=== PATIENT | female | born 1975 | race Caucasian/White ===

== ENCOUNTER → 2016-04-10 | Outpatient (REF) | payer OTHER ==
[~2016-04-10] MED LIST: /BACIOPOI; /TIOT18INH; ACET50TA PO; ACYC800T PO; BIOTPOW20 PO; IRON CR PO; LIPI10TA; METH-29; NEUR300C PO; OMEP40CA2 PO; PRED20TA; PROV90AE; VICO5TAB16 PO; VICODINES TAB; VITA100072 PO; WOMETAB4 PO
== END ==
LOC: M LAB REF 18:54
PROVIDERS: ATTEND Physician Assistant
DX: J02.9 Acute pharyngitis, unspecified (principal)

== ENCOUNTER 2016-07-22 19:33 | Inpatient (IN) | payer OTHER ==
[~2016-07-22] VITALS: Ht 165.1 cm; Wt 80.0 kg
[2016-07-22] MEDS ORDERED: RANI15TA PO (19:45)
[2016-07-22] MEDS ORDERED: FERR325T3 PO (19:45)
[2016-07-22] MEDS ORDERED: PANT40TA2 PO (19:45)
[2016-07-22] MEDS ORDERED: ONDANSETRON 4MG/2ML VIAL (J2405) IV ONE (20:30)
[2016-07-22] MEDS ORDERED: NS 1,000 ML IV ONE ×2 (20:30→22:30)
[2016-07-22] MEDS: MORPHINE 4 MG/ML 1ML SYRINGE IV PRN ×2 (20:35→22:28)
[2016-07-22 20:40] LABS: BASO % 0.5 % (0.0-1.0); EOS # 0.1 K/mm3 (0.0-0.50); EOS % 1.9 % (0.0-3.0); LARGE UNSTAINED CELL # 0.1 K/mm3 (0.0-0.4); LARGE UNSTAINED CELL % 2.9 % (0.0-4.0); LYMPH # 1.7 K/mm3 (1.5-4.5); LYMPH % 33.4 % (24.0-44.0); MEAN CORPUSCULAR HEMOGLOBIN 23.9 pg (27.0-33.0); MEAN CORPUSCULAR HGB CONC 31.9 g/dl (32.0-36.5); MONO # 0.4 K/mm3 (0.0-0.8); MONO % 7.8 % (0.0-5.0); NEUTROPHILS # 2.5 K/mm3 (1.8-7.7); NEUTROPHILS % 53.5 % (36.0-66.0); PLATELET COUNT, AUTOMATED 295 k/mm3 (150-450); RED CELL DISTRIBUTION WIDTH 14.5 % (11.5-14.5); WHITE BLOOD COUNT 4.7 K/mm3 (4.0-10.0)
[2016-07-22 21:00] LABS: CONTROL LINE HCG INT CTR LINE PRESENT
[2016-07-22 21:07] LABS: ALBUMIN 3.8 GM/DL (3.2-5.2); ALBUMIN/GLOBULIN RATIO 1.19 (1.00-1.93); ALKALINE PHOSPHATASE 104 U/L (45-117); ALT/SGPT 26 U/L (12-78); AMYLASE 73 U/L (25-115); ANION GAP 5 MEQ/L (8-16); AST/SGOT 18 U/L (15-37); BILIRUBIN,DIRECT 0.2 MG/DL (0.0-0.2); BILIRUBIN,TOTAL 0.9 MG/DL (0.2-1.0); BLOOD UREA NITROGEN 9 MG/DL (7-18); CALCIUM LEVEL 8.3 MG/DL (8.5-10.1); CARBON DIOXIDE LEVEL 27 MEQ/L (21-32); CHLORIDE LEVEL 107 MEQ/L (98-107); CREATININE FOR GFR 0.71 MG/DL (0.55-1.02); GLOMERULAR FILTRATION RATE > 60.0 (>58); GLUCOSE, FASTING 91 MG/DL (70-105); POTASSIUM SERUM 3.6 MEQ/L (3.5-5.1); SODIUM LEVEL 139 MEQ/L (136-145)
[2016-07-22] MEDS ORDERED: ISOVUE-370 76% 100ML VIAL (Q9967) As Ordered ONE (21:22)
--- NOTE | 2016-07-22 21:50 | REPUSA ---
CT of the abdomen and pelvis with contrast Clinical statement: Pain. Technique: Multiple axial CT images were obtained from the base of the lungs through the floor of the pelvis utilizing 5 mm axial slices after administration of nonionic intravenous contrast. Coronal an d sagittal reconstructions were also obtained. Comparison: 02/12/2015. Findings: Chest: The visualized lung bases are clear. Abdomen: The spleen, pancreas, kidneys, gallbladder, and adrenal glands are unremarkable. Surgical ch anges from gastric bypass are noted. There is too small ill-defined low attenuation lesions within th e right lobe of the liver, too small to characterize. The aorta is within normal limits. There is no evidence of abdominal lymphadenopathy or ascites. Pelvis: The bowel is unremarkable, with no obstructive or inflammatory changes. The appendix is cecil l. The urinary bladder is within normal limits. The other pelvic structures appear grossly intact. Th ere is no evidence of pelvic lymphadenopathy. There is a small on of free fluid in the cul-de-sac. Bones: There are no suspicious osseous abnormalities seen. Impression: 1. Postsurgical changes from gastric bypass appear grossly stable. 2. No obstructive or inflammatory bowel changes.
--- NOTE | 2016-07-22 21:52 | REP ---
Clinical: Epigastric pain . Comparison: 10/24/2013 . Technique: PA and lateral. Findings: The mediastinum and cardiac silhouette are normal. The lung nur are clear and without acute consolidation, effusion, or pneumothorax. The skeletal structures are intact and normal. No free air below the diaphragm. Impression: 1. No acute cardiopulmonary process. Signed by Christopher Naraynaan MD 07/22/2016 09:44 P
[2016-07-22] MEDS ORDERED: B121000T PO (22:42)
[2016-07-22] MEDS ORDERED: VITMTA PO (22:42)
[2016-07-23] MEDS ORDERED: NS 1,000 ML IV SCH (00:38)
[2016-07-23] MEDS ORDERED: PERCOCET 5MG/325MG TAB PO PRN ×2 (00:45)
[2016-07-23] MEDS ORDERED: ONDANSETRON 4MG/2ML VIAL (J2405) IV PRN (00:45)
--- NOTE | 2016-07-23 01:26 | HPE ---
DATE OF ADMISSION: 07/23/2016 PRIMARY CARE PHYSICIAN: Luci Kimble SURGEON: Dr. Velázquez CHIEF COMPLAINT: Abdominal pain. HISTORY OF PRESENT ILLNESS: The patient is a 41-year-old female with a long history of episodes of acute on chronic abdominal pain. She did have a gastric bypass in 2010, and following the procedure she had a perforated viscus. She also is known to have had an upper gastrointestinal (GI) bleeding 2013 with an ulcer at the gastrojejunal anastomosis site. The patient refused to see her gastric bypass surgeon, and is currently a patient of Dr. Velázquez, who has been following her for her abdominal issues. The patient states for the last four days she has had mid epigastric burning sensation with intermittent episodes of diarrhea. No emesis. She tells me that her diarrhea has been pure black water. She has not had any in 24 hours, and she has had decreased by mouth intake secondary to the significant abdominal pain, which is worsened by eating, but her pain is fairly constant and persistent without alleviating or colicky nature. She denies fevers, chills, recent travel, change in diet or medications. PAST MEDICAL HISTORY: 1. Iron deficiency anemia. 2. Asthma. 3. Obstructive sleep apnea, cured by gastric bypass. 4. Dyslipidemia. 5. Peptic ulcer. 6. Perforated viscus. ALLERGIES: No known drug allergies. SURGICAL HISTORY: 1. Gastric bypass in 2010. 2. Dilatation and curettage times two in 1996. 3. Tubal ligation. 4. Right knee arthroscopy. 5. Tonsillectomy and adenoidectomy. 6. Colonoscopy in 2013. 7. Left knee surgery in 2014. SOCIAL HISTORY: The patient denies alcohol, tobacco, or illicit drug use. 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 She is accompanied in the emergency room by her mother. HOME MEDICATIONS: - Protonix 40 mg daily - B12 at 1000 mcg daily - ferrous sulfate 325 mg daily - multivitamin one tablet daily - ranitidine 150 mg by mouth twice a day REVIEW OF SYSTEMS: Negative other than in history of present illness (HPI). FAMILY HISTORY: Noncontributory. OBJECTIVE: VITAL SIGNS: Temperature 98.2, pulse 77, respiratory rate 18, blood pressure (BP) 118/67, oxygen saturation 99% on room air. GENERAL: She is a middle-aged female, sitting up in bed holding her epigastric region. She appears to be mildly uncomfortable. HEENT: Cranial nerves II-XII are grossly intact. She has some mildly dry mucous membranes. No elevation in central venous pressure (CVP). CARDIOVASCULAR: S1, S2, regular. RESPIRATORY: Clear. ABDOMEN: Bowel sounds are present but diminished. There is tenderness in the epigastric region but otherwise is fairly nontender. EXTREMITIES: No clubbing, cyanosis, or edema. LABORATORY STUDIES: WBC 4.7, hemoglobin 10.1, hematocrit 31.5, platelet count 295. Chemistry panel: Sodium 139, potassium 3.6, chloride 107, bicarbonate 27, BUN 9, creatinine 0.7, lactic acid 0.6. test is negative. Lipase within normal limits. Urinalysis essentially unremarkable. Blood cultures and urine cultures are pending. IMAGING: The patient did have a CT scan of the abdomen and pelvis, which revealed post surgical changes from gastric bypass. Grossly stable. No obstructive or inflammatory changes. She also did have a chest x-ray, which revealed no acute cardiopulmonary process. ASSESSMENT AND PLAN: This is a 41-year-old female with acute on chronic abdominal pain. 1. Acute on chronic abdominal pain in the epigastric region. I did have the chance to discuss the case with Dr. Srinivasan of general surgery, who will see the patient in consultation. There was concern that it may be related to gastroenteritis; however, I feel this may be less likely, given the persistence of symptoms and no other sick contacts and nature of her symptoms. She tells me she felt similarly with her previous episodes of gastrointestinal (GI) bleeding with gastroesophageal (GE) ulcer. I suspect this may be in the early phase, as Dr. Srinivasan does. The patient will be admitted to the medical/surgical floor. We will keep her nothing by mouth, place her on intravenous (IV) proton pump inhibitor (PPI) twice a day. Continue her Xanax. Also start her on Carafate every 6 hours. We will keep her nothing by mouth. Check an occult stool for blood. If her symptoms begin to priya, would consider discontinuing IV pain medications and advancing her to a clear liquid diet; however, should they not resolve, should consider endoscopy. Will check a GI polymerase chain reaction (PCR) panel to rule out any infectious etiology and provider her with IV fluids. 2. Status post gastric bypass. Continue with B12, multivitamin, vitamin D. 3. Iron deficiency anemia. Continue with ferrous sulfate. Will check occult stool for blood to rule out any acute bleeding. 4. Deep vein thrombosis (DVT) prophylaxis. Sequentials and thromboembolic deterrents (TEDs). Will hold off pharmacological agents for the time being. DISPOSITION: The patient is admitted to the medical/surgical floor to Dr. Solis's service, who will continue following the patient at 7 a.m. with general surgery consultation from Dr. Srinivasan.
[2016-07-23 01:40] LABS: ERYTHROCYTE SEDIMENTATION RATE 25 mm/hr (0-20)
[2016-07-23] MEDS: MORPHINE 2 MG/ML 1ML SYRINGE IV PRN ×4 (02:14→10:45)
[2016-07-23 02:30] VITALS: BP 112/64
[2016-07-23] MEDS: SUCRALFATE 1 GM TAB PO SCH ×4 (03:14→17:28)
[2016-07-23 04:00] VITALS: BP 100/58
--- NOTE | 2016-07-23 07:00 | CR ---
DATE OF CONSULTATION: 07/22/2016 REASON FOR CONSULTATION: Abdominal pain. HISTORY OF PRESENT ILLNESS The patient is a 41-year-old woman who presented to the emergency department at 1933 on 07/22 complaining of abdominal pain. She reported that she had developed this pain on Thursday, 07/20, epigastric pain that she describes now is being constant. She reports that it is more uncomfortable when she is sitting up or standing. She has had some belching. She had one episode where she brought up some saliva on Friday 07/21. She did report some diarrhea on 07/21 as well. She reports that she has been chewing on ice a lot recently. The pain became severe in her epigastrium and she presented for evaluation. She has a history of a prior perforation of her gastrojejunal anastomosis approximately three years ago that required exploratory laparotomy and repair. She is still on some Protonix daily as well as some ranitidine daily. She had laboratory studies and a CT scan of the abdomen and pelvis obtained in the emergency department. I am now asked to evaluate the patient regarding her epigastric discomfort. ALLERGIES: The patient reports no known drug allergies. CURRENT MEDICATIONS: - ranitidine 150 mg by mouth twice daily - Protonix 40 mg by mouth daily - ferrous sulfate 325 mg by mouth daily - vitamin B12 1000 mcg by mouth daily - multivitamin daily PAST SURGICAL HISTORY: Her surgical history is significant for a Victoriano-en-Y gastric bypass back in about 2010. This was done by a Dr. Cunningham and Dottie Fofana. She has had an exploratory lap for perforated viscus, which turned out to be her perforated gastrojejunal ulcer back in 2013. She had several upper endoscopies done and has had a knee scope in the past. MEDICAL HISTORY: Patient has had surgery for obesity. Her medical history is otherwise significant for asthma. She apparently had sleep apnea that was improved after her gastric bypass. She has had dyslipidemia. FAMILY HISTORY: Is significant for diabetes and hypertension in her father, and her mother apparently had a brain aneurysm. SOCIAL HISTORY She is a former smoker. She is currently not employed according to the most recent records available. REVIEW OF SYSTEMS: Reveals no history of cardiac disease. She has no history of cough or wheezing or sputum production currently. She has had no dysuria or hematuria. She does report that her stool with her diarrhea yesterday was dark in color. She has not had any red rectal bleeding. She is not having any bone or joint issues. She denies any history of deep venous thrombosis (DVT) or pulmonary embolus. PHYSICAL EXAMINATION: Reveals a pleasant woman lying quietly on the hospital stretcher. She is alert, oriented and cooperative. Sclerae are anicteric. Her skin is warm and dry. Most recent vital signs showed temperature of 98.2 degrees with a pulse of 77, respirations of 18 and blood pressure of 106/64 with a pulse oximetry of 99% on room air. The patient's oral mucosa is moist. The sclerae are anicteric. Neck is supple without mass or bruit. Heart exam shows a regular rate and rhythm. The lungs were clear to auscultation bilaterally. The abdomen shows a generally flat abdomen. She has an old midline upper abdominal scar, as well as a couple of smaller trocar site type scars. Auscultation revealed active bowel sounds in all four quadrants, particularly in the upper quadrants. There is perhaps some minimal tympany to percussion in the left upper quadrant. The abdomen is soft throughout and without particular point tenderness. No masses appreciated. She does have little mild tenderness to palpation initially in the upper quadrants, but with continued palpation this seems to diminish. Lower extremities are without edema. She has palpable radial and pedal pulses. LABORATORY DATA: Laboratory studies include a CBC which shows a white count of 4.7 with a differential showing 53% neutrophils and 33% lymphocytes. Hemoglobin is 10 with a hematocrit of 31.5, and her platelet count is 295,000. I note in her records that going back even several years she has been mildly anemic with a low MCV. Her chemistry profile shows a sodium of 139, potassium 3.6, chloride 107, CO2 of 27, BUN of nine, creatinine 0.7 and a glucose of 91. Lactic acid of 0.6. Liver function tests are normal. Amylase and lipase were normal. HCG is negative. IMAGING STUDIES: The patient had a chest x-ray that was interpreted as showing no acute cardiopulmonary process. She had a CT scan of the abdomen and pelvis. This showed no free air or free fluid. There were postsurgical changes consistent with a previous gastric bypass. There is no evidence of his bowel obstruction. The efferent limb of her gastrojejunal anastomosis is somewhat dilated as is the usual appearance post surgery. IMPRESSION: Epigastric pain of unclear etiology. RECOMMENDATIONS: At this point, there is no evidence for an intestinal perforation or obstruction. There is no sign of acute intra-abdominal inflammatory change. Her white blood cell count is normal with a normal differential. She is mildly anemic with a low MCV suggesting iron deficiency. Certainly there are many potential causes for her epigastric discomfort. She certainly could have an episode of infectious gastroenteritis just like anyone who has not had a gastric bypass. There is no sign of definite intestinal obstruction. She certainly could have some gastritis or developing ulcer of her gastric pouch although she is on two antacid medications and this would hopefully make this less likely. She certainly does not have any indication for surgical intervention or surgical admission at this time. If the patient has such severe discomfort that admission is felt to be necessary, then admission by the hospitalist would certainly be a reasonable thought.
[2016-07-23 08:00] VITALS: BP 106/55
--- NOTE | 2016-07-23 08:20 | IPNPDOC ---
Subjective Date Seen The patient was seen on 07/23/16. Subjective Chief Complaint/HPI The patient is a 41-year-old female admitted with a reason for visit of Abdominal Pain. Events since last encounter Prior hx of PUD. states symptoms unimproved. No desire to eat ro drink, + nausea without vomiting. Constitutional: Denies: Chills, Fever, Night Sweats Pulmonary: Denies: Dyspnea, Cough Cardiovascular: Denies: Chest Pain, Palpitations, Orthopnea, Paroxysmal Noc. Dyspnea, Lt Headedness Gastrointestinal: Reports: Nausea, Abdominal Pain, Denies: Vomiting, Diarrhea, Constipation Objective Physical Examination General Exam: Positive: Alert, No Acute Distress ENT Exam: Positive: Atraumatic, Mucous membr. moist/pink, Pharynx Normal Neck Exam: Positive: Supple, Negative: JVD, thyromegaly Chest Exam: Positive: Clear to auscultation, Normal air movement Heart Exam: Positive: Rate Normal, Regular Rhythm, Normal S1, Normal S2, Negative: Murmurs, Rubs Abdomen Exam: Positive: Normal bowel sounds, Soft, Tenderness (epigastric region), Negative: Hepatospenomegaly Extremity Exam: Positive: Normal pulses, Negative: Clubbing, Cyanosis, Edema Skin Exam: Positive: Nl turgor and temperature, Negative: Rash, Breakdown Psych Exam: Positive: Mental status NL, Mood NL, Oriented x 3 Assessment /Plan Problems (1) Abdominal pain Status: Acute Problem Specific Plan: Monitor Clinically Problem Text: IVF for hydration. (2) PUD (peptic ulcer disease) Problem Text: IV Protoniix, Carafate qid. UGI ordered for today. (3) Anemia Status: Chronic Problem Specific Plan: Monitor Clinically Problem Text: hgb appears at baseline. Probable iron deficiency (4) Hx of gastric bypass Status: Chronic Response to Treatment: Stable Problem Specific Plan: Monitor Clinically Plan/VTE VTE Prophylaxis Ordered?: Yes (Lovenox) Plan Family Medicine Attending Note: I saw Ms. Mauricio early this morning; I d/w Leanna Jara NP and I agree with her note above. Patient had fairly mild tenderness in her epigastrium upon exam this morning; she is also c/o ongoing nausea. She told me that she was seen by Dr. Srinivasan yesterday and that he told her that Dr. Velázquez would see her today - we will await his recommendations. UGI performed today and results are pending. Continue NPO with IVF hydration as she may need to have an EGD if pain does not resolve. (KES ) VS, I&O, 24H, Fishbone Vital Signs/I&O Vital Signs Date Time Temp Pulse Resp B/P (MAP) Pulse Ox O2 Delivery O2 Flow Rate FiO2 07/23/16 07:48 18 07/23/16 04:00 98.9 79 100/58 (72) 98 Room Air I&O- Last 24 Hours up to 6 AM 07/23/16 06:00 Intake Total 1000 ml Output Total 0 ml Balance 1000 ml Laboratory Data 24H LABS Laboratory Tests 2 07/22/16 20:29: White Blood Count 4.7, Red Blood Count 4.20, Hemoglobin 10.1L, Hematocrit 31.5L , Mean Corpuscular Volume 75.0L, Mean Corpuscular Hemoglobin 23.9L, Mean Corpuscular Hemoglobin Concent 31.9L, Red Cell Distribution Width 14.5, Platelet Count 295, Neutrophils (%) (Auto) 53.5, Lymphocytes (%) (Auto) 33.4, Monocytes (%) (Auto) 7.8H, Eosinophils (%) (Auto) 1.9, Basophils (%) (Auto) 0.5 , Neutrophils # (Auto) 2.5, Lymphocytes # (Auto) 1.7, Monocytes # (Auto) 0.4, Eosinophils # (Auto) 0.1, Basophils # (Auto) 0.0, Large Unclassified Cells % 2.9 , Large Unclassified Cells # 0.1, Erythrocyte Sedimentation Rate 25H, Anion Gap 5L, Glomerular Filtration Rate > 60.0, Lactic Acid Level 0.6, Calcium Level 8.3L , Aspartate Amino Transf (AST/SGOT) 18, Alanine Aminotransferase (ALT/SGPT) 26, Alkaline Phosphatase 104, Total Bilirubin 0.9, Direct Bilirubin 0.2, C-Reactive Protein, Quantitative < 0.30, Total Protein 7.0, Albumin 3.8, Albumin/Globulin Ratio 1.19, Amylase Level 73, Lipase 233, Human Chorionic Gonadotropin, Qual NEGATIVE 07/22/16 20:31: Urine Appearance CLEAR, Urine Color COLORLESS, Urine pH 6.0, Urine Specific [place] 1.001L, Urine Protein NEGATIVE, Urine Glucose (UA) NEGATIVE, Urine Ketones NEGATIVE, Urine Urobilinogen 0.2, Urine Bilirubin NEGATIVE, Urine Leukocyte Esterase NEGATIVE, Urine Blood NEGATIVE, Urine Nitrite NEGATIVE, Urine WBC (Auto) 0, Urine RBC (Auto) 0, Urine Hyaline Casts (Auto) 0, Urine Bacteria (Auto) NEGATIVE, Urine Squamous Epithelial Cells 0, Urine Sperm (Auto) CBC/BMP Laboratory Tests 07/22/16 20:29 Red Blood Count 4.20, Mean Corpuscular Volume 75.0 L, Mean Corpuscular Hemoglobin 23.9 L, Mean Corpuscular Hemoglobin Concent 31.9 L, Red Cell Distribution Width 14.5, Neutrophils (%) (Auto) 53.5, Lymphocytes (%) (Auto) 33.4, Monocytes (%) (Auto) 7.8 H, Eosinophils (%) (Auto) 1.9, Basophils (%) ( Auto) 0.5, Neutrophils # (Auto) 2.5, Lymphocytes # (Auto) 1.7, Monocytes # (Auto ) 0.4, Eosinophils # (Auto) 0.1, Basophils # (Auto) 0.0 Microbiology Microbiology 07/22/16 Blood Culture, Received Pending 07/22/16 Blood Culture, Received Pending 07/22/16 Urine Culture, Received Pending Leanna Jara July 23, 2016 08:20 YESY VALENTINO MD July 23, 2016 17:25
[2016-07-23] MEDS: CYANOCOBALAMIN 500 MCG TAB PO SCH (09:00)
[2016-07-23] MEDS: MULTIVITAMINS/MINERALS THERAP 1 TAB PO SCH (09:00)
[2016-07-23] MEDS ORDERED: ENOXAPARIN 40 MG/0.4 ML SYRINGE (J1650) SC SCH (09:00)
[2016-07-23] MEDS: PANTOPRAZOLE 40MG INJ (PROTONIX) (C9113) IV SCH ×2 (09:31→22:00)
[2016-07-23] MEDS ORDERED: ONDANSETRON 4MG/2ML VIAL (J2405) IV ONE (11:00)
[2016-07-23 12:00] VITALS: BP 107/59
[2016-07-23] MEDS ORDERED: E-Z-HD 98% w/w 340GM SUSP BTL As Ordered ONE (12:23)
[2016-07-23] MEDS ORDERED: E-Z-GAS II EFFERVESCENT PACKET (SODIUM BICARB./CITRIC ACID/SIMETHICONE) As Ordered ONE (12:23)
[2016-07-23] MEDS ORDERED: E-Z-PAQUE 96% w/w SUSP 176GM BTL As Ordered ONE (12:23)
[2016-07-23] MEDS ORDERED: NS 500 ML IV ONE (13:00)
[2016-07-23] MEDS: FAMOTIDINE 20 MG TAB PO SCH ×2 (14:49→22:00)
[2016-07-23] MEDS: FERROUS SULFATE 325MG TAB PO SCH (14:49)
[2016-07-23] MEDS: ACETAMINOPHEN TAB 650MG DOSE (2X325MG) PO PRN ×2 (15:06→22:00)
[2016-07-23 16:00] VITALS: BP 102/65
[2016-07-23] MEDS: KCL 20MEQ IN 0.45NS 1000ML 1,000 ML IV SCH (17:22)
--- NOTE | 2016-07-23 17:42 | REP ---
UPPER GI, SINGLE CONTRAST: The procedure was performed under the direct supervision of Dr. Hwang. The images were reviewed with Dr. Hwang. The assistant golf professional film shows no organomegaly or pathological masses. The intestinal gas pattern is nonspecific. There are surgical clips and bowel sutures noted in the epigastric region and left abdomen consistent with the patient's history of gastric bypass. Liquid barium was given in the erect and prone oblique positions. The oral and pharyngeal stages of deglutition are unremarkable. Esophageal transport is prompt and efficient and there is no esophagitis, stricture, or mucosal ring. There is a sliding type hiatal hernia present. Gastroesophageal reflux not demonstrated on this examination. Contrast passes through the stomach remnant and anastomosis without delay. There is no evidence of gastritis, neoplasm or ulcer disease. There is no evidence of stricture or obstruction. The visualized portion of the proximal small bowel appears normal in course and caliber. IMPRESSION: Postsurgical changes consistent with the patient's history of gastric bypass. There is a sliding type hiatal hernia present. Otherwise, unremarkable single contrast upper GI examination. 2 minutes and 32 seconds of fluoroscopy time was utilized for this procedure. Reviewed by KENN Mina 07/24/2016 08:26 AEdited and Signed by Titus Hwang MD 07/24/2016 07:21 P
[2016-07-24] VITALS: BP 105/68
[2016-07-24] MEDS: KCL 20MEQ IN 0.45NS 1000ML 1,000 ML IV SCH ×3 (00:22→21:44)
[2016-07-24] MEDS: SUCRALFATE 1 GM TAB PO SCH ×5 (00:22→23:18)
[2016-07-24] MEDS: MORPHINE 2 MG/ML 1ML SYRINGE IV PRN (05:47)
[2016-07-24 06:50] LABS: MEAN CORPUSCULAR HEMOGLOBIN 24.3 pg (27.0-33.0); MEAN CORPUSCULAR HGB CONC 31.9 g/dl (32.0-36.5); RED CELL DISTRIBUTION WIDTH 14.7 % (11.5-14.5); WHITE BLOOD COUNT 3.1 K/mm3 (4.0-10.0)
[2016-07-24 07:05] LABS: ANION GAP 9 MEQ/L (8-16); BLOOD UREA NITROGEN 6 MG/DL (7-18); CALCIUM LEVEL 7.9 MG/DL (8.5-10.1); CARBON DIOXIDE LEVEL 23 MEQ/L (21-32); CHLORIDE LEVEL 109 MEQ/L (98-107); CREATININE FOR GFR 0.47 MG/DL (0.55-1.02); GLOMERULAR FILTRATION RATE > 60.0 (>58); GLUCOSE, FASTING 71 MG/DL (70-105); POTASSIUM SERUM 3.7 MEQ/L (3.5-5.1); SODIUM LEVEL 141 MEQ/L (136-145)
[2016-07-24 08:00] VITALS: BP 117/66
--- NOTE | 2016-07-24 08:26 | IPNPDOC ---
Subjective Date Seen The patient was seen on 07/24/16. Subjective Chief Complaint/HPI The patient is a 41-year-old female admitted with a reason for visit of Abdominal Pain. Events since last encounter Pt cont to c/o epigastric pain which is constant, denies N/V. She also this morning is c/o RUQ pain which has just started, dull ache, burning sensation. Denies fevers or chills. General: Denies: Fatigue Constitutional: Denies: Chills, Fever ENT: Denies: Head Aches Pulmonary: Denies: Dyspnea, Cough Cardiovascular: Denies: Chest Pain, Palpitations Gastrointestinal: Denies: Nausea, Vomiting, Diarrhea Neurological: Denies: Weakness Psych: Reports: Mood Normal Objective Physical Examination General Exam: Positive: Alert, No Acute Distress ENT Exam: Positive: Atraumatic, Mucous membr. moist/pink, Pharynx Normal Neck Exam: Positive: Supple, Negative: JVD, thyromegaly Chest Exam: Positive: Clear to auscultation, Normal air movement Heart Exam: Positive: Rate Normal, Regular Rhythm, Normal S1, Normal S2, Negative: Murmurs, Rubs Abdomen Exam: Positive: Normal bowel sounds, Soft, Tenderness (minimal epigastric tenderness, mild RLQ, LLQ tenderness), Negative: Hepatospenomegaly Extremity Exam: Positive: Normal pulses, Negative: Clubbing, Cyanosis, Edema Skin Exam: Positive: Nl turgor and temperature, Negative: Rash, Breakdown Psych Exam: Positive: Mental status NL, Mood NL, Oriented x 3 Assessment /Plan Problems (1) Abdominal pain Status: Acute Problem Specific Plan: Monitor Clinically Problem Text: Pain persists. She is on IVF for hydration, maintenance. She has been kept NPO since admission. Given her c/o new onset RUQ pain will obtain US of the RUQ, once this is complete, will start with clears, and can advance as tolerated. Dr Srinivasan saw the pt on admission and felt she was non surgical and therefore surgery is not following the pt. She has had CT A & P, and UGI without any acute findings. May need to consider EGD however this can be done as an outpt. She is also on Protonix IV BID and Carafate. (2) PUD (peptic ulcer disease) Problem Text: Cont with Protonix IV BID, Carafate, UGI 07/23 benign. (3) Anemia Status: Chronic Problem Specific Plan: Monitor Clinically Problem Text: hgb appears at baseline. Probable iron deficiency (4) Hx of gastric bypass Status: Chronic Response to Treatment: Stable Problem Specific Plan: Monitor Clinically Plan/VTE VTE Prophylaxis Ordered?: Yes (Lovenox) Plan Family Medicine Attending Note: Patient seen and examined; I d/w Cosme Sinai, and I agree with her note as above. RUQ ultrasound shows mild CBD dilatation of uncertain etiology. Patient denies any epigastric or RUQ pain at rest; she states that she has "stretching sensation" in RUQ only when she stands up. She is hungry and she has a headache that she thinks is related to not eating. I d/ w patient results of ultrasound. Abdomen is nontender. I will start her on clear liquid diet and ADAT; if no pain with eating, we can discharge tomorrow. If pain recurs, we will make her NPO again and consult gastroenterology (KES) VS, I&O, 24H, Fishbone Vital Signs/I&O Vital Signs Date Time Temp Pulse Resp B/P (MAP) Pulse Ox O2 Delivery O2 Flow Rate FiO2 07/24/16 05:57 18 07/24/16 00:00 99.4 63 105/68 (80) 97 Room Air I&O- Last 24 Hours up to 6 AM 07/24/16 06:00 Intake Total 2275 ml Output Total 2600 ml Balance -325 ml Laboratory Data 24H LABS Laboratory Tests 2 07/24/16 06:25: Anion Gap 9, Glomerular Filtration Rate > 60.0, Blood Urea Nitrogen 6L, Creatinine 0.47L, Sodium Level 141, Potassium Level 3.7, Chloride Level 109H, Carbon Dioxide Level 23, Calcium Level 7.9L CBC/BMP Laboratory Tests 07/24/16 06:25 Red Blood Count 3.66 L, Mean Corpuscular Volume 76.0 L, Mean Corpuscular Hemoglobin 24.3 L, Mean Corpuscular Hemoglobin Concent 31.9 L, Red Cell Distribution Width 14.7 H, Calcium Level 7.9 L Microbiology Microbiology 07/22/16 Blood Culture - Preliminary, Resulted No growth after 24 hours . All specim... 07/22/16 Blood Culture - Preliminary, Resulted No growth after 24 hours . All specim... 07/22/16 Urine Culture, Received Pending COSME MEADE PA-C Jul 24, 2016 08:26 YESY VALENTINO MD Jul 24, 2016 13:42
[2016-07-24] MEDS: PANTOPRAZOLE 40MG INJ (PROTONIX) (C9113) IV SCH ×2 (08:38→20:04)
[2016-07-24] MEDS: ACETAMINOPHEN TAB 650MG DOSE (2X325MG) PO PRN ×2 (11:13→17:27)
[2016-07-24] MEDS: MULTIVITAMINS/MINERALS THERAP 1 TAB PO SCH (11:14)
[2016-07-24] MEDS: FAMOTIDINE 20 MG TAB PO SCH ×2 (11:14→20:04)
[2016-07-24] MEDS: FERROUS SULFATE 325MG TAB PO SCH (11:14)
[2016-07-24] MEDS: CYANOCOBALAMIN 500 MCG TAB PO SCH (11:15)
--- NOTE | 2016-07-24 11:39 | REP ---
REASON: Right upper quadrant pain. COMPARISON EXAMINATION: None. Multiple sonographic images of the liver show no evidence of intrahepatic ductal dilatation. The common bile duct is mildly dilated measuring 6 mm. Seen in the hepatic parenchyma in the right lobe of the liver there is a 1.4 cm sized echogenic focus which exhibits increased through transmission consistent with a hemangioma. There is a larger echogenic focus also seen in the right lobe of the liver measuring 1.8 cm having similar imaging characteristics and also consistent with a hemangioma. Multiple ultrasonographic images of the gallbladder show no abnormalities. The imaged portion of the pancreas and right kidney are unremarkable. IMPRESSION: There is mild common bile duct diltation of uncertain etiology. This should be correlated clinically with appropriate followup. Hepatic hemangiomas suspected as described above. This could be confirmed with pre and postcontrast enhanced hepatic CT with dynamic and delayed imaging. Signed by Thanh Garcia DO 07/24/2016 12:24 P
[2016-07-24 12:00] VITALS: BP 116/67
[2016-07-24 16:00] VITALS: BP 116/61
[2016-07-24 20:00] VITALS: BP 110/57
[2016-07-25] VITALS: BP 112/63
[2016-07-25] MEDS: SUCRALFATE 1 GM TAB PO SCH (06:33)
[2016-07-25 06:44] LABS: MEAN CORPUSCULAR HEMOGLOBIN 24.7 pg (27.0-33.0); MEAN CORPUSCULAR VOLUME 74.8 fl (80.0-96.0); RED CELL DISTRIBUTION WIDTH 14.7 % (11.5-14.5); WHITE BLOOD COUNT 3.5 K/mm3 (4.0-10.0)
[2016-07-25 06:55] LABS: ANION GAP 7 MEQ/L (8-16); BLOOD UREA NITROGEN 7 MG/DL (7-18); CALCIUM LEVEL 7.6 MG/DL (8.5-10.1); CARBON DIOXIDE LEVEL 24 MEQ/L (21-32); CHLORIDE LEVEL 111 MEQ/L (98-107); CREATININE FOR GFR 0.58 MG/DL (0.55-1.02); GLOMERULAR FILTRATION RATE > 60.0 (>58); GLUCOSE, FASTING 77 MG/DL (70-105); SODIUM LEVEL 142 MEQ/L (136-145)
[2016-07-25 08:00] VITALS: BP 124/68
[2016-07-25] MEDS: FAMOTIDINE 20 MG TAB PO SCH (08:31)
[2016-07-25] MEDS: FERROUS SULFATE 325MG TAB PO SCH (08:31)
[2016-07-25] MEDS: PANTOPRAZOLE 40MG INJ (PROTONIX) (C9113) IV SCH (08:32)
[2016-07-25] MEDS: CYANOCOBALAMIN 500 MCG TAB PO SCH (08:32)
[2016-07-25] MEDS: MULTIVITAMINS/MINERALS THERAP 1 TAB PO SCH (08:32)
[2016-07-25] MEDS: KCL 20MEQ IN 0.45NS 1000ML 1,000 ML IV SCH (09:00)
--- NOTE | 2016-07-25 20:15 | DSES ---
DATE OF ADMISSION: 07/23/2016 DATE OF DISCHARGE: 07/25/2016 Primary care provider (PCP) is Luci Kimble. Attending today is Dr. Minnie Solis. Consultants include: Dr. Herb Srinivasan HISTORY: This is a 41-year-old female patient who presented to [facility] emergency room with 4 days of mid epigastric burning sensation with intermittent episodes of diarrhea. No emesis. Denied any further in the last 24 hours, although her oral intake had been significantly decreased secondary to the abdominal pain, which was worsened by eating, and therefore, she decided to present to the emergency room. On evaluation in the emergency room, Dr. Srinivasan was consulted from general surgery, who felt as though this was likely secondary to a gastroenteritis and not surgically related. She was admitted to the medical-surgical floor by the hospitalist, kept nothing by mouth on intravenous (IV) fluids with IV proton pump inhibitor (PPI) as she does have a history of gastrointestinal (GI) bleeding and gastroesophageal ulcer. She is also status post gastric bypass in 2010. During her hospitalization, she did remain medically stable. She had a CT of the abdomen and pelvis in the emergency room, which was benign. Upper GI series was also ordered, which was consistent with post-surgical changes associated with gastric bypass. She also complained of some right upper quadrant pain resulting in an ultrasound being ordered, which showed some mild common bile duct dilatation of uncertain etiology, as well as hepatic hemangiomas. Her amylase and lipase were normal. Her labs all remained normal except for anemia, which is related to some iron deficiency associated with her history of gastric bypass. Her anemia worsened, likely secondary to hydration. She has been started on a clear liquid diet and advanced to a full regular diet, which she is tolerating well. She is eager to return home. She has no additional concerns at this time. DIAGNOSES: Include: Abdominal pain, likely secondary to gastroenteritis. Peptic ulcer disease. Anemia of chronic disease with iron deficiency, B12 deficiency. History of gastric bypass. DISCHARGE MEDICATIONS: Include: - vitamin B12 1000 mcg daily - ferrous sulfate 325 mg daily - multivitamin one tablet daily - Protonix 40 mg daily - ranitidine 150 mg twice daily DISCHARGE PLAN: Will be to followup with Luci Kimble, her primary care provider, in 1 week. Activity should be as tolerated. Diet should be regular.
== END 2016-07-25 10:55 | disposition home or self-care (01) | DRG 251 ==
LOC: M ED 20:37 → M ED INP 07-23 00:38 → M PED 07-23 02:29
PROVIDERS: ADMIT Internal Medicine; ATTEND Family Medicine
DX: R10.13 Epigastric pain (principal); E53.8 Deficiency of other specified B group vitamins; K28.9 Gastrojejunal ulcer, unspecified as acute or chronic, without hemorrhage or perforation; D50.9 Iron deficiency anemia, unspecified; Z98.84 Bariatric surgery status; Z79.899 Other long term (current) drug therapy; Z98.51 Tubal ligation status; Z82.49 Family history of ischemic heart disease and other diseases of the circulatory system; Z83.3 Family history of diabetes mellitus; Z87.891 Personal history of nicotine dependence

== ENCOUNTER → 2016-08-06 | Outpatient (REF) | payer OTHER ==
[~2016-08-06] MED LIST changes: +B121000T PO; +FERR325T3 PO; +PANT40TA2 PO; +RANI15TA PO; +VITMTA PO
[2016-08-06 17:02] LABS: BASO % 0.3 % (0.0-1.0); EOS # 0.1 K/mm3 (0.0-0.50); EOS % 2.4 % (0.0-3.0); LARGE UNSTAINED CELL # 0.1 K/mm3 (0.0-0.4); LARGE UNSTAINED CELL % 2.2 % (0.0-4.0); LYMPH # 1.2 K/mm3 (1.5-4.5); LYMPH % 25.7 % (24.0-44.0); MEAN CORPUSCULAR HEMOGLOBIN 24.1 pg (27.0-33.0); MEAN CORPUSCULAR HGB CONC 31.2 g/dl (32.0-36.5); MEAN CORPUSCULAR VOLUME 77.1 fl (80.0-96.0); MONO # 0.3 K/mm3 (0.0-0.8); NEUTROPHILS # 2.7 K/mm3 (1.8-7.7); NEUTROPHILS % 62.5 % (36.0-66.0); PLATELET COUNT, AUTOMATED 253 k/mm3 (150-450); RED CELL DISTRIBUTION WIDTH 15.3 % (11.5-14.5); WHITE BLOOD COUNT 4.3 K/mm3 (4.0-10.0)
[2016-08-06 18:34] LABS: ERYTHROCYTE SEDIMENTATION RATE 12 mm/hr (0-20)
[2016-08-09 00:06] LABS: Lyme Disease IgG/IgM Antibodie <0.91 ISR (0.00-0.90); Lyme Disease IgM Ab Quantitati <0.80 index (0.00-0.79)
== END ==
LOC: M LABDRAW1 15:51
PROVIDERS: ATTEND Orthopaedic Surgery
DX: M17.12 Unilateral primary osteoarthritis, left knee (principal)

== ENCOUNTER → 2016-08-21 | Outpatient (CLI) | payer OTHER ==
[~2016-08-21] VITALS: Ht 165.1 cm; Wt 73.5 kg
[~2016-08-21] MED LIST changes: +LIDOCAINE 2% INJ 100 MG/5 ML SDV (FOR ANES.) As Ordered ONE; +NS 1,000 ML IV ONE; +OXYC1TAB23 PO; +PROPOFOL 200 MG/20 ML VIAL As Ordered ONE
--- NOTE | 2016-08-21 08:07 | ROOR ---
Patient Name: Selma Mauricio Procedure Date: 08/21/2016 7:54 AM Date of : 1975 Age: 41 Room: [facility] Gender: Female Note Status: Finalized Procedure: Upper GI endoscopy Indications: Epigastric abdominal pain Providers: Roddy Velázquez Jr, MD Referring MD: DENNIS PHILLIPS MD Requesting Provider: Medicines: Propofol per Anesthesia Complications: No immediate complications. Procedure: Pre-Anesthesia Assessment: - Prior to the procedure, a History and Physical was performed, and patient medications and allergies were reviewed. The patient is competent. The risks and benefits of the procedure and the sedation options and risks were discussed with the patient. All questions were answered and informed consent was obtained. Patient identification and proposed procedure were verified by the physician and the nurse in the pre-procedure area and in the procedure room. Mental Status Examination: alert and oriented. Airway Examination: normal oropharyngeal airway and neck mobility. Respiratory Examination: clear to auscultation. CV Examination: normal. ASA Grade Assessment: II - A patient with mild systemic disease. After reviewing the risks and benefits, the patient was deemed in satisfactory condition to undergo the procedure. The anesthesia plan was to use moderate sedation / analgesia (conscious sedation). Immediately prior to administration of medications, the patient was re-assessed for adequacy to receive sedatives. The heart rate, respiratory rate, oxygen saturations, blood pressure, adequacy of pulmonary ventilation, and response to care were monitored throughout the procedure. The physical status of the patient was re-assessed after the procedure. The Endoscope was introduced through the mouth, and advanced to the jejunum. The upper GI endoscopy was accomplished without difficulty. The patient tolerated the procedure well. Findings: The upper third of the esophagus, middle third of the esophagus and lower third of the esophagus were normal. Evidence of a gastric bypass was found. A gastric pouch with a normal size was found containing elliott. The staple line appeared intact. The gastrojejunal anastomosis was characterized by ulceration. This was traversed. The examined jejunum was normal. Estimated blood loss: none. Impression: - Normal upper third of esophagus, middle third of esophagus and lower third of esophagus. - Gastric bypass with a normal-sized pouch and intact staple line. Gastrojejunal anastomosis characterized by ulceration. - Normal examined jejunum. - No specimens collected. Recommendation: - Discharge patient to home (ambulatory). - Return to my office in 2 weeks. Roddy Velázquez MD Roddy Velázquez Jr, MD 08/21/2016 8:07:01 AM This report has been signed electronically. Number of Addenda: 0 Note Initiated On: 08/21/2016 7:54 AM Estimated Blood Loss: Estimated blood loss: none.
[2016-08-21 08:30] VITALS: BP 96/55
== END | disposition home or self-care (01) ==
LOC: M OPP 06:59
PROVIDERS: ATTEND Surgery
DX: R10.13 Epigastric pain (principal); R11.0 Nausea; D64.9 Anemia, unspecified; Z98.84 Bariatric surgery status; Z98.0 Intestinal bypass and anastomosis status; K28.9 Gastrojejunal ulcer, unspecified as acute or chronic, without hemorrhage or perforation; K92.1 Melena; K58.9 Irritable bowel syndrome, unspecified; K21.9 Gastro-esophageal reflux disease without esophagitis; M19.90 Unspecified osteoarthritis, unspecified site; M25.60 Stiffness of unspecified joint, not elsewhere classified; R06.83 Snoring; G47.30 Sleep apnea, unspecified; Z79.899 Other long term (current) drug therapy; Z87.891 Personal history of nicotine dependence

== ENCOUNTER → 2016-09-09 | Outpatient (REF) | payer OTHER ==
[~2016-09-09] MED LIST changes: -LIDOCAINE 2% INJ 100 MG/5 ML SDV (FOR ANES.) As Ordered ONE; -NS 1,000 ML IV ONE; -PROPOFOL 200 MG/20 ML VIAL As Ordered ONE
[2016-09-09 20:05] LABS: BASO % 0.5 % (0.0-1.0); EOS # 0.2 K/mm3 (0.0-0.50); EOS % 3.5 % (0.0-3.0); LARGE UNSTAINED CELL # 0.2 K/mm3 (0.0-0.4); LARGE UNSTAINED CELL % 2.9 % (0.0-4.0); MEAN CORPUSCULAR HEMOGLOBIN 23.9 pg (27.0-33.0); MEAN CORPUSCULAR VOLUME 74.8 fl (80.0-96.0); MONO # 0.5 K/mm3 (0.0-0.8); MONO % 9.4 % (0.0-5.0); NEUTROPHILS # 2.5 K/mm3 (1.8-7.7); NEUTROPHILS % 47.7 % (36.0-66.0); PLATELET COUNT, AUTOMATED 267 k/mm3 (150-450); RED CELL DISTRIBUTION WIDTH 14.6 % (11.5-14.5); WHITE BLOOD COUNT 5.2 K/mm3 (4.0-10.0)
[2016-09-09 20:15] LABS: ALBUMIN 3.9 GM/DL (3.2-5.2); ALBUMIN/GLOBULIN RATIO 1.18 (1.00-1.93); ALKALINE PHOSPHATASE 96 U/L (45-117); ALT/SGPT 25 U/L (12-78); ANION GAP 5 MEQ/L (8-16); AST/SGOT 16 U/L (15-37); BLOOD UREA NITROGEN 9 MG/DL (7-18); CALCIUM LEVEL 8.6 MG/DL (8.5-10.1); CARBON DIOXIDE LEVEL 27 MEQ/L (21-32); CHLORIDE LEVEL 108 MEQ/L (98-107); CREATININE FOR GFR 0.73 MG/DL (0.55-1.02); FERRITIN 6 NG/ML (8-252); GLOMERULAR FILTRATION RATE > 60.0 (>58); GLUCOSE, FASTING 74 MG/DL (70-105); PERCENT SATURATION 7.5 % (13.2-37.4); POTASSIUM SERUM 4.7 MEQ/L (3.5-5.1); SODIUM LEVEL 140 MEQ/L (136-145); TOTAL IRON BINDING CAPACITY 544 UG/DL (250-450); TOTAL PROTEIN 7.2 GM/DL (6.4-8.2)
[2016-09-09 20:40] LABS: ERYTHROCYTE SEDIMENTATION RATE 15 mm/hr (0-20)
== END ==
LOC: M SFHCADAM 16:55
PROVIDERS: ATTEND Physician Assistant
DX: D69.0 Allergic purpura (principal); K92.1 Melena; K25.4 Chronic or unspecified gastric ulcer with hemorrhage

== ENCOUNTER 2016-09-24 08:39 | Day surgery (SDC) | payer OTHER ==
[2016-09-24] VITALS (8 sets, daily range): BP systolic 100–120; BP diastolic 54–73
[~2016-09-24] VITALS: Ht 165.1 cm; Wt 74.8 kg
[~2016-09-24 08:39] MED LIST changes: +BUPIVACAINE HCL 0.25% 30 ML VIAL As Ordered ONE; +GLYCOPYRROLATE INJ 0.2 MG/ML 2 ML VIAL As Ordered ONE; +LIDOCAINE 2% INJ 100 MG/5 ML SDV (FOR ANES.) As Ordered ONE; +METHYLENE BLUE 0.5% (5MG/ML) 10 ML AMP (PROVAYBLUE)(Q9968 PER 1MG) As Ordered ONE; +MIDAZOLAM INJ 2 MG/2 ML VIAL (J2250) As Ordered ONE; -OXYC1TAB23 PO; +PROPOFOL 200 MG/20 ML VIAL As Ordered ONE; +ROCURONIUM BROMIDE 50 MG/5 ML VIAL/SYRINGE As Ordered ONE; +fentaNYL 250 MCG/5 ML INJECTION (J3010) As Ordered ONE
[2016-09-24] MEDS ORDERED: LR 1,000 ML IV ONE (09:00)
[2016-09-24] MEDS ORDERED: ceFAZolin SOD 1 GM in D5W MINI-BAG PLUS 50 ML IV ONE (09:00)
[2016-09-24 09:29] LABS: CONTROL LINE UCG INT CTR LINE PRESENT
[2016-09-24 09:41] LABS: MEAN CORPUSCULAR HEMOGLOBIN 24.4 pg (27.0-33.0); MEAN CORPUSCULAR HGB CONC 32.7 g/dl (32.0-36.5); MEAN CORPUSCULAR VOLUME 74.5 fl (80.0-96.0); RED CELL DISTRIBUTION WIDTH 14.4 % (11.5-14.5); WHITE BLOOD COUNT 4.4 K/mm3 (4.0-10.0)
[2016-09-24] MEDS ORDERED: dexameTHASONE 4 MG/ML 1ML VIAL (J1100) As Ordered ONE (10:42)
[2016-09-24] MEDS ORDERED: ROCURONIUM BROMIDE 50 MG/5 ML VIAL/SYRINGE As Ordered ONE (10:48)
[2016-09-24] MEDS ORDERED: HYDROmorphone HCL 2 MG/ML 1ML VIAL (J1170) As Ordered ONE (10:54)
[2016-09-24] MEDS ORDERED: ONDANSETRON 4MG/2ML VIAL (J2405) As Ordered ONE (10:54)
[2016-09-24] MEDS ORDERED: NEOSTIGMINE 1MG/ML 5 ML SYRINGE (J2710) As Ordered ONE (10:54)
[2016-09-24] MEDS ORDERED: ePHEDrine SULFATE 25 MG/5 ML(5MG/ML) SYRINGE As Ordered ONE (11:01)
[2016-09-24] MEDS ORDERED: METHYLENE BLUE 0.5% (5MG/ML) 10 ML AMP (PROVAYBLUE)(Q9968 PER 1MG) As Ordered ONE (12:30)
[2016-09-24] MEDS ORDERED: OXYC1TAB23 PO (12:31)
[2016-09-24] MEDS: fentaNYL 100 MCG/2 ML INJECTION (J3010) IV PRN ×4 (12:41→13:04)
[2016-09-24] MEDS ORDERED: ONDANSETRON 4MG/2ML VIAL (J2405) IV PRN ×2 (12:45)
[2016-09-24] MEDS ORDERED: MORPHINE 4 MG/ML 1ML SYRINGE IV PRN (12:45)
[2016-09-24] MEDS ORDERED: LR 1,000 ML IV SCH ×2 (12:45)
[2016-09-24] MEDS ORDERED: PERCOCET 5MG/325MG TAB PO PRN ×3 (12:45)
[2016-09-24] MEDS ORDERED: HYDROmorphone HCL 1 MG/ML SYRINGE (J1170) IV PRN (12:45)
[2016-09-24] MEDS: DOCUSATE SODIUM 100 MG CAP PO SCH ×2 (14:08→20:13)
[2016-09-24] MEDS: KETOROLAC 30 MG/ML VIAL (J1885) IV PRN (16:02)
[2016-09-25] VITALS: BP 94/52
[2016-09-25] MEDS: KETOROLAC 30 MG/ML VIAL (J1885) IV PRN (01:43)
[2016-09-25 04:00] VITALS: BP 90/56
[2016-09-25 06:45] LABS: MEAN CORPUSCULAR HEMOGLOBIN 23.8 pg (27.0-33.0); MEAN CORPUSCULAR HGB CONC 31.7 g/dl (32.0-36.5); MEAN CORPUSCULAR VOLUME 75.2 fl (80.0-96.0); RED CELL DISTRIBUTION WIDTH 14.3 % (11.5-14.5); WHITE BLOOD COUNT 5.2 K/mm3 (4.0-10.0)
[2016-09-25 08:00] VITALS: BP 107/66
[2016-09-25] MEDS ORDERED: FAMOTIDINE 20 MG TAB PO SCH (09:00)
[2016-09-25] MEDS: DOCUSATE SODIUM 100 MG CAP PO SCH (09:53)
--- NOTE | 2016-09-25 12:49 | RO ---
DATE OF PROCEDURE: 09/24/2016 PREPROCEDURE DIAGNOSIS: Menorrhagia and pelvic pain. POSTPROCEDURE DIAGNOSIS: Menorrhagia and pelvic pain. PROCEDURE: Robotic assisted laparoscopic hysterectomy, bilateral salpingo-oophorectomy, cystoscopy. SURGEON: Arnulfo Mejias MD EMERGENCY DEPARTMENT MANAGER: WEN C[place]ton ANESTHESIA: General endotracheal. ESTIMATED BLOOD LOSS: 100 mL. URINE OUTPUT: 150 mL. FINDINGS: Normal sized uterus, normal ovaries and fallopian tubes. Adhesions to the upper abdomen around the stomach from prior surgery. Normal liver and appendix. DESCRIPTION OF PROCEDURE/OPERATIVE SUMMARY: Patient was taken to the operating room where general endotracheal anesthesia was induced. She was prepped and draped in a sterile fashion in dorsal lithotomy position. A Nunez catheter was placed. The [employer] uterine manipulator was placed. A periumbilical incision was made with a scalpel. A Veress needle was placed through this incision while tenting up the skin of the abdomen. Intra-abdominal location of the Veress needle was assessed with the use of a saline filled syringe. A pneumoperitoneum was created. The Veress needle was removed. An 11 mm trocar was placed through this incision using LEPOWort. Three 8 mm suprapubic ports were placed under direct visualization without difficulty. The patient was placed in a Trendelenburg position and the da Luis surgical robot was docked to the ports. Using bipolar PK dissector and monopolar Endo Jasmeet, the IP ligaments, broad ligament attachments, and round ligaments were coagulated and incised. The anterior-posterior leaves of the broad ligament were . Bladder flap was created. The uterine vessels were coagulated and incised. Colpotomy was created circumferentially 360 degrees around the upper vagina at the level of the VCare cuff. Specimen containing the uterus, cervix, fallopian tubes and both ovaries were removed through the vagina. The vaginal cuff was closed with #1 V-Loc suture in a running fashion. The pelvis was irrigated. All instruments were removed. The patient received methylene blue dye intravenously. A 70 degree cystoscope was used to visualize the bladder. Bilateral ureteral jets were identified. There was no evidence of injury to the bladder. Nunez catheter was replaced. Amada Beckford NP assisted with all aspects of the procedure from beginning to end. She positioned the patient, assisted with placing the ports, she manipulated the uterus throughout the procedure and removed the uterus at the end of the procedure. She assisted with closing the ports and helping transport the patient out of the room. The fascia at the umbilical port was closed with a single, interrupted stitch of #0 Vicryl. Skin was closed with #4-0 Monocryl subcuticular sutures. Sponge, instrument and needle counts were correct.
== END 2016-09-25 10:50 | disposition home or self-care (01) ==
LOC: M SDC 08:39 → M PED 13:54 → M SDC 09-25 10:50
PROVIDERS: ATTEND Specialist
DX: N92.0 Excessive and frequent menstruation with regular cycle (principal); R10.2 Pelvic and perineal pain; N83.291 Other ovarian cyst, right side; N83.292 Other ovarian cyst, left side; N70.11 Chronic salpingitis; K21.9 Gastro-esophageal reflux disease without esophagitis; K58.8 Other irritable bowel syndrome; D64.9 Anemia, unspecified; Z98.84 Bariatric surgery status; Z79.899 Other long term (current) drug therapy

== ENCOUNTER → 2017-02-03 | Outpatient (REF) | payer OTHER ==
[~2017-02-03] MED LIST changes: -BUPIVACAINE HCL 0.25% 30 ML VIAL As Ordered ONE; -GLYCOPYRROLATE INJ 0.2 MG/ML 2 ML VIAL As Ordered ONE; -LIDOCAINE 2% INJ 100 MG/5 ML SDV (FOR ANES.) As Ordered ONE; -METHYLENE BLUE 0.5% (5MG/ML) 10 ML AMP (PROVAYBLUE)(Q9968 PER 1MG) As Ordered ONE; -MIDAZOLAM INJ 2 MG/2 ML VIAL (J2250) As Ordered ONE; +OXYC1TAB23 PO; -PROPOFOL 200 MG/20 ML VIAL As Ordered ONE; -ROCURONIUM BROMIDE 50 MG/5 ML VIAL/SYRINGE As Ordered ONE; -fentaNYL 250 MCG/5 ML INJECTION (J3010) As Ordered ONE
[2017-02-03 12:39] LABS: MEAN CORPUSCULAR HEMOGLOBIN 22.7 pg (27.0-33.0); MEAN CORPUSCULAR HGB CONC 30.9 g/dl (32.0-36.5); MEAN CORPUSCULAR VOLUME 73.6 fl (80.0-96.0); PLATELET COUNT, AUTOMATED 307 10^3/uL (150-450); RED CELL DISTRIBUTION WIDTH 14.6 % (11.5-14.5); WHITE BLOOD COUNT 4.3 10^3/uL (4.0-10.0)
[2017-02-03 13:01] LABS: ALBUMIN 3.8 GM/DL (3.2-5.2); ALBUMIN/GLOBULIN RATIO 1.12 (1.00-1.93); ALKALINE PHOSPHATASE 108 U/L (45-117); ALT/SGPT 29 U/L (12-78); AMYLASE 73 U/L (25-115); ANION GAP 8 MEQ/L (8-16); AST/SGOT 29 U/L (7-37); BILIRUBIN,TOTAL 1.1 MG/DL (0.2-1.0); BLOOD UREA NITROGEN 9 MG/DL (7-18); CALCIUM LEVEL 8.9 MG/DL (8.5-10.1); CARBON DIOXIDE LEVEL 29 MEQ/L (21-32); CHLORIDE LEVEL 105 MEQ/L (98-107); CREATININE FOR GFR 0.72 MG/DL (0.55-1.02); FERRITIN 4 NG/ML (8-252); GLOMERULAR FILTRATION RATE > 60.0 (>58); GLUCOSE, FASTING 72 MG/DL (70-105); PERCENT SATURATION 7.3 % (13.2-45.0); POTASSIUM SERUM 4.5 MEQ/L (3.5-5.1); SODIUM LEVEL 142 MEQ/L (136-145); TOTAL IRON BINDING CAPACITY 562 UG/DL (250-450); TOTAL PROTEIN 7.2 GM/DL (6.4-8.2)
[2017-02-03 13:08] LABS: VITAMIN B12 LEVEL 374 PG/ML
[2017-02-03 13:09] LABS: FOLATE 9.1 NG/ML
== END ==
LOC: M SFHCADAM 09:56
PROVIDERS: ATTEND Physician Assistant
DX: D50.0 Iron deficiency anemia secondary to blood loss (chronic) (principal); Z98.890 Other specified postprocedural states; M54.41 Lumbago with sciatica, right side; Z87.19 Personal history of other diseases of the digestive system; R10.13 Epigastric pain

== ENCOUNTER 2017-02-08 13:42 | Emergency (ER) | payer OTHER ==
[~2017-02-08] VITALS: Ht 165.1 cm; Wt 70.5 kg
[2017-02-08] MEDS ORDERED: GABA-282 PO (13:54)
[2017-02-08] MEDS ORDERED: NS 1,000 ML IV ONE (15:00)
[2017-02-08] MEDS ORDERED: ONDANSETRON 4MG/2ML VIAL (J2405) IV ONE (15:00)
[2017-02-08 15:37] LABS: BASO % 0.7 % (0.0-1.0); EOS # 0.1 10^3/uL (0.0-0.50); IMMATURE GRANULOCYTE % 0.2 % (0-0); LYMPH # 1.6 10^3/uL (1.5-4.5); LYMPH % 35.2 % (24.0-44.0); MEAN CORPUSCULAR HGB CONC 31.4 g/dl (32.0-36.5); MEAN CORPUSCULAR VOLUME 73.1 fl (80.0-96.0); MONO # 0.3 10^3/uL (0.0-0.8); MONO % 7.5 % (0.0-5.0); NEUTROPHILS # 2.4 10^3/uL (1.8-7.7); NEUTROPHILS % 54.4 % (36.0-66.0); PLATELET COUNT, AUTOMATED 269 10^3/uL (150-450); RED CELL DISTRIBUTION WIDTH 14.4 % (11.5-14.5); WHITE BLOOD COUNT 4.4 10^3/uL (4.0-10.0)
[2017-02-08] MEDS: MORPHINE 4 MG/ML 1ML SYRINGE IV PRN ×2 (15:39→18:25)
[2017-02-08 16:02] LABS: ALBUMIN 3.8 GM/DL (3.2-5.2); ALBUMIN/GLOBULIN RATIO 1.15 (1.00-1.93); ALKALINE PHOSPHATASE 110 U/L (45-117); ALT/SGPT 32 U/L (12-78); ANION GAP 8 MEQ/L (8-16); AST/SGOT 27 U/L (7-37); BILIRUBIN,DIRECT 0.2 MG/DL (0.0-0.2); BILIRUBIN,TOTAL 0.8 MG/DL (0.2-1.0); BLOOD UREA NITROGEN 8 MG/DL (7-18); CALCIUM LEVEL 8.3 MG/DL (8.5-10.1); CARBON DIOXIDE LEVEL 25 MEQ/L (21-32); CHLORIDE LEVEL 110 MEQ/L (98-107); CREATININE FOR GFR 0.74 MG/DL (0.55-1.02); GLOMERULAR FILTRATION RATE > 60.0 (>58); GLUCOSE, FASTING 83 MG/DL (70-105); POTASSIUM SERUM 3.9 MEQ/L (3.5-5.1); SODIUM LEVEL 143 MEQ/L (136-145); TOTAL PROTEIN 7.1 GM/DL (6.4-8.2)
[2017-02-08] MEDS ORDERED: ISOVUE-370 76% 100ML VIAL (Q9967) As Ordered ONE (16:28)
[2017-02-08] MEDS ORDERED: GASTROGRAFIN SOLUTION 30ML (Q9963) PO ONE (16:30)
--- NOTE | 2017-02-08 17:40 | REPUSA ---
CLINICAL HISTORY: Epigastric pain, rule out gastric ulcer. COMPARISON: Correlation is made with prior study dated 07/22/2016. TECHNIQUE: Multiple axial, coronal, sagittal CT images were obtained through the abdomen after admini stration of oral and intravenous contrast material. COMMENTS: There is a14 mm hypodense lesion noted in the right hepatic lobe which is stable compared to the prev ious study that is most compatible with hemangioma. There is no intra or extrahepatic biliary ductal dilatation. The spleen is unremarkable. The gallbladder is within normal limits. The pancreas is of normal contour and attenuation characteristics. There is no evidence of adrenal mass. Both kidneys demonstrate prompt and equal nephrograms. The ki dneys are normal in size, shape and configuration. 6 mm cortical cyst is present at the lower pole o f the left kidney. There is no evidence of renal mass. There is no hydroureter or hydronephrosis. There is no evidence of abdominal ascites or lymphadenopathy. The patient is status post gastric bypass. The stomach demonstrates severe wall thickening compatibl e with gastritis. There is also evidence of duodenal wall thickening compatible with duodenitis. The small and large bowels are unremarkable with no evidence for bowel obstruction. Images of the lung bases show no evidence of pleural or parenchymal mass. There are no pleural effus ions. IMPRESSION: 1. Evidence of gastroenteritis. Status post gastric bypass. Consider follow-up with upper endoscop y. 2. Probable hemangioma in the right hepatic lobe, stable.. 3. The patient is status post gastric bypass. 4. Left renal cyst.
[2017-02-08 18:46] VITALS: BP 104/66
== END 2017-02-08 18:49 | disposition home or self-care (01) ==
LOC: M ED 13:42
DX: K52.9 Noninfective gastroenteritis and colitis, unspecified (principal); R10.13 Epigastric pain; M54.5 Low back pain; Z98.84 Bariatric surgery status; N28.1 Cyst of kidney, acquired; Z79.899 Other long term (current) drug therapy
CPT/HCPCS: 74160; 80048; 80076; 83690; 85025; 96374; 96375; 99284; J2405; Q9963; Q9967

== ENCOUNTER → 2017-03-31 | Outpatient (CLI) | payer OTHER ==
[2017-03-31 11:14] LABS: BASO % 0.7 % (0.0-1.0); EOS # 0.1 10^3/uL (0.0-0.50); EOS % 1.9 % (0.0-3.0); HEMATOCRIT 32.3 % (36.0-47.0); HEMOGLOBIN 10.2 g/dl (12.0-16.0); LYMPH # 1.5 10^3/uL (1.5-4.5); LYMPH % 34.7 % (24.0-44.0); MEAN CORPUSCULAR HEMOGLOBIN 22.8 pg (27.0-33.0); MEAN CORPUSCULAR HGB CONC 31.6 g/dl (32.0-36.5); MEAN CORPUSCULAR VOLUME 72.1 fl (80.0-96.0); MONO # 0.4 10^3/uL (0.0-0.8); MONO % 10.2 % (0.0-5.0); NEUTROPHILS # 2.3 10^3/uL (1.8-7.7); NEUTROPHILS % 52.5 % (36.0-66.0); PLATELET COUNT, AUTOMATED 256 10^3/uL (150-450); RED BLOOD COUNT 4.48 10^6/uL (4.00-5.40); RED CELL DISTRIBUTION WIDTH 14.5 % (11.5-14.5); WHITE BLOOD COUNT 4.3 10^3/uL (4.0-10.0)
[2017-03-31 11:22] LABS: INR 1.05; PROTHROMBIN TIME 13.8 SECONDS (12.4-14.5)
[2017-03-31 11:44] LABS: ERYTHROCYTE SEDIMENTATION RATE 17 mm/hr (0-20)
[2017-03-31 11:55] LABS: ALBUMIN 4.1 GM/DL (3.2-5.2); ALBUMIN/GLOBULIN RATIO 1.21 (1.00-1.93); ALKALINE PHOSPHATASE 113 U/L (45-117); ALT/SGPT 29 U/L (12-78); ANION GAP 8 MEQ/L (8-16); AST/SGOT 27 U/L (7-37); BILIRUBIN,TOTAL 1.1 MG/DL (0.2-1.0); BLOOD UREA NITROGEN 12 MG/DL (7-18); C REACTIVE PROTEIN QUANTITATIV < 0.30 MG/DL (0.00-0.30); CALCIUM LEVEL 9.3 MG/DL (8.5-10.1); CARBON DIOXIDE LEVEL 28 MEQ/L (21-32); CHLORIDE LEVEL 104 MEQ/L (98-107); CREATININE FOR GFR 0.64 MG/DL (0.55-1.30); GLOMERULAR FILTRATION RATE > 60.0 (>58); GLUCOSE, FASTING 76 MG/DL (70-100); IRON (FE) 37 UG/DL (50-170); PERCENT SATURATION 6.4 % (13.2-45.0); RHEUMATOID FACTOR QUANT < 10.0 IU/ML (0-15.0); SODIUM LEVEL 140 MEQ/L (136-145); TOTAL IRON BINDING CAPACITY 580 UG/DL (250-450); TOTAL PROTEIN 7.5 GM/DL (6.4-8.2)
[2017-04-02 00:07] LABS: Lyme Disease IgG/IgM Antibodie <0.91 ISR (0.00-0.90); Lyme Disease IgM Ab Quantitati <0.80 index (0.00-0.79)
[2017-04-03 00:06] LABS: ANA (HEP2) Negative (.); SSA SJOGRENS A <0.2 AI (0.0-0.9); SSB SJOGRENS B <0.2 AI (0.0-0.9)
[2017-04-03 00:06] LABS: CYCLIC CITRULLINATED PEPTIDE 28 units (0-19)
== END ==
LOC: M LAB 10:21
DX: D50.0 Iron deficiency anemia secondary to blood loss (chronic) (principal); M35.9 Systemic involvement of connective tissue, unspecified; R58 Hemorrhage, not elsewhere classified; Z79.899 Other long term (current) drug therapy
CPT/HCPCS: 83550

== ENCOUNTER → 2017-11-10 | Outpatient (REF) | payer OTHER ==
[2017-11-10 18:51] LABS: HEMATOCRIT 30.2 % (36.0-47.0); HEMOGLOBIN 9.1 g/dl (12.0-15.5); MEAN CORPUSCULAR HEMOGLOBIN 21.9 pg (27.0-33.0); MEAN CORPUSCULAR HGB CONC 30.1 g/dl (32.0-36.5); MEAN CORPUSCULAR VOLUME 72.8 fl (80.0-96.0); PLATELET COUNT, AUTOMATED 256 10^3/uL (150-450); RED BLOOD COUNT 4.15 10^6/uL (4.00-5.40); RED CELL DISTRIBUTION WIDTH 15.9 % (11.5-14.5)
[2017-11-10 19:20] LABS: ALBUMIN 3.8 GM/DL (3.2-5.2); ALBUMIN/GLOBULIN RATIO 1.09 (1.00-1.93); ALKALINE PHOSPHATASE 127 U/L (45-117); ALT/SGPT 29 U/L (12-78); ANION GAP 8 MEQ/L (8-16); AST/SGOT 29 U/L (7-37); BILIRUBIN,TOTAL 0.6 MG/DL (0.2-1.0); BLOOD UREA NITROGEN 15 MG/DL (7-18); CALCIUM LEVEL 8.6 MG/DL (8.5-10.1); CARBON DIOXIDE LEVEL 25 MEQ/L (21-32); CHLORIDE LEVEL 108 MEQ/L (98-107); CHOLESTEROL LEVEL 149 MG/DL (<200); CHOLESTEROL RISK RATIO 2.709 (<5); CREATININE FOR GFR 0.67 MG/DL (0.55-1.30); FERRITIN 5 NG/ML (8-252); FREE T4 0.92 NG/DL (0.76-1.46); GLOMERULAR FILTRATION RATE > 60.0 (>58); GLUCOSE, FASTING 81 MG/DL (70-100); HDL CHOLESTEROL 55 MG/DL (>40); IRON (FE) 21 UG/DL (50-170); LDL CHOLESTEROL 80 MG/DL (<100); NON-HDL-C 94 MG/DL; POTASSIUM SERUM 4.2 MEQ/L (3.5-5.1); SODIUM LEVEL 141 MEQ/L (136-145); TOTAL PROTEIN 7.3 GM/DL (6.4-8.2); TRIGLYCERIDES LEVEL 69 MG/DL (<150)
[2017-11-10 19:21] LABS: FOLATE 12.5 NG/ML; TOTAL 25(OH) VITAMIN D 35.7 NG/ML (30.0-100.0)
== END ==
LOC: M SFHCADAM 16:41
DX: M13.0 Polyarthritis, unspecified (principal); D50.0 Iron deficiency anemia secondary to blood loss (chronic); R07.89 Other chest pain; N95.1 Menopausal and female climacteric states; Z87.19 Personal history of other diseases of the digestive system; E55.9 Vitamin D deficiency, unspecified
CPT/HCPCS: 82746

== ENCOUNTER → 2017-11-26 | Outpatient (CLI) | payer OTHER | LOC: M ADAMS 16:15 | DX: M25.531 Pain in right wrist (principal) | CPT/HCPCS: 73110 ==

== ENCOUNTER 2018-03-08 11:40 | Emergency (ER) | payer OTHER ==
[~2018-03-08] VITALS: Ht 165.1 cm; Wt 74.1 kg
[~2018-03-08 11:40] MED LIST changes: +GABA-843 PO; -PANT40TA2 PO; +PANT40TA3 PO
[2018-03-08] MEDS ORDERED: VENL75CA47 PO (11:50)
[2018-03-08] MEDS ORDERED: diphenhydrAMINE INJ 50MG/ML VIAL (J1200) IV STA (12:16)
[2018-03-08] MEDS ORDERED: METOCLOPRAMIDE INJ 10MG/2ML VIAL (J2765) IV ONE (12:30)
[2018-03-08 12:56] LABS: BASO % 0.7 % (0.0-1.0); EOS # 0.1 10^3/uL (0.0-0.50); EOS % 1.7 % (0.0-3.0); HEMOGLOBIN 9.4 g/dl (12.0-15.5); LYMPH # 1.3 10^3/uL (1.5-4.5); MEAN CORPUSCULAR HEMOGLOBIN 21.2 pg (27.0-33.0); MEAN CORPUSCULAR HGB CONC 30.3 g/dl (32.0-36.5); MEAN CORPUSCULAR VOLUME 69.8 fl (80.0-96.0); MONO # 0.4 10^3/uL (0.0-0.8); MONO % 9.3 % (0.0-5.0); NEUTROPHILS # 2.3 10^3/uL (1.8-7.7); NEUTROPHILS % 57.1 % (36.0-66.0); PLATELET COUNT, AUTOMATED 311 10^3/uL (150-450); RED BLOOD COUNT 4.44 10^6/uL (4.00-5.40); WHITE BLOOD COUNT 4.1 10^3/uL (4.0-10.0)
[2018-03-08 13:22] LABS: BLOOD UREA NITROGEN 11 MG/DL (7-18); CALCIUM LEVEL 8.8 MG/DL (8.5-10.1); CARBON DIOXIDE LEVEL 25 MEQ/L (21-32); CHLORIDE LEVEL 105 MEQ/L (98-107); CREATININE FOR GFR 0.74 MG/DL (0.55-1.30); GLOMERULAR FILTRATION RATE > 60.0 (>58); GLUCOSE, FASTING 80 MG/DL (70-100); POTASSIUM SERUM 4.2 MEQ/L (3.5-5.1); SODIUM LEVEL 140 MEQ/L (136-145)
[2018-03-08] MEDS ORDERED: ISOVUE-370 76% 100ML VIAL (Q9967) As Ordered ONE (13:24)
--- NOTE | 2018-03-08 14:07 | REP ---
CT Head without contrast HISTORY: Headache COMPARISON: None There is no intraparenchymal hemorrhage, acute infarct, mass or midline shift. The ventricular system is normal in appearance. There is no extra cerebral collection. There is no fracture. The visualized sinuses are clear. IMPRESSION: There is no intracranial lesion. Electronically Signed by Arnulfo Ortiz MD 03/08/2018 01:58 P
--- NOTE | 2018-03-08 14:11 | REP ---
CT cervical spine without contrast HISTORY: Neck pain COMPARISON: None There is no acute fracture or subluxation. Disc bulges are present at the C3-4 C5-6 and C6-7 levels. A disc bulge with associated osteophyte formation is present at the C4-5 level. There is minimal narrowing of the spinal canal. The neural foramina are patent. The intervertebral discs are normal in height. IMPRESSION: 1. There is no acute fracture or subluxation. 2. There is cervical spondylosis at the C3-4 through C6-7 levels. Electronically Signed by Arnulfo Ortiz MD 03/08/2018 02:02 P
--- NOTE | 2018-03-08 14:25 | REP ---
CT ANGIO HEAD: HISTORY: Headache. CONTRAST: Isovue 370, 100 mL. There is no aneurysm, arteriovenous malformation or atherosclerotic lesion. The major intracranial vessels are patent. The vertebral arteries are equal in size. IMPRESSION: Normal CT ANGIO head. Electronically Signed by Arnulfo Ortiz MD 03/08/2018 02:26 P
--- NOTE | 2018-03-08 14:48 | REP ---
CT ANGIO NECK: HISTORY: Headache. CONTRAST: Isovue 370, 100 mL. The examination is limited secondary to a reconstruction artifact. The distal common carotid arteries and origins of the external and internal carotid arteries are normal. The vertebral arteries are equal in size and patent. The origins of the great vessels are normal. There are no atherosclerotic lesions. There is no definite dissection. IMPRESSION: Limited examination demonstrating no definite abnormality. A subtle dissection cannot be excluded. Electronically Signed by Arnulfo Ortiz MD 03/08/2018 03:08 P
[2018-03-08] MEDS ORDERED: METO10TA2 PO (15:07)
[2018-03-08] MEDS ORDERED: REGL5TAB2 PO (15:07)
[2018-03-08] MEDS ORDERED: ACETAMINOPHEN 325 MG TAB PO ONE (15:15)
[2018-03-08 15:29] VITALS: BP 109/66
--- NOTE | 2018-03-09 06:50 | ED PDOC ---
Post-Departure Follow-Up antonio black faxed formal report of cta neck for fu Deanna Zapata MD Mar 09, 2018 06:50
== END 2018-03-08 15:30 | disposition home or self-care (01) ==
LOC: M ED 11:40
DX: R51 Headache (principal); K21.9 Gastro-esophageal reflux disease without esophagitis; J45.909 Unspecified asthma, uncomplicated; M47.892 Other spondylosis, cervical region
CPT/HCPCS: 36415; 70450; 70496; 70498; 72125; 80048; 85025; 96374; 96375; 99284; J1200; J2765; Q9967

== ENCOUNTER 2018-04-30 04:12 | Inpatient (IN) | payer OTHER ==
[~2018-04-30] VITALS: Ht 165.1 cm; Wt 78.4 kg
[~2018-04-30 04:12] MED LIST changes: +METO10TA2 PO; +REGL5TAB2 PO; +VENL75CA47 PO
[2018-04-30] MEDS ORDERED: SUCRALFATE SUSP 1GM/10ML UD PO ONE (05:15)
[2018-04-30] MEDS ORDERED: PANTOPRAZOLE 40MG INJ (PROTONIX) (C9113) IV ONE (05:15)
[2018-04-30 05:16] LABS: APPEARANCE, URINE CLEAR (CLEAR); BACTERIA, URINE AUTO NEGATIVE (NEGATIVE); BILIRUBIN, URINE AUTO NEGATIVE (NEGATIVE); BLOOD, URINE BLOOD NEGATIVE (NEGATIVE); COLOR, URINE STRAW (YELLOW); GLUCOSE, URINE (UA) AUTO NEGATIVE (NEGATIVE); KETONE, URINE AUTO NEGATIVE (NEGATIVE); LEUKOCYTE ESTERASE, URINE AUTO NEGATIVE (NEGATIVE); MUCUS, URINE SMALL (NEGATIVE); NITRITE, URINE AUTO NEGATIVE (NEGATIVE); PROTEIN, URINE AUTO NEGATIVE (NEGATIVE); RBC, URINE AUTO 1 /HPF (0-3); SPECIFIC GRAVITY URINE AUTO 1.004 (1.002-1.035); SQUAMOUS EPITHELIAL CELL UR AU 3 /HPF (0-6); UROBILINOGEN, URINE AUTO 0.2 mg/dL (0.0-2.0); WBC, URINE AUTO 1 /HPF (0-3)
[2018-04-30 05:17] LABS: BASO % 0.8 % (0.0-1.0); EOS # 0.1 10^3/uL (0.0-0.50); HEMATOCRIT 27.4 % (36.0-47.0); HEMOGLOBIN 8.1 g/dl (12.0-15.5); LYMPH # 1.2 10^3/uL (1.5-4.5); LYMPH % 29.9 % (24.0-44.0); MEAN CORPUSCULAR HEMOGLOBIN 19.8 pg (27.0-33.0); MEAN CORPUSCULAR HGB CONC 29.6 g/dl (32.0-36.5); MONO # 0.5 10^3/uL (0.0-0.8); MONO % 12.6 % (0.0-5.0); NEUTROPHILS # 2.2 10^3/uL (1.8-7.7); NEUTROPHILS % 54.4 % (36.0-66.0); PLATELET COUNT, AUTOMATED 261 10^3/uL (150-450); RED BLOOD COUNT 4.09 10^6/uL (4.00-5.40)
[2018-04-30 05:39] LABS: ALBUMIN 3.7 GM/DL (3.2-5.2); ALT/SGPT 46 U/L (12-78); BILIRUBIN,DIRECT 0.2 MG/DL (0.0-0.2); BILIRUBIN,TOTAL 0.7 MG/DL (0.2-1.0); BLOOD UREA NITROGEN 13 MG/DL (7-18); CALCIUM LEVEL 8.2 MG/DL (8.5-10.1); CARBON DIOXIDE LEVEL 27 MEQ/L (21-32); CHLORIDE LEVEL 110 MEQ/L (98-107); CREATININE FOR GFR 0.59 MG/DL (0.55-1.30); GLOMERULAR FILTRATION RATE > 60.0 (>58); GLUCOSE, FASTING 85 MG/DL (70-100); LIPASE 1856 U/L (73-393); POTASSIUM SERUM 4.1 MEQ/L (3.5-5.1); SODIUM LEVEL 143 MEQ/L (136-145); TOTAL PROTEIN 6.9 GM/DL (6.4-8.2)
[2018-04-30 05:47] LABS: HCG, SERUM QUALITATIVE NEGATIVE (NEGATIVE)
[2018-04-30] MEDS ORDERED: NS 1,000 ML IV ONE (06:00)
[2018-04-30] MEDS ORDERED: MORPHINE 4 MG/ML 1ML VIAL/SYRINGE (J2270) IV ONE ×2 (06:15→10:15)
[2018-04-30] MEDS ORDERED: TIZA2TA PO (07:20)
[2018-04-30] MEDS ORDERED: GABA-1171 PO ×2 (07:20)
[2018-04-30] MEDS: GASTROGRAFIN SOLUTION 30ML PO SCH ×2 (08:28→09:00)
[2018-04-30] MEDS ORDERED: ISOVUE-370 76% 100ML VIAL (Q9967) As Ordered ONE (09:45)
--- NOTE | 2018-04-30 10:25 | REP ---
CT ABDOMEN AND PELVIS WITH ORAL AND IV CONTRAST: TECHNIQUE: Axial contrast enhanced images from the lung bases to the pubic symphysis using 100 mL Isovue 370 intravenous contrast material with multiplanar reformations. COMPARISON: 02/08/2017 Visualized lung bases demonstrate no infiltrate. Two hypodense nodules in the liver are unchanged. The larger of the two is in the right lobe laterally measuring 1.6 cm in diameter. These may represent hemangiomas. The spleen, adrenals, pancreas and kidneys are unremarkable and unchanged in appearance. There is no hydronephrosis. There is no abdominal aortic aneurysm. There is no adenopathy. There is no free air or free fluid. The patient has had prior gastric bypass surgery. There is no acute finding in the upper abdomen in this region. No bowel wall thickening is seen. There is no evidence of appendicitis. No pelvic mass is seen. Patient appears to have had a hysterectomy. Urinary bladder is distended and appears unremarkable. IMPRESSION: No acute findings. No free air or free fluid. No bowel wall inflammation Two stable nodules in the liver may represent hemangiomas. No evidence of appendicitis. Electronically Signed by Titus Hwang MD 05/03/2018 10:58 A
[2018-04-30] MEDS ORDERED: NS 1,000 ML IV SCH (10:49)
[2018-04-30] MEDS: NS 1,000 ML IV SCH ×3 (11:32→19:40)
[2018-04-30] MEDS ORDERED: ONDANSETRON 4MG/2ML VIAL (J2405) IV PRN (11:45)
--- NOTE | 2018-04-30 12:38 | REP ---
However quadrant sonography: History: Pancreatitis. Evaluate gallbladder and biliary tree. Comparison is made with today's CT study. Sonographic findings: Scanning through the right upper quadrant of the abdomen demonstrates a mildly dilated, thin-walled gallbladder without evidence of stone or polyp. Gallbladder measures up to 9.0 cm in greatest length. Common bile duct is normal measuring 0.7 cm in greatest diameter. This is the upper range of normal. There is evidence of mild fatty infiltration of the liver. There is a 1.7 cm hyperechoic lesion in the right lobe visible sonographically consistent with hemangioma. No other focal liver lesion is seen by sonography. Limited views of the pancreas show no abnormality. There is no evidence of ascites or right renal abnormality. The right kidney measures 12.4 x 6.3 x 5.2 cm. Impression: Mildly dilated gallbladder without evidence of stone or polyp. Common bile duct at the upper range of normal in size, 0.7 cm. 1.7 cm hyperechoic lesion in the right lobe of the liver consistent with hemangioma . Electronically Signed by Mark Goodman MD 04/30/2018 12:30 P
[2018-04-30 13:55] LABS: TROPONIN I < 0.02 NG/ML (< 0.10)
[2018-04-30 14:00] VITALS: BP 111/70
[2018-04-30] MEDS ORDERED: HEPARIN SOD (PORCINE) 5000 UNITS/ML VIAL SC SCH (14:00)
--- NOTE | 2018-04-30 14:13 | HPE ---
DATE OF ADMISSION: 04/30/2018 PCP: Luci NIELSEN CC: Abdominal pain HISTORY OF PRESENT ILLNESS: The patient is a 43-year-old female presenting with a 2-day history of constant, worsening mid gastric abdominal pain with radiation to her right shoulder. It is not relieved by anything including position change or bowel movements. She states that she had 7 episodes of non-bloody, non- bilious emesis yesterday with ongoing nausea. Her worsening abdominal pain prompted her to come to the ED early this morning. She has a history of abdominal pain which she claims has been ongoing since she had to have a perforated viscus repaired by Dr. Velázquez. She also states that last week she had black, tarry stool and intermittently has had blood in her stool . She tells me that she has intermittent diarrhea and constipation. She admits to chest pressure with radiation to her neck. She denies any fevers, chills, dyspnea, cough, wheezing, extremity pain or swelling. She notes that she also gets dizzy when she is up and moving around and when she suddenly turns her head. PAST MEDICAL HISTORY: 1. Iron deficiency anemia. 2. Asthma not on medications 3. History of obstructive sleep apnea, cured by gastric bypass. 4. History of dyslipidemia. 5. Peptic ulcer disease. 6. History of perforated viscus. ALLERGIES: No known drug allergies. SURGICAL HISTORY: 1. Gastric bypass by Dr. Cunningham in 2010. 2. Tonsillectomy and adenoidectomy. 3. Hysterectomy and oophorectomy in September 2016. 4. Hernia repair in April 2017. 5. Esophagogastroduodenoscopy (EGD) with gastric ulcer, anastomosis in July 2016. 6. Colonoscopy, normal. 7. EGD with negative biopsy in December 2013. 8. Right knee arthroscopy. 9. Tubal ligation. 10. Dilation and curettage times two in 1996. FAMILY HISTORY: Father at age 59 with a history of hypertension, diabetes, and myocardial infarction. Mother at 43 years old from brain aneurysm. SOCIAL HISTORY: The patient denies any alcohol, tobacco, illicit drug use, including marijuana, heroin, cocaine, and PCP. She lives at home with her . No history of recent travel. Lives at home with dog and two cats. HOME MEDICATIONS: - gabapentin - tizanidine - venlafaxine OBJECTIVE: VITAL SIGNS: Temperature 98.1 degrees Fahrenheit, pulse 64, respiratory rate 16, blood pressure 104/59, pulse oximetry 99% on room air. GENERAL: The patient is resting in bed, appears very fatigued, somewhat pale, in no acute distress. HEENT: Head is normocephalic, atraumatic. Extraocular muscles intact. Sclerae nonicteric. Mucous membranes are moist and pink. No pharyngeal erythema or exudate. NECK: Soft, supple, nontender. No lymphadenopathy or thyromegaly. CARDIOVASCULAR: Heart has regular rate and rhythm. Normal S1, S2. No murmurs, gallops or rubs. RESPIRATORY: Clear to auscultation with full breath sounds bilaterally. No wheezing, crackles, rhonchi. ABDOMEN: Soft, minimally tender to palpation in the epigastric region only. Nondistended. No hepatosplenomegaly on palpation. No rebound, tenderness, or rigidity. Mild costovertebral angle tenderness present on the left. EXTREMITIES: No cyanosis, clubbing or edema. NEUROLOGIC: Alert and oriented. Strength was 5/5 in bilateral upper and lower extremities. Cranial nerves III through XII intact. PSYCHIATRIC: Flat affect. LABORATORY WORK: White blood cell count of 4, hemoglobin 8.1, hematocrit 27.4, platelet count 261. Chemistry: Sodium 143, potassium 4.1, chloride 110, CO2 of 27, BUN 13, creatinine 0.59, glucose of 85, AST 39, ALT 46, alkaline phosphatase 121, albumin 3.7, lipase 1856. HCG qualitative negative. LDH 154 UA is negative with urine culture pending. IMAGING: CT of the abdomen and pelvis with oral and IV contrast shows no acute findings. No free air or free fluid. No bowel wall inflammation. Two stable nodules in the liver, may represent hemangiomas. No evidence of appendicitis. Gallbladder ultrasound shows mildly dilated gallbladder without evidence of stone or polyp. Common bile duct at the upper range of normal in size, 0.7 cm. 1.7 cm hyperechoic lesion in the right lobe of the liver consistent with hemangioma. ASSESSMENT/PLAN 1. Acute pancreatitis. Planning to obtain a right upper quadrant ultrasound, provide IV fluid hydration with pain and nausea control. Currently trying to look for causes of her acute pancreatitis, but it does not appear that she drinks, no signs of trauma, she is not a steroid user, does not have the mumps, has a remote history of autoimmune disease in the past with Henoch-Schonlein purpura in 2008, but is currently not exhibiting signs/symptoms consistent with autoimmune illness, is not hypercalcemic, last lipid profile done did not exhibit signs of hypertriglyceridemia or hyperlipidemia, and she does not do any illicit drugs. 2. Chest pressure. The patient is complaining of chest pressure with radiation to the left side of the neck. Her vitals are stable. I do not feel that this is ischemic but we will check just to be safe and we will obtain EKG and troponin level. 3. Hematochezia/melena. We will obtain fecal hemoccult to assess if this is true and we will possibly consult GI or surgery for an assessment. I feel that this is unlikely as she does not have an acute abdomen and her abdominal CT did not show any signs of free air or perforation. 4. Deep vein thrombosis (DVT) prophylaxis with on hold pending results of fecal Hemoccult. 5. GI prophylaxis with IV protonix as patient has history of UGIB and perforated viscus My faculty preceptor for this patient encounter was physically present during the encounter and was fully available. All aspects of the patient interview, examination, medical decision making process, and medical care plan development were reviewed and approved by the faculty preceptor. The faculty preceptor is aware and concurs with the plan as stated in the body of this note and will attest to such by his/her co-signature. KARLA
[2018-04-30] MEDS: VENLAFAXINE **XR** 75MG CAPSULE PO SCH (15:11)
[2018-04-30] MEDS: MORPHINE 4 MG/ML 1ML VIAL/SYRINGE (J2270) IV PRN (15:11)
[2018-04-30 15:25] LABS: CHOLESTEROL LEVEL 134 MG/DL (<200); CHOLESTEROL RISK RATIO 2.528 (<5); HDL CHOLESTEROL 53 MG/DL (>40); LDL CHOLESTEROL 72 MG/DL (<100); NON-HDL-C 81 MG/DL; TRIGLYCERIDES LEVEL 45 MG/DL (<150)
[2018-04-30] MEDS: ACETAMINOPHEN TAB 650MG DOSE (2X325MG) PO PRN (16:18)
[2018-04-30 22:00] VITALS: BP 110/58
[2018-05-01] MEDS: NS 1,000 ML IV SCH ×3 (02:00→17:02)
[2018-05-01 06:00] VITALS: BP 119/76
[2018-05-01 06:35] LABS: HEMATOCRIT 27.2 % (36.0-47.0); HEMOGLOBIN 7.9 g/dl (12.0-15.5); MEAN CORPUSCULAR HEMOGLOBIN 20.1 pg (27.0-33.0); PLATELET COUNT, AUTOMATED 225 10^3/uL (150-450); RED BLOOD COUNT 3.94 10^6/uL (4.00-5.40); WHITE BLOOD COUNT 3.7 10^3/uL (4.0-10.0)
[2018-05-01] MEDS: ACETAMINOPHEN TAB 650MG DOSE (2X325MG) PO PRN (06:48)
[2018-05-01 07:10] LABS: ALBUMIN 3.2 GM/DL (3.2-5.2); ALT/SGPT 34 U/L (12-78); BLOOD UREA NITROGEN 6 MG/DL (7-18); CALCIUM LEVEL 8.1 MG/DL (8.5-10.1); CARBON DIOXIDE LEVEL 24 MEQ/L (21-32); CHLORIDE LEVEL 110 MEQ/L (98-107); CREATININE FOR GFR 0.46 MG/DL (0.55-1.30); GLOMERULAR FILTRATION RATE > 60.0 (>58); GLUCOSE, FASTING 71 MG/DL (70-100); LIPASE 151 U/L (73-393); POTASSIUM SERUM 3.7 MEQ/L (3.5-5.1); SODIUM LEVEL 143 MEQ/L (136-145); TOTAL PROTEIN 6.2 GM/DL (6.4-8.2)
--- NOTE | 2018-05-01 08:03 | IPNPDOC ---
Subjective Date Seen The patient was seen on 05/01/18. Subjective Chief Complaint/HPI Patient seen and examined at bedside this AM. She states she is feeling much better. Her abdominal pain is much improved and her nausea stopped some time last night. She states her BM yesterday did not contain black tarry stool or blood in stool. She denies any current chest pressure, dyspnea, lower extremity edema. Objective Physical Examination General Exam: Positive: Alert, Cooperative, No Acute Distress Eye Exam: Positive: Conjunctiva & lids normal, EOMI; Negative: Sclera icteric ENT Exam: Positive: Atraumatic, Mucous membr. moist/pink Chest Exam: Positive: Clear to auscultation, Normal air movement; Negative: Rales, Rhonchi, Wheezing Heart Exam: Positive: Rate Normal, Normal S1, Normal S2; Negative: Gallops, Murmurs, Rubs Abdomen Exam: Positive: Normal bowel sounds, Soft; Negative: Tenderness, Hepatospenomegaly Extremity Exam: Negative: Edema Skin Exam: Positive: Nl turgor and temperature; Negative: Rash Neuro Exam: Positive: Normal Speech Psych Exam: Positive: Mental status NL, Mood NL Assessment /Plan Problems (1) Acute pancreatitis Status: Acute Problem Text: 05/01- Patient is doing much better today. Her vital signs have been stable and her initial Brianna's criteria values have all been below concerning levels. Her lipase is also down this AM. Gallbladder U/S showing mild dilation of gallbladder but no definitive obstructing stones. Pancreatitis is of unclear etiology right now. Will have her on clear liquid diet, if she tolerates this she can advance as tolerated. Will continue her IVF for now, patient has no hx of volume overload and is having good urine output. 04/30 Gallbladder US: Mildly dilated gallbladder without evidence of stone or polyp. Common bile duct at the upper range of normal in size, 0.7 cm. 1.7 cm hyperechoic lesion in the right lobe of the liver consistent with hemangioma . (2) Anemia Status: Chronic Problem Text: 05/01- Chronically anemic, Hgb is stable today. If it continues to trend down may consider transfusion. Hemoccult negative. (3) Chest pressure Status: Resolved Problem Text: 04/30-Troponin negative, EKG ordered, not done. Will do today. I do not think she has any signs or symptoms of myocardial ischemia. (4) Melena Status: Resolved Problem Text: 05/01- Hemoccult negative. 04/30-Collecting stool hemoccult pending (5) Hx of gastric bypass Status: Chronic Response to Treatment: Stable Plan/VTE VTE Prophylaxis Ordered?: Yes VS, I&O, 24H, Fishbone Vital Signs/I&O Vital Signs Date Time Temp Pulse Resp B/P (MAP) Pulse Ox O2 Delivery O2 Flow Rate FiO2 05/01/18 06:00 98.3 60 18 119/76 (90) 95 04/30/18 14:25 Room Air I&O- Last 24 Hours up to 6 AM 05/01/18 06:00 Intake Total 150 ml Output Total 600 ml Balance -450 ml Laboratory Data 24H LABS Laboratory Tests 2 04/30/18 13:08: Lactate Dehydrogenase 154, Troponin I < 0.02, Triglycerides Level 45, LDL Cholesterol 72, Total Cholesterol 134, Non-HDL Cholesterol (LDL + VLDL) 81, Total HDL Cholesterol 53, Cholesterol/HDL Ratio 2.528 05/01/18 06:02: Nucleated Red Blood Cells % (auto) 0.0, Anion Gap 9, Glomerular Filtration Rate > 60.0, Blood Urea Nitrogen 6#L, Creatinine 0.46L, Sodium Level 143, Potassium Level 3.7, Chloride Level 110H, Carbon Dioxide Level 24, Calcium Level 8.1L, Aspartate Amino Transf (AST/SGOT) 31, Alanine Aminotransferase (ALT/SGPT) 34, Alkaline Phosphatase 102, Total Bilirubin 1.0, Total Protein 6.2L, Albumin 3.2, Albumin/Globulin Ratio 1.07, Lipase 151 CBC/BMP Laboratory Tests 05/01/18 06:02 Red Blood Count 3.94 L, Mean Corpuscular Volume 69.0 L, Mean Corpuscular Hemoglobin 20.1 L, Mean Corpuscular Hemoglobin Concent 29.0 L, Red Cell Distribution Width 15.9 H, Calcium Level 8.1 L, Aspartate Amino Transf (AST/SGOT) 31, Alanine Aminotransferase (ALT/SGPT) 34, Alkaline Phosphatase 102, Total Bilirubin 1.0, Total Protein 6.2 L, Albumin 3.2 Microbiology Microbiology 04/30/18 Urine Culture, Received Pending GME ATTESTATION GME ATTESTATION My faculty preceptor for this patient encounter was physically present during the encounter and was fully available. All aspects of the patient interview, examination, medical decision making process, and medical care plan development were reviewed and approved by the faculty preceptor. The faculty preceptor is aware and concurs with the plan as stated in the body of this note and will attest to such by his/her cosignature. CRISTI ALAS DO May 01, 2018 08:03
[2018-05-01] MEDS: VENLAFAXINE **XR** 75MG CAPSULE PO SCH (09:17)
[2018-05-01] MEDS: PANTOPRAZOLE 40MG TAB (PROTONIX) PO SCH (09:17)
[2018-05-01] MEDS: FERROUS SULFATE 325MG TAB PO SCH (13:23)
[2018-05-01 13:46] LABS: PERCENT SATURATION 4.4 % (13.2-45.0)
[2018-05-01 14:00] VITALS: BP 113/62
[2018-05-01 18:55] VITALS: BP 124/75
[2018-05-01] MEDS: MORPHINE 4 MG/ML 1ML VIAL/SYRINGE (J2270) IV PRN (21:53)
[2018-05-01 22:00] VITALS: BP 113/66
[2018-05-02] MEDS: NS 1,000 ML IV SCH ×3 (01:23→16:01)
[2018-05-02 05:27] LABS: HEMATOCRIT 25.6 % (36.0-47.0); HEMOGLOBIN 7.5 g/dl (12.0-15.5); MEAN CORPUSCULAR HEMOGLOBIN 19.9 pg (27.0-33.0); MEAN CORPUSCULAR HGB CONC 29.3 g/dl (32.0-36.5); MEAN CORPUSCULAR VOLUME 67.9 fl (80.0-96.0); PLATELET COUNT, AUTOMATED 212 10^3/uL (150-450); RED BLOOD COUNT 3.77 10^6/uL (4.00-5.40)
[2018-05-02 05:56] LABS: ALBUMIN 2.9 GM/DL (3.2-5.2); ALT/SGPT 33 U/L (12-78); BLOOD UREA NITROGEN 5 MG/DL (7-18); CALCIUM LEVEL 7.7 MG/DL (8.5-10.1); CARBON DIOXIDE LEVEL 27 MEQ/L (21-32); CHLORIDE LEVEL 113 MEQ/L (98-107); CREATININE FOR GFR 0.57 MG/DL (0.55-1.30); GLOMERULAR FILTRATION RATE > 60.0 (>58); GLUCOSE, FASTING 79 MG/DL (70-100); POTASSIUM SERUM 3.7 MEQ/L (3.5-5.1); SODIUM LEVEL 144 MEQ/L (136-145)
[2018-05-02 06:00] VITALS: BP 108/67
[2018-05-02] MEDS: PANTOPRAZOLE 40MG TAB (PROTONIX) PO SCH (09:49)
[2018-05-02] MEDS: VENLAFAXINE **XR** 75MG CAPSULE PO SCH (09:49)
[2018-05-02] MEDS: FERROUS SULFATE 325MG TAB PO SCH (09:49)
[2018-05-02 14:00] VITALS: BP 121/69
[2018-05-02 22:00] VITALS: BP 115/64
[2018-05-03 06:00] VITALS: BP 111/67
[2018-05-03 06:19] LABS: HEMATOCRIT 31.7 % (36.0-47.0); MEAN CORPUSCULAR HEMOGLOBIN 21.9 pg (27.0-33.0); MEAN CORPUSCULAR HGB CONC 31.2 g/dl (32.0-36.5); MEAN CORPUSCULAR VOLUME 70.1 fl (80.0-96.0); PLATELET COUNT, AUTOMATED 232 10^3/uL (150-450); RED BLOOD COUNT 4.52 10^6/uL (4.00-5.40)
[2018-05-03 06:26] LABS: HEMOGLOBIN 9.9 g/dl (12.0-15.5)
[2018-05-03 06:36] LABS: ALBUMIN 3.2 GM/DL (3.2-5.2); ALT/SGPT 35 U/L (12-78); BILIRUBIN,TOTAL 1.8 MG/DL (0.2-1.0); BLOOD UREA NITROGEN 9 MG/DL (7-18); CALCIUM LEVEL 7.9 MG/DL (8.5-10.1); CARBON DIOXIDE LEVEL 26 MEQ/L (21-32); CHLORIDE LEVEL 110 MEQ/L (98-107); CREATININE FOR GFR 0.58 MG/DL (0.55-1.30); GLOMERULAR FILTRATION RATE > 60.0 (>58); GLUCOSE, FASTING 84 MG/DL (70-100); POTASSIUM SERUM 3.7 MEQ/L (3.5-5.1); SODIUM LEVEL 143 MEQ/L (136-145); TOTAL PROTEIN 6.5 GM/DL (6.4-8.2)
[2018-05-03] MEDS: FERROUS SULFATE 325MG TAB PO SCH (08:43)
[2018-05-03] MEDS: PANTOPRAZOLE 40MG TAB (PROTONIX) PO SCH (08:44)
[2018-05-03] MEDS: VENLAFAXINE **XR** 75MG CAPSULE PO SCH (08:44)
[2018-05-03] MEDS ORDERED: PANT40TA3 PO (09:57)
[2018-05-03] MEDS ORDERED: FERR1TAB8 PO (10:04)
--- NOTE | 2018-05-03 11:41 | IPN ---
DATE: 05/02/2018 Patient is seen today on [facility]. She is having minimal if any pain today. She started to eat without any problems. Not feeling dizzy or lightheaded. No nausea or vomiting or diarrhea. She had a normal bowel movement this morning. Her current medication regimen she is getting Protonix, she is getting iron. She has as needed morphine, which she has not used, as needed Zofran which she has not used, as needed Tylenol which she got a dose of yesterday morning and she is on the scheduled venlafaxine. On examination her temperature is 98.1, blood pressure 108/67, pulse 68, respirations 18. She is alert, pleasant, and cooperative, not at all in any distress. Her eyes are clear. She has no neck masses, tenderness or adenopathy. Lungs are clear. Heart has a regular rhythm without any murmur, click or gallop. Abdomen is soft, nontender without any masses or organomegaly. Bowel sounds are active. There is no edema. Labs today show that her white count is 3000, her hemoglobin is 7.5, MCV 63.9. Her BUN is 5, creatinine 0.57, sodium 144, potassium 3.9, albumin is 2.5. Serum iron is low at 21, iron binding is 481 consistent with iron deficiency anemia. ASSESSMENT: 1. Acute pancreatitis, resolving. 2. Iron deficiency anemia, chronic. 3. History of gastric bypass 7-8 years ago. PLAN: At this point, since her hemoglobin is now below 8, I think we should transfuse her. She has had transfusions in the past and has consented to transfusions today. Assuming she feels well tomorrow, I think she could be discharged with planned office follow-up. She will need to remain on a proton pump inhibitor and an iron supplement. KARLA
--- NOTE | 2018-05-03 18:11 | DS.PDOC ---
Discharge Summary General Date of Admission Apr 30, 2018 at 12:48 Date of Discharge 05/03/18 Primary Care Physician: JIM KIMBLE PA-C Attending Physician: KHLOE FERNANDO DO Discharge Summary PROCEDURES PERFORMED DURING STAY: [None]. ADMITTING/DISCHARGE DIAGNOSES: #. Acute Pancreatitis #. Iron deficiency anemia. #. Asthma not on medications #. History of obstructive sleep apnea, cured by gastric bypass. #. History of dyslipidemia. #. Peptic ulcer disease. #. History of perforated viscus. COMPLICATIONS/CHIEF COMPLAINT: Acute Pancreatitis. HISTORY OF PRESENT ILLNESS: The patient is a 43-year-old female presenting with a 2-day history of constant, worsening mid gastric abdominal pain with radiationto her right shoulder. It is not relieved by anything including position change or bowel movements. She states that she had 7 episodes of non- bloody, non-bilious emesis yesterday with ongoing nausea. Her worsening abdominal pain prompted her to come to the ED early this morning. She has a history of abdominal pain which she claims has been ongoing since she had to have a perforated viscus repaired by Dr. Velázquez. She also states that last week she had black, tarry stool and intermittently has had blood in her stool . She tells me that she has intermittent diarrhea and constipation. She admits to chest pressure with radiation to her neck. She denies any fevers, chills, dyspnea, cough, wheezing, extremity pain or swelling. She notes that she also gets dizzy when she is up and moving around and when she suddenly turns her he ad. HOSPITAL COURSE: Patient was started on IV fluids and given antibiotics and pain medication. Her workup for stool Hemoccult was negative her troponins were negative with an unremarkable EKG. On hospital stay day 1 she had already progressed very well and was feeling much better than the day prior. Her lipase had come down and she was ready interested in advancing her diet. Hospital stay day 2 her hemoglobin dipped to 7.5 so she was transfused 2 units of blood. On hospital stay day 3 she was feeling well with no abdominal pain, nausea, emesis, and eating a regular diet, so the decision was made to discharge her. Ultimately, we were unable to find a reason for her acute pancreatitis DISCHARGE MEDICATIONS: Please see below. ALLERGIES: Please see below. PHYSICAL EXAMINATION ON DISCHARGE: VITAL SIGNS: Please see below. GENERAL: Alert, oriented, no acute distress resting comfortably in bed. HEENT: Normocephalic, atraumatic. EOMI. No pharyngeal exudate or erythema. Mucous membranes moist and pink. CARDIOVASCULAR EXAMINATION: Regular rate and rhythm. Normal S1-S2. No murmurs, gallops, rubs. RESPIRATORY EXAMINATION: CTAB with full breath sounds bilaterally. No wheezes, crackles, rhonchi. ABDOMINAL EXAMINATION: Soft, nontender, nondistended. Bowel sounds present. No hepatosplenomegaly. EXTREMITIES: No cyanosis, clubbing, edema. SKIN: No skin rashes or lesions. Normal skin turgor and temperature. NEUROLOGICAL EXAMINATION: No focal deficits. Clear speech. PSYCHIATRIC EXAMINATION: Normal mood. Normal mentation. LABORATORY DATA: Please see below. IMAGIN04/30/18 CT abdomen/pelvis with oral/IV contrast: Negative for acute findings. No free air or free fluid. No bowel wall inflammation. Two stable nodules in the liver, may represent hemangiomas. No evidence of appendicitis. 04/30/18 Gallbladder ultrasound: Mildly dilated gallbladder without evidence of stone or polyp. Common bile duct at the upper range of normal in size, 0.7 cm. 1.7 cm hyperechoic lesion in the right lobe of the liver consistent with hemangioma. PROGNOSIS: Good ACTIVITY: [As tolerated]. DIET: Regular diet. DISCHARGE PLAN: Discharge home DISPOSITION: Home, Self-Care. DISCHARGE INSTRUCTIONS: 1. Please follow-up with Jim Kimble in the next 1-2 weeks. 2. Please start taking pantoprazole by mouth once daily and ferrous sulfate by mouth once daily for iron deficiency anemia. 3. Please return to the emergency department if you have worsening abdominal pain are unable to tolerate oral intake, or are noticing bright red blood per rectum. DISCHARGE CONDITION: [Stable]. TIME SPENT ON DISCHARGE: Greater than 30 minutes. Vital Signs/I&Os Vital Signs Date Time Temp Pulse Resp B/P (MAP) Pulse Ox O2 Delivery O2 Flow Rate FiO2 05/03/18 06:00 98.9 61 18 111/67 (82) 98 04/30/18 14:25 Room Air I&O- Last 24 Hours up to 6 AM 05/03/18 06:00 Intake Total 3090 ml Output Total 3190 ml Balance -100 ml Laboratory Data Labs 24H Laboratory Tests 2 05/03/18 05:24: Nucleated Red Blood Cells % (auto) 0.0, Anion Gap 7L, Glomerular Filtration Rate > 60.0, Blood Urea Nitrogen 9#, Creatinine 0.58, Sodium Level 143, Potassium Level 3.7, Chloride Level 110H, Carbon Dioxide Level 26, Calcium Level 7.9L, Aspartate Amino Transf (AST/SGOT) 29, Alanine Aminotransferase (ALT/SGPT) 35, Alkaline Phosphatase 104, Total Bilirubin 1.8#H, Total Protein 6.5, Albumin 3.2, Albumin/Globulin Ratio 0.97L CBC/BMP Laboratory Tests 05/03/18 05:24 Red Blood Count 4.52, Mean Corpuscular Volume 70.1 L, Mean Corpuscular Hemoglobin 21.9 L, Mean Corpuscular Hemoglobin Concent 31.2 L, Red Cell Distribution Width 17.5 H, Calcium Level 7.9 L, Aspartate Amino Transf (AST/SGOT) 29, Alanine Aminotransferase (ALT/SGPT) 35, Alkaline Phosphatase 104, Total Bilirubin 1.8 #H, Total Protein 6.5, Albumin 3.2 Microbiology Microbiology 05/01/18 Stool Occult Blood (MELODY) - Final, Complete 04/30/18 Urine Culture - Final, Complete Discharge Medications Scheduled Ferrous Sulfate (Ferrous Sulfate) 325 Mg Tab, 325 MG PO DAILY Please take 1 tablet once a day. Gabapentin (Gabapentin) 100 Mg Cap, 100 MG PO BID, (Reported) TAKES TWO DOSES DURING THE DAY Gabapentin (Gabapentin) 100 Mg Cap, 300 MG PO QHS, (Reported) Pantoprazole Sodium (Pantoprazole Sodium) 40 Mg Tab, 40 MG PO DAILY Please take 1 tablet daily Tizanidine HCl (Tizanidine HCl) 2 Mg Tab, 2 MG PO QHS, (Reported) Venlafaxine HCl (Venlafaxine HCl ER) 75 Mg Capcr, 75 MG PO DAILY, (Reported) Allergies Coded Allergies: No Known Allergies (Verified , 07/22/16) GME ATTESTATION GME ATTESTATION My faculty preceptor for this patient encounter was physically present during the encounter and was fully available. All aspects of the patient interview, examination, medical decision making process, and medical care plan development were reviewed and approved by the faculty preceptor. The faculty preceptor is aware and concurs with the plan as stated in the body of this note and will attest to such by his/her cosignature. CRISTI ALAS DO May 03, 2018 18:11
== END 2018-05-03 11:24 | disposition home or self-care (01) | DRG 282 ==
LOC: M ED 04:12 → M ED INP 12:48 → M MS5PR 14:20 → M MSPAV 05-01 18:47
PROVIDERS: ADMIT Family Medicine; ATTEND Family Medicine
DX: K85.90 Acute pancreatitis without necrosis or infection, unspecified (principal); K27.9 Peptic ulcer, site unspecified, unspecified as acute or chronic, without hemorrhage or perforation; D50.9 Iron deficiency anemia, unspecified; J45.909 Unspecified asthma, uncomplicated; E78.5 Hyperlipidemia, unspecified; G47.33 Obstructive sleep apnea (adult) (pediatric); Z79.899 Other long term (current) drug therapy

== ENCOUNTER → 2018-07-07 | Outpatient (CLI) | payer OTHER ==
[~2018-07-07] MED LIST changes: -/TIOT18INH; -ACET50TA PO; +FERR1TAB8 PO; +GABA-1171 PO; +MAPA500T17 PO; +SPIR1CAP; +TIZA2TA PO
--- NOTE | 2018-07-08 03:36 | REP ---
Clinical: Jaw pain. Technique: AP, bilateral oblique, and Oscar's views of the mandible. Findings: No acute fracture dislocation. Mandible appears intact without obvious abnormality. The bilateral temporomandibular joints appear normal. Impression: Normal appearing mandible and temporomandibular joints. Electronically Signed by Christopher Narayanan MD 07/08/2018 03:28 A
== END ==
LOC: M ADAMS 09:49
PROVIDERS: ATTEND Physician Assistant
DX: R68.84 Jaw pain (principal)

== ENCOUNTER → 2018-07-15 | Outpatient (REF) | payer OTHER ==
[2018-07-15 12:28] LABS: HEMATOCRIT 35.8 % (36.0-47.0); HEMOGLOBIN 11.3 g/dl (12.0-15.5); MEAN CORPUSCULAR HEMOGLOBIN 24.2 pg (27.0-33.0); MEAN CORPUSCULAR HGB CONC 31.6 g/dl (32.0-36.5); MEAN CORPUSCULAR VOLUME 76.7 fl (80.0-96.0); PLATELET COUNT, AUTOMATED 304 10^3/uL (150-450); RED BLOOD COUNT 4.67 10^6/uL (4.00-5.40); WHITE BLOOD COUNT 4.6 10^3/uL (4.0-10.0)
[2018-07-15 12:42] LABS: ALBUMIN 3.9 GM/DL (3.2-5.2); ALT/SGPT 47 U/L (12-78); BILIRUBIN,TOTAL 0.8 MG/DL (0.2-1.0); BLOOD UREA NITROGEN 12 MG/DL (7-18); CALCIUM LEVEL 8.5 MG/DL (8.5-10.1); CARBON DIOXIDE LEVEL 28 MEQ/L (21-32); CHLORIDE LEVEL 108 MEQ/L (98-107); CREATININE FOR GFR 0.65 MG/DL (0.55-1.30); FERRITIN 8 NG/ML (8-252); GLOMERULAR FILTRATION RATE > 60.0 (>58); GLUCOSE, FASTING 77 MG/DL (70-100); IRON (FE) 54 UG/DL (50-170); PERCENT SATURATION 9.3 % (13.2-45.0); POTASSIUM SERUM 4.3 MEQ/L (3.5-5.1); SODIUM LEVEL 141 MEQ/L (136-145); TOTAL IRON BINDING CAPACITY 579 UG/DL (250-450); TOTAL PROTEIN 7.6 GM/DL (6.4-8.2)
== END ==
LOC: M SFHCADAM 09:19
PROVIDERS: ATTEND Physician Assistant
DX: D50.0 Iron deficiency anemia secondary to blood loss (chronic) (principal); R11.0 Nausea; Z98.890 Other specified postprocedural states

== ENCOUNTER 2018-11-02 18:42 | Emergency (ER) | payer OTHER ==
[~2018-11-02] VITALS: Ht 165.1 cm; Wt 79.3 kg
[2018-11-02] MEDS ORDERED: GABA-843 (18:50)
[2018-11-02 19:19] LABS: BASO % 0.4 % (0.0-1.0); EOS # 0.1 10^3/uL (0.0-0.5); EOS % 2.1 % (0.0-3.0); HEMATOCRIT 33.2 % (36.0-47.0); HEMOGLOBIN 10.9 g/dl (12.0-15.5); LYMPH # 2.1 10^3/uL (1.5-5.0); LYMPH % 36.3 % (24.0-44.0); MEAN CORPUSCULAR HEMOGLOBIN 24.8 pg (27.0-33.0); MEAN CORPUSCULAR HGB CONC 32.8 g/dl (32.0-36.5); MEAN CORPUSCULAR VOLUME 75.5 fl (80.0-96.0); MONO # 0.6 10^3/uL (0.0-0.8); MONO % 10.3 % (0.0-5.0); NEUTROPHILS # 2.9 10^3/uL (1.5-8.5); NEUTROPHILS % 50.7 % (36.0-66.0); PLATELET COUNT, AUTOMATED 260 10^3/uL (150-450); WHITE BLOOD COUNT 5.7 10^3/uL (4.0-10.0)
[2018-11-02 19:40] LABS: ALBUMIN 4.1 GM/DL (3.2-5.2); ALT/SGPT 31 U/L (12-78); BILIRUBIN,DIRECT 0.2 MG/DL (0.0-0.2); BILIRUBIN,TOTAL 0.9 MG/DL (0.2-1.0); BLOOD UREA NITROGEN 14 MG/DL (7-18); CALCIUM LEVEL 9.1 MG/DL (8.5-10.1); CARBON DIOXIDE LEVEL 28 MEQ/L (21-32); CHLORIDE LEVEL 107 MEQ/L (98-107); CREATININE FOR GFR 0.71 MG/DL (0.55-1.30); GLOMERULAR FILTRATION RATE > 60.0 (>58); GLUCOSE, FASTING 86 MG/DL (70-100); LIPASE 196 U/L (73-393); POTASSIUM SERUM 4.5 MEQ/L (3.5-5.1); SODIUM LEVEL 141 MEQ/L (136-145)
[2018-11-02] MEDS ORDERED: GI COCKTAIL 50ML BTL(HYOSCYAMINE/MAALOX/LIDOCAINE VISCOUS)(1:3:1) PO ONE (19:45)
[2018-11-02] MEDS ORDERED: PANTOPRAZOLE 40MG INJ (PROTONIX) (C9113) IV ONE (19:45)
[2018-11-02 19:54] LABS: CK-MB VALUE MASS 1.1 NG/ML (<3.6); CPK CREATINE PHOSPHOKINASE 107 U/L (26-192); MB/CK RELATIVE INDEX 1.03 (< OR =4); TROPONIN I < 0.02 NG/ML (< 0.10)
[2018-11-02] MEDS ORDERED: GASTROGRAFIN SOLUTION 30ML (Q9963) As Ordered ONE (19:58)
[2018-11-02] MEDS: GASTROGRAFIN SOLUTION 30ML PO SCH ×2 (20:13→20:38)
[2018-11-02] MEDS ORDERED: MORPHINE 4 MG/ML 1ML VIAL/SYRINGE (J2270) IV ONE ×2 (21:30→23:15)
[2018-11-02] MEDS ORDERED: ISOVUE-370 76% 100ML VIAL (Q9967) As Ordered ONE (21:34)
--- NOTE | 2018-11-02 23:28 | REPVR ---
EXAM: CT Abdomen and Pelvis With Contrast EXAM DATE/TIME: 11/02/2018 10:01 PM CLINICAL HISTORY: 43 years old, female; Abdominal pain; Localized; Left; Additional info: L sided, epigastric pain TECHNIQUE: Imaging protocol: Computed tomography of the abdomen and pelvis with intravenous contrast. Radiation optimization: All CT scans at this facility use at least one of these dose optimization techniques: automated exposure control; mA and/or kV adjustment per patient size (includes targeted exams where dose is matched to clinical indication); or iterative reconstruction. Contrast material: ISOVUE 370; Contrast volume: 100 ml; Contrast route: IV; COMPARISON: CT ABD/PEL W/IV ORAL CONTRAS 04/30/2018 9:42 AM FINDINGS: Lungs: Clear appearing lung bases. Heart: The heart is normal in size and there is no pericardial effusion. Liver: There is a 1.7 CM low density lesion in the right lobe of the liver unchanged since April and most consistent with a hemangioma. The spleen is normal in size. Gallbladder and bile ducts: Normal appearing gallbladder. Normal common bile duct. Pancreas: Normal pancreas. Adrenals: Normal adrenal glands. Kidneys and ureters: There is no evidence of obstruction of the right or left ureter and no evidence of hydronephrosis. Stomach and bowel: The patient is status post gastric bypass procedure with surgical clips at the left upper quadrant. Postoperative changes are noted in the mid abdomen involving loops of small bowel. At this location there is what appears to be a very prominent intussusception. There is an opacified loop of jejunum with a nonopacified loop or loops telescoping within measuring 12 CM in length. There is also demonstrated mesenteric fat extending into the bowel all consistent with a very large intussusception. Appendix: Normal appearing appendix in the right pelvis. Intraperitoneal space: There is no evidence of pneumoperitoneum. Vasculature: There is opacification of the aorta which is normal in size and appearing intact. There is opacification of the kidneys. Lymph nodes: Unremarkable. No enlarged lymph nodes. Bladder: Normal appearing urinary bladder. Reproductive: The patient is status post hysterectomy. Bones/joints: Unremarkable. No acute fracture. Soft tissues: Unremarkable. IMPRESSION: 1. The patient has had a gastric bypass and also has surgical clips involving small bowel mid abdomen. There is a very large intussusception at this location. A long portion of opacified jejunum is distended and has 2 nonopacified loops of bowel telescoped within measuring 12 CM in length. 2.This very large intussusception includes mesenteric fat centrally. This is thought to represent 2 loops of unopacified small bowel extending into this significantly dilated loop of jejunum. Electronically signed by: Roe bAdalla On 11/02/2018 23:28:30 PM
[2018-11-02] MEDS ORDERED: NS 1,000 ML IV SCH (23:55)
[2018-11-03 01:28] VITALS: BP 120/69
[2018-11-03] MEDS ORDERED: MORPHINE 4 MG/ML 1ML VIAL/SYRINGE (J2270) IV ONE (01:45)
--- NOTE | 2018-11-03 05:41 | ECGEPIP ---
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
== END 2018-11-03 01:36 | disposition short-term general hospital (02) ==
LOC: M ED 18:42
DX: K56.1 Intussusception (principal); M54.9 Dorsalgia, unspecified; K21.9 Gastro-esophageal reflux disease without esophagitis; E78.5 Hyperlipidemia, unspecified; I10 Essential (primary) hypertension; K29.70 Gastritis, unspecified, without bleeding; J45.909 Unspecified asthma, uncomplicated; G47.30 Sleep apnea, unspecified; Z98.84 Bariatric surgery status; Z87.19 Personal history of other diseases of the digestive system; Z79.899 Other long term (current) drug therapy
CPT/HCPCS: 74177; 80048; 80076; 82550; 82553; 83690; 85025; 93005; 93041; 94760; 96374; 96375; 96376; 99285; C9113; J2270; Q9967

== ENCOUNTER → 2018-11-16 | Outpatient (REF) ==
[~2018-11-16] MED LIST changes: +GABA-843
--- NOTE | 2018-11-16 15:13 | REP ---
Lumbar spine three views: There are no comparisons. Vertebral body heights and alignment are normal. There are small anterior osteophytes at L1-2, 02/03, 04/26 and 05/28, compatible with mild multilevel degenerative disc disease. There is no spondylolysis or spondylolisthesis. The pedicles and facets are unremarkable. The sacroiliac articulations are unremarkable. Impression: Mild multilevel degenerative disc disease, otherwise negative lumbar spine. Electronically Signed by Titus Wilson MD 11/16/2018 03:04 P
--- NOTE | 2018-11-17 05:29 | REP ---
Clinical: Pain and disability. Technique: AP, lateral, bilateral oblique and sunrise views of the left knee. Findings: Early advanced tricompartmental osteoarthritic degenerative changes are appreciated. Findings include osteophytosis, subchondral sclerosis, and joint space narrowing. Mild anterior swelling. No obvious acute fracture or effusion. Impression: Early advanced tricompartmental osteoarthritic degenerative changes. Electronically Signed by Christopher Narayanan MD 11/17/2018 05:20 A
== END ==
LOC: M SMT 10:39
PROVIDERS: ATTEND Internal Medicine
DX: Z02.71 Encounter for disability determination (principal)

== ENCOUNTER → 2019-01-18 | Outpatient (REF) | payer OTHER ==
[2019-01-18 19:42] LABS: HEMATOCRIT 35.5 % (36.0-47.0); HEMOGLOBIN 10.7 g/dl (12.0-15.5); MEAN CORPUSCULAR HEMOGLOBIN 23.9 pg (27.0-33.0); MEAN CORPUSCULAR HGB CONC 30.1 g/dl (32.0-36.5); MEAN CORPUSCULAR VOLUME 79.2 fl (80.0-96.0); PLATELET COUNT, AUTOMATED 320 10^3/uL (150-450); RED BLOOD COUNT 4.48 10^6/uL (4.00-5.40); WHITE BLOOD COUNT 5.3 10^3/uL (4.0-10.0)
== END ==
LOC: M SFHCADAM 15:24
PROVIDERS: ATTEND Physician Assistant
DX: D50.0 Iron deficiency anemia secondary to blood loss (chronic) (principal); E55.9 Vitamin D deficiency, unspecified

== ENCOUNTER → 2019-01-18 | Outpatient (REF) | payer OTHER ==
[2019-01-18 19:41] LABS: HEMOGLOBIN 10.7 g/dl (12.0-15.5)
== END ==
LOC: M LABDRWAD 19:18
PROVIDERS: ATTEND Physician Assistant
DX: D64.9 Anemia, unspecified (principal)

== ENCOUNTER 2019-02-16 03:20 | Inpatient (IN) | payer OTHER ==
[~2019-02-16] VITALS: Ht 165.1 cm; Wt 79.4 kg
[2019-02-16] VITALS (12 sets, daily range): BP systolic 105–126; BP diastolic 61–87
[2019-02-16] MEDS ORDERED: ACET1TAB16 PO (03:43)
[2019-02-16] MEDS ORDERED: NS 500 ML IV ONE (04:00)
[2019-02-16] MEDS ORDERED: PANTOPRAZOLE 40MG INJ (PROTONIX) (C9113) IV ONE (04:00)
[2019-02-16 04:18] LABS: BASO % 0.2 % (0.0-1.0); EOS # 0.1 10^3/uL (0.0-0.5); HEMATOCRIT 21.4 % (36.0-47.0); LYMPH # 0.9 10^3/uL (1.5-5.0); LYMPH % 21.2 % (24.0-44.0); MEAN CORPUSCULAR HEMOGLOBIN 23.7 pg (27.0-33.0); MEAN CORPUSCULAR HGB CONC 30.4 g/dl (32.0-36.5); MEAN CORPUSCULAR VOLUME 78.1 fl (80.0-96.0); MONO # 0.3 10^3/uL (0.0-0.8); MONO % 6.8 % (0.0-5.0); NEUTROPHILS # 3.1 10^3/uL (1.5-8.5); NEUTROPHILS % 69.6 % (36.0-66.0); PLATELET COUNT, AUTOMATED 201 10^3/uL (150-450); RED BLOOD COUNT 2.74 10^6/uL (4.00-5.40); WHITE BLOOD COUNT 4.4 10^3/uL (4.0-10.0)
[2019-02-16 04:25] LABS: HEMOGLOBIN 6.5 g/dl (12.0-15.5)
[2019-02-16 04:29] LABS: INR 1.08; PROTHROMBIN TIME 13.8 SECONDS (11.8-14.0)
[2019-02-16 04:30] LABS: PARTIAL THROMBOPLASTIN TIME 26.9 SECONDS (25.0-38.4)
[2019-02-16 04:42] LABS: ALBUMIN 3.1 GM/DL (3.2-5.2); ALT/SGPT 22 U/L (12-78); BILIRUBIN,DIRECT 0.2 MG/DL (0.0-0.2); BILIRUBIN,TOTAL 0.5 MG/DL (0.2-1.0); BLOOD UREA NITROGEN 28 MG/DL (7-18); CALCIUM LEVEL 7.9 MG/DL (8.5-10.1); CARBON DIOXIDE LEVEL 23 MEQ/L (21-32); CHLORIDE LEVEL 113 MEQ/L (98-107); CREATININE FOR GFR 0.74 MG/DL (0.55-1.30); GLOMERULAR FILTRATION RATE > 60.0 (>58); GLUCOSE, FASTING 115 MG/DL (70-100); LIPASE 123 U/L (73-393); POTASSIUM SERUM 4.3 MEQ/L (3.5-5.1); SODIUM LEVEL 144 MEQ/L (136-145); TOTAL PROTEIN 5.8 GM/DL (6.4-8.2)
[2019-02-16] MEDS ORDERED: GABA-843 PO (04:56)
[2019-02-16] MEDS ORDERED: GABA-1171 PO (04:56)
[2019-02-16] MEDS ORDERED: FERR1TAB8 PO (04:56)
[2019-02-16] MEDS ORDERED: TIZA4TAB4 PO (04:58)
[2019-02-16] MEDS ORDERED: PANT-23 PO (04:58)
[2019-02-16] MEDS ORDERED: SUCRALFATE SUSP 1GM/10ML UD PO SCH (06:00)
--- NOTE | 2019-02-16 06:14 | HPEPDOC ---
[facility] Medical History & Physical Date of Admission Feb 16, 2019 Date of Service: Feb 16, 2019 Attending Physician: STEPHANIE JONES MD History and Physical CHIEF COMPLAINT: Hematochezia HISTORY OF PRESENT ILLNESS: 43-year-old female with past medical history of gastric bypass, post anastomotic ulceration causing bowel rupture, chronic anemia and GI bleed, presents from home with hematochezia. Patient reports increased epigastric pain recently despite taking Protonix, she noticed dark stool yesterday morning and woke up at 3 AM today with bright red blood per rectum. She had 2 large volume bloody bowel movements. She denies any hematemesis, although she has been having nausea and dry heaving. In the ED, she is found to have hemoglobin of 6.5, was 10.7 one month ago. She is oriented to, received 3 units of packed red blood cells, Dr. Mcghee was consulted for possible endoscopy. Patient denies any chest pain, headache, shortness of breath, cough or urinary complaints. Of note, patient is on venlafaxine, which has been associated with increased risk of GI bleed. 10 point review of system is negative except for above PAST MEDICAL HISTORY: 1. Anemia. 2. Depression. 3. GI bleed. PAST SURGICAL HISTORY: 1. Gastric bypass. 2. Post anastomotic leak repair. 3. The arthroscopy. SOCIAL HISTORY: Previous smoker, smoked for a few years in her 20s. Denies alcohol use. Denies drug use FAMILY HISTORY: Strong family history of heart disease ALLERGIES: Please see below. HOME MEDICATIONS: Please see below. PHYSICAL EXAMINATION: VITAL SIGNS: Please see below. GENERAL: No distress HEENT: Normocephalic, atraumatic, moist mucous membranes NECK: Supple CARDIOVASCULAR EXAMINATION: S1, S2, no murmurs RESPIRATORY EXAMINATION: Clear to auscultation, no wheezing ABDOMINAL EXAMINATION: Soft, nontender, nondistended, positive bowel sounds EXTREMITIES: Range of motion intact SKIN: No rash NEUROLOGICAL EXAMINATION: Alert and oriented 3, no focal deficits PSYCHIATRIC EXAMINATION: Calm and cooperative LABORATORY DATA: See below. MICROBIOLOGY: Please see below. ASSESSMENT: 43-year-old female with past medical history of gastric bypass with post anastomotic leak, GI bleed, anemia is admitted for acute GI bleed. PLAN: 1. Acute GI bleed. Likely upper GI bleed given patient's history and presentation, Protonix 40 mg twice a day, Carafate 1 g every 6 hours, Dr. Holm consulted by emergency department. Scheduled to receive 3 units of packed red blood cells, trend H&H. 2. Anxiety/depression. Hold venlafaxine for now DVT prophylaxis: TEDs. GI prophylaxis: Protonix and Carafate Vital Signs Vital Signs Date Time Temp Pulse Resp B/P (MAP) Pulse Ox O2 Delivery O2 Flow Rate FiO2 02/16/19 05:45 97.7 02/16/19 05:30 88 18 118/69 100 Room Air Laboratory Data Labs 24H Laboratory Tests 2 02/16/19 03:54: Immature Granulocyte % (Auto) 0.2, Neutrophils (%) (Auto) 69.6H, Lymphocytes (%) (Auto) 21.2L, Monocytes (%) (Auto) 6.8H, Eosinophils (%) (Auto) 2.0, Basophils (%) (Auto) 0.2, Neutrophils # (Auto) 3.1, Lymphocytes # (Auto) 0.9L, Monocytes # (Auto) 0.3, Eosinophils # (Auto) 0.1, Basophils # (Auto) 0.0, Nucleated Red Blood Cells % (auto) 0.0, Prothrombin Time 13.8, Prothromb Time International Ratio 1.08, Activated Partial Thromboplast Time 26.9, Anion Gap 8, Glomerular Filtration Rate > 60.0, Calcium Level 7.9L, Total Bilirubin 0.5, Direct Bilirubin 0.2, Aspartate Amino Transf (AST/SGOT) 19, Alanine Aminotransferase (ALT/SGPT) 22, Alkaline Phosphatase 97, Total Protein 5.8L, Albumin 3.1L, Albumin/Globulin Ratio 1.15, Lipase 123 CBC/BMP Laboratory Tests 02/16/19 03:54 Home Medications Scheduled Ferrous Sulfate (Ferrous Sulfate) 325 Mg Tablet, 325 MG PO DAILY Gabapentin (Gabapentin) 100 Mg Cap, 100 MG PO BID TAKES WITH 300MG FOR 400MG PER DOSE IN THE MORNING AND EARLY AFTERNOON Gabapentin (Gabapentin) 300 Mg Capsule, 300 MG PO TID Gabapentin (Gabapentin) 100 Mg Capsule, 300 MG PO QHS TAKES WITH 300MG FOR 600MG TOTAL AT NIGHT Pantoprazole Sodium (Pantoprazole Sodium) 40 Mg Tablet.dr 40 MG PO DAILY Tizanidine HCl (Tizanidine HCl) 4 Mg Tablet, 4 MG PO QHS Venlafaxine HCl (Venlafaxine HCl ER) 75 Mg Capcr, 75 MG PO DAILY Allergies Coded Allergies: No Known Allergies (Verified , 07/22/16) A-FIB/CHADSVASC A-FIB History Current/History of A-Fib/PAF?: No STEPHANIE JONES MD Feb 16, 2019 06:14
[2019-02-16] MEDS ORDERED: PANTOPRAZOLE 40MG INJ (PROTONIX) (C9113) IV SCH (07:00)
--- NOTE | 2019-02-16 10:35 | CR ---
DATE OF CONSULTATION: 02/16/2019 REASON FOR CONSULTATION: Gastrointestinal (GI) bleed. HISTORY OF PRESENT ILLNESS: The patient is a 43-year-old female that I have seen over the last few years. The last time I saw her was 2 years ago when she had an ulcer at her gastrojejunostomy. She has been on Carafate and Protonix since that time, but developed acute bright red blood per rectum last night and came in for some hypotension and bright red blood per rectum. Fortunately, she has not had any further bright red blood per rectum since 3 o'clock this morning. She has had no nausea or vomiting. Unfortunately, she has had some persistence of abdominal pain every time she eats and it sounds as though she has a symptomatic ulcer that has been present for quite awhile now and she states that at least her pain has been present for the last several years. She has not really gained a lot of weight back after her gastric bypass and is doing well from that standpoint. She had one episode of questionable intussusception that resolved on its own. She does not typically have a significant anemia. She is now being admitted for additional recommendations. PAST MEDICAL HISTORY: Significant for history of gastric bypass, history of anastomotic leak repair, history of anemia, history of depression, history of GI bleed, history of arthroscopy. MEDICATIONS: Include iron, gabapentin and pantoprazole. She says she is on Carafate, but I do not see it listed on her home meds. Also, tizanidine and venlafaxine. PHYSICAL EXAMINATION: Reveals a pale, 43-year-old who looks stated age. HEENT is unremarkable. Neck: Supple without adenopathy. Lungs: Clear to auscultation without crackles, wheezes or rhonchi. Heart is regular without murmur. Abdomen is soft, nondistended, nontender. No guarding. No rebound. No peritoneal signs are appreciated. IMPRESSION AND PLAN: The patient has a GI bleed. Given her history of gastric ulcers and her gastric bypass, I would anticipate this is probably an upper GI bleed instead of truly a colonic/lower GI bleed despite the bright red blood per rectum. Although that is a possibility, it is less likely at this time, i.e., such as diverticular bleed. From the standpoint of appropriate treatment, it is being given at this time with proton pump inhibitors and Carafate. Will add some octreotide as well for the 24 hours. If she is doing well and she has a stable hematocrit overnight and she is not having any significant GI bleed, then I would recommend starting a clear liquid diet and will stop her octreotide. If she does well with that for 24 hours, then starting her on a regular diet and discharging her home after 24 hours after that would be reasonable. I do feel that given her gastric bypass issues, she may need end up needing a revision of her gastric bypass in the future and I have asked her to pursue an upper endoscopy with her GI surgeon in [place] after discharge. Otherwise, I would be glad to proceed with an upper endoscopy, but at this point having a repeated procedure as an outpatient seems redundant. Thus, at this point given her stability, I feel that we can continue with current treatment for right now and will see how she does.
[2019-02-16] MEDS ORDERED: PANT40TA3 PO (12:15)
[2019-02-16] MEDS ORDERED: OCTREOTIDE ACETATE 100 MCG/ML VIAL (J2354) IV SCH (14:00)
--- NOTE | 2019-02-16 14:28 | DS.PDOC ---
Discharge Summary General Date of Admission Feb 16, 2019 at 05:52 Date of Discharge 02/16/19 Primary Care Physician: JIM KIMBLE PA-C Attending Physician: King Kimble MD Specialist/Consultants Involve: Roddy Velázquez Jr Discharge Summary PROCEDURES PERFORMED DURING STAY: None ADMITTING DIAGNOSES: 1. G.I Bleed DISCHARGE DIAGNOSES: 1. Upper G.I Bleed COMPLICATIONS/CHIEF COMPLAINT: Anemia/Gi Hemorrhage/Hx Of Gastric Bypass. HISTORY OF PRESENT ILLNESS/HOSPITAL COURSE: Patient is a 43-year-old female with past medical history of gastric bypass, post anastomotic ulceration causing bowel rupture, chronic anemia and GI bleed, who presented with hematochezia. On admission her hemoglobin and hematocrit was 6.5 and 21.4 respectively. She is also complained of abdominal pain, despite taking Protonix, she noticed dark stool prior to bright red blood per rectum. She denies any hematemesis, despite having nausea and dry heaving. She was admitted, and started blood transfusion with surgical consultation. On morning of discharge by AMA patient was evaluated by surgeon, who agreed with the Carafate and Protonix, in addition surgeon also added octreotide, and advised that patient once stable and is able tolerate by mouth foods should have a follow-up EGD by patient's gastric bypass surgeon. Since it is very likely the patient required revision of original surgery. Patient initially appeared to agree with the plan. However, she changed her mind, and insisted on leaving AGAINST MEDICAL ADVICE following her blood palomino sfusion. She received 3 units of blood transfusion. Patient refused further lab monitoring, she left AGAINST MEDICAL ADVICE despite warning of sudden , disability, stroke, decreased quality of life, and significant hemorrhage. Patient stated that she would go home and then proceed to go to [facility]. Attempts were made to dissuade patient, however patient was adamant about leaving AGAINST MEDICAL ADVICE. DISCHARGE MEDICATIONS: Please see below. ALLERGIES: Please see below. PHYSICAL EXAMINATION ON DISCHARGE: VITAL SIGNS: Please see below VITALS: See Below GENERAL APPEARANCE: Alert no acute distress SKIN: Warm LUNGS: Clear to auscultation bilaterally. HEART: Normal S1, S2. No murmurs, no rubs, no gallops ABDOMEN: Soft. No masses. Bowel sounds are present. Minimal tenderness EXTREMITIES: Moves all extremities equally. No gross deformities. PULSES: 2+ upper and lower extremity . LABORATORY DATA: Please see below. IMAGING: None PROGNOSIS: Guarded, patient risks , disability, and decreased quality of life, sudden hemorrhage by leaving AGAINST MEDICAL ADVICE ACTIVITY: As tolerated DIET: Nothing by mouth DISCHARGE PLAN: Patient left AGAINST MEDICAL ADVICE DISPOSITION: Against Medical Advice. DISCHARGE INSTRUCTIONS: 1. Patient was strongly encouraged to follow-up at [facility] for upper GI bleed ITEMS TO FOLLOWUP ON ON OUTPATIENT: 1. Upper GI bleed DISCHARGE CONDITION: Unstable, status post 3 units of blood transfusion, no laboratory follow-up TIME SPENT ON DISCHARGE: Greater than 25 minutes. Vital Signs/I&Os Vital Signs Date Time Temp Pulse Resp B/P (MAP) Pulse Ox O2 Delivery O2 Flow Rate FiO2 02/16/19 12:13 97.9 84 18 111/63 97 Room Air Laboratory Data Labs 24H Laboratory Tests 2 02/16/19 03:54: Immature Granulocyte % (Auto) 0.2, Neutrophils (%) (Auto) 69.6H, Lymphocytes (%) (Auto) 21.2L, Monocytes (%) (Auto) 6.8H, Eosinophils (%) (Auto) 2.0, Basophils (%) (Auto) 0.2, Neutrophils # (Auto) 3.1, Lymphocytes # (Auto) 0.9L, Monocytes # (Auto) 0.3, Eosinophils # (Auto) 0.1, Basophils # (Auto) 0.0, Nucleated Red Blood Cells % (auto) 0.0, Prothrombin Time 13.8, Prothromb Time International Ratio 1.08, Activated Partial Thromboplast Time 26.9, Anion Gap 8, Glomerular Filtration Rate > 60.0, Calcium Level 7.9L, Total Bilirubin 0.5, Direct Bilirubin 0.2, Aspartate Amino Transf (AST/SGOT) 19, Alanine Aminotransferase (ALT/SGPT) 22, Alkaline Phosphatase 97, Total Protein 5.8L, Albumin 3.1L, Albumin/Globulin Ratio 1.15, Lipase 123 CBC/BMP Laboratory Tests 02/16/19 03:54 Discharge Medications Scheduled Ferrous Sulfate (Ferrous Sulfate) 325 Mg Tablet, 325 MG PO DAILY, (Reported) Gabapentin (Gabapentin) 100 Mg Cap, 100 MG PO BID, (Reported) TAKES WITH 300MG FOR 400MG PER DOSE IN THE MORNING AND EARLY AFTERNOON Gabapentin (Gabapentin) 300 Mg Capsule, 300 MG PO TID, (Reported) Gabapentin (Gabapentin) 100 Mg Capsule, 300 MG PO QHS, (Reported) TAKES WITH 300MG FOR 600MG TOTAL AT NIGHT Pantoprazole Sodium (Pantoprazole Sodium) 40 Mg Tablet.dr, 40 MG PO BID Tizanidine HCl (Tizanidine HCl) 4 Mg Tablet, 4 MG PO QHS, (Reported) Venlafaxine HCl (Venlafaxine HCl ER) 75 Mg Capcr, 75 MG PO DAILY, (Reported) Allergies Coded Allergies: No Known Allergies (Verified , 07/22/16) GME ATTESTATION GME ATTESTATION My faculty preceptor for this patient encounter was physically present during the encounter and was fully available. All aspects of the patient interview, examination, medical decision making process, and medical care plan development were reviewed and approved by the faculty preceptor. The faculty preceptor is aware and concurs with the plan as stated in the body of this note and will attest to such by his/her cosignature. URSZULA BERRIOS DO Feb 16, 2019 14:04
== END 2019-02-16 12:40 | disposition left against medical advice (07) | DRG 253 ==
LOC: M ED 03:20 → M ED INP 05:52 → M PCU 07:31
PROVIDERS: ADMIT Internal Medicine; ATTEND Family Medicine
PROC: 30233N1 Transfusion of Nonautologous Red Blood Cells into Peripheral Vein, Percutaneous Approach (ICD-10-PCS; principal; 2019-02-16)
DX: K92.2 Gastrointestinal hemorrhage, unspecified (principal); F32.9 Major depressive disorder, single episode, unspecified; F41.9 Anxiety disorder, unspecified; Z98.84 Bariatric surgery status; Z87.19 Personal history of other diseases of the digestive system; D50.0 Iron deficiency anemia secondary to blood loss (chronic); Z79.899 Other long term (current) drug therapy

== ENCOUNTER → 2019-03-16 | Outpatient (REF) | payer OTHER ==
[~2019-03-16] MED LIST changes: +ACET1TAB16 PO; +PANT-23 PO; +TIZA4TAB4 PO
[2019-03-16 13:35] LABS: HEMATOCRIT 30.5 % (36.0-47.0); HEMOGLOBIN 9.1 g/dl (12.0-15.5); MEAN CORPUSCULAR HEMOGLOBIN 23.6 pg (27.0-33.0); MEAN CORPUSCULAR HGB CONC 29.8 g/dl (32.0-36.5); MEAN CORPUSCULAR VOLUME 79.2 fl (80.0-96.0); PLATELET COUNT, AUTOMATED 324 10^3/uL (150-450); RED BLOOD COUNT 3.85 10^6/uL (4.00-5.40); WHITE BLOOD COUNT 4.5 10^3/uL (4.0-10.0)
[2019-03-16 14:30] LABS: ALT/SGPT 28 U/L (12-78); BILIRUBIN,TOTAL 0.9 MG/DL (0.2-1.0); BLOOD UREA NITROGEN 12 MG/DL (7-18); CALCIUM LEVEL 8.8 MG/DL (8.5-10.1); CARBON DIOXIDE LEVEL 24 MEQ/L (21-32); CHLORIDE LEVEL 108 MEQ/L (98-107); CREATININE FOR GFR 0.69 MG/DL (0.55-1.30); FERRITIN 6 NG/ML (8-252); FREE T4 1.13 NG/DL (0.76-1.46); GLOMERULAR FILTRATION RATE > 60.0 (>58); GLUCOSE, FASTING 74 MG/DL (70-100); IRON (FE) 63 UG/DL (50-170); PERCENT SATURATION 10.4 % (13.2-45.0); SODIUM LEVEL 140 MEQ/L (136-145); THYROID STIMULATING HORMONE 0.733 uIU/ML (0.358-3.740); TOTAL 25(OH) VITAMIN D 19.9 NG/ML (30.0-100.0); TOTAL IRON BINDING CAPACITY 604 UG/DL (250-450); TOTAL PROTEIN 7.2 GM/DL (6.4-8.2); VITAMIN B12 LEVEL 441 PG/ML (247-911)
== END ==
LOC: M SFHCADAM 08:38
PROVIDERS: ATTEND Family Medicine
DX: D50.0 Iron deficiency anemia secondary to blood loss (chronic) (principal); M79.7 Fibromyalgia; Z98.890 Other specified postprocedural states; F41.9 Anxiety disorder, unspecified

== ENCOUNTER → 2019-03-28 | Outpatient (CLI) | payer OTHER ==
--- NOTE | 2019-03-28 16:48 | REP ---
Right shoulder four views : There is no fracture or dislocation. Mineralization and joint spaces are normal. There are no calcifications or foreign bodies. Impression: Negative right shoulder . Electronically Signed by Titus Wilson MD 03/28/2019 04:39 P
== END ==
LOC: M ADAMS 12:57
PROVIDERS: ATTEND Physician Assistant
DX: S46.011A Strain of muscle(s) and tendon(s) of the rotator cuff of right shoulder, initial encounter (principal); X58.XXXA Exposure to other specified factors, initial encounter; Y92.9 Unspecified place or not applicable

== ENCOUNTER 2019-07-24 14:41 | Inpatient (IN) | payer OTHER ==
[2019-07-24] VITALS (11 sets, daily range): BP systolic 107–149; BP diastolic 34–81
[~2019-07-24] VITALS: Ht 165.1 cm; Wt 86.2 kg
[2019-07-24 15:12] LABS: BASO % 0.6 % (0.0-1.0); EOS # 0.1 10^3/uL (0.0-0.5); EOS % 1.8 % (0.0-3.0); HEMATOCRIT 27.6 % (36.0-47.0); LYMPH # 1.8 10^3/uL (1.5-5.0); LYMPH % 33.8 % (24.0-44.0); MEAN CORPUSCULAR HEMOGLOBIN 19.5 pg (27.0-33.0); MEAN CORPUSCULAR VOLUME 67.2 fl (80.0-96.0); MONO # 0.4 10^3/uL (0.0-0.8); MONO % 7.5 % (0.0-5.0); NEUTROPHILS # 3.1 10^3/uL (1.5-8.5); NEUTROPHILS % 56.1 % (36.0-66.0); PLATELET COUNT, AUTOMATED 372 10^3/uL (150-450); RED BLOOD COUNT 4.11 10^6/uL (4.00-5.40); WHITE BLOOD COUNT 5.4 10^3/uL (4.0-10.0)
[2019-07-24] MEDS ORDERED: NS 1,000 ML IV ONE (15:15)
[2019-07-24] MEDS ORDERED: SUCRALFATE 1 GM TAB PO ONE (15:15)
[2019-07-24] MEDS ORDERED: PANTOPRAZOLE 40MG VIAL (C9113 PER 1) IV ONE (15:15)
[2019-07-24 15:23] LABS: INR 0.97; PROTHROMBIN TIME 12.6 SECONDS (11.8-14.0)
[2019-07-24 15:49] LABS: ALBUMIN 4.1 GM/DL (3.2-5.2); ALT/SGPT 26 U/L (12-78); BILIRUBIN,DIRECT 0.2 MG/DL (0.0-0.2); BILIRUBIN,TOTAL 0.9 MG/DL (0.2-1.0); BLOOD UREA NITROGEN 7 MG/DL (7-18); CALCIUM LEVEL 8.7 MG/DL (8.5-10.1); CARBON DIOXIDE LEVEL 26 MEQ/L (21-32); CHLORIDE LEVEL 107 MEQ/L (98-107); CK-MB VALUE MASS 1.9 NG/ML (<3.6); CPK CREATINE PHOSPHOKINASE 175 U/L (26-192); CREATININE FOR GFR 0.66 MG/DL (0.55-1.30); GLOMERULAR FILTRATION RATE > 60.0 (>58); GLUCOSE, FASTING 80 MG/DL (70-100); LIPASE 100 U/L (73-393); MB/CK RELATIVE INDEX 1.09 (< OR =4); POTASSIUM SERUM 3.9 MEQ/L (3.5-5.1); SODIUM LEVEL 138 MEQ/L (136-145); TOTAL PROTEIN 7.5 GM/DL (6.4-8.2); TROPONIN I < 0.02 NG/ML (< 0.10)
[2019-07-24] MEDS ORDERED: PANT40TA3 PO (16:42)
[2019-07-24] MEDS ORDERED: TIZA4TAB4 PO (16:47)
--- NOTE | 2019-07-24 16:55 | HPEPDOC ---
[facility] Medical History & Physical Date of Admission July 24, 2019 Date of Service: July 24, 2019 History and Physical CHIEF COMPLAINT: abdominal pain HISTORY OF PRESENT ILLNESS: 44 yo female for 2-3 weeks history of worsening abdominal pain, worsens immediately post-prandial, then resolved. Also notes nausea and shortness of breath, also started with her abdominal pain. Also notes black tarry stools which started with her abominal pain. Denies chest pain, diarrhea, headaches. PAST MEDICAL HISTORY: #ASTHMA - resolved #AL - resolved after weight loss #DLP - resolved after weight loss #PUD - recurrent GI bleeding - most recent EGD 08/21/16 - Dr. Velázquez #gastric bypass - 2010 - [place] #ulcer at anastamosis - repaired by Dr Velázquez #chronic anemia/chronic GI blood loss/iron deficiency #polyart. arthritis #anxiety/depression #fibromyalgia #GI bleed 02/10 - left AMA before workup complete SURGICAL HISTORY D AND CS 2 X 1996 TUBAL LIGATION RT KNEE ARTHOSCOPY SURGERY LT LITTLE FINGER SURGERY TONSILLECTOMY AND ADENOIDECTOMY GASTRIC BYPASS 01/07/2011 COLONOSCOPY (NL), EGD (NEG BX) 12/2013 KNEE SURGERY-LEFT 05/03/2014,02/14/2015,01/2016 EGD - GASTRIC ULCER AT ANASTAMOSIS 08/21/16 HYSTERECTOMY & OOPHORECTOMY 09/2016 HERNIA REPAIR 04/2017 BOWEL SURGERY 10/2018 ALLERGIES: Please see below. REVIEW OF SYSTEMS: Negative except as per HPI HOME MEDICATIONS: Please see below. PHYSICAL EXAMINATION: VITAL SIGNS: See below General:NAD, lying comfortably in bed HEENT: NC/AT, EOMI, PERRL Lungs: CTA B/L HearT: +S1S2, RRR Abd: soft, mild tenderness, +BS Ext: no edema LABORATORY DATA: See below. MICROBIOLOGY: Please see below. ASSESSMENT: 44 yo female for abdominal pain, nausea, ASHER for symptomatic anemia, likely acute blood loss, with PMHx of gastric bypass 2010 complicated with ulcer at anastamosis s/p surgical repair, recurrent upper GI bleed from peptic ulcer disease. #GI bleed - symptomatic anemia secondary to acute blood anemia - transfuse 2PRBC - clear liquid diet - GI c/s possible scope inpatient vs outpatient - protonix 40 IV BID - CT A/P pending - most recent EGD 08/21/16 - Dr. Velázquez - HX PUD - recurrent GI bleeding #gastric bypass - 2010 - [place] - ulcer at anastamosis - repaired by Dr Velázquez #Hx ASTHMA - resolved #Hx AL - resolved after weight loss #Hx DLP - resolved after weight loss #polyart. arthritis #anxiety/depression #fibromyalgia #DVT prophylaxis - mechanical Vital Signs Vital Signs Date Time Temp Pulse Resp B/P (MAP) Pulse Ox O2 Delivery O2 Flow Rate FiO2 07/24/19 15:25 07/24/19 14:41 98.2 73 20 98 Room Air Laboratory Data Labs 24H Laboratory Tests 2 07/24/19 15:04: Immature Granulocyte % (Auto) 0.2, Neutrophils (%) (Auto) 56.1, Lymphocytes (%) (Auto) 33.8, Monocytes (%) (Auto) 7.5H, Eosinophils (%) (Auto) 1.8, Basophils (%) (Auto) 0.6, Neutrophils # (Auto) 3.1, Lymphocytes # (Auto) 1.8, Monocytes # (Auto) 0.4, Eosinophils # (Auto) 0.1, Basophils # (Auto) 0.0, Nucleated Red Blood Cells % (auto) 0.0, Prothrombin Time 12.6, Prothromb Time International Ratio 0.97, Anion Gap 5L, Glomerular Filtration Rate > 60.0, Calcium Level 8.7, Total Bilirubin 0.9, Direct Bilirubin 0.2, Aspartate Amino Transf (AST/SGOT) 32, Alanine Aminotransferase (ALT/SGPT) 26, Alkaline Phosphatase 133H, Total Cre atine Kinase 175, Creatine Kinase MB 1.9, Creatine Kinase MB Relative Index 1.09, Troponin I < 0.02, Total Protein 7.5, Albumin 4.1, Albumin/Globulin Ratio 1.2, Lipase 100 CBC/BMP Laboratory Tests 07/24/19 15:04 Home Medications Scheduled Gabapentin (Gabapentin) 100 Mg Cap, 100 MG PO BID TAKES WITH 300MG FOR 400MG PER DOSE IN THE MORNING AND EARLY AFTERNOON Gabapentin (Gabapentin) 300 Mg Capsule, 300 MG PO TID Pantoprazole Sodium (Pantoprazole Sodium) 40 Mg Tablet.dr, 40 MG PO BID Venlafaxine HCl (Venlafaxine HCl ER) 75 Mg Capcr, 75 MG PO DAILY Allergies Coded Allergies: No Known Allergies (Verified , 07/22/16) A-FIB/CHADSVASC A-FIB History Current/History of A-Fib/PAF?: No DWAYNE MEJÍA MD July 24, 2019 16:55
[2019-07-24] MEDS ORDERED: ISOVUE-370 76% 100ML VIAL As Ordered ONE (17:05)
--- NOTE | 2019-07-24 18:17 | REPVR ---
PROCEDURE INFORMATION: Exam: CT Abdomen And Pelvis With Contrast Exam date and time: 07/24/2019 5:00 PM Age: 44 years old Clinical indication: Other: Gi bleed; Abdominal pain; Additional info: Abd pain, gi bleed TECHNIQUE: Imaging protocol: Computed tomography of the abdomen and pelvis with intravenous contrast. Axial, coronal and sagittal reformatted images were created and reviewed. Radiation optimization: All CT scans at this facility use at least one of these dose optimization techniques: automated exposure control; mA and/or kV adjustment per patient size (includes targeted exams where dose is matched to clinical indication); or iterative reconstruction. Contrast material: ISOVUE 370; Contrast volume: 100 ml; Contrast route: IV; COMPARISON: CT ABD/PEL W/IV ORAL CONTRAS 11/02/2018 9:50 PM FINDINGS: Liver: 1.3 cm cyst in the right hepatic lobe, similar to prior. Indeterminate 9 mm lesion in the hepatic dome, similar to prior. Gallbladder and bile ducts: No radiodense gallstones. No biliary ductal dilatation. Pancreas: Unremarkable. Spleen: Unremarkable. Adrenals: Unremarkable. Kidneys and ureters: No mass. No radiodense calculi. No hydronephrosis. Stomach and bowel: Status post gastric bypass surgery. Mild wall thickening of the excluded portion of the stomach with associated mural edema. Moderate amount of retained stool in the colon. No obstruction. No pneumatosis. Appendix: Normal. Intraperitoneal space: Trace nonspecific free pelvic fluid, likely physiologic. No organized fluid collection. No free air. Vasculature: Unremarkable. No aneurysm. Lymph nodes: Small mesenteric lymph nodes, nonspecific in appearance. No pathologically enlarged lymph nodes. Bladder: Unremarkable. Reproductive: Status post hysterectomy. Bones/joints: No acute osseous abnormality. Osteopenia. Mild degenerative changes. Soft tissues: Tiny, fat containing umbilical hernia. IMPRESSION: 1. Status post gastric bypass surgery. Mild wall thickening of the excluded portion of the stomach with associated mural edema. Query gastritis. 2. Additional findings, as above. Electronically signed by: Humphrey Vickers On 07/24/2019 18:17:08 PM
--- NOTE | 2019-07-24 19:54 | ECGEPIP ---
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
[2019-07-24] MEDS ORDERED: GABAPENTIN 100 MG CAP PO SCH (21:00)
[2019-07-24] MEDS: tiZANidine 4 MG TAB PO SCH (21:10)
[2019-07-24] MEDS: GABAPENTIN 400 MG CAP PO SCH (21:10)
[2019-07-24] MEDS: PANTOPRAZOLE 40MG VIAL (C9113 PER 1) IV SCH (21:10)
--- NOTE | 2019-07-24 22:49 | REP ---
ABDOMINAL SERIES: Supine and erect views of the abdomen demonstrate no free air. There are a couple of mildly dilated small bowel loops in the upper abdomen, which are nonspecific. This could represent a mild ileus. Partial small bowel obstruction cannot totally be excluded. There is air and fecal material seen throughout the colon. Multiple phleboliths are seen in the pelvis. An accompanying view of the chest demonstrates no acute infiltrate. Heart is normal in size. IMPRESSION: There are a couple of mildly dilated small bowel loops in the upper abdomen. This could represent a mild ileus. I cannot exclude a partial small bowel obstruction. No free air. No infiltrate in the chest. Electronically Signed by Titus Hwang MD 07/25/2019 01:12 P
[2019-07-25 06:00] VITALS: BP 117/72
[2019-07-25 06:34] LABS: HEMOGLOBIN 8.8 g/dl (12.0-15.5); MEAN CORPUSCULAR HEMOGLOBIN 21.2 pg (27.0-33.0); MEAN CORPUSCULAR HGB CONC 30.3 g/dl (32.0-36.5); MEAN CORPUSCULAR VOLUME 69.9 fl (80.0-96.0); PLATELET COUNT, AUTOMATED 278 10^3/uL (150-450); RED BLOOD COUNT 4.15 10^6/uL (4.00-5.40); WHITE BLOOD COUNT 3.8 10^3/uL (4.0-10.0)
[2019-07-25 06:57] LABS: BLOOD UREA NITROGEN 6 MG/DL (7-18); CALCIUM LEVEL 8.1 MG/DL (8.5-10.1); CARBON DIOXIDE LEVEL 25 MEQ/L (21-32); CHLORIDE LEVEL 113 MEQ/L (98-107); CREATININE FOR GFR 0.58 MG/DL (0.55-1.30); GLOMERULAR FILTRATION RATE > 60.0 (>58); GLUCOSE, FASTING 74 MG/DL (70-100); POTASSIUM SERUM 4.3 MEQ/L (3.5-5.1); SODIUM LEVEL 145 MEQ/L (136-145)
[2019-07-25] MEDS ORDERED: ACETAMINOPHEN TAB 650MG DOSE (2X325MG) As Ordered ONE (08:59)
[2019-07-25] MEDS: GABAPENTIN 400 MG CAP PO SCH ×3 (09:00→20:38)
[2019-07-25] MEDS: VENLAFAXINE **XR** 75MG CAPSULE PO SCH (09:00)
[2019-07-25] MEDS: PANTOPRAZOLE 40MG VIAL (C9113 PER 1) IV SCH ×2 (09:00→20:38)
[2019-07-25] MEDS: ACETAMINOPHEN TAB 650MG DOSE (2X325MG) PO PRN ×2 (09:00→16:32)
--- NOTE | 2019-07-25 11:42 | IPNPDOC ---
Text Note Date of Service The patient was seen on 07/25/19. NOTE Subjective: Patient seen and examined at bedside. No acute overnight events. Still complains of some nausea, minimal abdominal pain and a headache this morning. No new medical complaints. Objective: PHYSICAL EXAMINATION: VITAL SIGNS: See below General:NAD, lying comfortably in bed HEENT: NC/AT, EOMI, PERRL Lungs: CTA B/L HearT: +S1S2, RRR Abd: soft, mild tenderness, +BS Ext: no edema LABORATORY DATA: See below. MICROBIOLOGY: Please see below. ASSESSMENT: 44 yo female for abdominal pain, nausea, ASHER for symptomatic anemia, likely acute blood loss, with PMHx of gastric bypass 2010 complicated with ulcer at anastamosis s/p surgical repair, recurrent upper GI bleed from peptic ulcer disease. #GI bleed - symptomatic anemia secondary to acute blood anemia - transfused 2PRBC - NPO - GI c/s pending for scoping today - protonix 40 IV BID - CT A/P completed - most recent EGD 08/21/16 - Dr. Velázquez - HX PUD - recurrent GI bleeding #gastric bypass - 2010 - [place] - ulcer at anastamosis - repaired by Dr Velázquez #Hx ASTHMA - resolved #Hx AL - resolved after weight loss #Hx DLP - resolved after weight loss #polyart. arthritis #anxiety/depression #fibromyalgia #DVT prophylaxis - mechanical VS,Fishbone, I+O VS, Fishbone, I+O Laboratory Tests 07/24/19 15:04 07/25/19 05:52 Vital Signs Date Time Temp Pulse Resp B/P (MAP) Pulse Ox O2 Delivery O2 Flow Rate FiO2 07/25/19 06:00 98.2 86 19 117/72 (87) 97 Room Air I&O- Last 24 Hours up to 6 AM 07/25/19 06:00 Intake Total 3163 ml Output Total 400 ml Balance 2763 ml DWAYNE MEJÍA MD Jul 25, 2019 11:42
[2019-07-25 14:00] VITALS: BP 117/71
[2019-07-25] MEDS ORDERED: propofoL 200 MG/20 ML VIAL As Ordered ONE (15:18)
[2019-07-25] MEDS ORDERED: LIDOCAINE 2% 100MG/5ML SDV (FOR ANES.) As Ordered ONE (15:18)
[2019-07-25] MEDS ORDERED: fentaNYL 100 MCG/2 ML INJECTION (J3010) As Ordered ONE (15:18)
--- NOTE | 2019-07-25 15:37 | ROOR ---
Patient Name: Selma Mauricio Procedure Date: 07/25/2019 3:16 PM Date of : 1975 Age: 44 Room: [facility] Gender: Female Note Status: Finalized Procedure: Upper GI endoscopy Indications: Epigastric abdominal pain, Iron deficiency anemia Providers: Guilherme MANSFIELD MD Referring MD: ZACHARY Kohler Requesting Provider: Medicines: Monitored Anesthesia Care Complications: No immediate complications. Procedure: Pre-Anesthesia Assessment: - The heart rate, respiratory rate, oxygen saturations, blood pressure, adequacy of pulmonary ventilation, and response to care were monitored throughout the procedure. The Endoscope was introduced through the mouth, and advanced to the jejunum. The upper GI endoscopy was accomplished without difficulty. The patient tolerated the procedure well. Findings: The examined esophagus was normal. Evidence of a Victoriano-en-Y gastrojejunostomy was found. The gastrojejunal anastomosis was characterized by healthy appearing mucosa. The examined jejunum was normal. This was biopsied with a cold forceps for evaluation of celiac sprue. Impression: - Normal esophagus. - Victoriano-en-Y gastrojejunostomy with gastrojejunal anastomosis characterized by healthy appearing mucosa. - Stomach is otherwise normal. - Normal examined jejunum. Biopsied. Recommendation: - Perform a colonoscopy tomorrow. Guilherme Mansfield MD Guilherme MANSFIELD MD 07/25/2019 3:36:59 PM Electronically signed by Guilherme MANSFIELD MD Number of Addenda: 0 Note Initiated On: 07/25/2019 3:16 PM Estimated Blood Loss: Estimated blood loss: none.
[2019-07-25] MEDS ORDERED: MOM 30ML SUSPENSION UDC PO ONE (16:00)
[2019-07-25] MEDS ORDERED: POLYETHYLENE GLYCOL (MIRALAX) 238GM BOTTLE PO ONE (17:00)
[2019-07-25] MEDS: tiZANidine 4 MG TAB PO SCH (20:38)
[2019-07-25 22:00] VITALS: BP 123/74
[2019-07-26] MEDS ORDERED: POLYETHYLENE GLYCOL (MIRALAX) 238GM BOTTLE PO ONE (05:00)
[2019-07-26 06:00] VITALS: BP 116/71
[2019-07-26] MEDS: GABAPENTIN 400 MG CAP PO SCH ×3 (08:21→20:55)
[2019-07-26] MEDS: VENLAFAXINE **XR** 75MG CAPSULE PO SCH (08:21)
[2019-07-26] MEDS: PANTOPRAZOLE 40MG VIAL (C9113 PER 1) IV SCH ×2 (08:21→20:55)
[2019-07-26 08:26] LABS: HEMATOCRIT 32.6 % (36.0-47.0); HEMOGLOBIN 9.8 g/dl (12.0-15.5); MEAN CORPUSCULAR HEMOGLOBIN 21.3 pg (27.0-33.0); MEAN CORPUSCULAR HGB CONC 30.1 g/dl (32.0-36.5); MEAN CORPUSCULAR VOLUME 70.7 fl (80.0-96.0); PLATELET COUNT, AUTOMATED 304 10^3/uL (150-450); RED BLOOD COUNT 4.61 10^6/uL (4.00-5.40); WHITE BLOOD COUNT 3.6 10^3/uL (4.0-10.0)
[2019-07-26] MEDS: ACETAMINOPHEN TAB 650MG DOSE (2X325MG) PO PRN (08:28)
[2019-07-26 08:48] LABS: BLOOD UREA NITROGEN 5 MG/DL (7-18); CALCIUM LEVEL 8.7 MG/DL (8.5-10.1); CARBON DIOXIDE LEVEL 25 MEQ/L (21-32); CHLORIDE LEVEL 112 MEQ/L (98-107); CREATININE FOR GFR 0.66 MG/DL (0.55-1.30); GLOMERULAR FILTRATION RATE > 60.0 (>58); GLUCOSE, FASTING 52 MG/DL (70-100); POTASSIUM SERUM 4.4 MEQ/L (3.5-5.1); SODIUM LEVEL 142 MEQ/L (136-145)
--- NOTE | 2019-07-26 12:44 | IPNPDOC ---
Text Note Date of Service The patient was seen on 07/26/19. NOTE Subjective: Patient seen and examined at bedside. No acute overnight events. Underwent EGD yesterday. Feeling better today. Objective: PHYSICAL EXAMINATION: VITAL SIGNS: See below General:NAD, lying comfortably in bed HEENT: NC/AT, EOMI, PERRL Lungs: CTA B/L HearT: +S1S2, RRR Abd: soft, mild tenderness, +BS Ext: no edema LABORATORY DATA: See below. MICROBIOLOGY: Please see below. ASSESSMENT: 44 yo female for abdominal pain, nausea, ASHER for symptomatic anemia, likely acute blood loss, with PMHx of gastric bypass 2010 complicated with ulcer at anastamosis s/p surgical repair, recurrent upper GI bleed from peptic ulcer disease. #GI bleed - symptomatic anemia secondary to acute blood anemia - transfused 2PRBC - NPO - GI c/s pending for colonoscopy today; EGD yesterday with no acute findings - protonix 40 IV BID - CT A/P completed - most recent EGD 08/21/16 - Dr. Velázquez - HX PUD - recurrent GI bleeding #gastric bypass - 2010 - [place] - ulcer at anastamosis - repaired by Dr Velázquez #Hx ASTHMA - resolved #Hx AL - resolved after weight loss #Hx DLP - resolved after weight loss #polyart. arthritis #anxiety/depression #fibromyalgia #DVT prophylaxis - mechanical Dispo: colonoscopy today VS,Fishbone, I+O VS, Fishbone, I+O Laboratory Tests 07/26/19 08:10 Vital Signs Date Time Temp Pulse Resp B/P (MAP) Pulse Ox O2 Delivery O2 Flow Rate FiO2 07/26/19 06:00 96.9 71 16 116/71 (86) 100 Room Air I&O- Last 24 Hours up to 6 AM 07/26/19 06:00 Intake Total 600 ml Output Total 700 ml Balance -100 ml DWAYNE MEJÍA MD Jul 26, 2019 12:44
[2019-07-26 13:30] VITALS: BP 113/70
[2019-07-26] MEDS ORDERED: propofoL 200 MG/20 ML VIAL As Ordered ONE (14:47)
--- NOTE | 2019-07-26 15:18 | ROOR ---
Patient Name: Selma Mauricio Procedure Date: 07/26/2019 2:45 PM Date of : 1975 Age: 44 Room: [facility] Gender: Female Note Status: Finalized Procedure: Colonoscopy Indications: Generalized abdominal pain, Iron deficiency anemia Providers: Guilherme JENKINS MD Referring MD: 2. Inpatient 2. Inpatient Requesting Provider: Medicines: Monitored Anesthesia Care Complications: No immediate complications. Procedure: Pre-Anesthesia Assessment: - The heart rate, respiratory rate, oxygen saturations, blood pressure, adequacy of pulmonary ventilation, and response to care were monitored throughout the procedure. The Colonoscope was introduced through the anus and advanced to 15 cm into the ileum. The colonoscopy was performed without difficulty. The patient tolerated the procedure well. The quality of the bowel preparation was good. Findings: The perianal and digital rectal examinations were normal. Small Internal Hemorrhoids. Retroflexion in the right colon was performed. The entire examined colon appeared normal. The terminal ileum appeared normal. Impression: - Small Internal Hemorrhoids. - The entire examined colon is normal. - The examined portion of the ileum was normal. - No specimens collected. Recommendation: - Negative EGD/Colonoscopy. Iron deficit anemia related to iron malabsorption (Hx RNY gastric bypass).--Recommend aggressive oral iron supplement. If unable to acheive improvement in anemia, then will need IV iron. - Follow up with PCP as OP. - Does not need routine follow up with me. Guilherme Jenkins MD Guilherme JENKINS MD 07/26/2019 3:18:36 PM Electronically signed by Guilherme JENKINS MD Number of Addenda: 0 Note Initiated On: 07/26/2019 2:45 PM Estimated Blood Loss: Estimated blood loss: none.
[2019-07-26 15:35] VITALS: BP 125/81
[2019-07-26 16:05] VITALS: BP 122/78
[2019-07-26 17:17] LABS: FERRITIN 25 NG/ML (8-252); IRON (FE) 41 UG/DL (50-170); PERCENT SATURATION 8.1 % (13.2-45.0); TOTAL IRON BINDING CAPACITY 508 UG/DL (250-450)
[2019-07-26] MEDS: tiZANidine 4 MG TAB PO SCH (20:55)
[2019-07-26 22:00] VITALS: BP 121/78
[2019-07-27 06:00] VITALS: BP 118/78
[2019-07-27 08:21] LABS: HEMATOCRIT 32.4 % (36.0-47.0); HEMOGLOBIN 9.6 g/dl (12.0-15.5); MEAN CORPUSCULAR HEMOGLOBIN 20.9 pg (27.0-33.0); MEAN CORPUSCULAR HGB CONC 29.6 g/dl (32.0-36.5); MEAN CORPUSCULAR VOLUME 70.6 fl (80.0-96.0); PLATELET COUNT, AUTOMATED 310 10^3/uL (150-450); RED BLOOD COUNT 4.59 10^6/uL (4.00-5.40); WHITE BLOOD COUNT 4.2 10^3/uL (4.0-10.0)
[2019-07-27] MEDS: GABAPENTIN 400 MG CAP PO SCH (10:03)
[2019-07-27] MEDS: VENLAFAXINE **XR** 75MG CAPSULE PO SCH (10:03)
[2019-07-27] MEDS: PANTOPRAZOLE 40MG VIAL (C9113 PER 1) IV SCH (10:03)
[2019-07-27] MEDS ORDERED: FERR325T3 PO (10:33)
--- NOTE | 2019-07-27 11:11 | DS.PDOC ---
Discharge Summary General Date of Admission July 24, 2019 at 16:55 Date of Discharge 07/27/19 Specialist/Consultants Involve GI Dr Jenkins Discharge Summary PROCEDURES PERFORMED DURING STAY: EGD/Colonoscopy ADMITTING DIAGNOSES: 1. GI Bleed Secondary DIAGNOSES: #ASTHMA - resolved #AL - resolved after weight loss #DLP - resolved after weight loss #PUD - recurrent GI bleeding - most recent EGD 08/21/16 - Dr. Velázquez #gastric bypass - 2010 - [place] #ulcer at anastamosis - repaired by Dr Velázquez #chronic anemia/chronic GI blood loss/iron deficiency #polyart. arthritis #anxiety/depression #fibromyalgia #GI bleed 02/10 - left AMA before workup complete COMPLICATIONS/CHIEF COMPLAINT: Gi Bleeding. HOSPITAL COURSE: 44 yo female for 2-3 weeks history of worsening abdominal pain, worsens immediately post-prandial, then resolved. Also noted nausea and shortness of breath, also started with her abdominal pain. Also noted black tarry stools which started with her abominal pain. Denied chest pain, diarrhea, headaches. Seen in consultation by GI, and underwent EGD and colonoscopy with no significant findings. She received 2PRBC, with much improvement of her symptoms. Her anemia was deemed secondary to malabsorption/iron deficiency. Discharged home with outpatient follow up with GI and PCP. DISCHARGE MEDICATIONS: Please see below. ALLERGIES: Please see below. PHYSICAL EXAMINATION ON DISCHARGE: VITAL SIGNS: See below General:NAD, lying comfortably in bed HEENT: NC/AT, EOMI, PERRL Lungs: CTA B/L HearT: +S1S2, RRR Abd: soft, NT, +BS Ext: no edema LABORATORY DATA: Please see below. ACTIVITY: [As tolerated]. DIET: Resume previous diet DISPOSITION: Discharge home DISCHARGE INSTRUCTIONS: 1. Follow up PCP in 3-5 days 2. Follow up GI Dr Valente in 3-5 days DISCHARGE CONDITION: [Stable]. TIME SPENT ON DISCHARGE: 35 minutes. Vital Signs/I&Os Vital Signs Date Time Temp Pulse Resp B/P (MAP) Pulse Ox O2 Delivery O2 Flow Rate FiO2 07/27/19 06:00 99.2 71 16 118/78 (91) 99 Room Air I&O- Last 24 Hours up to 6 AM 07/27/19 06:00 Intake Total 880 ml Output Total 1000 ml Balance -120 ml Laboratory Data Labs 24H Laboratory Tests 2 07/27/19 07:37: Nucleated Red Blood Cells % (auto) 0.0 CBC/BMP Laboratory Tests 07/27/19 07:37 Discharge Medications Scheduled Ferrous Sulfate (Ferrous Sulfate) 325 Mg Tablet.dr, 1 TAB PO BID Gabapentin (Gabapentin) 100 Mg Cap, 100 MG PO TID, (Reported) TAKES WITH 300MG TO EQUAL 400MG Gabapentin (Gabapentin) 300 Mg Capsule, 300 MG PO TID, (Reported) WIH 100MG CAPSULE TO EQUAL 400MGS Pantoprazole Sodium (Pantoprazole Sodium) 40 Mg Tablet.dr, 40 MG PO BID, (Reported) Tizanidine HCl (Tizanidine HCl) 4 Mg Tablet, 4 MG PO QHS, (Reported) Venlafaxine HCl (Venlafaxine HCl ER) 75 Mg Capcr, 75 MG PO DAILY, (Reported) Allergies Coded Allergies: No Known Allergies (Verified , 07/22/16) DWAYNE MEJÍA MD Jul 27, 2019 11:11
== END 2019-07-27 12:30 | disposition home or self-care (01) | DRG 253 ==
LOC: M ED 14:41 → M ED INP 16:55 → ENRESERV 18:13 → M MSPAV 18:39
PROVIDERS: ADMIT Internal Medicine; ATTEND Internal Medicine
PROC: 30233N1 Transfusion of Nonautologous Red Blood Cells into Peripheral Vein, Percutaneous Approach (ICD-10-PCS; principal; 2019-07-24)
PROC: 0D998ZX Drainage of Duodenum, Via Natural or Artificial Opening Endoscopic, Diagnostic (ICD-10-PCS; 2019-07-25)
PROC: 0DJD8ZZ Inspection of Lower Intestinal Tract, Via Natural or Artificial Opening Endoscopic (ICD-10-PCS; 2019-07-26)
DX: K92.2 Gastrointestinal hemorrhage, unspecified (principal); F32.9 Major depressive disorder, single episode, unspecified; J45.909 Unspecified asthma, uncomplicated; G47.33 Obstructive sleep apnea (adult) (pediatric); F41.9 Anxiety disorder, unspecified; M19.90 Unspecified osteoarthritis, unspecified site; M79.7 Fibromyalgia; Z79.899 Other long term (current) drug therapy; Z98.84 Bariatric surgery status; D62 Acute posthemorrhagic anemia

== ENCOUNTER 2019-10-24 22:14 | Emergency (ER) | payer OTHER ==
[~2019-10-24] VITALS: Ht 165.1 cm; Wt 79.5 kg
[~2019-10-24 22:14] MED LIST changes: +PANT40TA29 PO; -PANT40TA3 PO
[2019-10-24] MEDS ORDERED: PREG50CA PO (22:28)
[2019-10-24] MEDS ORDERED: NS 1,000 ML IV ONE (23:30)
[2019-10-25] MEDS: MORPHINE 4 MG/ML 1ML VIAL/SYRINGE (J2270) IV PRN ×4 (00:24→03:42)
[2019-10-25] MEDS ORDERED: ONDANSETRON 4MG/2ML VIAL IV ONE (00:30)
[2019-10-25 00:32] LABS: BASO % 0.5 % (0.0-1.0); EOS # 0.1 10^3/uL (0.0-0.5); EOS % 2.2 % (0.0-3.0); HEMATOCRIT 30.9 % (36.0-47.0); HEMOGLOBIN 9.6 g/dl (12.0-15.5); LYMPH # 1.2 10^3/uL (1.5-5.0); LYMPH % 28.5 % (24.0-44.0); MEAN CORPUSCULAR HEMOGLOBIN 22.6 pg (27.0-33.0); MEAN CORPUSCULAR HGB CONC 31.1 g/dl (32.0-36.5); MEAN CORPUSCULAR VOLUME 72.7 fl (80.0-96.0); MONO # 0.4 10^3/uL (0.0-0.8); MONO % 9.7 % (0.0-5.0); NEUTROPHILS # 2.4 10^3/uL (1.5-8.5); NEUTROPHILS % 58.9 % (36.0-66.0); PLATELET COUNT, AUTOMATED 244 10^3/uL (150-450); RED BLOOD COUNT 4.25 10^6/uL (4.00-5.40)
[2019-10-25] MEDS: GASTROGRAFIN SOLUTION 30ML PO SCH ×2 (00:42→01:20)
[2019-10-25 00:51] LABS: ALBUMIN 3.6 GM/DL (3.2-5.2); ALT/SGPT 27 U/L (12-78); BILIRUBIN,DIRECT 0.1 MG/DL (0.0-0.2); BILIRUBIN,TOTAL 0.6 MG/DL (0.2-1.0); BLOOD UREA NITROGEN 10 MG/DL (7-18); CALCIUM LEVEL 8.6 MG/DL (8.5-10.1); CARBON DIOXIDE LEVEL 26 MEQ/L (21-32); CHLORIDE LEVEL 110 MEQ/L (98-107); CK-MB VALUE MASS < 1.0 NG/ML (<3.6); CPK CREATINE PHOSPHOKINASE 78 U/L (26-192); CREATININE FOR GFR 0.72 MG/DL (0.55-1.30); GLOMERULAR FILTRATION RATE > 60.0 (>58); GLUCOSE, FASTING 96 MG/DL (70-100); LIPASE 320 U/L (73-393); MB/CK RELATIVE INDEX 1.28 (< OR =4); POTASSIUM SERUM 3.8 MEQ/L (3.5-5.1); SODIUM LEVEL 141 MEQ/L (136-145); TOTAL PROTEIN 6.8 GM/DL (6.4-8.2); TROPONIN I < 0.02 NG/ML (< 0.10)
[2019-10-25] MEDS ORDERED: ISOVUE-370 76% 100ML VIAL As Ordered ONE (02:19)
--- NOTE | 2019-10-25 02:51 | REPVR ---
PROCEDURE INFORMATION: Exam: CT Abdomen And Pelvis With Contrast Exam date and time: 10/25/2019 12:19 AM Age: 44 years old Clinical indication: Abdominal pain; Epigastric; Additional info: Epigastric pain, HX of gastric bypass and ruptured ulcer TECHNIQUE: Imaging protocol: Computed tomography of the abdomen and pelvis with intravenous contrast. Radiation optimization: All CT scans at this facility use at least one of these dose optimization techniques: automated exposure control; mA and/or kV adjustment per patient size (includes targeted exams where dose is matched to clinical indication); or iterative reconstruction. Contrast material: ISO; Contrast volume: 100 ml; Contrast route: INTRAVENOUS (IV); Other contrast: Oral, ggraphin, 600; COMPARISON: CT ABD PELVIS WITH CONTRAST 2019-07-24 17:46 FINDINGS: Liver: No perforation or adjacent fat stranding. Unchanged small liver hypodensities measuring up to 1.8 cm. Gallbladder and bile ducts: Gallbladder distension. Pancreas: Normal. No ductal dilation. Spleen: Normal. No splenomegaly. Adrenals: Normal. No mass. Kidneys and ureters: Normal. No hydronephrosis. Stomach and bowel: Victoriano-en-Y gastric bypass surgical changes in the left upper abdomen. Excluded stomach with the antral and proximal duodenum irregular enhancing with ulceration along the anterior gastric wall seen on series 201, image 35. Excess stool in the right hemicolon. Appendix: No evidence of appendicitis. Intraperitoneal space: Unremarkable. No free air. No significant fluid collection. Vasculature: Unremarkable. No abdominal aortic aneurysm. Lymph nodes: Unremarkable. No enlarged lymph nodes. Bladder: Unremarkable as visualized. Reproductive: Hysterectomy. Bones/joints: Unremarkable. No acute fracture. Soft tissues: Unremarkable. IMPRESSION: 1. Victoriano-en-Y gastric bypass surgical changes in the left upper abdomen. Excluded stomach with the antral and proximal duodenum irregular enhancing with ulceration along the anterior gastric wall seen on series 201, image 35. No perforation. 2. Excess stool in the right hemicolon. 3. Gallbladder distension. Electronically signed by: Guilherme Landin On 10/25/2019 02:51:10 AM
[2019-10-25 05:00] VITALS: BP 109/68
[2019-10-25] MEDS ORDERED: GI COCKTAIL 50ML BTL(HYOSCYAMINE/MAALOX/LIDOCAINE VISCOUS)(1:3:1) PO ONE (05:00)
[2019-10-25] MEDS ORDERED: SUCRALFATE 1 GM TAB PO ONE (05:00)
[2019-10-25] MEDS ORDERED: CARA1TAB6 PO (05:00)
[2019-10-25] MEDS ORDERED: PANTOPRAZOLE 40MG VIAL (C9113 PER 1) IV ONE (05:00)
== END 2019-10-25 05:23 | disposition home or self-care (01) ==
LOC: M ED 22:14 → EDBD 22:14 → M ED 10-25 05:23
DX: K27.9 Peptic ulcer, site unspecified, unspecified as acute or chronic, without hemorrhage or perforation (principal); M79.7 Fibromyalgia; Z98.84 Bariatric surgery status; Z79.899 Other long term (current) drug therapy
CPT/HCPCS: 74177; 80048; 80076; 82550; 82553; 83690; 85025; 93041; 96361; 96374; 96375; 96376; 99284; C9113; J2270; J2405; Q9963; Q9967

== ENCOUNTER 2019-11-07 09:49 | Emergency (ER) | payer OTHER ==
[~2019-11-07] VITALS: Ht 165.1 cm; Wt 78.3 kg
[~2019-11-07 09:49] MED LIST changes: +CARA1TAB6 PO; +PREG50CA PO
[2019-11-07] MEDS ORDERED: PANTOPRAZOLE 40MG VIAL (C9113 PER 1) IV ONE (10:15)
[2019-11-07] MEDS ORDERED: SUCRALFATE SUSP 1GM/10ML UD PO ONE (10:15)
[2019-11-07 10:30] LABS: VENOUS BASE EXCESS -0.5 (-2.0-2.0); VENOUS HCO3 25.2 MEQ/L (23.0-27.0); VENOUS O2 SATURATION 94.1 % (60.0-80.0); VENOUS PARTIAL PRESSURE CO2 46.3 mmHg (38.0-50.0); VENOUS PARTIAL PRESSURE O2 76.3 mmHg (30.0-50.0); VENOUS PH 7.354 UNITS (7.330-7.430); VENOUS TOTAL CO2 26.6 MEQ/L (24.0-28.0)
[2019-11-07 10:38] LABS: BASO % 0.7 % (0.0-1.0); EOS # 0.1 10^3/uL (0.0-0.5); EOS % 2.9 % (0.0-3.0); HEMOGLOBIN 10.1 g/dl (12.0-15.5); LYMPH # 1.1 10^3/uL (1.5-5.0); MEAN CORPUSCULAR HEMOGLOBIN 22.5 pg (27.0-33.0); MEAN CORPUSCULAR HGB CONC 30.6 g/dl (32.0-36.5); MEAN CORPUSCULAR VOLUME 73.5 fl (80.0-96.0); MONO # 0.4 10^3/uL (0.0-0.8); MONO % 8.6 % (0.0-5.0); NEUTROPHILS # 2.5 10^3/uL (1.5-8.5); NEUTROPHILS % 60.6 % (36.0-66.0); PLATELET COUNT, AUTOMATED 293 10^3/uL (150-450); RED BLOOD COUNT 4.49 10^6/uL (4.00-5.40); WHITE BLOOD COUNT 4.2 10^3/uL (4.0-10.0)
[2019-11-07 10:48] LABS: INR 0.94; PROTHROMBIN TIME 12.8 SECONDS (11.8-14.0)
[2019-11-07 11:07] LABS: BLOOD UREA NITROGEN 8 MG/DL (7-18); CARBON DIOXIDE LEVEL 28 MEQ/L (21-32); CHLORIDE LEVEL 107 MEQ/L (98-107); CK-MB VALUE MASS < 1.0 NG/ML (<3.6); CPK CREATINE PHOSPHOKINASE 113 U/L (26-192); CREATININE FOR GFR 0.59 MG/DL (0.55-1.30); FREE T4 1.01 NG/DL (0.76-1.46); GLOMERULAR FILTRATION RATE > 60.0 (>58); GLUCOSE, FASTING 79 MG/DL (70-100); MB/CK RELATIVE INDEX 0.88 (< OR =4); POTASSIUM SERUM 4.4 MEQ/L (3.5-5.1); SODIUM LEVEL 138 MEQ/L (136-145); THYROID STIMULATING HORMONE 0.528 uIU/ML (0.358-3.740); TROPONIN I < 0.02 NG/ML (< 0.10)
[2019-11-07] MEDS ORDERED: MORPHINE 2 MG/ML 1ML VIAL (J2270) IV ONE (12:15)
[2019-11-07] MEDS ORDERED: ONDANSETRON 4MG/2ML VIAL IV ONE (12:15)
[2019-11-07] MEDS ORDERED: ISOVUE-370 76% 100ML VIAL As Ordered ONE (12:26)
--- NOTE | 2019-11-07 13:38 | REPVR ---
PROCEDURE INFORMATION: Exam: CT Abdomen And Pelvis With Contrast Exam date and time: 11/07/2019 1:00 PM Age: 44 years old Clinical indication: Abdominal pain; Generalized TECHNIQUE: Imaging protocol: Computed tomography of the abdomen and pelvis with intravenous contrast. Radiation optimization: All CT scans at this facility use at least one of these dose optimization techniques: automated exposure control; mA and/or kV adjustment per patient size (includes targeted exams where dose is matched to clinical indication); or iterative reconstruction. Contrast material: ISOVUE 370; Contrast volume: 100 ml; Contrast route: INTRAVENOUS (IV); COMPARISON: CT ABD/PEL W/IV ORAL CONTRAS 10/25/2019 2:22 AM FINDINGS: Liver: Stable 13 mm nodular hypodense lesion in the right hepatic lobe. Gallbladder and bile ducts: No cholelithiasis or biliary ductal dilatation. Pancreas: No pancreatic mass or ductal dilatation. Spleen: No splenomegaly. Adrenals: Subtle stable adrenal nodularity. Kidneys and ureters: Normal renal morphology. No hydronephrosis. Stomach and bowel: Status post gastric bypass with residual gastric wall thickening, which can be better evaluated with endoscopy, as clinically indicated. Mild small bowel dilatation without a transition zone. Colonic dilatation and prominent stool. Diverticula, without pericolonic inflammation. Appendix: No acute appendicitis. Intraperitoneal space: Stable 8 mm calcification in the right cul-de-sac. No significant free fluid. Vasculature: Normal caliber of the abdominal aorta. Lymph nodes: Subcentimeter lymph nodes. Bladder: Normal morphology of the dilated bladder. Reproductive: Status post hysterectomy. Bones/joints: Mild degenerative change . IMPRESSION: 1. Status post gastric bypass with residual gastric wall thickening, which can be better evaluated with endoscopy, as clinically indicated. 2. Bowel dilatation and prominent stool. 3. Additional findings as described above. Electronically signed by: Kaushal Elizondo On 11/07/2019 13:37:59 PM
--- NOTE | 2019-11-07 13:45 | REPVR ---
PROCEDURE INFORMATION: Exam: CT Angiography Chest With Contrast Exam date and time: 11/07/2019 1:00 PM Age: 44 years old Clinical indication: Chest pain; Additional info: Left pleuritic cp TECHNIQUE: Imaging protocol: Computed tomographic angiography of the chest with intravenous contrast. 3D rendering (Not supervised by radiologist): MIP and/or 3D reconstructed images were created by the technologist. Radiation optimization: All CT scans at this facility use at least one of these dose optimization techniques: automated exposure control; mA and/or kV adjustment per patient size (includes targeted exams where dose is matched to clinical indication); or iterative reconstruction. Contrast material: ISOVUE 370; Contrast volume: 100 ml; Contrast route: INTRAVENOUS (IV); COMPARISON: No relevant prior studies available. FINDINGS: Pulmonary arteries: No pulmonary embolus in the opacified pulmonary arteries. Aorta: Uniform opacification normal caliber of the thoracic aorta. Thyroid: Poorly defined hypodensity in the posterior right thyroid. Lungs: Interstitial prominence and trace dependent airspace disease. Pleural space: No pleural effusion. Heart: Subtle coronary arterial calcification. No cardiomegaly. Lymph nodes: Subcentimeter lymph nodes. Bones/joints: Mild degenerative change. IMPRESSION: 1. No pulmonary embolus in the opacified pulmonary arteries. 2. Additional findings as described above. COMMENTS: Consistent with the [employer]'s Incidental Findings Committee white paper (J Am Johnathon Radiol 2015): In patients aged 35 years and older with an incidental thyroid nodule equal to or greater than 1.[address], MRI or extrathyroidal US, further evaluation with dedicated thyroid US is recommended for patients with normal life expectancy and without comorbidities. For smaller nodules without suspicious features, no further evaluation or follow up is recommended. Electronically signed by: Kaushal Elizondo On 11/07/2019 13:45:01 PM
[2019-11-07 15:18] LABS: CK-MB VALUE MASS < 1.0 NG/ML (<3.6); CPK CREATINE PHOSPHOKINASE 73 U/L (26-192); MB/CK RELATIVE INDEX 1.37 (< OR =4); TROPONIN I < 0.02 NG/ML (< 0.10)
[2019-11-07 16:00] VITALS: BP 112/73
--- NOTE | 2019-11-11 09:24 | ED PDOC ---
Post-Departure Follow-Up radiology report faxed to Lisbet Smalls MD Nov 11, 2019 09:24
--- NOTE | 2019-11-11 10:04 | ECGEPIP ---
[facility] - ED Test Date: 2019-11-07 Pat Name: ROSMERY GRANADOS Department: Room: - Gender: Female Proof Carrier: merissa : 1975 Requested By: Lisbet Shay Order Number: [id number] Reading MD: Lisbet Shay Measurements Intervals Patrick Rate: 72 P: 52 MI: 119 QRS: 40 QRSD: 92 T: 36 QT: 394 QTc: 434 Interpretive Statements SINUS RHYTHM WITH SHORT MI INTERVAL BORDERLINE ECG SEE SCANNED DOWNTIME REPORT
== END 2019-11-07 16:18 | disposition home or self-care (01) ==
LOC: M ED 09:49
DX: G89.29 Other chronic pain (principal); R10.9 Unspecified abdominal pain; J45.909 Unspecified asthma, uncomplicated; I10 Essential (primary) hypertension; E78.9 Disorder of lipoprotein metabolism, unspecified; F33.9 Major depressive disorder, recurrent, unspecified; F41.9 Anxiety disorder, unspecified; Z98.84 Bariatric surgery status; Z79.899 Other long term (current) drug therapy
CPT/HCPCS: 71275; 74177; 80048; 82550; 82553; 82803; 83605; 83735; 84439; 84443; 85025; 85610; 86850; 86900; 86901; 87040; 93005; 93041; 96374; 96375; 99285; C9113; J2270; J2405; Q9967

== ENCOUNTER → 2019-11-28 | Outpatient (CLI) | payer OTHER ==
[2019-11-28 12:36] LABS: ALBUMIN 3.9 GM/DL (3.2-5.2); BILIRUBIN,DIRECT 0.2 MG/DL (0.0-0.2); BILIRUBIN,TOTAL 0.7 MG/DL (0.2-1.0); TOTAL PROTEIN 7.3 GM/DL (6.4-8.2)
== END ==
LOC: M LAB 10:33
PROVIDERS: ATTEND Internal Medicine Gastroenterology
DX: R10.13 Epigastric pain (principal)

== ENCOUNTER → 2019-12-08 | Outpatient (CLI) | payer OTHER ==
[~2019-12-08] MED LIST changes: +E-Z-GAS II EFFERVESCENT PACKET (SODIUM BICARB./CITRIC ACID/SIMETHICONE) As Ordered ONE; +E-Z-HD 98% w/w 340GM SUSP BTL As Ordered ONE; +E-Z-PAQUE 96% w/w SUSP 176GM BTL As Ordered ONE
--- NOTE | 2019-12-08 08:18 | REP ---
INDICATION: THYROID NODULE SEEN ON CT SCAN COMPARISON: None. TECHNIQUE: Hwang scale and color evaluation of the thyroid gland using the linear high frequency transducer. FINDINGS: The thyroid gland is heterogeneous with mildly increased symmetric vascularity. Right thyroid lobe measures 5.0 x 1.5 x 2.0 cm and includes 7 x 11 x 6 mm midpole isodense nodule and 1.5 x 2.4 x 1.3 cm isodense lower pole nodule. Isthmus measures 4.5 mm in width. Left thyroid lobe measures 4.8 x 1.4 x 1.6 cm without discrete nodule or abnormality noted. IMPRESSION: Heterogeneous thyroid gland as described above including 2 nonspecific indeterminate right-sided isodense nodules <Electronically signed by Christopher Narayanan > 12/08/19 0894
== END ==
LOC: M RAD 06:43
PROVIDERS: ATTEND Physician Assistant
DX: E04.2 Nontoxic multinodular goiter (principal)

== ENCOUNTER → 2019-12-08 | Outpatient (CLI) | payer OTHER ==
[~2019-12-08] MED LIST changes: -E-Z-GAS II EFFERVESCENT PACKET (SODIUM BICARB./CITRIC ACID/SIMETHICONE) As Ordered ONE; -E-Z-HD 98% w/w 340GM SUSP BTL As Ordered ONE; -E-Z-PAQUE 96% w/w SUSP 176GM BTL As Ordered ONE
--- NOTE | 2019-12-08 07:41 | REP ---
INDICATION: GASTRIC BYPASS EPIGASTRIC PAIN, US FIRST.,UGI SECOND COMPARISON: 04/30/2018 TECHNIQUE: Real-time grayscale B-mode ultrasound examination using curved array transducer. FINDINGS: Liver and pancreas are normal in contour, size, and echogenicity without focal hepatic or pancreatic lesion identified. The gallbladder is normal and without gallstones, wall thickening, or pericholecystic fluid. No biliary ductal dilatation is appreciated in the common bile duct measures up to 7 mm maximal diameter. Right kidney is normal in Red form shape in appearance without hydronephrosis and measures 11.4 x 5.3 x 5.5 cm. Visualized abdominal aorta appears normal. No ascites in the visualized right upper quadrant. IMPRESSION: Normal liver/right upper quadrant ultrasound. <Electronically signed by Christopher Narayanan > 12/08/19 0792
--- NOTE | 2019-12-08 17:01 | REP ---
INDICATION: GASTRIC BIPASS EPIGASTRIC PAIN, US FIRST TECHNIQUE: This procedure was performed by Kika Gómez [facility], under the direct supervision of Dr. Goodman. Images were reviewed with Dr. Goodman prior to dictation. Because the patient is status post Victoriano-en-Y surgery liquid barium was given in the erect position as well as in the prone oblique position in order to perform a single contrast upper GI examination. FINDINGS: The vamp presser film shows no organomegaly or pathological masses. The intestinal gas pattern is unremarkable. There is some degenerative disc disease of the cervical spine. The oral and pharyngeal stages of deglutition were unremarkable. Esophageal transport is prompt and efficient and there is no evidence of esophagitis, stricture, or mucosal ring. There is no evidence of a hiatal hernia. Gastroesophageal reflux was visualized to the level of the thoracic inlet. The remaining stomach castellano are normally outlined. There is free flow of contrast through the anastomosis into the small intestine. No stricture or ulcer is visualized. The visualized portion of the proximal small bowel appears normal in course and caliber. 0.4 minutes of fluoroscopy time was utilized for this procedure. IMPRESSION: 1. Gastroesophageal reflux to the level of the thoracic inlet. <Electronically signed by Emmett Goodman > 12/09/19 [id number]
== END ==
LOC: M RAD 06:37
PROVIDERS: ATTEND Internal Medicine Gastroenterology
DX: R10.13 Epigastric pain (principal); Z98.84 Bariatric surgery status; K21.9 Gastro-esophageal reflux disease without esophagitis

== ENCOUNTER → 2019-12-14 | Outpatient (CLI) | payer OTHER ==
--- NOTE | 2019-12-15 11:41 | REP ---
INDICATION: DISEASE OF GB. COMPARISON: None TECHNIQUE/RADIOTRACER AND DOSE: FOLLOWING THE INTRAVENOUS ADMINISTRATION OF 6.6 MCI TECHNETIUM 99 M-MEBROFENIN, MULTIPLE IMAGES OF THE RIGHT UPPER QUADRANT ARE PERFORMED FOR 60 MINUTES. NEXT 8 OZ OF ENSURE ENLIVE IS INGESTED AND FURTHER IMAGING IS PERFORMED FOR 65 MINUTES. FINDINGS: THE GALLBLADDER IS VISUALIZED AT 10 MINUTES POST INJECTION. THERE IS BILIARY TO BOWEL TRANSIT AT 25MINUTES POST INJECTION. THERE IS NO SCINTIGRAPHIC EVIDENCE OF CHOLECYSTITIS. GALLBLADDER EJECTION FRACTION IS CALCULATED TO BE 91% WHICH IS NORMAL. IMPRESSION: NORMAL GALLBLADDER EJECTION FRACTION. <Electronically signed by Titus Hwang > 12/15/19 [id number]
== END ==
LOC: M RAD 07:49
PROVIDERS: ATTEND Internal Medicine Gastroenterology
DX: K82.8 Other specified diseases of gallbladder (principal)
CPT/HCPCS: 78227; A9537

== ENCOUNTER → 2019-12-28 | Outpatient (REF) | payer OTHER | LOC: M LAB REF 16:44 | PROVIDERS: ATTEND Otolaryngology | DX: E04.1 Nontoxic single thyroid nodule (principal) ==

== ENCOUNTER 2020-03-22 09:40 | Inpatient (IN) | payer MEDICAID, OTHER ==
[~2020-03-22] VITALS: Ht 165.1 cm; Wt 75.7 kg
[~2020-03-22 09:40] MED LIST changes: +GABA-282; +GABA-282 PO; -GABA-843; -GABA-843 PO
--- OUTSIDE RECORDS SUMMARY | 2020-03-22 09:45 | CCD | Continuity of Care Document ---
Author Author Selma PRATT Organization Unknown Address [address] [place] [address] [place] [address] Phone [phone] Care Team Providers Care Radio Interference Investigator Name Role Phone [facility] [phone] Problems Description No Information Available Social History Type Date Description Comments Sex Unknown Tobacco Use Start: Unknown End: Unknown Former Cigarette Smo ker 1 ppd quit 15 years ago Smoking Status Reviewed: 02/06/20 Former Cigarette Smoker 1 pp d quit 15 years ago ETOH Use Denies alcohol use Allergies, Adverse Reactions, Alerts Description No Known Drug Allergies Medications Active Medications SIG Qnty Indications Ordering Provide r Date Pantoprazole Sodium 40mg Tablets DR Unknown Ferrous Sulfate 220(44Fe) mg/5ML Elixir Unknown Sucralfate 1gm Tablets 1 by mouth four times a day Unknown Ranitidine 150 Maximum Strength 150mg Tablets Unknown Gabapentin 100mg Capsules as directed Unknown Immunizations Description No Information Available Vital Signs Date Vital Result Comment 02/06/2020 12:20pm BP Systolic 106 mmHg BP Diastolic 72 mmHg Heart Rate 84 /min Respiratory Rate 16 /min O2 % BldC Oximetry 99 % Body Temperature 98.5 F Weight 163.00 lb Height 66 inches 5'6" BMI (Body Mass Index) 26.3 kg/m2 Pain Level 9 2019 12:17pm BP Systolic 119 mmHg BP Diastolic 80 mmHg Heart Rate 75 /min Respiratory Rate 18 /min O2 % BldC Oximetry 99 % Body Temperature 98.5 F Weight 163.00 lb Height 66 inches 5'6" BMI (Body Mass Index) 26.3 kg/m2 Pain Level 9 Results Description No Information Available Procedures Description No Information Available Medical Devices Description No Information Available Encounters Description No Information Available Assessments Date Code Description Provider 02/06/2020 M25.531 Pain in right wrist Rome Mercado Plan of Treatment 02/06/2020 - Rome Obrien* M25.531 Pain in right wrist* New Labs:* CBC With Differential, Ordered: 02/06/20 * Erythrocyte Sedimentation Rate, Ordered: 02/06/20 * High Sensitivity C-Reactive Protein, Ordered: 02/06/20 * Lyme Disease SCRN With Confirm, Ordered: 02/06/20 * Comprehensive Metabolic Profil, Ordered: 02/06/20 * Comments:* tylenol prnno injury recalledice as neededmay splint if needed for painimaging deferred todaywill check labs tomorrow given migratory nature of this painwill notify of any concerning resultsFollow up with PCP or return for any persisting or worsening symptomsPatient voiced understanding and agrees to treatment plan Functional Status Description No Information Available Mental Status Description No Information Available Referrals Description No Information Available
--- OUTSIDE RECORDS SUMMARY | 2020-03-22 09:45 | CCD ---
Continuity of Care Document (CCD) Created on: 03/12/2020 Selma Mauricio External Reference #: [id number] : 1975 Sex: Female Author Author Selma DEL ANGEL MD Organization Unknown Address [address] [place] [address] [address] [place] [address] Phone [phone] Care Team Providers Care Senior Clinical Data Coordinator Name Role Phone Luci Kimble P.A.-C. AUTM [phone] AUTM Unavailable Problems Active Problems Provider Date Disturbance of consciousness Aurelia Hughes A.NJorge Onse t: 06/06/2010 Difficulty breathing Aurelia Hughes A.N.PSameera Onset: 06/06 Obstructive sleep apnea syndrome Aurelia Hughes A.N.PSameera Onset: 06/06/2010 Social History Type Date Description Comments Sex Unknown ETOH Use Denies alcohol use Recreational Drug Use Denies Drug Use Tobacco Use Start: Unknown End: Unknown Patient is a former smoker quit 1999 Allergies, Adverse Reactions, Alerts Description No Known Drug Allergies Medications Active Medications SIG Qnty Indications Ordering Provide r Date Dicyclomine HCL 10mg Capsules 1 to 2 by mouth every 6 hours as needed abdominal cramping/pain 60caps R10.13 Wendy Jenkins MD 11/28/[address] 1 by mouth twice a day (Chest pain, GERD) 60caps Wendy Jenkins MD 11/28/2019 Milk Of Magnesia 7.75% Suspension 30 ml by mouth every day 355ml R10.13 Wendy Jenkins MD 11/28/2019 Ferrous Sulfate 325mg Tablets 1 by mouth every day Unknown Sucralfate 1gm Tablets 1 gm by mouth four times a day Unknown Venlafaxine HCL ER 150mg Caps ER 2 4HR daily Unknown Metoclopramide HCL 5mg Tablets 1 tab by mouth 3 times a day before meals and at bedtime Unknown Tizanidine HCL 4mg Capsules one tablet every 8-12 hours as needed muscle pain Unknown Famotidine 20mg Tablets 1 tab by mouth twice a day ( missile tracking technician on empty stomach and at bedtime) - take for 6 weeks and then taper off.. Unknown Pregabalin 50mg Capsules one by mouth twice daily Unknown Immunizations Description No Information Available Vital Signs Date Vital Result Comment 03/12/2020 8:47am Height 65 inches 5'5" Weight 167.00 lb BMI (Body Mass Index) 27.8 kg/m2 Burns Body Weight 125 lb Weight 75.751 kg BSA (Body Surface Area) 1.83 m2 12/28/2019 9:46am Height 65 inches 5'5" Weight 167.00 lb BMI (Body Mass Index) 27.8 kg/m2 Burns Body Weight 125 lb Weight 75.751 kg BSA (Body Surface Area) 1.83 m2 Results Test Acquired Date Facility Test Result H/L Range Note Laboratory test finding 12/28/2019 [facility] [address] [place] [address] [id number] [phone] Non Developmental Education Instructor/Cytology Req For Servi (SEE NOTE) 1 Liver Profile 11/28/2019 [facility] [address] [place] [address] [phone] Ast/Sgot 26 U/L Normal 7-37 Alt/SGPT 29 U/L Normal 12-78 Alkaline Phosphatase 140 U/L High 45-117 Bilirubin,Total 0.7 mg/dL Normal 0.2-1.0 Bilirubin,Direct 0.2 mg/dL Normal 0.0-0.2 Total Protein 7.3 GM/DL Normal 6.4-8.2 Albumin 3.9 GM/DL Normal 3.2-5.2 Albumin/Globulin Ratio 1.1 Low 1.2-2.2 Amylase & Lipase 11/28/2019 [facility] [address] [place] [address] [id number] [phone] Amylase 95 U/L Normal 25-115 Lipase 216 U/L Normal 73-393 2 1 SPECIMEN: FNA Rig ht lobe thyroid Cytolyt and slides received SPECIMEN ADEQUACY: Satisfactory for evaluation CATEGORIZATION: Benign DESCRIPTIONS: Specimen consists of scattered groups of follicular exhibiting hurthle cell changes. The background consists of rare macrophages, scattered lymphocytes and red blood cells. COMMENTS: 12/29/2019 - [address](ASCP) 12/29/2019 0942 (Prelim) Signed EVIE MARIN MD 12/29/2019 1544 2 12/21/19 (ThuDec 20) 12:33 PM WENDY JENKINS ok Procedures Date Code Description Status 12/28/2019 94476 Fine Needle Aspiration Biopsy In lcd Ultrasound Guidance Completed Medical Devices Description No Information Available Encounters Type Date Location Provider Dx Diagnosis Office Visit 12/28/2019 10:00a [facility] Richard Del Angel MD E04.1 Nontoxic single thyroid nodule Office Visit 11/28/2019 9:30a [facility] Wendy jara MD R10.13 Epigastric pain Z98.84 Bariatric surgery status Assessments Date Code Description Provider 12/28/2019 E04.1 Nontoxic single thyroid nodule N kenya Del Angel MD 11/28/2019 R10.13 Epigastric pain Wendy Jenkins MD 11/28/2019 Z98.84 Bariatric surgery status Wendy ruiz MD Plan of Treatment No Information Available Functional Status Description No Information Available Mental Status Description No Information Available Referrals Refer to Dr Reason for Referral Status Appt Date Richard Del Anegl M.D. thyroid nodule Scheduled 12/28/[address] [place] [address] [address] [place] [address] [phone] Wendy Jenkins MD STOMACH ULCERS & ABD PAIN Scheduled 06/2019 [facility], Gastroenterology [address] [place] [address], [address] [place] [id number] [phone]
--- OUTSIDE RECORDS SUMMARY | 2020-03-22 09:45 | CCD | Continuity of Care Document ---
Author Author Selma LOVELL MD Organization Unknown Address [address] [place] [address], [address] [address] Phone [phone] Care Team Providers Care Turntable Engineer Name Role Phone King Kimble MD AUTM [phone] Luci Kimble AUTM [phone] Problems Description No Active Problems Social History Type Date Description Comments Sex Unknown ETOH Use Denies alcohol use ETOH Use Denies alcohol use Tobacco Use Start: Unknown End: Unknown Patient is a former smoker quit 2005 Tobacco Use Start: Unknown End: Unknown Patient is a former smoker Allergies, Adverse Reactions, Alerts Description No Known Drug Allergies Medications Active Medications SIG Qnty Indications Ordering Provide r Date Gabapentin 400mg Capsules wean off by decreasing by 1 cap q3 days, starting mid-day, then morning, then evening and so on until off, will take 15 days to wean off 45caps Peter Hancock MD 08/24/2019 Pregabalin 50mg Capsules 1 by mouth twice a day (DO Not Start Until Off Gabapentin) 60caps Mohsen Hancock MD 08/24/2019 Tizanidine HCL 4mg Tablets Take One Half To 1 Tablet By Mouth Three Times A Day as Needed For Spasm 90tabs Mohsen Hancock MD 02/01/2019 Pantoprazole Sodium 40mg Tablets D R 1 by mouth every day Unknown Immunizations Description No Information Available Vital Signs Date Vital Result Comment 03/14/2020 8:50am Body Temperature 97.3 F Height 65 inches 5'5" Weight 170.00 lb BMI (Body Mass Index) 28.3 kg/m2 01/09/2020 8:56am Body Temperature 97.3 F Height 65 inches 5'5" Weight 165.12 lb BMI (Body Mass Index) 27.5 kg/m2 Results Description No Information Available Procedures Date Code Description Status 03/14/2020 24135 X-Ray Hand Three Views Completed 03/14/2020 97549 X-Ray Hand Three Views Completed Medical Devices Description No Information Available Encounters Type Date Location Provider Dx Diagnosis Office Visit 03/14/2020 8:30a [facility] Randell Lovell MD G56.03 Carpal tunnel syndrome, bilateral upper limbs Assessments Date Code Description Provider 03/14/2020 G56.03 Carpal tunnel syndrome, bilatera l upper limbs Randell Lovell MD 01/09/2020 M17.11 Unilateral primary osteoarthriti s, right knee Randell Lovell MD 01/09/2020 M17.0 Bilateral primary osteoarthritis of knee Randell Lovell MD Plan of Treatment 03/14/2020 - Randell Lovell MD* G56.03 Carpal tunnel syndrome, bilateral upper limbs* Follow up:* f/u with [facility] for EMG study f/u with a PA for EMG results per [facility] Functional Status Description No Information Available Mental Status Description No Information Available Referrals Refer to Reason for Referral Status Appt Date Verna Garcia, PAZoyaC EMG NO AUTH REQUIRED TO SCHEDULING NT Created [facility] [address] [place] [address] [phone]
--- OUTSIDE RECORDS SUMMARY | 2020-03-22 09:45 | CCD | Continuity of Care Document ---
Author Author Selma LOVELL MD Organization Unknown Address [address] [place] [address], [address] [address] Phone [phone] Care Team Providers Care Inspector Plumbing Name Role Phone King Kimble MD AUTM [phone] Luci Kimble AUTM [phone] Problems Description No Active Problems Social History [...] Available Vital Signs Date Vital Result Comment 01/09/2020 8:56am Body Temperature 97.3 F Height 65 inches 5'5" Weight 165.12 lb BMI (Body Mass Index) 27.5 kg/m2 04/15/2019 9:52am Body Temperature 98.5 F Height 65.5 inches 5'5.50" Weight 182.38 lb BMI (Body Mass Index) 29.9 kg/m2 Results Description No Information Available Procedures Description No Information Available Medical Devices Description No Information Available Encounters Description No Information Available Assessments Date Code Description Provider 01/09/2020 M17.11 Unilateral primary osteoarthriti s, right knee Randell Lovell MD 01/09/2020 M17.0 Bilateral primary osteoarthritis of knee Randell Lovell MD 08/24/2019 M47.817 Spondylosis without myelopathy or radiculopathy, lumbosacral region Mohsen Hancock MD 08/24/2019 M47.817 Spondylosis without myelopathy or radiculopathy, lumbosacral region ZACHARY Caldwell 08/24/2019 M51.37 Other intervertebral disc degene ration, lumbosacral region Mohsen Hancock MD 08/24/2019 M51.37 Other intervertebral disc degene ration, lumbosacral region ZACHARY Caldwell 08/24/2019 M51.27 Other intervertebral disc displa cement, lumbosacral region Mohsen Hancock MD 08/24/2019 M51.27 Other intervertebral disc displa cement, lumbosacral region ZACHARY Caldwell Plan of Treatment Future Appointment(s):* 02/21/2020 10:30 am - [facility] [place] 01/09/2020 - Randell Lovell MD* M17.0 Bilateral primary osteoarthritis of knee * Follow up:* in 6 weeks with a PA for syl knee recheck per [facility] with xrays of syl knees Functional Status Description No Information Available Mental Status Description No Information Available Referrals Description No Information Available
--- OUTSIDE RECORDS SUMMARY | 2020-03-22 09:45 | CCD | Continuity of Care Document ---
Author Author Selma PRATT Organization Unknown Address [address] [place] [address] [place] [address] Phone [phone] Care Team Providers Care Roll Scale Man Name Role Phone [facility] AUTM [phone] Problems Description No Information Available Social History [...] Date Location Provider Dx Diagnosis Office Visit 02/06/2020 11:30a [facility] [place] Obrien M25.531 Pain in right wrist Assessments Date Code Description Provider 02/06/2020 M25.531 Pain in right wrist [place] Mercado Plan of Treatment 02/06/2020 - [place] Obrien* M25.531 Pain in right wrist* Comments:* tylenol prnno injury recalledice as neededmay [...]
--- OUTSIDE RECORDS SUMMARY | 2020-03-22 09:45 | CCD | Continuity of Care Document ---
Author Author Selma LOVELL MD Organization Unknown Address [address] [place] [address], [address] [address] Phone [phone] Care Team Providers Care Shot Blaster Name Role Phone King Kimble MD AUTM [phone] Luci Kimble AUTM [phone] Problems Description No Active Problems Social History [...] Available Procedures Date Code Description Status 03/14/2020 49961 X-Ray Hand Three Views Completed 03/14/2020 33750 X-Ray Hand Three Views Completed Medical Devices Description No Information Available Encounters Type Date Location Provider Dx Diagnosis Office Visit 03/14/2020 8:30a [facility] Randell Lovell MD G56.03 Carpal tunnel syndrome, bilateral upper limbs Assessments Date Code Description Provider 03/14/2020 G56.03 Carpal tunnel syndrome, bilatera l upper limbs Randell Lovell MD 01/09/2020 M17.11 Unilateral primary osteoarthriti s, right knee Randell Lovell MD 01/09/2020 M17.0 Bilateral primary osteoarthritis of knee Randell Lovell MD Plan of Treatment 03/14/2020 - Randell Lovell MD* G56.03 Carpal tunnel syndrome, bilateral upper limbs* New Labs:* Antinuclear Antibodies, Ordered: 03/14/20 * CBC With Differential, Ordered: 03/14/20 * High Sensitivity C-Reactive Protein, Ordered: 03/14/20 * Erythrocyte Sedimentation Rate, Ordered: 03/14/20 * Lyme Disease SCRN With Confirm, Ordered: 03/14/20 * Rheumatoid Factor Quant, Ordered: 03/14/20 * Follow up:* f/u with [facility] for emg study f/u with a PA for emg results per [facility] Functional Status Description No Information Available Mental Status Description No Information Available Referrals Description No Information Available
--- OUTSIDE RECORDS SUMMARY | 2020-03-22 09:45 | CCD | Continuity of Care Document ---
Author Author Selma PRATT Organization Unknown Address [address] [place] [address] [place] [address] Phone [phone] Care Team Providers Care Performance Improvement Consultant Name Role [facility] [phone] Problems Description No Information Available Social History [...]
--- OUTSIDE RECORDS SUMMARY | 2020-03-22 09:46 | CCD | Continuity of Care Document ---
Author Author Selma LOVELL MD Organization Unknown Address [address] [place] [address], [address] [address] Phone [phone] Care Team Providers Care Dice Dealer Name Role Phone King Kimble MD AUTM [phone] Luci Kimble AUTM [phone] Problems Description No Active Problems Social History [...] Available Assessments Date Code Description Provider 01/09/2020 M17.0 Bilateral primary osteoarthritis of knee [...] lumbosacral region ZACHARY Caldwell Plan of Treatment 01/09/2020 - Randell Lovell MD* M17.0 Bilateral primary osteoarthritis of knee * Follow up:* in 6 weeks with a pa for syl knee recheck per [facility]bf with xrays of syl knees Functional Status Description No Information Available Mental Status Description No Information Available Referrals Description No Information Available
--- OUTSIDE RECORDS SUMMARY | 2020-03-22 09:46 | CCD ---
Author Author [facility] Organization [facility] Address Unknown Phone Unavailable Care Team Providers Care Computer Sciences Professor Name Role Phone Alaina Gutierrez MD Unavailable Unavailable Alaina Gutierrez MD Unavailable Unavailable Alaina Gutierrez MD Unavailable Unavailable Alaina Gutierrez MD Unavailable Unavailable Alaina Gutierrez MD Unavailable Unavailable Alaina Gutierrez MD Unavailable Unavailable Alaina Gutierrez MD Unavailable Unavailable Alaina Gutierrez MD Unavailable Unavailable Alaina Gutierrez MD Unavailable Unavailable Alaina Gutierrez MD Unavailable Unavailable Alaina Gutierrez MD Unavailable Unavailable DRAZEK, I CARINA PA Unavailable Unavailable DRAZEK, I CARINA PA Unavailable Unavailable DRAZEK, I CARINA PA Unavailable Unavailable DRAZEK, I CARINA PA Unavailable Unavailable DRAZEK, I CARINA PA Unavailable Unavailable DRAZEK, I CARINA PA Unavailable Unavailable DRAZEK, I CARINA PA Unavailable Unavailable DRAZEK, I CARINA PA Unavailable Unavailable DRAZEK, I CARINA PA Unavailable Unavailable DRAZEK, I CARINA PA Unavailable Unavailable DRAZEK, I CARINA PA Unavailable Unavailable DRAZEK, I CARINA PA Unavailable Unavailable DRAZEK, I CARINA PA Unavailable Unavailable DRAZEK, I CARINA PA Unavailable Unavailable DRAZEK, I CARINA PA Unavailable Unavailable DRAZEK, I CARINA PA Unavailable Unavailable DRAZEK, I CARINA PA Unavailable Unavailable DRAZEK, I CARINA PA Unavailable Unavailable DRAZEK, I CARINA PA Unavailable Unavailable DRAZEK, I CARINA PA Unavailable Unavailable DRAZEK, I CARINA PA Unavailable Unavailable DRAZEK, I CARINA PA Unavailable Unavailable DRAZEK, I CARINA PA Unavailable Unavailable DRAZEK, I CARINA PA Unavailable Unavailable DRAZEK, I CARINA PA Unavailable Unavailable DRAZEK, I CARINA PA Unavailable Unavailable DRAZEK, I CARINA PA Unavailable Unavailable DRAZEK, I CARINA PA Unavailable Unavailable DRAZEK, I CARINA PA Unavailable Unavailable DRAZEK, I CARINA PA Unavailable Unavailable Cecil BRITO MD Unavailable Unavailable Cecil BRITO MD Unavailable Unavailable Cecil BRITO MD Unavailable Unavailable Fish, Rock Mejias MD Unavailable Unavailable Fish, Rock Mejias MD Unavailable Unavailable Fish, B Randell STUBBS Unavailable Unavailable Fish, B Randell STUBBS Unavailable Unavailable Fish, B Randell STUBBS Unavailable Unavailable Fish, Rock Mejias MD Unavailable Unavailable Fish, Rock Mejias MD Unavailable Unavailable Fish, B Randell STUBBS Unavailable Unavailable Fish, Rock Mejias MD Unavailable Unavailable Fish, Rock Mejias MD Unavailable Unavailable Fish, Rock Mejias MD Unavailable Unavailable Fish, Rock Mejias MD Unavailable Unavailable Fish, Rock Mejias MD Unavailable Unavailable Fish, Rock Mejias MD Unavailable Unavailable Fish, Rock Mejias MD Unavailable Unavailable Fish, B Randell STUBBS Unavailable Unavailable Fish, Rock Mejias MD Unavailable Unavailable Fish, Rock Mejias MD Unavailable Unavailable Fish, Rock Mejias MD Unavailable Unavailable Fish, Rock Mejias MD Unavailable Unavailable Fish, Rock Mejias MD Unavailable Unavailable Fish, Rock Mejias MD Unavailable Unavailable Fish, Rock Mejias MD Unavailable Unavailable Fish, B Randell STUBBS Unavailable Unavailable Fish, B Randell STUBBS Unavailable Unavailable Fish, B Randell STUBBS Unavailable Unavailable Fish, B Randell STUBBS Unavailable Unavailable Fish, B Randell STUBBS Unavailable Unavailable Fish, B Randell STUBBS Unavailable Unavailable Fish, B Randell STUBBS Unavailable Unavailable Fish, B Randell STUBBS Unavailable Unavailable Fish, B Randell STUBBS Unavailable Unavailable Fish, B Randell STUBBS Unavailable Unavailable Fish, B Randell STUBBS Unavailable Unavailable Fish, Rock Mejias MD Unavailable Unavailable Fish, Rock Mejias MD Unavailable Unavailable Fish, Rock Mejias MD Unavailable Unavailable Fish, Rock Mejias MD Unavailable Unavailable Fish, Rock Mejias MD Unavailable Unavailable Fish, Rock Mejias MD Unavailable Unavailable Fish, Rock Mejias MD Unavailable Unavailable Fish, Rock Mejias MD Unavailable Unavailable Fish, Rock Mejias MD Unavailable Unavailable Fish, Rock Mejias MD Unavailable Unavailable Fish, Rock Mejias MD Unavailable Unavailable Fish, Rock Mejias MD Unavailable Unavailable Fish, B Randell STUBBS Unavailable Unavailable Fish, B Randell STUBBS Unavailable Unavailable Fish, B Randell STUBBS Unavailable Unavailable Fish, B Randell STUBBS Unavailable Unavailable Fish, Rock Mejias MD Unavailable Unavailable Fish, B Randell STUBBS Unavailable Unavailable Fish, Rock Mejias MD Unavailable Unavailable Garcia, M Barratt PA Unavailable Unavailable Garcia, M Barratt PA Unavailable Unavailable Garcia, M Barratt PA Unavailable Unavailable Garcia, M Barratt PA Unavailable Unavailable Garcia, M Barratt PA Unavailable Unavailable Garcia, M Barratt PA Unavailable Unavailable Garcia, M Barratt PA Unavailable Unavailable Garcia, M Barratt PA Unavailable Unavailable Garcia, M Barratt PA Unavailable Unavailable Garcia, M Barratt PA Unavailable Unavailable Garcia, M Barratt PA Unavailable Unavailable Garcia, M Barratt PA Unavailable Unavailable Garcia, M Barratt PA Unavailable Unavailable Garcia, M Barratt PA Unavailable Unavailable Garcia, M Barratt PA Unavailable Unavailable Garcia, M Barratt PA Unavailable Unavailable Garcia, M Barratt PA Unavailable Unavailable Garcia, M Barratt PA Unavailable Unavailable Garcia, M Barratt PA Unavailable Unavailable Garcia, M Barratt PA Unavailable Unavailable Garcia, M Barratt PA Unavailable Unavailable Garcia, M Barratt PA Unavailable Unavailable Garcia, M Barratt PA Unavailable Unavailable Garcia, M Barratt PA Unavailable Unavailable Garcia, M Barratt PA Unavailable Unavailable Garcia, M Barratt PA Unavailable Unavailable Garcia, M Barratt PA Unavailable Unavailable RING, K CLAIRE PA Unavailable Unavailable RING, K CLAIRE PA Unavailable Unavailable RING, K CLAIRE PA Unavailable Unavailable RING, K CLAIRE PA Unavailable Unavailable RING, K CLAIRE PA Unavailable Unavailable RING, K CLAIRE PA Unavailable Unavailable RING, K CLAIRE PA Unavailable Unavailable RING, K CLAIRE PA Unavailable Unavailable RING, K CLAIRE PA Unavailable Unavailable RING, K CLAIRE PA Unavailable Unavailable RING, K CLAIRE PA Unavailable Unavailable RING, K CLAIRE PA Unavailable Unavailable RING, K CLAIRE PA Unavailable Unavailable RING, K CLAIRE PA Unavailable Unavailable RING, K CLAIRE PA Unavailable Unavailable RING, K CLAIRE PA Unavailable Unavailable RING, K CLAIRE PA Unavailable Unavailable RING, K CLAIRE PA Unavailable Unavailable RING, K CLAIRE PA Unavailable Unavailable RING, K CLAIRE PA Unavailable Unavailable TERENCE, TYLER PA Unavailable Unavailable TERENCE, TYLER PA Unavailable Unavailable TERENCE, TYLER PA Unavailable Unavailable TERENCE, TYLER PA Unavailable Unavailable TERENCE, TYLER PA Unavailable Unavailable TERENCE, TYLER PA Unavailable Unavailable TERENCE, TYLER PA Unavailable Unavailable TERENCE, TYLER PA Unavailable Unavailable TERENCE, TYLER PA Unavailable Unavailable TERENCE, TYLER PA Unavailable Unavailable TERENCE, TYLER PA Unavailable Unavailable TERENCE, TYLER PA Unavailable Unavailable TERENCE, TYLER PA Unavailable Unavailable TERENCE, TYLER PA Unavailable Unavailable TERENCE, TYLER PA Unavailable Unavailable TERENCE, TYLER PA Unavailable Unavailable TERENCE, TYLER PA Unavailable Unavailable TERENCE, TYLER PA Unavailable Unavailable TERENCE, TYLER PA Unavailable Unavailable TERENCE, TYLER PA Unavailable Unavailable TERENCE, TYLER PA Unavailable Unavailable TERENCE, TYLER PA Unavailable Unavailable TERENCE, TYLER PA Unavailable Unavailable TERENCE, TYLER PA Unavailable Unavailable TERENCE, TYLER PA Unavailable Unavailable TERENCE, TYLER PA Unavailable Unavailable TERENCE, TYLER PA Unavailable Unavailable TERENCE, TYLER PA Unavailable Unavailable TERENCE, TYLER PA Unavailable Unavailable TERENCE, TYLER PA Unavailable Unavailable TERENCE, TYLER PA Unavailable Unavailable TERENCE, TYLER PA Unavailable Unavailable TERENCE, TYLER PA Unavailable Unavailable TERENCE, TYLER PA Unavailable Unavailable TERENCE, TYLER PA Unavailable Unavailable TERENCE, TYLER PA Unavailable Unavailable TERENCE, TYLER PA Unavailable Unavailable TERENCE, TYLER PA Unavailable Unavailable Fish, Rock Mejias MD Unavailable Unavailable Fish, Rock Mejias MD Unavailable Unavailable Fish, Rock Mejias MD Unavailable Unavailable Fish, Rock Mejias MD Unavailable Unavailable Fish, Rock Mejias MD Unavailable Unavailable Fish, Rock Mejias MD Unavailable Unavailable Fish, Rock Mejias MD Unavailable Unavailable Fish, Rock Mejias MD Unavailable Unavailable Fish, Rock Mejias MD Unavailable Unavailable Fish, Rock Mejias MD Unavailable Unavailable Fish, B Randell STUBBS Unavailable Unavailable Fish, B Randell STUBBS Unavailable Unavailable Fish, B Randell STUBBS Unavailable Unavailable Fish, B Randell STUBBS Unavailable Unavailable Fish, B Randell STUBBS Unavailable Unavailable Fish, B Randell STUBBS Unavailable Unavailable Fish, B Randell STUBBS Unavailable Unavailable Fish, B Randell STUBBS Unavailable Unavailable Fish, B Randell STUBBS Unavailable Unavailable Fish, B Randell STUBBS Unavailable Unavailable Fish, B Randell STUBBS Unavailable Unavailable Fish, B Randell STUBBS Unavailable Unavailable Fish, B Randell STUBBS Unavailable Unavailable Fish, B Ranedll STUBBS Unavailable Unavailable Fish, B Randell STUBBS Unavailable Unavailable Fish, B Randell STUBBS Unavailable Unavailable Fish, B Randell STUBBS Unavailable Unavailable Fish, B Randell STUBBS Unavailable Unavailable Fish, B Randell STUBBS Unavailable Unavailable Fish, B Randell STUBBS Unavailable Unavailable Fish, B Randell STUBBS Unavailable Unavailable Fish, B Randell STUBBS Unavailable Unavailable Fish, B Randell STUBBS Unavailable Unavailable Fish, B Randell STUBBS Unavailable Unavailable Fish, B Randell STUBBS Unavailable Unavailable Fish, B Randell STUBBS Unavailable Unavailable Fish, B Randell STUBBS Unavailable Unavailable Fish, B Randell STUBBS Unavailable Unavailable Fish, B Randell STUBBS Unavailable Unavailable Fish, B Randell STUBBS Unavailable Unavailable Fish, B Randell STUBBS Unavailable Unavailable Fish, B Randell STUBBS Unavailable Unavailable Fish, B Randell TSUBBS Unavailable Unavailable Fish, B Randell STUBBS Unavailable Unavailable Fish, B Randell STUBBS Unavailable Unavailable Fish, B Randell STUBBS Unavailable Unavailable Fish, B Randell STUBBS Unavailable Unavailable Fish, B Randell STUBBS Unavailable Unavailable Fish, B Randell STUBBS Unavailable Unavailable Fish, B Randell STUBBS Unavailable Unavailable Fish, B Randell STUBBS Unavailable Unavailable Fish, B Randell STUBBS Unavailable Unavailable Fish, B Randell STUBBS Unavailable Unavailable REINSONALI, WENDY SUTBBS Unavailable Unavailable REINDL, WENDY STUBBS Unavailable Unavailable REINDL, WENDY STUBBS Unavailable Unavailable REINDL, WENDY STUBBS Unavailable Unavailable SHYLA, WENDY STUBBS Unavailable Unavailable SHYLA, WENDY STUBBS Unavailable Unavailable SHYLA, WENDY STUBBS Unavailable Unavailable SHYLA, WENDY STUBBS Unavailable Unavailable SHYLA, WENDY STUBBS Unavailable Unavailable SHYLA, WENDY STUBBS Unavailable Unavailable SHYLA, WENDY STUBBS Unavailable Unavailable SHYLA, WENDY STUBBS Unavailable Unavailable SHYLA, WENDY STUBBS Unavailable Unavailable SHYLA, WENDY STUBBS Unavailable Unavailable SHYLA, WENDY STUBBS Unavailable Unavailable SHYLA, WENDY STUBBS Unavailable Unavailable SHYLA, WENDY STUBBS Unavailable Unavailable SHYLA, WENDY STUBBS Unavailable Unavailable REINSONALI, WENDY STUBBS Unavailable Unavailable REINSONALI, WENDY STUBBS Unavailable Unavailable REINDL, WENDY STUBBS Unavailable Unavailable REINDL, WENDY STUBBS Unavailable Unavailable REINDL, WENDY STUBBS Unavailable Unavailable REINDL, WENDY STUBBS Unavailable Unavailable REINDL, WENDY STUBBS Unavailable Unavailable REINDL, WENDY STUBBS Unavailable Unavailable REINDL, WENDY STUBBS Unavailable Unavailable REINDL, WENDY STUBBS Unavailable Unavailable REINDL, WENDY STUBBS Unavailable Unavailable REINDL, WENDY STUBBS Unavailable Unavailable REINDL, WENDY STUBBS Unavailable Unavailable REINDL, WENDY STUBBS Unavailable Unavailable REINDL, WENDY STUBBS Unavailable Unavailable REINDL, WENDY STUBBS Unavailable Unavailable REINDL, WENDY STUBBS Unavailable Unavailable REINDL, WENDY STUBBS Unavailable Unavailable REINDL, WENDY STUBBS Unavailable Unavailable REINDL, WENDY STUBBS Unavailable Unavailable REINDL, WENDY STUBBS Unavailable Unavailable REINDL, WENDY STUBBS Unavailable Unavailable REINDL, WENDY STUBBS Unavailable Unavailable REINDL, WENDY STUBBS Unavailable Unavailable REINDL, WENDY STUBBS Unavailable Unavailable REINDL, WENDY STUBBS Unavailable Unavailable Richard Del Angel MD Unavailable Unavailable Richard Del Angel MD Unavailable Unavailable Richard Del Angel MD Unavailable Unavailable Richard Del Angel MD Unavailable Unavailable Richard Del Angel MD Unavailable Unavailable Richard Del Angel MD Unavailable Unavailable Richard Del Angel MD Unavailable Unavailable Richard Del Angel MD Unavailable Unavailable Richard Del Angel MD Unavailable Unavailable Richard Del Angel MD Unavailable Unavailable Richard Del Angel MD Unavailable Unavailable Richard Del Angel MD Unavailable Unavailable Richard Del Angel MD Unavailable Unavailable Richard Del Angel MD Unavailable Unavailable Richard Del Angel MD Unavailable Unavailable Richard Del Angel MD Unavailable Unavailable Richard Del Angel MD Unavailable Unavailable Richard Del Angel MD Unavailable Unavailable Richard Del Angel MD Unavailable Unavailable Richard Del Angel MD Unavailable Unavailable Richard Del Angel MD Unavailable Unavailable Richard Del Angel MD Unavailable Unavailable Richard Del Angel MD Unavailable Unavailable Richard Del Angel MD Unavailable Unavailable Richard Del Angel MD Unavailable Unavailable Richard Del Angel MD Unavailable Unavailable Richard Del Angel MD Unavailable Unavailable Richard Del Angel MD Unavailable Unavailable Donald ORTIZ MD Unavailable Unavailable Donald ORTIZ MD Unavailable Unavailable Donald ORTIZ MD Unavailable Unavailable Donald ORTIZ MD Unavailable Unavailable Donald ORTIZ MD Unavailable Unavailable Donald ORTIZ MD Unavailable Unavailable Donald ORTIZ MD Unavailable Unavailable Donald ORTIZ MD Unavailable Unavailable Donald ORTIZ MD Unavailable Unavailable Donald ORTIZ MD Unavailable Unavailable Donald ORTIZ MD Unavailable Unavailable Donald ORTIZ MD Unavailable Unavailable Donald ORTIZ MD Unavailable Unavailable Donald ORTIZ MD Unavailable Unavailable Re-disclosure Warning The records that you are about to access may contain information from federally-assisted alcohol or drug abuse programs. If such information is present, then the following federally mandated warning applies: This information has been disclosed to you from records protected by federal confidentiality rules (42 CFR part 2). The federal rules prohibit you from making any further disclosure of this information unless further disclosure is expressly permitted by the written consent of the person to whom it pertains or as otherwise permitted by 42 CFR part 2. A general authorization for the release of medical or other information is NOT sufficient for this purpose. The Federal rules restrict any use of the information to criminally investigate or prosecute any alcohol or drug abuse patient.The records that you are about to access may contain highly sensitive health information, the redisclosure of which is protected by Article 27-F of the [facility] Public Health law. If you continue you may have access to information: Regarding HIV / AIDS; Provided by facilities licensed or operated by the [facility] Office of Mental Health; or Provided by the [facility] Office for People With Developmental Disabilities. If such information is present, then the following [facility] mandated warning applies: This information has been disclosed to you from confidential records which are protected by state law. State law prohibits you from making any further disclosure of this information without the specific written consent of the person to whom it pertains, or as otherwise permitted by law. Any unauthorized further disclosure in violation of state law may result in a fine or penitentiary sentence or both. A general authorization for the release of medical or other information is NOT sufficient authorization for further disc losure. Allergies and Adverse Reactions Type Description Substance Reaction Status Data Source(s ) Drug Class NO KNOWN ALLERGIES NO KNOWN ALLERGIES [facility] Family History Family Member Name Family Member Gender Family Member Status Date o f Status Description Data Source(s) Unknown Unknown Problem [facility] ([facility]) Unknown Unknown Problem [facility] ([facility]) Unknown Male Problem [facility] ([facility]) Unknown Male Problem [facility] ([facility] Unknown Female Problem [facility] ([facility]) Unknown Female Problem [facility] ([facility]) Unknown Female Problem [facility] ([facility]) Unknown Female Problem [facility] ([facility] Unknown Female Problem [facility] ([facility]) Unknown Female Problem [facility] ([facility]) Unknown Female Problem [facility] ([facility]) Unknown Female Problem [facility] ([facility]) Encounters Encounter Providers Location Date Indications Data Source(s ) Outpatient Attender: Randell Mittal MD Physical Therapy 03/14/2020 0 7:30:00 AM EST [facility] ([facility]) Outpatient Attender: TYLER sales 02/06/2020 10:30:00 AM EST [facility] ([facility]) Outpatient Attender: Richard Guthrie/Bean/Mikael/Reind l 12/28/2019 09:00:00 AM EST [facility] ([facility] [place] [address] [facility] [address] 12/14/2019 12:00:00 AM EDT [facility]1 [facility] [place] [address] [facility] [address] 12/09/2019 12:00:00 AM EDT [facility]CW1 ([facility]) [place] [address] [facility] [address] 12/07/2019 12:00:00 AM EDT eCW1 ([facility]) Outpatient Attender: WENDY Guthrie/Bean/Mikael/Rein dl 11/28/2019 09:30:00 AM EDT [facility] ([facility]) Outpatient Referrer: Verna SHARMA 08/05/2019 06:13:0 0 AM EDT [facility] [place] [address] [facility] [address] 07/28/2019 12:00:00 AM EDT eCW1 ([facility]) Outpatient Referrer: Verna SHARMA 06/20/2019 03:01:0 0 PM EDT [facility] Outpatient Referrer: Verna SHARMA 06/20/2019 08:01:0 0 AM EDT [facility] Outpatient Referrer: Verna SHARMA 06/17/2019 03:16:0 0 PM EDT [facility] [address] [facility] [address] 06/09/2019 12:00:00 AM EDT eCW1 ([facility]) Outpatient Referrer: Verna SHARMA 06/03/2019 09:22:0 0 AM EDT [facility] Outpatient Referrer: Verna SHARMA 06/01/2019 03:24:0 0 PM EDT [facility] Outpatient Referrer: CARINA SHARMA 06/01/2019 03:07:00 PM EDT [facility] Outpatient Referrer: CARINA SHARMA 05/31/2019 07:15:00 AM EDT [facility] Outpatient Referrer: CARINA SHARMA 05/30/2019 01:36:00 PM EDT [facility] Outpatient Referrer: Verna SHARMA 05/30/2019 01:22:0 0 PM EDT [facility] [address] [facility] [address] 04/28/2019 12:00:00 AM EST eCW1 ([facility]) [facility] [address] [facility] [address] 04/28/2019 12:00:00 AM EST eCW1 ([facility]) Outpatient Referrer: Verna SHARMA 04/26/2019 02:31:0 0 PM EST [facility] Outpatient Referrer: Verna SHARMA 04/25/2019 02:47:0 0 PM EST [facility] Outpatient Referrer: Verna SHARMA 04/20/2019 02:24:0 0 PM EST [facility] Outpatient Referrer: Verna SHARMA 04/19/2019 02:58:0 0 PM EST [facility] Outpatient Referrer: Randell Mittal MD 04/19/2019 02:52:00 PM EST [facility] Outpatient Referrer: Randell Mittal MD 04/19/2019 02:52:00 PM EST [facility] Outpatient Referrer: Randell Mittal MD 04/19/2019 02:48:00 PM EST [facility] [address] [place] [address] 04/18/2019 12:00:00 AM EST eCW1 ([facility]) Outpatient Referrer: Randell Mittal MD 04/06/2019 01:04:00 PM EST [facility] Outpatient Attender: CLAIRE Sánchez 2019 10:45:00 AM EST [facility] ([facility]) [address], [facility] [address] 03/21/2019 12:00:00 AM EST eCW1 ([facility]) [address] [address] 03/18/2019 12:00:00 AM EST eCW1 ([facility]) [address], [facility] [address] 03/16/2019 12:00:00 AM EST eCW1 ([facility]) [address] [address] 03/15/2019 12:00:00 AM EST eCW1 ([facility]) Inpatient Attender: Renu Fraustoe r: PETR BRITO MDAttender: SHAISTA ORTIZ MDAdmitter: PETR BRITO MDReferrer: Renu Gutierrez MD [id number] 2018 12:00:00 AM EST - 02/19/2019 12:25:00 PM EST Gastrointestinal hemorrhage, unspecified [facility] Gastrointestinal hemorrhage, unspecified Patient [place]. [address] [address] 01/31/2019 12:00:00 AM EST eCW1 ([facility]) Medications Medication Brand Name Start Date Product Form Dose Route Admi nistrative Instructions Pharmacy Instructions Status Indications Reaction Description Data Source(s) 5-325 mg 01/05/2020 12:00:00 AM EST tablet 20 TAKE 1 TABLET BY MOUTH EVERY 4 HOURS MAXIMUM DAILY DOSE = 6 TABLETS TAKE 1 TABLET BY MOUTH EVERY 4 HOURS MAXIMUM DAILY DOSE = 6 TABLETS SOLD: 01/05/2020 [facility] 150 mg 12/08/2019 12:00:00 AM EDT capsule,extended releas e 24hr 30 TAKE ONE CAPSULE BY MOUTH EVERY DAY WITH FOOD TAKE ONE CAPSULE BY MOUTH EVERY DAY WITH FOOD SOLD: 02/01/2020 [facility] 150 mg 12/08/2019 12:00:00 AM EDT capsule,extended releas e 24hr 30 TAKE ONE CAPSULE BY MOUTH EVERY DAY WITH FOOD TAKE ONE CAPSULE BY MOUTH EVERY DAY WITH FOOD SOLD: 12/11/2019 [facility] 150 mg 12/08/2019 12:00:00 AM EDT capsule,extended releas e 24hr 30 TAKE ONE CAPSULE BY MOUTH EVERY DAY WITH FOOD TAKE ONE CAPSULE BY MOUTH EVERY DAY WITH FOOD SOLD: 03/13/2020 [facility] 40 mg 11/29/2019 12:00:00 AM EDT capsule,delayed release (DR/EC) 60 TAKE ONE CAPSULE BY MOUTH TWICE A DAY TAKE ONE CAPSULE BY MOUTH TWICE A DAY SOLD: 12/04/2019 [facility] Magnesium Hydroxide 80 MG/ML Oral Suspension Milk Of Magnesi a 11/28/2019 12:00:00 AM EDT ORAL active M [facility] ([facility], ) 10 mg 11/28/2019 12:00:00 AM EDT capsule 60 TAKE 1-2 CAPSULES BY MOUTH EVERY 6 HOURS NEEDED FOR ABDOMINAL CRAMPING/PAIN TAKE 1-2 CAPSULES BY MOUTH EVERY 6 HOURS NEEDED FOR ABDOMINAL CRAMPING/PAIN SOLD: 11/28/2019 [facility] Dicyclomine Hydrochloride 10 MG Oral Capsule Dicyclomine HCL 11/28/2019 12:00:00 AM EDT ORAL active [facility] ([facility], ) Omeprazole 40 MG Delayed Release Oral Capsule Omeprazole 11/28/2019 12:00:00 AM EDT ORAL active [facility] ([facility], ) 5 mg 11/09/2019 12:00:00 AM EDT tablet 90 TAKE ONE TABLET BY MOUTH THREE TIMES A DAY 30 MINUTES BEFORE MEALS TAKE ONE TABLET BY MOUTH THREE TIMES A D AY 30 MINUTES BEFORE MEALS SOLD: 11/12/2019 [facility] 20 mg 11/09/2019 12:00:00 AM EDT tablet 60 TAKE ONE TABLET BY MOUTH TWICE A DAY TAKE ONE TABLET BY MOUTH TWICE A DAY SOLD: 11/12/2019 [facility] 1 gram 10/25/2019 12:00:00 AM EDT tablet 100 TAKE ONE TABLET BY MOUTH FOUR TIMES A DAY ON AN ON EMPTY STOMACH ONE HOUR BEFORE MEALS AND AT BEDTIME, MAY DISSOLVE TABLET IN 5-10ML (1 TO 2 TEASPOONFULS) WATER TAKE ONE TABLET BY MOUTH FOUR TIMES A DAY ON AN ON EMPTY STOMACH ONE HOUR BEFORE MEALS AND AT BEDTIME, MAY DISSOLVE TABLET IN 5-10ML (1 TO 2 TEASPOONFULS) WATER SOLD: 10/26/2019 [facility] 50 mg 08/25/2019 12:00:00 AM EDT capsule 60 TAKE ONE CAPSULE BY MOUTH TWO TIMES A DAY MAXIMUM DAILY DOSE = 2 TAKE ONE CAPSULE BY MOUTH TWO TIMES A DA Y MAXIMUM DAILY DOSE = 2 SOLD: 08/28/2019 [facility] 50 mg 08/25/2019 12:00:00 AM EDT capsule 60 TAKE ONE CAPSULE BY MOUTH TWO TIMES A DAY MAXIMUM DAILY DOSE = 2 TAKE ONE CAPSULE BY MOUTH TWO TIMES A DA Y MAXIMUM DAILY DOSE = 2 SOLD: 10/26/2019 [facility] gabapentin 400 MG Oral Capsule Gabapentin 08/24/2019 12:00:00 AM EDT active [facility] ([facility] ) 400 mg 08/24/2019 12:00:00 AM EDT capsule 45 WEAN OFF BY DECREASING BY 1 CAPSULE EVERY 3 DAYS STARTING MID-DAY, THEN MORNING, THEN EVENING AND SO ON UNTIL OFF; WILL TAKE 15 DAYS TO WEAN OFF WEAN OFF BY DECREASING BY 1 CAPSULE EVERY 3 DAYS STARTING MID-DAY, THEN MORNING, THEN EVENING AND SO ON UNTIL OFF; WILL TAKE 15 DAYS TO WEAN OFF SOLD: 08/28/2019 [facility] pregabalin 50 MG Oral Capsule Pregabalin 08/24/2019 12:00:00 AM EDT ORAL active [facility] ([facility]) 24 HR venlafaxine 150 MG Extended Releas e Oral Capsule Venlafaxine HCl ER 150 MG Venlafaxine HCl ER 150 MG 08/09/2019 12:00:00 AM EDT 1 .0 {capsule_with_food} active Venlafaxine HCl ER 1 50 MG eCW1 ([facility]) 150 mg 08/09/2019 12:00:00 AM EDT capsule,extended releas e 24hr 30 TAKE ONE CAPSULE BY MOUTH EVERY DAY TAKE ONE CAPSULE BY MOUTH EVERY DAY SOLD: 10/26/2019 [facility] 24 HR venlafaxine 150 MG Extended Releas e Oral Capsule Venlafaxine HCl ER 150 MG Venlafaxine HCl ER 150 MG 08/09/2019 12:00:00 AM EDT 1 .0 {capsule_with_food} active Venlafaxine HCl ER 1 50 MG eCW1 ([facility]) 24 HR venlafaxine 150 MG Extended Releas e Oral Capsule Venlafaxine HCl ER 150 MG Venlafaxine HCl ER 150 MG 08/09/2019 12:00:00 AM EDT 1 .0 {capsule_with_food} active Venlafaxine HCl ER 1 50 MG eCW1 ([facility]) 150 mg 08/09/2019 12:00:00 AM EDT capsule,extended releas e 24hr 30 TAKE ONE CAPSULE BY MOUTH EVERY DAY TAKE ONE CAPSULE BY MOUTH EVERY DAY SOLD: 08/13/2019 [facility] 325 mg (65 mg iron) 07/27/2019 12:00:00 AM EDT tablet, delayed release (DR/EC) 28 ONE BY MOUTH TWICE A DAY ONE BY MOUTH TWICE A DAY SOLD: 07/28/19 [facility] tizanidine 4 MG Oral Tablet Tizanidine HCl 4 MG Tizanidine H Cl 4 MG 07/27/2019 12:00:00 AM EDT active Tizanidi ne HCl 4 MG eCW1 ([facility]) 100 mg 07/12/2019 12:00:00 AM EDT capsule 180 TAKE TWO CAPSULES BY MOUTH THREE TIMES A DAY WITH 300 MG CAPSULE TAKE TWO CAPSULES BY MOUTH THREE TIMES A DAY WITH 300 MG CAPSULE SOLD: 07/28/2019 [facility] 300 mg 06/25/2019 12:00:00 AM EDT capsule 90 TAKE ONE CAPSULE BY MOUTH THREE TIMES A DAY TAKE ONE CAPSULE BY MOUTH THREE TIMES A DAY SOLD: 07/07/2019 [facility] 0.4-0.3 % 04/11/2019 12:00:00 AM EST drops,gel 10 INSTILL 1 TO 2 DROPS IN EACH EYE 6 TO 10 TIMES A DAY DIRECTED INSTILL 1 TO 2 DROPS IN EACH EYE 6 TO 10 TIMES A DAY DIRECTED SOLD: 04/18/2019 [facility] Prednisone 20 MG Oral Tablet Prednisone 2019 12:00:00 AM EST ORAL active [facility] ([facility]) Cyclobenzaprine hydrochloride 10 MG Oral Tablet Cyclobenzapr ine HCL 2019 12:00:00 AM EST ORAL active M [facility]ENT ([facility]) 20 mg 2019 12:00:00 AM EST tablet 8 TAKE ONE TABLET BY MOUTH TWICE A DAY FOR 4 DAYS TAKE ONE TABLET BY MOUTH TWICE A DAY FOR 4 DAYS SOLD: 2019 [facility] 10 mg 2019 12:00:00 AM EST tablet 15 TAKE ONE TABLET BY MOUTH AT BEDTIME NEEDED FOR PAIN TAKE ONE TABLET BY MOUTH AT BEDTIME N EEDED FOR PAIN SOLD: 2019 [facility] 300 mg 03/24/2019 12:00:00 AM EST capsule 90 TAKE ONE CAPSULE BY MOUTH THREE TIMES A DAY TAKE ONE CAPSULE BY MOUTH THREE TIMES A DAY SOLD: 05/21/2019 [facility] 300 mg 03/24/2019 12:00:00 AM EST capsule 90 TAKE ONE CAPSULE BY MOUTH THREE TIMES A DAY TAKE ONE CAPSULE BY MOUTH THREE TIMES A DAY SOLD: 2019 [facility] 20 mg 03/23/2019 12:00:00 AM EST tablet 60 TAKE ONE TABLET BY MOUTH TWICE A DAY NEEDED TAKE ONE TABLET BY MOUTH TWICE A DAY NEEDED SOLD: 03/24/2019 [facility] Famotidine 20 MG Oral Tablet Famotidine 20 MG 03/22/2019 12:00:[address] active 1 tablet at bedtime as ne eded eCW1 ([facility]) 40 mg 03/19/2019 12:00:00 AM EST tablet,delayed release (DR/EC) 60 TAKE TWO TABLETS BY MOUTH EVERY DAY TAKE TWO TABLETS BY MOUTH EVERY DAY SOLD: 03/20/2019 [facility] 100 mg 03/19/2019 12:00:00 AM EST capsule 180 TAKE TWO CAPSULES BY MOUTH THREE TIMES A DAY WITH 300 MG CAPSULE TAKE TWO CAPSULES BY MOUTH THREE TIMES A DAY WITH 300 MG CAPSULE SOLD: 03/20/2019 [facility] 100 mg 03/19/2019 12:00:00 AM EST capsule 180 TAKE TWO CAPSULES BY MOUTH THREE TIMES A DAY WITH 300 MG CAPSULE TAKE TWO CAPSULES BY MOUTH THREE TIMES A DAY WITH 300 MG CAPSULE SOLD: 05/09/2019 [facility] 4 mg 03/18/2019 12:00:00 AM EST tablet 90 TAKE ONE HALF TO 1 TABLET BY MOUTH THREE TIMES A DAY NEEDED FOR SPASM TAKE ONE HALF TO 1 TABLET BY MOUTH THREE TIMES A DAY NEEDED FOR SPASM SOLD: 03/20/2019 [facility] gabapentin 100 MG Oral Capsule Gabapentin 03/18/2019 12:00:00 AM EST completed [facility] ([facility]) 4 mg 03/18/2019 12:00:00 AM EST tablet 90 TAKE ONE HALF TO 1 TABLET BY MOUTH THREE TIMES A DAY NEEDED FOR SPASM TAKE ONE HALF TO 1 TABLET BY MOUTH THREE TIMES A DAY NEEDED FOR SPASM SOLD: 07/09/2019 [facility] tizanidine 4 MG Oral Tablet tizanidine (ZANAFLEX) tabl et 4 mg tizanidine (ZANAFLEX) tablet 4 mg 02/19/2019 10:00:00 PM EST 4 mg Oral active 4 mg, Oral, Nightly, First dose on 02/19/19 at 2200, For 30 days [facility] Medication administered onsite 24 HR venlafaxine 75 MG Extended Release Oral Capsule venlafaxine (EFFEXOR-XR) 24 hr capsule 75 mg venlafaxine (EFFEXOR-XR) 24 hr capsule 75 mg 09:00:00 AM EST 75 mg Oral active 75 mg, Oral, Daily Standard, First dose on 02/19/19 at 0900, For 30 days
Do not crush or chew
[facility] Medication administered onsite gabapentin 300 MG Oral Capsule gabapentin (NEURONTIN) capsule 300 mg gabapentin (NEURONTIN) capsule 300 mg 02/19/2019 09:00:00 AM EST 300 mg Oral active 300 mg, Oral, 2 Times Daily, First dose on 02/19/19 at 0900, For 30 days [facility] Medication administered onsite ferrous sulfate 325 MG Delayed Release O ral Tablet ferrous sulfate EC tablet 325 mg ferrous sulfate EC tablet 325 mg 02/19/2019 09:00:00 AM EST 325 mg Oral active 325 mg, Oral, 2 Times Daily With Meals, First dose on 02/19/19 at 0900, For 5 days [facility] Medication administered onsite pantoprazole 4 MG/ML Injectable Solution pantoprazole (PROTONIX) injection 40 mg pantoprazole (PROTONIX) injection 40 mg 02/19/2019 09:00:00 AM EST 40 mg Intravenous active 40 mg, Intrav enous, 2 Times Daily, First dose on 02/19/19 at 0900, For 30 days
Dilute with 10 mL of 0.9% NaCl.Give IVP over 2 minutes. Flush before and after.
[facility] Medication administered onsite Sucralfate 100 MG/ML Oral Suspension suc ralfate (CARAFATE) 1 GM/10ML suspension 1 g sucralfate (CARAFATE) 1 GM/10ML suspension 1 g 02/19/2019 12:00: 00 AM EST 1 g Oral active 1 g, Oral, Every 6 hours Standard (4 times per day), First dose on Thu02/19/19 at 0000, For 30 days [facility] Medication administered onsite dextrose 5 %-0.9 % sodium chloride infusion 6007-6313-36 02/18/2019 11:00:00 PM EST Intravenous active at 1 00 mL/hr, Intravenous, Continuous, Starting Thu02/18/19 at 2300, For 30 days [facility] Medication administered onsite Acetaminophen 325 MG Oral Tablet acetaminophen (TYLENO L) tablet 650 mg acetaminophen (TYLENOL) tablet 650 mg 02/18/2019 10:53:20 PM EST 65 0 mg Oral active 650 mg, Oral, E very 4 hours PRN, Mild Pain (Pain Scale Score 1- 3), Starting Thu02/18/19 at 2253, For 30 days
Maximum daily dose of acetaminophen is 3,000 mg from all sources in 24 hours.
[facility] Medication administered onsite pantoprazole 4 MG/ML Injectable Solution pantoprazole (PROTONIX) injection 80 mg pantoprazole (PROTONIX) injection 80 mg 02/18/2019 07:45:00 PM EST 80 mg Intravenous completed 80 mg, Intrav enous, Once, Thu02/18/19 at 1945, For 1 dose
Dilute with 10 mL of 0.9% NaCl.Give IVP over 2 minutes. Flush before and after.
[facility] Medication administered onsite Acetaminophen 300 MG / Codeine Phosphate 30 MG Oral Tablet [Tylenol with Codeine] Tylenol With Codeine #3 02/01/2019 12:00:00 AM EST ORAL completed [facility] ([facility]) tizanidine 4 MG Oral Tablet Tizanidine HCL 02/01/2019 12:00:00 AM EST active [facility] ([facility]) 300-30 mg 02/01/2019 12:00:00 AM EST tablet 20 TAKE 1 TO 2 TABLETS BY MOUTH EVERY 4 TO 6 HOURS NEEDED MAXIMUM DAILY DOSE = 6 TABLETS TAKE 1 TO 2 TABLETS BY MOUTH EVERY 4 TO 6 HOURS NEEDED MAXIMUM DAILY DOSE = 6 TABLETS SOLD: 02/01/2019 [facility] 4 mg 02/01/2019 12:00:00 AM EST tablet 40 TAKE ONE TABLET BY MOUTH THREE TIMES A DAY TAKE ONE TABLET BY MOUTH THREE TIMES A DAY SOLD: 02/01/2019 [facility] 300 mg 01/27/2019 12:00:00 AM EST capsule 90 TAKE ONE CAPSULE BY MOUTH THREE TIMES A DAY TAKE ONE CAPSULE BY MOUTH THREE TIMES A DAY SOLD: 02/27/2019 [facility] 300 mg 01/27/2019 12:00:00 AM EST capsule 90 TAKE ONE CAPSULE BY MOUTH THREE TIMES A DAY TAKE ONE CAPSULE BY MOUTH THREE TIMES A DAY SOLD: 01/29/2019 [facility] 100 mg 09/30/2018 12:00:00 AM EDT capsule 140 TAKE 1 CAPSULE BY MOUTH TWICE A DAY DURING DAY AND 1 TABLET 3 TIMES A DAY BEFORE BED DIRECTED, MAXIMUM DAILY DOSE = 5 TABLETS TAKE 1 CAPSULE BY MOUTH TWICE A DAY DURI NG DAY AND 1 TABLET 3 TIMES A DAY BEFORE BED DIRECTED, MAXIMUM DAILY DOSE = 5 TABLETS SOLD: 01/29/2019 [facility] 75 mg 08/27/2018 12:00:00 AM EDT capsule,extended releas e 24hr 30 TAKE ONE CAPSULE BY MOUTH EVERY DAY WITH FOOD TAKE ONE CAPSULE BY MOUTH EVERY DAY WITH FOOD SOLD: 01/29/2019 [facility] 75 mg 08/27/2018 12:00:00 AM EDT capsule,extended releas e 24hr 30 TAKE ONE CAPSULE BY MOUTH EVERY DAY WITH FOOD TAKE ONE CAPSULE BY MOUTH EVERY DAY WITH FOOD SOLD: 07/09/2019 [facility] 75 mg 08/27/2018 12:00:00 AM EDT capsule,extended releas e 24hr 30 TAKE ONE CAPSULE BY MOUTH EVERY DAY WITH FOOD TAKE ONE CAPSULE BY MOUTH EVERY DAY WITH FOOD SOLD: 06/01/2019 [facility] Insurance Providers Payer name Policy type / Coverage type Policy ID Covered libertarian ID Covered libertarian's relationship to lyle Policy Lyle Plan Information [facility]MERLY [facility] COMMUNITY PLAN [facility] [id number] SP [id number] [facility] I [id number] Self [id number] FORMERLY [facility] COMMUNITY PLAN [facility] [id number] SP [id number] [facility] O [id number] S [id number] [facility] I [id number] Self [id number] ANSI-Medicaid [id number] ANSI-Medicaid [id number] Progressive (NF) Workers Compensation [id number] Self [id number] Formerly [facility] Plan Commercial [id number] Self [id number] [place] Medig[place] Part B [id number] Self [id number] Progressive (NF) Workers Compensation [id number] Self [id number] Pending Sale To [facility] Commercial [id number] Self [id number] [facility] Health Maintenance Organization (O) [id number] Self [id number] Progressive (NF) Workers Compensation [id number] Self [id number] Pending Sale To [facility] Commercial [id number] Self [id number] ANSI-Medicaid [id number] ANSI-Medicaid [id number] ANSI-Medicaid [id number] [facility] [id number] SP [id number] [facility] Health Maintenance Organization (O) [id number] Self [id number] ANSI-Medicaid [id number] ANSI-Medicaid [id number] [facility] Health Maintenance Organization (HMO) [id number] Self [id number] Progressive (NF) Workers Compensation [id number] Self [id number] [facility] [facility] Commercial [id number] Self [id number] [facility] Health Maintenance Organization (HMO) [id number] Self [id number] Progressive (NF) Workers Compensation [id number] Self [id number] [facility] [employer] Commercial [id number] Self [id number] Progressive (NF) Workers Compensation [id number] Self [id number] [facility] [employer] Commercial [id number] Self [id number] Progressive (NF) Workers Compensation [id number] Self [id number] [facility] [employer] Commercial [id number] Self [id number] Progressive (NF) Workers Compensation [id number] Self [id number] [facility] [employer] Commercial [id number] Self [id number] Progressive (NF) Workers Compensation [id number] Self [id number] [facility] [employer] Commercial [id number] Self [id number] MEDICARE COMPLETE [id number] SP [id number] [facility] [id number] SP [id number] Progressive (NF) Workers Compensation [id number] Self [id number] [facility] [employer] Commercial [id number] Self [id number] Progressive (NF) Workers Compensation [id number] Self [id number] [facility] [employer] Commercial [id number] Self [id number] Progressive (NF) Workers Compensation [id number] Self [id number] [facility] [employer] Commercial [id number] Self [id number] Progressive (NF) Workers Compensation [id number] Self [id number] [facility] [employer] Commercial [id number] Self [id number] Progressive (NF) Workers Compensation [id number] Self [id number] [facility] [employer] Commercial [id number] Self [id number] [facility] Health Maintenance Organization (HMO) [id number] Self [id number] [facility]LY [facility] COMMUNITY PLAN MCDO [id number] SP [id number] [facility] Health Maintenance Organization (HMO) [id number] Self [id number] FORMERLY [facility] COMMUNITY PLAN MCDHMO [id number] SP [id number] [facility] Health Maintenance Organization (HMO) [id number] Self [id number] Progressive [employer] Workers Compensation SS# [id number] Self SS# [id number] [facility] Health Maintenance Organization (HMO) [id number] Self [id number] Progressive (NF) Workers Compensation [id number] Self [id number] [facility] [employer] Commercial [id number] Self [id number] [facility] Health Maintenance Organization (HMO) [id number] Self [id number] Progressive (NF) Workers Compensation [id number] Self [id number] [facility] Community Plan Commercial [id number] Self [id number] PROGRESSIVE E [id number] Self [id number] [facility] [id number] SP [id number] Progressive Ins Workers Compensation Self [facility] Health Maintenance Organization (HMO) Self Progressive (NF) Workers [place] Self [place]ig[place] Part B Self Pending Sale To [facility] Commercial Self Progressive [employer] Workers Compensation Self [facility] [id number] SP [id number] [employer] BY [facility] COMMUNITY PLAN [id number] 0 [id number] MEDICAID [id number] SP [id number] MEDICAID - CLINIC [id number] AM [id number] MEDICAID-O/P [id number] Problems, Conditions, and Diagnoses Code Display Name Description Problem Type Effective Dates Data Source(s) E04.1 [id number] Thyroid nodule Problem 12/07/2019 12:00:00 A M EDT eCW1 ([facility]) F32.2 [id number] Severe depression Problem 08/09/2019 12:00:0 0 AM EDT eCW1 ([facility]) D50.0 [id number] Anemia due to gastrointestinal blood loss Problem 03/16/2019 12:00:00 AM EST eCW1 ([facility]) K92.2 Gastrointestinal hemorrhage, unspecified Gastrointestinal hemorrhage, unspecified Diagnosis 02/18/2019 10:37:08 PM [facility] bleeding ulcer bleeding ulcer Diagnosis 02/18/2019 05:52: 23 PM [facility] Surgeries/Procedures Procedure Description Date Indications Data Source(s) RADEX HAND MINIMUM 3 VIEWS 03/14/2020 12:00:00 AM EST MEDENT ([facility] ) RADEX HAND MINIMUM 3 VIEWS 03/14/2020 12:00:00 AM EST MED[facility] ([facility] ) Fine Needle Aspiration Biopsy Inlcd Ultrasound Guidance 12/28/2019 12:00:00 AM EST [facility] ([facility]) RADEX SPINE LUMBOSACRAL MINIMUM 4 VIEWS 05/25/2019 12: 00:00 AM EDT [facility] ([facility]) RADEX SHOULDER COMPLETE MINIMUM 2 VIEWS 04/15/2019 12: 00:00 AM EST [facility] ([facility]) BLOOD COUNT COMPLETE AUTO&AUTO DIFRNTL WBC COUNT CBC AND DIFFER ENTIAL Timed 02/19/2019 5:04 AM EST 02/19/2019 10:04:00 AM [facility] BASIC METABOLIC PANEL CALCIUM TOTAL BASIC METABOLIC PANEL Routi ne 02/19/2019 5:04 AM EST 02/19/2019 10:04:00 AM [facility] BLOOD COUNT COMPLETE AUTO&AUTO DIFRNTL WBC COUNT CBC AND DIFFER ENTIAL Timed 02/18/2019 11:35 PM EST 02/19/2019 04:35:00 AM [facility] ANTIBODY ID RBC ANTIBODIES EA PANEL EA SERUM TQ ANTIBODY ID ENTIFICATION Routine 02/18/2019 6:30 PM EST 02/18/2019 11:30:00 PM [facility] BLOOD TYPING ABO TYPE AND SCREEN STAT 02/18/2019 6:30 PM EST 02/18/2019 11:30:00 PM [facility] BLOOD OCCULT PEROXIDASE ACTV QUAL FECES 1 DETER FECAL OCCULT BLOOD, UPPER GI (HEMOCCULT-SENSA) STAT 02/18/2019 6:27 PM EST 02/19/20 19 11:27:00 PM [facility] THROMBOPLASTIN TIME PARTIAL PLASMA/WHOLE BLOOD PARTIA L THROMBOPLASTIN TIME (PTT) STAT 02/18/2019 6:25 PM EST 02/18/2019 11:25 :00 PM [facility] PROTHROMBIN TIME PROTIME INR STAT 02/18/2019 6:25 PM EST 02/18/2019 11:25:00 PM [facility] BLOOD COUNT COMPLETE AUTO&AUTO DIFRNTL WBC COUNT CBC AND DIFFER ENTIAL STAT 02/18/2019 6:25 PM EST 02/18/2019 11:25:00 PM [facility] COMPREHENSIVE METABOLIC PANEL COMPREHENSIVE METABOLIC PANEL STA T 02/18/2019 6:25 PM EST 02/18/2019 11:25:00 PM [facility] URNLS DIP STICK/TABLET REAGENT AUTO MICROSCOPY URINALYSIS W ITH MICROSCOPIC STAT 02/18/2019 6:15 PM EST 02/18/2019 11:15:00 PM [facility] Arthroscopy Knee W/Meniscectomy Inc Chondroplasty (Med & Lat eral) 02/01/2019 12:00:00 AM EST MED[facility] ([facility]) Results ID Date Data Source [id number] 12/30/2019 08:45:00 AM EST [facility] Name Value Range Interpretation Code Description Data Sylvia rce(s) Supporting Document(s) SARS coronavirus 2 RNA [facility] This lab was ordered by [facility] and reported by [facility]. ID Date Data Source [id number] 12/28/2019 01:20:00 PM EST MEDENT ([facility], ) Name Value Range Interpretation Code Description Data Sylvia rce(s) Supporting Document(s) Microscopic observation [Identifier] in Unspecified specimen by Non- gynecological cytology method Laboratory test result [facility] ([facility]) SPECIMEN: FNA Right lobe thyr oid Cytolyt and slides received SPECIMEN ADEQUACY: Satisfactory for evaluation CATEGORIZATION: Benign DESCRIPTIONS: Specimen consists of scattered groups of follicular exhibiting hurthle cell changes. The background consists of rare macrophages, scattered lymphocytes and red blood cells. COMMENTS: [id number]/29/[id number] Signed NOHEMY WOOD CT(ASCP) 12/29/2019 0942 (Prelim) Signed EVIE MARIN MD 12/29/2019 1544 ID Date Data Source [facility] MRI Brain W/O FOLL BY WITH CONTRAST 12/13/2019 12:48:51 PM EDT eCW1 ([facility]) Name Value Range Interpretation Code Description Data Sylvia rce(s) Supporting Document(s) [facility] MRI Brain W/O FOLL BY WITH CONTRAST eCW1 ([facility]) ID Date Data Source [facility] SOFT TISSUE HEAD/NECK, THYROID US 12/13/2019 02:18:37 A M EDT eCW1 ([facility]) Name Value Range Interpretation Code Description Data Sylvia rce(s) Supporting Document(s) [facility] SOFT TISSUE HEAD/NEC K, THYROID US eCW1 ([facility]) ID Date Data Source [id number] 11/28/2019 10:45:00 AM EDT [facility] ([facility]) Name Value Range Interpretation Code Description Data Sylvia rce(s) Supporting Document(s) Amylase [Enzymatic activity/volume] in Serum or Plasma 95 U/L 25-115 Normal (applies to non-numeric results) [facility] ([facility] ) Lipoprotein lipase [Enzymatic activity/volume] in Serum or P lasma 216 U/L 73-393 Normal (applies to non-numeric results) [facility] 12/21/19 (ThuDec 20) 12:33 PM WENDY FOLEY ok ID Date Data Source [id number] 11/28/2019 10:45:00 AM EDT [facility]) Name Value Range Interpretation Code Description Data Sylvia rce(s) Supporting Document(s) Ast/Sgot 26 U/L 7-37 Normal (applies to non-numeric resul ts) [facility] ([facility]) Alt/SGPT 29 U/L 12-78 Normal (applies to non-numeric resul ts) [facility] ([facility]) Alkaline Phosphatase 140 U/L 45-117 Above high normal [facility] ([facility]) Bilirubin,Direct 0.2 mg/dL 0.0-0.2 Normal (applies to non-numeric results) [facility]) Bilirubin,Total 0.7 mg/dL 0.2-1.0 Normal (applies to non-numeric results) [facility] ([facility]) Total Protein 7.3 GM/DL 6.4-8.2 Normal (applies to non-numeric re sults) [facility] ([facility]) Albumin/Globulin Ratio 1.1 1.2-2.2 Below low normal [facility] ([facility]) Albumin 3.9 GM/DL 3.2-5.2 Normal (applies to non-numeric resul ts) [facility]) ID Date Data Source [id number] 07/24/2019 03:04:00 PM EDT [facility]) Name Value Range Interpretation Code Description Data Sylvia rce(s) Supporting Document(s) Packed Cells Laboratory test result [facility] ([facility]) TRANSFUSED PRODUCT: PACKED CELLS COUNT: 1 ID Date Data Source [id number] 06/03/2019 12:00:00 AM EDT [facility] Patient Name: REN[facility]RANADOS [facility] [id number] Date of Exam: 06/03/2019#: Fax: [phone] EXAM: MRI LUMBAR SPINE WITHOUT CONTRASTCLINICAL INFORMATION: Other intervertebral disc degeneration. Patientreports a fall from a height of 6 feet one month ago. Rule out transverseprocess fracture vs. pars defect.Comparison lumbar spine radiographs 11/16/2018. Comparison MRI study10/20/2018. Comparison images from CT scan of the abdomen and pelvis11/02/2018.TECHNIQUE:3T multiplanar MRI imaging of the lumbar spine was obtained using varioussequences.MRI FINDINGS:Lumbar vertebral body heights are preserved. Cortical and medullary bonesignal intensity are normal. Normal caliber aorta. The tip of the conusmedullaris remains normal in position and appearance at T12-L1. There isdegenerative narrowing of the L2-3 through L4-5 disc spaces consistent withdegenerative disc disease. This is unchanged. There is a hemangioma inthe L5 vertebral body and another in the L4 vertebral body on the rightside. These are unchanged.Axial and sagittal images taken at L5-S1 demonstrate some osteoarthriticfacet hypertrophy and arthritis associated cysts at the dorsal extraspinalsurfaces of the facet joints bilaterally. No spinal canal compromise isseen. There is minimal ligamentum flavum hypertrophy and mild central discbulging. No foraminal narrowing is seen. The facet hypertrophy and theperiarticular cysts are unchanged from 10/20/2018 prior study.At L4-5, there is mild diffuse disc bulging indenting the ventral margin ofthe thecal sac. No spinal stenosis or foraminal narrowing is seen.Minimal facet hypertrophy and ligamentum flavum hypertrophy are present.At L3-4, there is degenerative narrowing and diffuse disc bulging. Thereis ligamentum flavum hypertrophy, mild in degree. No neural foraminalencroachment is appreciated. No central canal stenosis is seen. The L3-4level is unchanged.At L2-3, there is mild diffuse disc bulging again noted. No focal discprotrusion is seen. No foraminal narrowing is noted. A small right-sidedhemangioma is seen at L2, unchanged.The L1-2 disc level is unremarkable and unchanged.IMPRESSION:Degenerative disc disease at L2-3 through L4-5. Osteoarthritic facetchanges noted most pronounced at L5-S1. No significant change fromcomparison study 10/20/2018.Accredited by the [employer] in [place].Yfn Mcneal MDJDShekhar/Bridgette you for referring ROSMERY GRANADOS to our office. Electronically Signed - YFN MCNEAL MD 06/09/19 13:16 Name Value Range Interpretation Code Description Data Sylvia rce(s) Supporting Document(s) ID Date Data Source [id number] 02/21/2019 12:14:23 PM EST [facility] Name Value Range Interpretation Code Description Data Sylvia rce(s) Supporting Document(s) Discharge Summary [facility] NFDAPw8hSvAAVhNs31/VJZulOQXkq0UsLVjvBBi8ORyeSIKgM6HbWZQ9pE6oKBV7ZAlLTsVjLXqtAzAv lbm [file] AgICAgICAgICAgICAgICAgICAgICAgICAgICAgICAgICAgICAgICAgICAgICAgICAgICAgICAgICAgIC ZhSXJyONQcJOBcNOAuXZIpWVMcLVZqYUTkUE8KQXPi ICAgICAgICAgICAgICAgICAgICAgICAgICAgICAgICAgICAgICAgICAgICAgICAgICAgICAgICAgICAg CWTeNGQbKGUiASYzTETdZVEhKLXxKLQlGUXtAVFmLCNoKUBbUT6HKDEwLDJfPJRlUZUaGRIjUEDgUWUg ICAgICAgICAgICAgICAgICAgICAgICAgICAgICAgIC UqJPHmOGNzOANgIMTcJPVaOIOfBOWeKINnSJGjMNNdLPCfQWXhFFMmIVXeZVMpDI2RGCMmRLJlRMLyZN AgICAgICAgICAgICAgICAgICAgICAgICAgICAgICAgICAgICAgICAgICAgICAgICAgICAgICAgICAgIC ZrDHRsJCJcAERtOKPvATXgUZQzVUMkWRIfNFHsDT8C ICAgICAgICAgICAgICAgICAgICAgICAgICAgICAgICAgICAgICAgICAgICAgICAgICAgICAgICAgICAg KDKiGBBmUZIvDSBaMRSlMMOjTKMlBRYkMQNaRKWoKQTmJCRtFOTuCK5ZKHOvURInQQHoJVEzSGJuMCBq ICAgICAgICAgICAgICAgICAgICAgICAgICAgICAgIC CiJNIjKNUpWJVsKQIpUXReLJAtWRDsBTWkRPPjLIReBNOmNFZiKFMmCUMoMJCySCWuDD9LMNJpBLCnRK AgICAgICAgICAgICAgICAgICAgICAgICAgICAgICAgICAgICAgICAgICAgICAgICAgICAgICAgICAgIC AgICAgICAgICAgICAgICAgICAgICAgICAgICAgICAg KR4LVUKnFVAkUREuAQMpXJCsOWKtXSQuCTSlTREvQIDwFTGfGCEuBITmZSEqSSIhJSQtRDBdVNCrCYKn EBRdOLXrFIKgSQIwKZJsLYObFNGdSUOjQGIaAYQjZYQsTQBpSUXiCDMhBX3DSRCfLEZuDNRtBYYgXRWl ICAgICAgICAgICAgICAgICAgICAgICAgICAgICAgIC AcPEAaXULvNSViYPRgDETbOYKgGBTbZKGeSSYzJDHaUAIqFPUoBERsEKUfEVIyRHHaLYSkFD6OUXWhFE AgICAgICAgICAgICAgICAgICAgICAgICAgICAgICAgICAgICAgICAgICAgICAgICAgICAgICAgICAgIC AgICAgICAgICAgICAgICAgICAgICAgICAgICAgICAg FFLuCK6GQT72fLThs4O4JEGwDU9xoap/Ll5EISasfvUrzIXzXS7GJyIdMZ8hix2PMuSzTZ5rby8PJYwZ PtYyJ2Y4xHTuHZHxPKJYAyKwU14sIZneCl81TMgdMBNrPxFhTFc3Wh9FJeCxA3nkBTCoYlP8TDYyNfZ0 MGDmNdZ5VTBfLpKgNGqyTS6Tq0IrvCZaSIq+Pg0KZW 7dn4FsKAvyBgNpPH8sbg9AUNkLCkQfD5HzjlT4OYI6ULTgIx1EOLOeAYNcjAUcEXWqVYXCXvFvO8TogF 19QLDMMy0+MThqryOgFapJTyU1UTVrr1BwXLl0GP7BHEQgUQc1nYPmIKtkN0ecmuoqSAT7rO7oujnbTk fxDZHqkRkiHFNEEBIuuFkyJEGSJeYmjEGlRb4oTR7f YQB5HCAnAfS5CNJXXH4SEYNcVCUzbHIbULAkPFQQFK6QWReaWAK2TVPshsSojAFhZUvaWE1GHSNetqQd MjMgMCBSDQo+Hh4AQY4ju2GcATcyLZHtNP3plj4DIAwDAqZuV8D6kTYjG8Z6MOfmLa7HKJJqUWWgYdKr CGVKJJhdMN4WBM1bjdO6KP5CyIFeKRDnAQUimSRtXR v4Q44mkJQlLMywKM3BDZY+Luci+Gy7UOGNlOECyEFBjYkWkOSYPHzSqP7HwT5RBd0CnC5MqZS14jLlpmr WxWFstFY5HXA4sVUYnXSWUZQ4PbBVaaU7zqoQaFqIqZOZECeFrE21jyFVoJJVmWVTzWIRhZx7FDVQvQ3 CyixNphImcwwAbINExQAKGPO9EZKslonJezLFygFxs WW25wVceWD0IFa6XEuKrKL0wtb0RxDLmKq9OKJDrEx7LAIEwIQAuFZXoLZO3XNGkTgXvFIshYKIqZAYf HRB9ACGvMQCwKO6VDaIhXKCnKVU5KoQnEDGzPGBoas6XDSJoCRBgNxmmAjAbMRImTAUgQHilOAZwBIZu OUR0ZTZmIPSxHU7EZvDuJXIsXGP2CMznGGIpXKRgmn 5IVOJsNBFcJID7OHZyVOUeSJZvHZdfDUVgYKQ1SuE5RGXsOTSuGS5AQmUkOOAgYIw3NaIiDXEpHCJpbv 4HYBQdPBHyTCZ2XlYtRWOcKPGdDTviAWCdYQCiWzP7QJIbIJKaVQ0LIwFvJEVeWWJwSXdwJIKcAPZzzu 8WLSQkPSVoQQYaUXOgMWAkXGYgYXxoBOYmOJQmUoh1 EBZzVWWpIV4MMtTrFNOwOBB1XIGsMEXcLJWlmi6TZBAsFIHiKhf8SJOkBCWhTDNuKIsiZYKeOZBjIOH3 JYLiMJMtQB2JHjYwEDSyDMMoKLTyYCYzOXRlef8QIJKzUHRyKGAlOQUlYVEwDHHeMOmxXUVoYHV8BHCc WMDaBRFfZA8PFvOzNXUvCJI8AqpkAPRsCCWbbn4ZVQ PbOEFoUMh6NbBzBQRtPPDhPLebQZJpSZD2TnpqNIMuOARdOU0MDgTdGSQfMUP1BiBlVCOmMBGwjs4GVI GlFSOgZyx0YIZmKGVaTDKtFMvvZSYfRQT5OBI2UZOrOOUxZP6IBvBcWTmyKMPUPtx7TSfvN9g1UVRiJo 1XJ6Rdm8ZvQvFsYTXKNKccUQ2tgxFmIQBbXr1LS2jH Qha7BpC4CUM0V9NxAfLjLgNcXPSmS8KfMrO0HJY0UWtxMz1zLCvqGPsbAwB1EwBpNfHmEkX5L1SmTDP3 DEmmGWNsCrBzVaGnJN5BUa0TKwU8DGO9rFVdQa7JNMyeQPFRVpXyMR1CHNa= ID Date Data Source [id number] 02/19/2019 01:10:28 PM EST [facility] Name Value Range Interpretation Code Description Data Sylvia rce(s) Supporting Document(s) ED Provider Note [facility] ZDEEUa5eCgOEIyCe06/KTWnfCCFsu4WvDJhxOEl0DLyxJAGsL5BrPBH9pF3hULY0MTnSPrEgRVrlKiN5 lbm [file] SkyiRtFNQwGrgrI9ENhWNgsQprGzAOwHuJoMx+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/u+Tv/uh1kfwg2VN0fSnK52Tfj4n6n32Inl [file] Italo+a5+zMgJPp+IiwCYneple5ogSy6MPCqePDuI5nAHByxv/LCgl8DBDfSiKPjorirnbmkVa8xGxqYUUU +rnWcRgzA4hMnVKv48ifmcNK8Pj8qCQUeLyWeOIFLIYAbWsbb/EW+KeezABm53GL15utvKaBK4UEepO+ YhmCcJ2DmdaihXNvqdrlgdoravMN5PEDGCC2vSHj0Y IqNAxiPetx3ng3Oa7zai7c9wWMfCwUc/eg+ZYdLU0ZSJXTSJwIf5pGp79Kgi3JMNlZHLzFZOFyE1OAbR kI2GCzzBUOqYLIRAviA2cgbllkRHxCbSHS3FQVNV7Uk1jZ/Cng6dRMpq/i3A5LTYDZZs30jzWcPFkdDx DZmnP402+mnV4aDSsAZkKze/w9Pv49uDb/qPdtDFuh Video Network Engineer/cEP3rK9/WBOqlWMJ8Cd0w55T+/FN7sAbrVdkO4kTzipaoBa7oQjEF4y4H9Tb7X4mwi6wTtLExcjRD [file] vpVJ6EVA7twsJ2AK4LjPEeZAGnREJdgJEeMQn8Q85xhQVmZMufTT6ZSHE+Luci+Rk8NDDVgSCKoJGEqIm EyMHPMMoQtP6ZoD8CCh8AhH4FmCS33wVxhcgVyNYmiGZ2ARD3bCOWeLCZQBN8FhXRhxQ7rleU2MGUhZB GQFlMkZ68meQInOKWiBSBiZOWuNu7PNDReT9WmdwTv qTonsyMoWCLuXPIHIU8GHFtkddFmgHEotFvbBM07xWouUE0TTi2VPxQqQD7rzf6PeJAiGl4QINV5Yk0D HBJhRAWsQXIfVLV6ETQtEwCaMFpuTXTrQSKbBZO9UPLcBBPkFY6PWcLwYCPuNCK5KYVhKGBuZOWdgd3V GMGpGBY4CrL9UiZnWVIqPHMkYTxcFREeDEQcCAF8XE ZvPSJoNK7JKuTyHFOfLKL5HgPmLJSeIGYknw2FURZiQBVdXde4RUPeJJUnURNqQUpkDDJiXRF4StF6XD VeNASqWV3IAcXyCQBfYWG6MiKmJIAxKJEhjp5BVGIiFMEtBQXjKXVfONAjSMNoHGokZQKuEIP9WkX2CT CzADWeIT0TPcYdZPMjXSYdYLVsVFZdFDXdit4GZCIz AIFdZhA2BhIkSHFcMKYhGKkqCXUmTIN3FegxAACnZRHqBP2SYpEwHRPsDAD8WSenKATzKSUnbz9IPZFp WKPtJEP3RTQuHDRoJPKzRRyfKPIeBGF0ONX6PMOeDRDiHW4TToLuBODhXyXkJXCfZNWySJAwcs6JQJAh VUNnFfG0VbCaFIUnAPMqICkpGHSoXBR0VBDpHHTqVS TgOE0MJrRmRCWbYyJ1SvPoRKFyVWGbfr5MYWLrLQRmCol4SPNvPNIhJATnPMnbBJIzLGO7FSW2ZNTeBP GkVE1BBmRuBOVzOlv9BNqtHERgMCQifb5ELLHpCNHgBWMpFLBnYMNhPSCyCLuxKVSxJZK8Fip9CXSmYQ XwXF0RMkCnQQLlLdKzGAAdWEYaOERstz3CMLUlLEMv CJX9MVDkEJVwDZLuNKgcWSEoBRNxJnG2UALxWGTiRL1ZSaKwEWNsFgO2BEZlPEMoNYOwyh6KETIiJAUm DFk2AgYaRDUiMBAeRXnaXPJvMCKcNEa9HRReYZMgZD0FLsBeDBKlZJTbArSfWOOzHFQqkt1FXJQyCLY4 XcZ9YMRtSIHoJKIwARslMGYlSEWlFAd5LDAnSPLaSM 3BUeHnMKQbKUIcZhumCRVeZLRssp8RIYRwDQE7SEL4NpJcKERoLZAmPXthUGYePSZ6NzZ2WEPrLDWgKD 8RGoHfOKCgCXA2VRPfMORuFQWbir7XWSAxMPP7UKL1TfJeMXLcQWGtYAquMWQdOXL3SED6UWDdRVZbTK 5KXjNoKRMrKDi4TNftWIAyOWNpke5KCEEoKBP0BkV1 JRBiYWMbIAPrLLfdPGToBHZ0NtH1KDYnXLTeFF4IRrEoGIOqZXg9ArJiIVSkNIIcmz4CVYXmAUI6TOEh ExSjGIMfBFPrJXthXHLyHKL0Pav3BATdZLWsUY2ZIaLqWNjwYZZPFjp5ICtiV3j6FYZ3Lz0IN7Tvb2Ls CVWyPLOSCDmmTC4zxsKzOYVqSb9TT4eYJoxtTrE4Ak W7IuDbKze5IarrLXFgXSm7MNZeEEorWJAvIN5aPZZbDDPtAuomZ4ZaRFB0S5DhFZC1WFsfUSBcIYA5F8 MsXzTgQG7PMz0LKqA8AYY5nEAsCd0FBUa1JycTBnMdLQ9TERl= ID Date Data Source [id number] 02/19/2019 07:16:36 AM [facility] Name Value Range Interpretation Code Description Data Sylvia rce(s) Supporting Document(s) Leukocytes [#/volume] in Blood by Automated count 3.2 10*3/uL 4-10 L [facility] Erythrocytes [#/volume] in Blood by Automated count 3.52 10*6/uL 4.1- 5.3 [facility] Hemoglobin [Mass/volume] in Blood 9.3 g/dL 11.5-15.5 [facility] Hematocrit [Volume Fraction] of Blood by Automated count 27.7 % 3 6-45 L [facility] Erythrocyte mean corpuscular volume [Entitic volume] by Auto mated count 78.9 fL 80-96 L [facility] Erythrocyte mean corpuscular hemoglobin [Entitic mass] by Automated count 26.4 pg 27-33 L [facility] Erythrocyte mean corpuscular hemoglobin concentration [Mass/volume] by Automated count 33.5 g/dL 32.0-[facility] [Ratio] by Automated count 17.4 % 11.5-14.5 H [facility] Platelets [#/volume] in Blood by Automated count 233 10*3/uL 150-400 [facility] Differential cell count method - Blood [facility] Neutrophils/100 leukocytes in Blood by Automated count 54 % [facility] Lymphocytes/100 leukocytes in Blood by Automated count 30 % [facility] Monocytes/100 leukocytes in Blood by Automated count 11 % [facility] Eosinophils/100 leukocytes in Blood by Automated count 4 % [facility] Basophils/100 leukocytes in Blood by Automated count 1 % [facility] Neutrophils [#/volume] in Blood by Automated count 1.73 10*3/uL 1.8-7 .0 L [facility] Lymphocytes [#/volume] in Blood by Automated count 0.95 10*3/uL 1.2-4 .0 L [facility] Monocytes [#/volume] in Blood by Automated count 0.34 10*3/uL 0-0.8 [facility] Eosinophils [#/volume] in Blood by Automated count 0.12 10*3/uL 0-0.5 [facility] Basophils [#/volume] in Blood by Automated count 0.03 10*3/uL 0-0.2 [facility] Nucleated erythrocytes/100 leukocytes [Ratio] in Blood by Automated count 0 /100{WBCs} 0-0 [facility] ID Date Data Source [id number] 02/19/2019 07:26:13 AM [facility] Name Value Range Interpretation Code Description Data Sylvia rce(s) Supporting Document(s) Bicarbonate [Moles/volume] in Serum 22 mmol/L 22-29 [facility] Chloride [Moles/volume] in Serum or Plasma 108 mmol/L 98-107 [facility] Creatinine [Mass/volume] in Serum or Plasma 0.53 mg/dL 0.50-0.90 [facility] Glucose [Mass/volume] in Serum or Plasma 90 mg/dL 70-140 [facility] Potassium [Moles/volume] in Serum or Plasma 4.1 mmol/L 3.4-5.1 [facility] Sodium [Moles/volume] in Serum or Plasma 140 mmol/L 136-145 [facility] Urea nitrogen [Mass/volume] in Serum or Plasma 15 mg/dL 6-20 [facility] Anion gap 3 in Serum or Plasma 10 mmol/L 8-15 [facility] Osmolality of Serum or Plasma by calculation 290 mosm/kg 275-300 [facility] Creatinine/Urea nitrogen [Mass Ratio] in Serum or Plasma 29 [facility] Calcium [Mass/volume] in Serum or Plasma 8.3 mg/dL 8.6-10.0 L [facility] Glomerular filtration rate/1.73 sq M pre dicted among non-blacks [Volume Rate/Area] in Serum or Plasma by Creatinine-based formula (MDRD) >6 0 [facility] Glomerular filtration rate/1.73 sq M pre dicted among blacks [Volume Rate/Area] in Serum or Plasma by Creatinine-based formula (MDRD) >60 [facility] ID Date Data Source [id number] 02/19/2019 12:31:58 AM EST [facility] Name Value Range Interpretation Code Description Data Sylvia rce(s) Supporting Document(s) Leukocytes [#/volume] in Blood by Automated count 3.7 10*3/uL 4-10 L [facility] Erythrocytes [#/volume] in Blood by Automated count 3.30 10*6/uL 4.1- 5.3 L [facility] Hemoglobin [Mass/volume] in Blood 8.7 g/dL 11.5-15.5 [facility] Hematocrit [Volume Fraction] of Blood by Automated count 25.9 % 3 6-45 [facility] Erythrocyte mean corpuscular volume [Entitic volume] by Auto mated count 78.4 fL 80-96 [facility] Erythrocyte mean corpuscular hemoglobin [Entitic mass] by Automated count 26.2 pg 27-33 [facility] Erythrocyte mean corpuscular hemoglobin concentration [Mass/volume] by Automated count 33.4 g/dL 32.0-36.0 [facility] width [Ratio] by Automated count 17.6 % 11.5-14.5 [facility] Platelets [#/volume] in Blood by Automated count 221 10*3/uL 150-400 [facility] Differential cell count method - Blood [facility] Neutrophils/100 leukocytes in Blood by Automated count 47 % [facility] Lymphocytes/100 leukocytes in Blood by Automated count 37 % [facility] Monocytes/100 leukocytes in Blood by Automated count 12 % [facility] Eosinophils/100 leukocytes in Blood by Automated count 3 % [facility] Basophils/100 leukocytes in Blood by Automated count 1 % [facility] Neutrophils [#/volume] in Blood by Automated count 1.73 10*3/uL 1.8-7 .0 L [facility] Lymphocytes [#/volume] in Blood by Automated count 1.39 10*3/uL 1.2-4 .0 [facility] Monocytes [#/volume] in Blood by Automated count 0.45 10*3/uL 0-0.8 [facility] Eosinophils [#/volume] in Blood by Automated count 0.13 10*3/uL 0-0.5 [facility] Basophils [#/volume] in Blood by Automated count 0.02 10*3/uL 0-0.2 [facility] Nucleated erythrocytes/100 leukocytes [Ratio] in Blood by Automated count 0 /100{WBCs} 0-0 [facility] ID Date Data Source [id number] 02/18/2019 11:11:10 PM [facility] Name Value Range Interpretation Code Description Data Sylvia rce(s) Supporting Document(s) History and Physical [facility] PMSGKh7oZzFLXwAk80/HKIazJWIqx2EmZMuuAAj5YWszGPPaU2OfPTI6bG8lVUH0OSlSKpVwHNvuQmV4 lbm [file] ICAgICAgICAgICAgICAgICAgICAgICAgICAgICAgICAgICAgICAgICAgICAgICAgICAgICAgICAgICAg ICAgICAgICAgICAgICAgICAgICAgICAgICAgICAgICANCiAgICAgICAgICAgICAgICAgICAgICAgICAg ICAgICAgICAgICAgICAgICAgICAgICAgICAgICAgIC AgICAgICAgICAgICAgICAgICAgICAgICAgICAgICAgICAgICAgICAgICANCiAgICAgICAgICAgICAgIC AgICAgICAgICAgICAgICAgICAgICAgICAgICAgICAgICAgICAgICAgICAgICAgICAgICAgICAgICAgIC AgICAgICAgICAgICAgICAgICAgICAgICANCiAgICAg ICAgICAgICAgICAgICAgICAgICAgICAgICAgICAgICAgICAgICAgICAgICAgICAgICAgICAgICAgICAg ICAgICAgICAgICAgICAgICAgICAgICAgICAgICAgICAgICANCiAgICAgICAgICAgICAgICAgICAgICAg ICAgICAgICAgICAgICAgICAgICAgICAgICAgICAgIC AgICAgICAgICAgICAgICAgICAgICAgICAgICAgICAgICAgICAgICAgICAgICANCiAgICAgICAgICAgIC AgICAgICAgICAgICAgICAgICAgICAgICAgICAgICAgICAgICAgICAgICAgICAgICAgICAgICAgICAgIC AgICAgICAgICAgICAgICAgICAgICAgICAgICANCiAg ICAgICAgICAgICAgICAgICAgICAgICAgICAgICAgICAgICAgICAgICAgICAgICAgICAgICAgICAgICAg ICAgICAgICAgICAgICAgICAgICAgICAgICAgICAgICAgICAgICANCiAgICAgICAgICAgICAgICAgICAg ICAgICAgICAgICAgICAgICAgICAgICAgICAgICAgIC AgICAgICAgICAgICAgICAgICAgICAgICAgICAgICAgICAgICAgICAgICAgICAgICANCiAgICAgICAgIC AgICAgICAgICAgICAgICAgICAgICAgICAgICAgICAgICAgICAgICAgICAgICAgICAgICAgICAgICAgIC AgICAgICAgICAgICAgICAgICAgICAgICAgICAgICAN CiAgICAgICAgICAgICAgICAgICAgICAgICAgICAgICAgICAgICAgICAgICAgICAgICAgICAgICAgICAg ICAgICAgICAgICAgICAgICAgICAgICAgICAgICAgICAgICAgICAgICANCjw/xVXvE5tueLHdpsM6H3vm Lu7GIe3XKR5iz5MqCTEdRVacfbBbLdlADmMuNLWuIk qAKix4UUidXD0XuWUcH3LpU9LeNVnwOO3ORYKtVYOrxHCkFYQmRDYuPnT7TJGePNgzIK2LhRLsVRttGH RxPAVmEvFjKQOiCLFdJLSzGRPqKSHXNZ4GFyEkO6JlrW73XRJPUk9+LTnjyiJyGfsPYvNwPEPnj3YnVB t1HN8HLYXgAohba2PcUaVoERZHOWcfAU3TQTF1VWDl POLaOa0ZIBCeL969tqZoGQ2NXj7BQcUuQB6ugi9JRsGkNJZoRgmTCuc7LRbgJD5FdLGvBHcGKwShNnxx VTmmIAHtD7qvxlziABGoRQPnBQMbSofjPaKtYXMvWPo6PMRVDPuQWkZwG4Unf1OlLbG8VAPgTcNyHSug FXGcVhY1BP47aHflOD2ZLSSvXOPpAE01TDSzTSPdPk 2GOr6MHtWsQZ5jyc8AOjGfQNHbGnmCSfa4KFevZW6UdROjH4MmhWRbu8aWSrTxD2FYHVC9NZQuSs9IYC DyGzOzEFWoSNprXV6kWYIkVSWKcRtoevQ0JW6HNH8folCtIH6PXqSeNm2vPd0ULhWoH4AwR2OrNJXuSV KLFEspFZ2TCEkmKR5nNS2Bz6HUpKQzbA5sne2TSJKi GWLwQxbocv9HNrqkH8X8wBupDLLnAbAuGQNLCSlqLQ7OMTJiLUN0SOMoSQLzNVQDToVeB21qNQ7VE5Kk y12hCjU8VPUiEvEnGFltDZ58yYqajuVboDBxcIwbWV8PZr0+DQplbmRvYmoNCnhyZWYNCjAgMzMNCjAw CZMoKGXyWYWlTeK9BwXoQg3STFNiRBCwNYChTjBkSI SoKRCeHPdqNRBoSAcuGjCkVHMfPKLhWE2MQhNyGFJuCQE9ATLxREGaTTXlkg2NBVZkNWVfXTX5VaInIL FkEREuFKqlLLRvMGPcLYh9WDPuAKXjMR5OCnKeDIQiIYDwZNXmRLQqOMFdnk0TFQSmIFIdTbA1LJUzPQ ZvUDNgJBzvUXYdUQM8AHZ8ZHXyXBByVM8ADsIvWJDy IFBxQfYlWQPuCGTtgu3QXCBcBVZcCDFnNQOlSIJmNWLyHTzsSVZsWBS2KOE9EQSjYVMhGJ1TMfKnYIBh MFE0ZTYgUVYvBLJumq3UCOOhTBJzKBV6ZoDjHVLxFNCuXRhcTCThVFJ6HRM3DXAhJXGeFQ3GKnTeZRXf QMHeDSVkULWbNXVoii5NMTRiVPVcLfEhPUEjUKEbSH PnSUtmECVcLWB8XeDgXKFjWSHaHU7ZMyXgXRLhEJc8PBQlBPGfERBseu4YFEMtOREoDLe2RuOxXIKqCX YmGSdbWDTiCQD3EKD3EFGkLPInLL9ETgAvMAGaFhqhNOAgZJJmIZPnyn1VGNYmBHCxVXQ8TgZhLTGhOV IyNQccZOUlXLY9Dqi8OUZlJEVoIV1HEcWoROFuXsU7 UHYxYJLnYMWgyb7KOLGbXFLqSUacJCVfRGYqWYQgQUeyUVOlHVMjYON4NCDnILNoRH6YSpXkBSCnKnU1 CzNvKDKcUVQyef0UGPTeBEV6JrW1ECCvSMMgNHJqBOwnNXElEFcyNpB1KVWwLXKbNG7MOfGxROTrWWUo CVRlFMBrWQUaus0SAYNkHGY9QGP2OxNvIHApLMSaSP lvCSIuUFr0JeW0VXDpWAJxVW4VNsTmGZcnFBXDLxa7GUwdQ3p4UFAuIl0OL5Ygn8AcUjWkAYGERHbrVP 3uwoWtETPwQq5XK8wMPam8BJwfBSZeJKXaMFXkHaVkPNBsNmx7RWQ1EOZ8EJx8DK1mKXbsVhL6SvXjEh UsZjUcKMO5LgImVPm9KrH4Zsc1GifxXeAdBH0ZDc7AVgF7CGF4gVHeEq6XBDD1CJQRYfBsSW2TQOn= ID Date Data Source [id number] 02/18/2019 11:04:00 PM [facility] Name Value Range Interpretation Code Description Data Sylvia rce(s) Supporting Document(s) Blood group antibodies identified in Serum or Plasma [facility] Blood bank comment [facility] ID Date Data Source [id number] 02/20/2019 07:25:11 AM [facility] Name Value Range Interpretation Code Description Data Sylvia rce(s) Supporting Document(s) ABO and Rh group [Type] in Blood [facility] POSPerformed at [facility], Franny Haridn, Garry Yun Type ConfirmedPOS Blood group antibody screen [Presence] in Serum or Plasma PENDING [facility] Service comment [facility] Blood bank comment [facility] ID Date Data Source [id number] 02/18/2019 06:43:41 PM [facility] Service Cmnt XXX-Imp : OB Pnl Stl : Feca l occult blood: positive (finding) Name Value Range Interpretation Code Description Data Sylvia rce(s) Supporting Document(s) ID Date Data Source [id number] 02/18/2019 06:42:45 PM [facility] Name Value Range Interpretation Code Description Data Sylvia rce(s) Supporting Document(s) Leukocytes [#/volume] in Blood by Automated count 3.9 10*3/uL 4-10 L [facility] Erythrocytes [#/volume] in Blood by Automated count 3.45 10*6/uL 4.1- 5.3 L [facility] Hemoglobin [Mass/volume] in Blood 9.1 g/dL 11.5-15.5 [facility] Hematocrit [Volume Fraction] of Blood by Automated count 27.0 % 3 6-45 [facility] Erythrocyte mean corpuscular volume [Entitic volume] by Auto mated count 78.3 fL 80-96 [facility] Erythrocyte mean corpuscular hemoglobin [Entitic mass] by Automated count 26.5 pg 27-33 [facility] Erythrocyte mean corpuscular hemoglobin concentration [Mass/volume] by Automated count 33.8 g/dL 32.0-[facility].0 [facility] width [Ratio] by Automated count 17.2 % 11.5-14.5 H [facility] Platelets [#/volume] in Blood by Automated count 236 10*3/uL 150-400 [facility] Differential cell count method - Blood [facility] Neutrophils/100 leukocytes in Blood by Automated count 50 % [facility] Lymphocytes/100 leukocytes in Blood by Automated count 36 % [facility] Monocytes/100 leukocytes in Blood by Automated count 10 % [facility] Eosinophils/100 leukocytes in Blood by Automated count 3 % [facility] Basophils/100 leukocytes in Blood by Automated count 1 % [facility] Neutrophils [#/volume] in Blood by Automated count 1.93 10*3/uL 1.8-7 .0 [facility] Lymphocytes [#/volume] in Blood by Automated count 1.42 10*3/uL 1.2-4 .0 [facility] Monocytes [#/volume] in Blood by Automated count 0.40 10*3/uL 0-0.8 [facility] Eosinophils [#/volume] in Blood by Automated count 0.13 10*3/uL 0-0.5 [facility] Basophils [#/volume] in Blood by Automated count 0.03 10*3/uL 0-0.2 [facility] Nucleated erythrocytes/100 leukocytes [Ratio] in Blood by Automated count 0 /100{WBCs} 0-0 [facility] ID Date Data Source [id number] 02/18/2019 06:54:06 PM [facility] Name Value Range Interpretation Code Description Data Sylvia rce(s) Supporting Document(s) Prothrombin time (PT) 13.3 s 12.5-14.9 [facility] INR in Platelet poor plasma by Coagulation assay 0.98 [facility] Routine intensity oral anticoagulation I NR is typically 2.0-3.0. Target INR must be clinically individualized. ID Date Data Source [id number] 02/18/2019 06:54:06 PM [facility] Value Range Interpretation Code Description Data Sylvia rce(s) Supporting Document(s) aPTT in Platelet poor plasma by Coagulation assay 27.8 s 24.0-34. 0 [facility] ID Date Data Source [id number] 02/18/2019 07:07:10 PM [facility] Name Value Range Interpretation Code Description Data Sylvia rce(s) Supporting Document(s) Albumin [Mass/volume] in Serum or Plasma by Bromocresol green (BCG) dye binding method 3.8 g/dL 3.5-5.2 [facility] Bilirubin.total [Mass/volume] in Serum or Plasma 0.8 mg/dL <1.2 [facility] Calcium [Mass/volume] in Serum or Plasma 8.5 mg/dL 8.6-10.0 L [facility] Chloride [Moles/volume] in Serum or Plasma 103 mmol/L 98-107 [facility] Creatinine [Mass/volume] in Serum or Plasma 0.60 mg/dL 0.50-0.90 [facility] Glucose [Mass/volume] in Serum or Plasma 88 mg/dL 70-140 [facility] Alkaline phosphatase [Enzymatic activity/volume] in Serum or Plasma 88 U/L 35-104 [facility] Potassium [Moles/volume] in Serum or Plasma 3.6 mmol/L 3.4-5.1 [facility] Protein [Mass/volume] in Serum or Plasma 6.0 g/dL 6.4-8.3 L [facility] Sodium [Moles/volume] in Serum or Plasma 138 mmol/L 136-145 [facility] Aspartate aminotransferase [Enzymatic activity/volume] in Serum or Plasma 20 U/L <32 [facility] Urea nitrogen [Mass/volume] in Serum or Plasma 16 mg/dL 6-20 [facility] Osmolality of Serum or Plasma by calculation 287 mosm/kg 275-300 [facility] Creatinine/Urea nitrogen [Mass Ratio] in Serum or Plasma 27 [facility] Bicarbonate [Moles/volume] in Serum 25 mmol/L 22-29 [facility] Alanine aminotransferase [Enzymatic activity/volume] in Seru m or Plasma 13 U/L <33 [facility] Anion gap 3 in Serum or Plasma 10 mmol/L 8-15 [facility] Albumin/Globulin [Mass Ratio] in Serum or Plasma 2.0 [facility] Glomerular filtration rate/1.73 sq M pre dicted among non-blacks [Volume Rate/Area] in Serum or Plasma by Creatinine-based formula (MDRD) >6 0 [facility] Glomerular filtration rate/1.73 sq M pre dicted among blacks [Volume Rate/Area] in Serum or Plasma by Creatinine-based formula (MDRD) >60 [facility] ID Date Data Source [id number] 02/19/2019 12:45:07 AM EST [facility] Name Value Range Interpretation Code Description Data Sylvia rce(s) Supporting Document(s) Color of Urine [facility] Clarity of Urine [facility] Specific gravity of Urine by Refractometry automated 1.017 1.003 -1.030 [facility] pH of Urine by Automated test strip 7.0 5.0-8.0 [facility] Protein [Mass/volume] in Urine by Automated test strip Neg [facility] Glucose [Mass/volume] in Urine by Automated test strip Neg [facility] Ketones [Mass/volume] in Urine by Automated test strip Neg [facility] Bilirubin.total [Presence] in Urine by Automated test strip Negative [facility] Hemoglobin [Presence] in Urine by Automated test strip Neg [facility] Leukocyte esterase [Presence] in Urine by Automated test strip Negative A [facility] Nitrite [Presence] in Urine by Automated test strip Negati ve [facility] Leukocytes [#/area] in Urine sediment by Automated count 100 /HPF 0 -5 H [facility] Erythrocytes [#/area] in Urine sediment by Automated count 0-3 [facility] Bacteria [#/area] in Urine sediment by Automated count Non e [facility] Epithelial cells.squamous [#/area] in Urine sediment by Auto mated count 25 /HPF None [facility] Procedure Social History Code Duration Value Status Description Data Source(s ) Smoking 02/06/2020 12:00:00 AM EST Former Cigarette Smoker com pleted Former Cigarette Smoker MEDENT ([facility], [facility]) Smoking 12/07/2019 12:00:00 AM EDT Former Smoker completed Former Smoker eCW1 ([facility]) Smoking 12/07/2019 12:00:00 AM EDT Former Smoker completed Former Smoker eCW1 ([facility]) Smoking 12/07/2019 12:00:00 AM EDT Former Smoker completed Former Smoker eCW1 ([facility]) Smoking 03/16/2019 12:00:00 AM EST Former Smoker completed Former Smoker eCW1 ([facility]) Alcohol intake 02/18/2019 12:00:00 AM EST Lifetime non-drinker (finding) completed Lifetime non-drinker (finding) [facility] Cigarette pack-years 02/18/2019 12:00:00 AM EST UNK [facility] Cigarettes smoked current (pack per day) - Reported 02/19/20 12:00:00 AM EST UNK [facility] Smoking 02/18/2019 12:00:00 AM EST Former smoker completed Former smoker [facility] Vital Signs ID Date Data Source UNK Name Value Range Interpretation Code Description Data Source(s) Body mass index (BMI) [Ratio] 28.3 kg/m2 28.3 k g/m2 MEDENT ([facility] ) Body weight 170.00 [lb_av] 170.00 [lb_av] MEDEN T ([facility] ) Body height 65 [in_i] 65 [in_i] MEDENT ([facility] ) 5'5" Body temperature 97.3 [degF] 97.3 [degF] MEDENT ([facility]) Body surface area Derived from formula 1.83 m2 1.83 m2 MEDENT ([facility], ) Body weight 75.751 kg 75.751 kg MEDENT ([facility] [place] body weight 125 [lb_av] 125 [lb_av] MEDEN T ([facility]) Body mass index (BMI) [Ratio] 27.8 kg/m2 27.8 k g/m2 [facility] ([facility]) Body weight 167.00 [lb_av] 167.00 [lb_av] MEDEN T ([facility]) Body height 65 [in_i] 65 [in_i] MEDENT ([facility]) 5'5" Body mass index (BMI) [Ratio] 26.3 kg/m2 26.3 k g/m2 [facility] ([facility], [facility]) Body height 66 [in_i] 66 [in_i] [facility] ([facility] 5'6" Body weight 163.00 [lb_av] 163.00 [lb_av] MEDEN T ([facility], [facility]) Body temperature 98.5 [degF] 98.5 [degF] [facility] ([facility], [facility]) Oxygen saturation in Arterial blood by Pulse oximetry 99 % 99 % [facility] ([facility], [facility]) Respiratory rate 16 /min 16 /min [facility] ( [facility], [facility]) Heart rate 84 /min 84 /min [facility] ([facility], [facility]) Diastolic blood pressure 72 mm[Hg] 72 mm[Hg] [facility] ([facility], [facility]) Systolic blood pressure 106 mm[Hg] 106 mm[Hg] EDENT ([facility], [facility]) Body mass index (BMI) [Ratio] 27.5 kg/m2 27.5 k g/m2 MEDENT ([facility] ) Body weight 165.12 [lb_av] 165.12 [lb_av] MEDEN T ([facility] ) Body height 65 [in_i] 65 [in_i] MEDENT ([facility] ) 5'5" Body temperature 97.3 [degF] 97.3 [degF] MEDENT ([facility] ) Body surface area Derived from formula 1.83 m2 1.83 m2 [facility] ([facility]) Body weight 75.751 kg 75.751 kg MEDENT ([facility] [place] body weight 125 [lb_av] 125 [lb_av] MEDEN T ([facility]) Body mass index (BMI) [Ratio] 27.8 kg/m2 27.8 k g/m2 [facility] ([facility]) Body weight 167.00 [lb_av] 167.00 [lb_av] MEDEN T ([facility]) Body height 65 [in_i] 65 [in_i] MEDENT ([facility]) 5'5" Diastolic blood pressure 74 mm[Hg] 74 mm[Hg] eCW1 ([facility]) Systolic blood pressure 130 mm[Hg] 130 mm[Hg] e CW1 ([facility]) Body temperature 98 [degF] 98 [degF] eCW1 ([facility]) Respiratory rate 18 /min 18 /min eCW1 ([facility]) Heart rate 92 /min 92 /min eCW1 ([facility]) Body mass index (BMI) [Ratio] 28.32 kg/m2 28.32 kg/m2 W1 ([facility]) Body height 65 [in_i] 65 [in_i] eCW1 ([facility]) Body weight 170.2 [lb_av] 170.2 [lb_av] eCW1 ([facility]) Body weight 75.751 kg 75.751 kg MEDENT ([facility] [place] body weight 125 [lb_av] 125 [lb_av] MEDEN T ([facility]) Body mass index (BMI) [Ratio] 27.8 kg/m2 27.8 k g/m2 [facility] ([facility]) Body weight 167.00 [lb_av] 167.00 [lb_av] MEDEN T ([facility]) Body height 65 [in_i] 65 [in_i] MEDENT ([facility]) 5'5" Diastolic blood pressure 87 mm[Hg] 87 mm[Hg] [facility] ([facility], ) Systolic blood pressure 149 mm[Hg] 149 mm[Hg] [facility] ([facility], ) Body mass index (BMI) [Ratio] 29.9 kg/m2 29.9 k g/m2 MEDENT ([facility] ) Body weight 182.38 [lb_av] 182.38 [lb_av] MEDEN T ([facility] ) Body height 65.5 [in_i] 65.5 [in_i] MEDENT ([facility] ) 5'5.50" Body temperature 98.5 [degF] 98.5 [degF] MEDENT ([facility] ) Body mass index (BMI) [Ratio] 26.3 kg/m2 26.3 k g/m2 [facility] ([facility], [facility]) Body height 66 [in_i] 66 [in_i] MEDENT ([facility], [facility]) 5'6" Body weight 163.00 [lb_av] 163.00 [lb_av] MEDEN T ([facility], [facility]) Body temperature 98.5 [degF] 98.5 [degF] [facility] ([facility], [facility]) Oxygen saturation in Arterial blood by Pulse oximetry 99 % 99 % [facility] ([facility], [facility]) Respiratory rate 18 /min 18 /min [facility] ( [facility], [facility]) Heart rate 75 /min 75 /min [facility] ([facility], [facility]) Diastolic blood pressure 80 mm[Hg] 80 mm[Hg] [facility] ([facility], [facility]) Systolic blood pressure 119 mm[Hg] 119 mm[Hg] [facility] ([facility], [facility]) Body temperature 97.6 [degF] 97.6 [degF] [facility] ([facility] ) ID Date Data Source [id number] 02/21/2019 12:14:23 PM [facility] Name Value Range Interpretation Code Description Data Source(s) WEIGHT RECORDED 175 lb 175 lb [facility] Body height Measured 65 in 65 in [facility] Patient Treatment Plan of Care Planned Activity Planned Date Details Description Data Source (s) 24 HR venlafaxine 150 MG Extended Release Oral Capsule 08/09/2019 12:00:00 AM EDT eCW1 ([facility]) 24 HR venlafaxine 150 MG Extended Release Oral Capsule 08/09/2019 12:00:00 AM EDT eCW1 ([facility]) 24 HR venlafaxine 150 MG Extended Release Oral Capsule 08/09/2019 12:00:00 AM EDT eCW1 ([facility]) Famotidine 20 MG Oral Tablet 03/22/2019 12:00:00 AM EST eCW1 ([facility]) tizanidine 4 MG Oral Tablet 02/19/2019 10:00:00 PM [facility] ferrous sulfate 325 MG Delayed Release Oral Tablet 02/19/2019 09 :00:00 AM [facility] gabapentin 300 MG Oral Capsule 02/19/2019 09:00:00 AM [facility] 24 HR venlafaxine 75 MG Extended Release Oral Capsule 02/19/2019 09:00:00 AM [facility] Acetaminophen 325 MG Oral Tablet 02/18/2019 10:53:20 PM [facility]
--- OUTSIDE RECORDS SUMMARY | 2020-03-22 09:46 | CCD | Continuity of Care Document ---
Author Author Selma DEL ANGEL MD Organization Unknown Address [address] [facility] [address] [place] [address] Phone [phone] Care Team Providers Care Research Clerk Name Role Phone Luci Kimble P.A.-C. 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 Unknown Pregabalin 50mg Capsules one by mouth twice daily Unknown Immunizations Description No Information Available Vital Signs Date Vital Result Comment 12/28/2019 9:46am Height 65 inches 5'5" Weight 167.00 lb BMI (Body Mass Index) 27.8 kg/m2 [facility] Body Weight 125 lb Weight 75.751 kg 11/28/2019 9:41am BP Systolic 149 mmHg BP Diastolic 87 mmHg Height 65 inches 5'5" Weight 167.00 lb BMI (Body Mass Index) 27.8 kg/m2 [facility] Body Weight 125 lb Weight 75.751 kg Results Test Acquired Date Facility Test Result H/L Range Note Liver Profile 11/28/2019 [facility] [address] [place] [address] [id number] [phone] Ast/Sgot 26 U/L Normal 7-37 Alt/SGPT 29 U/L Normal 12-78 Alkaline Phosphatase 140 U/L High 45-117 Bilirubin,Total 0.7 mg/dL Normal 0.2-1.0 Bilirubin,Direct 0.2 mg/dL Normal 0.0-0.2 Total Protein 7.3 GM/DL Normal 6.4-8.2 Albumin 3.9 GM/DL Normal 3.2-5.2 Albumin/Globulin Ratio 1.1 Low 1.2-2.2 Amylase & Lipase 11/28/2019 [facility] [address] [place] [address] [id number] [phone] Amylase 95 U/L Normal 25-115 Lipase 216 U/L Normal 73-393 1 Laboratory test finding 07/24/2019 [facility] [address] [place] [address] [id number] [phone] Packed Cells TRANSFUSED PRODU <SEE NOTE> 2 1 12/21/19 (ThuDec 20) 12:33 PM WENDY lazaro 2 TRANSFUSED PRODUCT: PACKED C ELLS COUNT: 1 Procedures Description No Information Available Medical Devices Description No Information Available Encounters Type Date Location Provider Dx Diagnosis Office Visit 11/28/2019 9:30a [facility] Wendy jara MD R10.13 Epigastric pain Z98.84 Bariatric surgery status Assessments Date Code Description Provider 11/28/2019 R10.13 Epigastric pain Wendy Jenkins MD 11/28/2019 Z98.84 Bariatric surgery status Wendy ruiz MD Plan of Treatment Future Appointment(s):* 01/03/2020 8:10 am - Richard Del Angel MD at [facility] Functional Status Description No Information Available Mental Status Description No Information Available Referrals Refer to Dr Reason for Referral Status Appt Date Richard Del Angel M.D. thyroid nodule Scheduled 12/28/[address] [place] [address] [address] [place] [address] [phone] Wendy Jenkins MD STOMACH ULCERS & ABD PAIN Scheduled 06/2019 [facility], Gastroenterology [address] [place] [address], [address] [place] [address] [phone]
--- OUTSIDE RECORDS SUMMARY | 2020-03-22 09:46 | CCD ---
Author Author [facility] Organization [facility] Address Unknown Phone Unavailable Care Team Providers Care Supervisor Steno Pool Name Role Phone Luci Kimble Unavailable PROBLEMS Type Condition ICD9-CM Code [id number] Code Onset Dates Condition S tatus SNOMED Code Notes Problem Dyspnea on exertion R06.09 Active 73526230 Problem Numbness and tingling in right hand R20.2 Acti ve 564976208 Problem Hypoglycemia E16.2 Active 971361686 Problem Microcytic anemia D50.9 Active 810903562 Problem Iron deficiency anemia due to chronic blood loss D 50.0 Active 26852311 Problem Vitamin D deficiency E55.9 Active 42207181 Problem H/O gastric bypass Z98.890 Active 485154139 Problem Pre-menstrual mood disorder F32.81 Active 5960 04 Problem Acute right-sided low back pain with right-sided sciatica M54.41 Active 880157528 Problem Arthritis of multiple sites M13.0 Active 3723 001 Problem Hot flashes, menopausal N95.1 Active 96692142 8 Problem Severe depression F32.2 Active 178312372 Problem Menopausal disorder N95.9 Active 887621303 Problem New onset headache R51 Active 97479596 Problem Thyroid nodule E04.1 Active 394395673 Problem H/O gastric ulcer Z87.19 Active 664863410 Problem Family history of brain aneurysm Z82.49 Active 177635560 Problem Anxiety F41.9 Active 35272474 Problem Fibromyalgia M79.7 Active 082796199 Problem Primary osteoarthritis of left knee M17.12 Acti ve 448955828217557 Problem Anemia due to gastrointestinal blood loss D50.0 Active 600960745 ALLERGIES No Known Allergies ENCOUNTERS from 1975 to 2020-01-11 Encounter Location Date Provider Diagnosis [facility] Richard [address] [place] [address] Nov, Reg leroy Kimble New onset headache R51 and Nausea and vomiting, intractability of vomiting not specified, unspecified vomiting type R11.2 IMMUNIZATIONS No Information SOCIAL HISTORY Tobacco Use: Social History Observation Description Date Details (start date - stop date) Former Smoker Sex Assigned At : Social History Observation Description Sex Assigned At Unknown Audit Question Answer Notes Total Score: 0 Interpretation: Alcohol Education Language: Question Answer Notes Languages spoken: Guamanian Sexual Hx: Question Answer Notes Had sex in the last 12 months (vaginal, oral, or anal)? Yes LMP: hyster Have you ever had an STD? No with Men only Use protection? No Drug and Alcohol Question Answer Notes Total Score: 0 Interpretation: No problems reported Alcohol Screening: Question Answer Notes Did you have a drink containing alcohol in the past year? No Points 0 Interpretation Negative Tobacco Use: Question Answer Notes Are you a: former smoker How long has it been since you last smoked? > 10 years REASON FOR REFERRAL No Information VITAL SIGNS No information MEDICATIONS Medication SIG (Take, Route, Frequency, Duration) Notes Start Da te End Date Status Famotidine 20 MG TAKE ONE TABLET BY MOUTH TWICE A DAY Oral for 30 Active Ferrous Sulfate 325 (65 Fe) MG ONE BY MOUTH TWICE A DAY Oral for 14 Active Dicyclomine HCl 10 MG TAKE 1 2 CAPSULES BY MOUTH E VERY 6 HOURS NEEDED FOR ABDOMINAL CRAMPING/PAIN Oral for 7 Active Pregabalin 50 MG 1 capsule Orally bid Active Metoclopramide HCl 5 MG TAKE ONE TABLET BY MOUTH THR EE TIMES A DAY 30 MINUTES BEFORE MEALS Oral for 30 Active Venlafaxine HCl ER 150 MG 1 capsule with food Orally Once a day for 30 day(s) Jul, Active Sucralfate 1 GM TAKE ONE TABLET BY MOUTH FOU R TIMES A DAY ON AN ON EMPTY STOMACH ONE HOUR BEFORE MEALS AND AT BEDTIME MAY DISSOLVE TABLET IN 5 10ML 1 TO 2 Oral for 25 Active Omeprazole 40 MG 1 capsule 30 minutes before morning meal Orally bid Active PROCEDURES No Information RESULTS No Results REASON FOR VISIT MRI brain MEDICAL (GENERAL) HISTORY Type Description Date Medical History Asthma Medical History Sleep apnea- resolved after weight loss Medical History Dyslipidemia Medical History Treadmill stress test 4 - very good exercise tolerance, negative ECG for myocardial ischemia Medical History EKG - 12/28/13 - NSR rate 74 bpm Medical History Peptic ulcer with recurrent GI bleeding. Most REcent EGD 08/21/16 with ulcer at [facility] Medical History Menstrual Dysthymia Medical History 2008 HS [place] Medical History s/p Gastric Bypass Medical History chronic anemia/chronic GI blood loss-- i chiqui deficiency Medical History polyarticular arthritis Medical History chronic bowel issues Medical History depression Medical History anxiety Medical History fibromyalgia (rheum dx 12/11) Medical History GI bleed 02/10, left AMA before any f/u labs or endoscopy Surgical History D and Cs 2 x 1996 Surgical History Tubal ligation Surgical History Rt knee arthoscopy surgery Surgical History Lt little finger surgery Surgical History Tonsillectomy and adenoidectomy Surgical History gastric bypass 01/07/2011 Surgical History colonoscopy (nl), EGD (neg bx) 12/2013 Surgical History knee surgery-left 05/03/2014,02/14/2015 ,01/2016 Surgical History EGD - gastric ulcer at [facility] Surgical History hysterectomy & oophorectomy 09/2016 Surgical History hernia repair 04/2017 Surgical History bowel surgery 10/2018 Surgical History colonoscopy,egd (Duodenal bx negative fo r Celiac) 07/2019 Hospitalization History GI bleed, lower 10/2013 Hospitalization History sepsis 04/2013 Hospitalization History abdominal pain 07/22-07/25/2016 Hospitalization History pancreatitis 05/2018 Hospitalization History bowel issues 10/2018 Hospitalization History [facility] 02/16/19 Hospitalization History lower GI bleeding 07/2019 Goals Section No Information Health Concerns No Information MEDICAL EQUIPMENT No Information MENTAL STATUS No Information FUNCTIONAL STATUS No Information ASSESSMENTS Encounter Date Diagnosis Assessment Notes Treatment Notes Treatm ent Clinical Notes Nov, New onset headache (ICD-10 - R51) Nov, Nausea and vomiting, intract ability of vomiting not specified, unspecified vomiting type (ICD-10 - R11.2) PLAN OF TREATMENT Medication Medication Name Sig Start Date Stop Date Venlafaxine HCl ER 150 MG 1 capsule with food Orally Once a day for 30 day(s) Jul, Treatment Notes Test Name Order Date [facility] MRI Brain W/O FOLL BY WITH CONTRAST 2020-01-11 Next Appt Details Provider Name:Luci Kimble, 2020-02 08:30:00 AM, [address] [place] [address], [phone], Insurance Providers Payer Name Payer Address Payer Phone Insured Name Patient Relati onship to Insured Coverage Start Date Coverage End Date [facility] [address] [facility] [phone] ROSMERY GRANADOS self
[2020-03-22] MEDS ORDERED: VENL150C43 PO (10:07)
[2020-03-22 10:32] LABS: HEMATOCRIT 30.1 % (36.0-47.0); HEMOGLOBIN 9.2 g/dl (12.0-15.5); MEAN CORPUSCULAR HEMOGLOBIN 21.7 pg (27.0-33.0); MEAN CORPUSCULAR HGB CONC 30.6 g/dl (32.0-36.5); MEAN CORPUSCULAR VOLUME 71.2 fl (80.0-96.0); PLATELET COUNT, AUTOMATED 311 10^3/uL (150-450); RED BLOOD COUNT 4.23 10^6/uL (4.00-5.40); WHITE BLOOD COUNT 4.3 10^3/uL (4.0-10.0)
[2020-03-22 11:04] LABS: ACETAMINOPHEN LEVEL < 2.0 UG/ML (10.0-30.0); ALT/SGPT 46 U/L (12-78); BILIRUBIN,DIRECT 0.2 MG/DL (0.0-0.2); BILIRUBIN,TOTAL 0.7 MG/DL (0.2-1.0); BLOOD UREA NITROGEN 10 MG/DL (7-18); CALCIUM LEVEL 9.1 MG/DL (8.5-10.1); CARBON DIOXIDE LEVEL 29 MEQ/L (21-32); CHLORIDE LEVEL 106 MEQ/L (98-107); CREATININE FOR GFR 0.72 MG/DL (0.55-1.30); ETHYL ALCOHOL (ETHANOL) < 0.003 % (0.000-0.010); GLOMERULAR FILTRATION RATE > 60.0 (>58); GLUCOSE, FASTING 80 MG/DL (70-100); POTASSIUM SERUM 4.2 MEQ/L (3.5-5.1); SALICYLATE LEVEL < 1.7 MG/DL (5.0-30.0); SODIUM LEVEL 140 MEQ/L (136-145); THYROID STIMULATING HORMONE 0.635 uIU/ML (0.358-3.740); TOTAL PROTEIN 7.5 GM/DL (6.4-8.2)
[2020-03-22 11:08] LABS: AMPHETAMINES LEVEL URINE NEGATIVE (NEGATIVE); BARBITURATES URINE NEGATIVE (NEGATIVE); BENZODIAZEPINES URINE NEGATIVE (NEGATIVE); CANNABINOIDS URINE NEGATIVE (NEGATIVE); COCAINE METABOLITE URINE NEGATIVE (NEGATIVE); METHADONE URINE NEGATIVE (NEGATIVE); OPIATES URINE NEGATIVE (NEGATIVE); PHENCYCLIDINE URINE NEGATIVE (NEGATIVE)
--- OUTSIDE RECORDS SUMMARY | 2020-03-22 11:45 | CCD ---
Author Author [facility] Organization [facility] Address Unknown Phone Unavailable Care Team Providers Care Rubber Washer Name Role Phone Alaina Gutierrez MD Unavailable [...] I CARINA PA Unavailable Unavailable DRAZEK, I CRAINA PA Unavailable Unavailable DRAZEK, I CARINA PA [...] Unavailable Unavailable TERENCE, TYLER PA Unavailable Unavailable ETRENCE, TYLER PA Unavailable Unavailable TERENCE, TYLER PA [...] B Randell STUBBS Unavailable Unavailable REINSONALI, WENDY STUBBS Unavailable [...] is protected by Article 27-F of the [facility] Public Health law. If you continue you may have access to information: Regarding HIV / AIDS; Provided by facilities licensed or operated by the [facility] Office of Mental Health; or Provided by the [facility] Office for People With Developmental Disabilities. If such information is present, then the following [facility] mandated warning applies: This information has been [...] law may result in a fine or mcfp sentence or both. A general authorization for the release of medical or other information is NOT sufficient authorization for further disc losure. Allergies and Adverse Reactions Type Description Substance Reaction Status Data Source(s ) Drug Class NO KNOWN ALLERGIES NO KNOWN ALLERGIES [facility] Family History Family Member Name Family Member Gender Family Member Status Date o f Status Description Data Source(s) Unknown Unknown Problem [facility] ([facility]) Unknown Unknown Problem MEDENT ([facility]) Unknown Male Problem [facility] ([facility] Unknown Male Problem [facility] ([facility] Unknown Female Problem MED[facility] ([facility]) Unknown Female Problem MEDENT ([facility]) Unknown Female Problem MEDENT ([facility]) Unknown Female Problem MED[facility] ([facility]) Unknown Female Problem MED[facility] ([facility]) Unknown Female Problem MED[facility] ([facility]) Unknown Female Problem MED[facility] ([facility]) Unknown Female Problem MED[facility] ([facility]) Encounters Encounter Providers Location Date Indications Data Source(s ) Outpatient Attender: Randell Mittal MD Physical Therapy 03/14/2020 0 7:30:00 AM EST MEDENT ([facility]) Outpatient Attender: TYLER sales 02/06/2020 10:30:00 AM EST [facility] ([facility] Outpatient Attender: Richard Guthrie/Bean/Mikael/Reind l 12/28/2019 09:00:00 AM EST MED[facility] ([facility] Unknown [address] [facility] [place] [address] 12/14/2019 12:00:00 AM EDT eCW1 [facility] Unknown [address] [facility] [place] [address] 12/09/2019 12:00:00 AM EDT [facility] Outpatient [address] [facility] [place] [address] 12/07/2019 12:00:00 AM EDT [facility] Outpatient Attender: WENDY Guthrie/Bean/Mikael/Rein dl 11/28/2019 09:30:00 AM EDT MEDENT ([facility]) Outpatient Referrer: Verna SHARMA 08/05/2019 06:13:0 0 AM EDT [facility] Unknown [address] [facility] [place] [address] 07/28/2019 12:00:00 AM EDT eCW1 [facility] Outpatient Referrer: Verna SHARMA 06/20/2019 03:01:0 0 PM EDT [facility] Outpatient Referrer: Verna SHARMA 06/20/2019 08:01:0 0 AM EDT [facility] Outpatient Referrer: Verna SHARMA 06/17/2019 03:16:0 0 PM EDT [facility] Ramos [address] [facility] [place] [address] 06/09/2019 12:00:00 AM EDT eCW1 ([facility]) Outpatient Referrer: Verna SHARMA 06/03/2019 09:22:0 0 [...] 01:22:0 0 PM EDT [facility] [address] [facility] [place] [address] 04/28/2019 12:00:00 AM EST eCW1 ([facility]) [facility] [address] [facility] [place] [address] 04/28/2019 12:00:00 AM EST eCW1 ([facility]) Outpatient Referrer: Verna SHARMA 04/26/2019 02:31:0 0 [...] 04/19/2019 02:48:00 PM EST [facility] [address] [place] [address] 04/18/2019 12:00:00 AM EST eCW1 ([facility]) Outpatient Referrer: Randell Mittal MD 04/06/2019 01:04:00 PM EST [facility] Outpatient Attender: CLAIRE Sánchez 2019 10:45:00 AM EST MED[facility] ([facility]) [address], [facility] [address] 03/21/2019 12:00:00 AM EST eCW1 ([facility]) [address] [address] 03/18/2019 12:00:00 AM EST eCW1 ([facility]) [address], [facility] [address] 03/16/2019 12:00:00 AM EST eCW1 ([facility]) [address] [address] 03/15/2019 12:00:00 AM EST eCW1 ([facility]) Inpatient Attender: Renu Fraustoe r: PETR BRITO MDAttender: SHAISTA ORTIZ MDAdmitter: PETR BRITO MDReferrer: Renu Gutierrez MD [id number] 2018 12:00:00 AM EST - 02/19/2019 12:25:00 PM EST Gastrointestinal hemorrhage, unspecified [facility] Gastrointestinal hemorrhage, unspecified Patient discharged. [address] [address] 01/31/2019 12:00:00 AM EST eCW1 ([facility]) Medications Medication Brand Name Start Date Product [...] 12:00:00 AM EDT ORAL active M EDENT ([facility], ) 10 mg 11/28/2019 12:00:00 AM EDT capsule 60 TAKE 1-2 CAPSULES BY MOUTH EVERY 6 HOURS NEEDED FOR ABDOMINAL CRAMPING/PAIN TAKE 1-2 CAPSULES BY MOUTH EVERY 6 HOURS NEEDED FOR ABDOMINAL CRAMPING/PAIN SOLD: 11/28/2019 [facility] Dicyclomine Hydrochloride 10 MG Oral Capsule Dicyclomine HCL 11/28/2019 12:00:00 AM EDT ORAL active MEDENT ([facility], ) Omeprazole 40 MG Delayed Release Oral Capsule Omeprazole 11/28/2019 12:00:00 AM EDT ORAL active MED[facility] ([facility], ) 5 mg 11/09/2019 12:00:00 AM EDT [...] DAILY DOSE = 2 SOLD: 10/26/2019 [facility] gabapentin 400 MG Oral Capsule Gabapentin 08/24/2019 12:00:00 AM EDT active MEDENT ([facility] ) 400 mg 08/24/2019 12:00:00 [...] 15 DAYS TO WEAN OFF SOLD: 08/28/2019 [email or web address] pregabalin 50 MG Oral Capsule Pregabalin 08/24/2019 12:00:00 AM EDT ORAL active MEDENT ([facility]) 24 HR venlafaxine 150 MG Extended Releas e Oral Capsule Venlafaxine HCl ER 150 MG Venlafaxine HCl ER 150 MG 08/09/2019 12:00:00 AM EDT 1 .0 {capsule_with_food} active Venlafaxine HCl ER 1 50 MG eCW1 ([facility]) 150 mg 08/09/2019 12:00:00 AM EDT capsule,extended releas e 24hr 30 TAKE ONE CAPSULE BY MOUTH EVERY DAY TAKE ONE CAPSULE BY MOUTH EVERY DAY SOLD: 10/26/2019 [email or web address] 24 HR venlafaxine 150 MG Extended Releas e Oral Capsule Venlafaxine HCl ER 150 MG Venlafaxine HCl ER 150 MG 08/09/2019 12:00:00 AM EDT 1 .0 {capsule_with_food} active Venlafaxine HCl ER 1 50 MG eCW1 ([facility]) 24 HR venlafaxine 150 MG Extended Releas e Oral Capsule Venlafaxine HCl ER 150 MG Venlafaxine HCl ER 150 MG 08/09/2019 12:00:00 AM EDT 1 .0 {capsule_with_food} active Venlafaxine HCl ER 1 50 MG eCW1 ([facility]) 150 mg 08/09/2019 12:00:00 AM EDT capsule,extended [...] active Tizanidi ne HCl 4 MG eCW1 ([facility]) 100 mg 07/12/2019 12:00:00 AM EDT capsule [...] 2019 12:00:00 AM EST ORAL active MEDENT ([facility]) Cyclobenzaprine hydrochloride 10 MG Oral Tablet Cyclobenzapr ine HCL 2019 12:00:00 AM EST ORAL active M EDENT ([facility]) 20 mg 2019 12:00:00 AM EST tablet [...] tablet at bedtime as ne eded eCW1 ([facility]) 40 mg 03/19/2019 12:00:00 AM EST tablet,delayed [...] A DAY NEEDED FOR SPASM SOLD: 03/20/2019 [email or web address] gabapentin 100 MG Oral Capsule Gabapentin 03/18/2019 12:00:00 AM EST completed MEDENT ([facility]) 4 mg 03/18/2019 12:00:00 AM EST tablet 90 TAKE ONE HALF TO 1 TABLET BY MOUTH THREE TIMES A DAY NEEDED FOR SPASM TAKE ONE HALF TO 1 TABLET BY MOUTH THREE TIMES A DAY NEEDED FOR SPASM SOLD: 07/09/2019 [email or web address] tizanidine 4 MG Oral Tablet tizanidine (ZANAFLEX) tabl et 4 mg tizanidine (ZANAFLEX) tablet 4 mg 02/19/2019 10:00:00 PM EST 4 mg Oral active 4 mg, Oral, Nightly, First dose on 02/19/19 at 2200, For 30 days [facility] Medication administered onsite 24 HR venlafaxine 75 MG Extended Release Oral Capsule venlafaxine (EFFEXOR-XR) 24 hr capsule 75 mg venlafaxine (EFFEXOR-XR) 24 hr capsule 75 mg 09:00:00 AM EST 75 mg Oral active 75 mg, Oral, Daily Standard, First dose on 02/19/19 at 0900, For 30 days
Do not crush or chew
[facility] Medication administered onsite gabapentin 300 MG Oral Capsule gabapentin (NEURONTIN) capsule 300 mg gabapentin (NEURONTIN) capsule 300 mg 02/19/2019 09:00:00 AM EST 300 mg Oral active 300 mg, Oral, 2 Times Daily, First dose on 02/19/19 at 0900, For 30 days [facility] Medication administered onsite ferrous sulfate 325 MG Delayed Release O ral Tablet ferrous sulfate EC tablet 325 mg ferrous sulfate EC tablet 325 mg 02/19/2019 09:00:00 AM EST 325 mg Oral active 325 mg, Oral, 2 Times Daily With Meals, First dose on 02/19/19 at 0900, For 5 days [facility] Medication administered onsite pantoprazole 4 MG/ML Injectable Solution pantoprazole (PROTONIX) injection 40 mg pantoprazole (PROTONIX) injection 40 mg 02/19/2019 09:00:00 AM EST 40 mg Intravenous active 40 mg, Intrav enous, 2 Times Daily, First dose on 02/19/19 at 0900, For 30 days
Dilute with 10 mL of 0.9% NaCl.Give IVP over 2 minutes. Flush before and after.
[facility] Medication administered onsite Sucralfate 100 MG/ML Oral Suspension suc ralfate (CARAFATE) 1 GM/10ML suspension 1 g sucralfate (CARAFATE) 1 GM/10ML suspension 1 g 02/19/2019 12:00: 00 AM EST 1 g Oral active 1 g, Oral, Every 6 hours Standard (4 times per day), First dose on Thu02/19/19 at 0000, For 30 days [facility] Medication administered onsite dextrose 5 %-0.9 % sodium chloride infusion 1257-3039-01 02/18/2019 11:00:00 PM EST Intravenous active at 1 00 mL/hr, Intravenous, Continuous, Starting Thu02/18/19 at 2300, For 30 days [facility] Medication administered onsite Acetaminophen 325 MG [...] mg from all sources in 24 hours.
[facility] Medication administered onsite pantoprazole 4 MG/ML Injectable Solution pantoprazole (PROTONIX) injection 80 mg pantoprazole (PROTONIX) injection 80 mg 02/18/2019 07:45:00 PM EST 80 mg Intravenous completed 80 mg, Intrav enous, Once, Thu02/18/19 at 1945, For 1 dose
Dilute with 10 mL of 0.9% NaCl.Give IVP over 2 minutes. Flush before and after.
[facility] Medication administered onsite Acetaminophen 300 MG / Codeine Phosphate 30 MG Oral Tablet [Tylenol with Codeine] Tylenol With Codeine #3 02/01/2019 12:00:00 AM EST ORAL completed MEDENT ([facility]) tizanidine 4 MG Oral Tablet Tizanidine HCL 02/01/2019 12:00:00 AM EST active MEDENT ([facility]) 300-30 mg 02/01/2019 12:00:00 AM EST [...] type / Coverage type Policy ID Covered democrat ID Covered democrat's relationship to lyle Policy Lyle Plan Information [facility] COMMUNITY PLAN [facility] [id number] SP [id number] [facility] COMMUNITY PLAN [facility] [id number] SP [id number] [facility] I [id number] Self [id number] [facility] O [id number] S [id number] [facility] I [id number] Self [id number] ANSI-Medicaid [id number] ANSI-Medicaid [id number] Progressive (NF) Workers Compensation [id number] Self [id number] Formerly [facility] Plan Commercial [id number] Self [id number] Medicaid [place] Medigap Part B [id number] Self [id number] Progressive (NF) Workers Compensation [id number] Self [id number] [facility] Commercial [id number] Self [id number] [facility] Maintenance Organization (O) [id number] Self [id number] Progressive (NF) Workers Compensation [id number] Self [id number] [facility] Commercial [id number] Self [id number] ANSI-Medicaid [id number] ANSI-Medicaid [id number] ANSI-Medicaid [id number] [facility] [id number] SP [id number] [facility] Maintenance Organization (O) [id number] Self [id number] ANSI-Medicaid [id number] ANSI-Medicaid [id number] [facility] Maintenance Organization (HMO) [id number] Self [id number] Progressive (NF) Workers Compensation [id number] Self [id number] [facility] myhomemove Plan Commercial [id number] Self [id number] [facility] Health Maintenance Organization (HMO) [id number] Self [id number] Progressive (NF) Workers Compensation [id number] Self [id number] [facility] myhomemove Plan Commercial [id number] Self [id number] Progressive (NF) Workers Compensation [id number] Self [id number] [facility] myhomemove Plan Commercial [id number] Self [id number] Progressive (NF) Workers Compensation [id number] Self [id number] [facility] myhomemove Plan Commercial [id number] Self [id number] Progressive (NF) Workers Compensation [id number] Self [id number] [facility] [employer] Commercial [id number] Self [id number] Progressive (NF) Workers Compensation [id number] Self [id number] [facility] myhomemove Plan Commercial [id number] Self [id number] MEDICARE COMPLETE [id number] SP [id number] [facility] [id number] SP [id number] Progressive (NF) Workers Compensation [id number] Self [id number] [facility] myhomemove Plan Commercial [id number] Self [id number] Progressive (NF) Workers Compensation [id number] Self [id number] [facility] myhomemove Plan Commercial [id number] Self [id number] Progressive (NF) Workers Compensation [id number] Self [id number] [facility] myhomemove Plan Commercial [id number] Self [id number] Progressive (NF) Workers Compensation [id number] Self [id number] [facility] myhomemove Plan Commercial [id number] Self [id number] Progressive (NF) Workers Compensation [id number] Self [id number] [facility] myhomemove Plan Commercial [id number] Self [id number] [facility] Health Maintenance Organization (HMO) [id number] Self [id number] [facility] COMMUNITY PLAN MCDO [id number] SP [id number] [facility] Health Maintenance Organization (HMO) [id number] Self [id number] [facility] COMMUNITY PLAN MCDHMO [id number] SP [id number] [facility] Health Maintenance Organization (HMO) [id number] Self [id number] Progressive Ins Workers Compensation SS# [id number] Self SS# [id number] [facility] Health Maintenance Organization (HMO) [id number] Self [id number] Progressive (NF) Workers Compensation [id number] Self [id number] [facility] myhomemove Plan Commercial [id number] Self [id number] [facility] Health Maintenance Organization (HMO) [id number] Self [id number] Progressive (NF) Workers Compensation [id number] Self [id number] [facility] Community Plan Commercial [id number] Self [id number] PROGRESSIVE E [id number] Self [id number] [facility] [id number] SP [id number] Progressive Ins Workers Compensation Self [facility] Health Maintenance Organization (HMO) Self Progressive (NF) Workers [place] Self [place] Medig[place] Part B Self [facility] Commercial Self Progressive [employer] Workers Compensation Self [facility] [id number] SP [id number] [employer] [facility] COMMUNITY PLAN [id number] 0 [id number] MEDICAID [id number] SP [id number] MEDICAID - CLINIC [id number] AM [id number] MEDICAID-O/P [id number] Y [id number] Problems, Conditions, and Diagnoses Code Display Name Description Problem Type Effective Dates Data Source(s) E04.1 415127170 Thyroid nodule Problem 12/07/2019 12:00:00 A M EDT eCW1 ([facility]) F32.2 [id number] Severe depression Problem 08/09/2019 12:00:0 0 AM EDT eCW1 ([facility]) D50.0 [id number] Anemia due to gastrointestinal blood loss Problem 03/16/2019 12:00:00 AM EST eCW1 ([facility]) K92.2 Gastrointestinal hemorrhage, unspecified Gastrointestinal hemorrhage, unspecified Diagnosis 02/18/2019 10:37:08 PM [facility] bleeding ulcer bleeding ulcer Diagnosis 02/18/2019 05:52: 23 PM [facility] Surgeries/Procedures Procedure Description Date Indications Data Source(s) RADEX HAND MINIMUM 3 VIEWS 03/14/2020 12:00:00 AM EST MEDENT ([facility] ) RADEX HAND MINIMUM 3 VIEWS 03/14/2020 12:00:00 AM EST MEDENT ([facility] ) Fine Needle Aspiration Biopsy Inlcd Ultrasound Guidance 12/28/2019 12:00:00 AM EST [facility] ([facility] RADEX SPINE LUMBOSACRAL MINIMUM 4 VIEWS 05/25/2019 12: 00:00 AM EDT MEDENT ([facility]) RADEX SHOULDER COMPLETE MINIMUM 2 VIEWS 04/15/2019 12: 00:00 AM EST MEDENT ([facility]) BLOOD COUNT COMPLETE AUTO&AUTO DIFRNTL WBC COUNT CBC AND DIFFER ENTIAL Timed 02/19/2019 5:04 AM EST 02/19/2019 10:04:00 AM [facility] BASIC METABOLIC PANEL CALCIUM TOTAL BASIC METABOLIC PANEL Routi ne 02/19/2019 5:04 AM EST 02/19/2019 10:04:00 AM [facility] BLOOD COUNT COMPLETE AUTO&AUTO DIFRNTL WBC COUNT CBC AND DIFFER ENTIAL Timed 02/18/2019 11:35 PM EST 02/19/2019 04:35:00 AM [facility] ANTIBODY ID RBC ANTIBODIES EA PANEL EA SERUM TQ ANTIBODY ID ENTIFICATION Routine 02/18/2019 6:30 PM EST 02/18/2019 11:30:00 PM [facility] BLOOD TYPING ABO TYPE AND SCREEN STAT 02/18/2019 6:30 PM EST 02/18/2019 11:30:00 PM [facility] BLOOD OCCULT PEROXIDASE ACTV QUAL FECES 1 DETER FECAL OCCULT BLOOD, UPPER GI (HEMOCCULT-SENSA) STAT 02/18/2019 6:27 PM EST 02/19/20 19 11:27:00 PM [facility] THROMBOPLASTIN TIME PARTIAL PLASMA/WHOLE BLOOD PARTIA L THROMBOPLASTIN TIME (PTT) STAT 02/18/2019 6:25 PM EST 02/18/2019 11:25 :00 PM [facility] PROTHROMBIN TIME PROTIME INR STAT 02/18/2019 6:25 PM EST 02/18/2019 11:25:00 PM [facility] BLOOD COUNT COMPLETE AUTO&AUTO DIFRNTL WBC COUNT CBC AND DIFFER ENTIAL STAT 02/18/2019 6:25 PM EST 02/18/2019 11:25:00 PM [facility] COMPREHENSIVE METABOLIC PANEL COMPREHENSIVE METABOLIC PANEL STA T 02/18/2019 6:25 PM EST 02/18/2019 11:25:00 PM [facility] URNLS DIP STICK/TABLET REAGENT AUTO MICROSCOPY URINALYSIS W ITH MICROSCOPIC STAT 02/18/2019 6:15 PM EST 02/18/2019 11:15:00 PM [facility] Arthroscopy Knee W/Meniscectomy Inc Chondroplasty (Med & Lat eral) 02/01/2019 12:00:00 AM EST MEDENT ([facility]) Results ID Date Data Source [id number] 12/30/2019 08:45:00 AM EST [facility] Name Value Range Interpretation Code Description Data Sylvia rce(s) Supporting Document(s) SARS coronavirus 2 RNA [facility] This lab was ordered by [facility] and reported by [facility]. ID Date Data Source [id number] 12/28/2019 01:20:00 PM EST MEDENT ([facility], ) Name Value Range Interpretation Code Description Data Sylvia rce(s) Supporting Document(s) Microscopic observation [Identifier] in Unspecified specimen by Non- gynecological cytology method Laboratory test result [facility] ([facility]) SPECIMEN: FNA Right lobe thyr oid Cytolyt and slides received SPECIMEN ADEQUACY: Satisfactory for evaluation CATEGORIZATION: Benign DESCRIPTIONS: Specimen consists of scattered groups of follicular exhibiting hurthle cell changes. The background consists of rare macrophages, scattered lymphocytes and red blood cells. COMMENTS: 12/29/[id number] Signed NOHEMY WOOD CT(ASCP) 12/29/2019 0942 (Prelim) Signed EVIE MARIN MD 12/29/2019 1544 ID Date Data Source [facility] MRI Brain W/O FOLL BY WITH CONTRAST 12/13/2019 12:48:51 PM EDT eCW1 ([facility]) Name Value Range Interpretation Code Description Data Sylvia rce(s) Supporting Document(s) [facility] MRI Brain W/O FOLL BY WITH CONTRAST eCW1 ([facility]) ID Date Data Source [facility] SOFT TISSUE HEAD/NECK, THYROID US 12/13/2019 02:18:37 A M EDT eCW1 ([facility]) Name Value Range Interpretation Code Description Data Sylvia rce(s) Supporting Document(s) [facility] SOFT TISSUE HEAD/NEC K, THYROID US eCW1 ([facility]) ID Date Data Source [id number] 11/28/2019 10:45:00 AM EDT MEDENT ([facility]) Name Value Range Interpretation Code Description Data Sylvia rce(s) Supporting Document(s) Amylase [Enzymatic activity/volume] in Serum or Plasma 95 U/L 25-115 Normal (applies to non-numeric results) [facility] ([facility] Lipoprotein lipase [Enzymatic activity/volume] in Serum or P lasma 216 U/L 73-393 Normal (applies to non-numeric results) [facility]) 12/21/19 (ThuDec 20) 12:33 PM WENDY FOLEY ok ID Date Data Source [id number] 11/28/2019 10:45:00 AM EDT [facility] ([facility]) Name Value Range Interpretation Code Description Data Sylvia rce(s) Supporting Document(s) Ast/Sgot 26 U/L 7-37 Normal (applies to non-numeric resul ts) [facility]) Alt/SGPT 29 U/L 12-78 Normal (applies to non-numeric resul ts) [facility]) Alkaline Phosphatase 140 U/L 45-117 Above high normal [facility] ([facility]) Bilirubin,Direct 0.2 mg/dL 0.0-0.2 Normal (applies to non-numeric results) [facility] ([facility]) Bilirubin,Total 0.7 mg/dL 0.2-1.0 Normal (applies to non-numeric results) [facility] ([facility]) Total Protein 7.3 GM/DL 6.4-8.2 Normal (applies to non-numeric re sults) [facility] ([facility]) Albumin/Globulin Ratio 1.1 1.2-2.2 Below low normal [facility] ([facility]) Albumin 3.9 GM/DL 3.2-5.2 Normal (applies to non-numeric resul ts) [facility] ([facility]) ID Date Data Source [id number] 07/24/2019 03:04:00 PM EDT [facility]) Name Value Range Interpretation Code Description Data Sylvia rce(s) Supporting Document(s) Packed Cells Laboratory test result MED[facility] ([facility]) TRANSFUSED PRODUCT: PACKED CELLS COUNT: 1 ID Date Data Source [id number] 06/03/2019 12:00:00 AM EDT [facility] Carina SHARMA Patient Name: RENEA GRANADOS [facility] 1975[facility] [id number] Date of Exam: 06/03/2019#: Fax: [phone] EXAM: [...] significant change fromcomparison study 10/20/2018.Accredited by the [employer] in [place].Yfn Mcneal MDJDShekhar/Bridgette you for referring ROSMERY GRANADOS to our office. Electronically Signed - YNF MCNEAL MD 06/09/19 13:16 Name Value Range Interpretation Code Description Data Sylvia rce(s) Supporting Document(s) ID Date Data Source [id number] 02/21/2019 12:14:23 PM EST [facility] Name Value Range Interpretation Code Description Data Sylvia rce(s) Supporting Document(s) Discharge Summary [facility] KPDBYh9nNsGSSdHv26/CLXgxFRWpk5ZuAQcgEXf9BMgwREYbK8ZmMKB4qZ6bOSC6VOgSGfJnVTlpExCr lbm [file] AgICAgICAgICAgICAgICAgICAgICAgICAgICAgICAgICAgICAgICAgICAgICAgICAgICAgICAgICAgIC LaNUNyOBWsLFQqFFRtCSLtQTHxIGBrYBMjWH8IEHMi ICAgICAgICAgICAgICAgICAgICAgICAgICAgICAgICAgICAgICAgICAgICAgICAgICAgICAgICAgICAg YKHgTYFbBVBaTGHhFVEpYPUoSFHiPFFcRGIsLQSlBIWmOOAtNS6KEBDwARKmTXByCOJyVRXxJREfEOYj ICAgICAgICAgICAgICAgICAgICAgICAgICAgICAgIC OxXPGbRMUqWFRjAZNyOOJlFPOzIUZrKNNdIFIzDUGnBYYhKRLzMMHiRDZqOVPaJA0NPSPlOITpFDTgLC AgICAgICAgICAgICAgICAgICAgICAgICAgICAgICAgICAgICAgICAgICAgICAgICAgICAgICAgICAgIC FrAMOnHYZlPRUzKTGlITBqZQHlGEBfXZZkNYEoTT9E ICAgICAgICAgICAgICAgICAgICAgICAgICAgICAgICAgICAgICAgICAgICAgICAgICAgICAgICAgICAg SFOtCLDfMPGtIQArVBQjUZYdIWMeTXKzAQTmTRCaUHZrACZzAAAuNR5GNSLfJVBuKWOiACMfVQSpPHGy ICAgICAgICAgICAgICAgICAgICAgICAgICAgICAgIC YeJABsNHOvHQEfGBGuIRDyRSHpICXqFRSoSSZaGYAlVSHfUPBlSPGiEKYwHKCkXUFyXR1RZBCdFLQxYJ AgICAgICAgICAgICAgICAgICAgICAgICAgICAgICAgICAgICAgICAgICAgICAgICAgICAgICAgICAgIC AgICAgICAgICAgICAgICAgICAgICAgICAgICAgICAg NX7YOTWaPERzNENuGTUcURJnWREvQQWuHQZwKPBmYGHvFAWxSHYcHMTyKUZcZPQfQHZbDCGoVMLoHRIo TYLwZQHwDCTmDDKiPUYeBQIcNLLvEDSaOMYtGAFoHITmEFGqFUBiWRTnZR1FYVQhVPCaURJoIRToSCVl ICAgICAgICAgICAgICAgICAgICAgICAgICAgICAgIC EaLJYzTXNaBIMbURUfFRCoNYIdKDXkYBFjTBDpRPQeWQByCDTqTFViGACeTJGmBYBfWRSxUX5RDPFtTW AgICAgICAgICAgICAgICAgICAgICAgICAgICAgICAgICAgICAgICAgICAgICAgICAgICAgICAgICAgIC AgICAgICAgICAgICAgICAgICAgICAgICAgICAgICAg LIMaIW7NOS45nBZcs2I6WMVnNT9ymlz/Dv4RLOfcikEvaIYrYD1AElNvOB7pwy4NVqDmTX5xhb8RTHvU WhTnD3X5tZTgSYBkJCWENgQhJ99zDAdkUf13BOarHWSuEuDaHFe0Jn3CEqFyW6shLTIoDoN5ONYnLlE4 YVMfQxM3FBQtWbXiGSeaGP9Hd7RpvWAiZXr+Pg0KZW 8jy6DpGQhmRoXuKO2vyx1QGXuGJoKqO7IvnrS4PVN1NUYoBc2OODNyHCEfaQHqRVKfUSOMLrEyY6PteQ 26JMJWOi9+XWhfcqQmUroINsP3THTch7SlWRl0JX4IHVHoNHx3hUSiBLurH4aqiqdlFOP7jQ1lhmbdOs saYCBsmHmoMKEJIFZfqBvuXSTHRnCnrWUhGo6qCG7p TWZ3FERlFoQ0JHBCJB0YYQEdXWBaqJScKXMrMBBIMM9DEMxvHTX6ZBEyhzUhlXPkZMfjII3STRNirxMx MjMgMCBSDQo+Zg5HHU0xc5PzIEkeKFXuTA9zxn3OYZzQMwCkQ9C7sDLrK8W7SXcaSo2HMFTrQFFdMfBa ZZHMPJmtZA4YLY6odnP2VX4YeGFvUJCiUCHydZNlBB u3M67zxZVtATjgKJ5ASFN+Luci+By4FZONoZQTbTVKmRxXiTZMAYmUxZ1ZpI8XPz0GbJ1MiLK14cRdyyc UkQSxrTD7UIX9cEBFwMLZKJJ4KmUGkgG6lcrPvCpFlDBRFXkOoG90fiLTuQYHbQZYyATLoXk4AFKSvT0 AlrwZglFbousNyBHLzUQDROJ4RODlvseHndQZrgCbj OE80nQtzTO9NGq5VLcFgMC3lqk4FpKPnZx4DMAYdLp9ULMUkBAQqUBDbCHC6NHDxEpBxDSgsHFThMYVr WWC6XJHsBBAkXQ3NHyAsAAFeQFW0RjNgLOWfNYXwzp3BRMDwORLhNnfxBsAnSMRrSWSjYLriLKKzYUFl ZZC5MOTdDTIcCR4QIzRxSXDqKBH6EQoyCMUzCKBkog 0MLEPpWXXoKJF9VWCsHUSgCWXwTNqzPIJbBWK6DhU1KEEjWHGpTH4WMoAiYPQqESr9CwUnDWQrCGFrfk 1YTILuLKCmBMQ4QpVhWRXsDAVfUPaiJIOqSZGlHoA1TVZrZCCpIC0OJfEmQPLkLYJuBYkoVFOpTATxhq 1QJRPlHAGzPKMyWTAjNUPsPOHnAUaoDGDjBUAtVch9 SGHaVSWoTA2JJdQbYHBxALI7JSJgZCCvTHXnce3SYEUaVOEhChu9JWFfJMPvOXCiHAntRHZeEPKuWFQ3 IOQiLUMdBO8PXyDlYDYmHYKyAJPmOBIvSCZqyf2JCPJeWPXfYWBxBSMvTAWbJGFcBLjkGQOdIAH9IKAc SPSbQZWlBK4KYaNnVEAyLNX6HobhXSHqMMFmxe7HLM TzJVFxYQk6HjHiAHMuFUKiXIkqWJZrDZY9CzlgXYVlVUUfKQ4EZbApBWPmTUJ0QpLeNRJzENFpjf7IRR NwXWCtBuf7KCRgXUHzSTVvRTjzAEThNSK8HJL8WJWyBXDqJP5IGzNiTFfoXZNCFfr7WLdjS0l1EOQwUt 5FE1Rkm3GnOxTtQYNPHJodZR9hegNpMONeGd0VH8fJ Qch3LoL0EMJ7X3AgRdEuMzHkVCDxS2FoJlG4JER1GAsnTg5lHEbtYMprRwD3YcCoRhCaSdW9C2NuWEA1 JRstVQQuVeLwOeJhIR1BMb2OKiN2RCX3hIPhHl4CINkgFUQJZwYgDN4HJWq= ID Date Data Source [id number] 02/19/2019 01:10:28 PM EST [facility] Name Value Range Interpretation Code Description Data Sylvia rce(s) Supporting Document(s) ED Provider Note [facility] WPWIKa4eLeZFVuHh14/ZVPcqSUQub7WoPIevMZs1YJoeZRDmI8GaJGW9xS2fGVS5VUvHBqBwHCrwQdE3 lbm [file] BwjtSzFMRiIedgP1KFvQBnyNxvMjLAbDcWiZo+MyL+animal shelter [file] Italo+a5+zMgJPp+CpoHYsbwmg6yeBx0MYUyeQHmL3lPVOhti/VThg0VYWvLmKCgxrupnwxeSl4qFxoUFAY +dkSiDxhB3gYoSTb25qcpeIO5Sm9nUOZjWwSxDESEPKUcFpnz/EW+YtzsIOl08YK18ukmPtAU0YNofL+ PwfCqA7UegqulCXfuqyxszoagmLT8OYFGDD3oSCv3L FfVAyaOyqi1kk6Fk7fku9j7kEXrLmXc/eg+HJaXB9VMQIFSVoPq7jPk32Lzm8JHPjFEXzUUUNsQ2EAfV cW9FMgsAMRgREBTWrlM3vquihwFJmGaIXK2HGOJL9Kf4uE/Ved6kUNmt/l3B7OYXVGBo43niPlKFovTn PJwaT964+mwA0xDVaRWrQlb/l3Vu58zVh/qPdtDFuh Production Support 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/hQL9lO8/DXTfjRBD9Ag6m67K+/QQ0fEzoNxeK1wOebpmwAb4cPxUV4u7B0Hv0Q8dzp9rGwRLemfFI [file] feSW7GSZ6mukC2CW0GmQKnOPPvGQBsuYQfFCc1U82vrGZvFJnjPZ6RUDM+Luci+Ii9DQHFyKKQsVMZzVh KeNUNWQyPfT0NxM0RMu4QiC4CsRV04vZrqjuWyUQczMM4WSM7rVDShTNBHMA9QxBGjwE6ahjG3YICzCO GLXdErN49ndGSqOEOzANUrCYVbDo3NCVQtU2GjnoGl oEzwkaSbMSKqYBVLOS6ANEzqbxWylBMjoNcsXX46yNwgVM8JSy2PSjZrGG4dvv2PyOQsGb1WGLC4Ay4V DURySSSnXTUaNFS1PNEdFxMrUSptXCTtUXCwIER8IYHxCRUeDT4WNmYzHZXvINW5RJPyCUQpTJYukr0E SNPjKSK4WqD7CgDvWVYoKVPaRDdtWSQxQUOsJLH7WB IlVBHkQU1XPlKcJCLqLFH8EtOkAKDuGQEect0HTYQoBHCiTht4YEWaABFsTAJuULeuRIGnCPK0LaV9IB DyQEMePS3KRdVlZWHsLDL4LoFkYPWjRTSrbj9KHUKwUNKxMNPiXNIbXTNgWEWtLHpzXGXdRWH4CsA7DL VmQDFiYO3QZcSrLBGoFDCxMTFeRNYtABHgiu8JRENj FVZqCeA0IkQvSQWoPPYyIQbcLMIzFYH6FobaYWYtMWIhEI7IDcYfXLEvUHQ2HGlwWAQyACXrfl7TSYFc CXGjNQN1GXLoMQZhQFAdACpfQZCnNRV2SOO3MAIhFWTcBL8CRhHdKXKlCzJtKAJuEZFyZMIpra4KKOJq BESeWpM4FxZcKLVrMDHgEUkkLTPpMTR8AGHdXGMmUB AxBR6SBdUkDAGrMhM8MzZtOJEuTKMwwc3XIJJzUPToIte2LCNmMVEqOFKyCUjwQSUpPOR5VON5ZKGmGZ AqLK6CUjIsVSWwIss8EZcoEZQaSTXjhd9JFWUnEMIsXFSxTNQiBWNlQSGcCTxvRDTzWPM7Uny3HZVvMW BlIL2GYvAcEPSwSaGtXSXfHECeHKPggv0ZFAKgXGWy DMD4MUVdFLPaEDUuFVagWBEmYCXhOdT2XJTwUSXvYL0QUqFmUFIxZrN1GAHhHHZyAHMuqh7ABPPmKRFh QDv2IcVtNEYgBKHgWRdqDOOwYGLeGId8UHXhLLCrCC8OYbYuXTKeRENuCfLzIZUkDQEjgu5WTQIvGWJ0 PvB7DOSlANVeSDRwQSmuHTVfBVUyFXc0YXUpEEEgKJ 7ULiGcYOWlVAQwKqmqQZGpPEYivd7TWFIfLMI0PGE2PtBxQBSuUJAaYKtyANQaIAC4BkO0UDNbKQBePM 2ZFaCnKWSdJED1NNPwMYCqLSFfae4VDJWqEOB2NWC6DpIzBGMhIXUjJTfgLDItIPB1NHQ8DUEyBMVtOP 4GNuSwXDVdTYr8DQwxWSNeCFCiil4NJTSuQIB8QvN7 IHRdYCYpMHGvZRugDISpRMH2XjH1ACKmTEWsCN3WIeFrVVHaSCn0GxFgXRDhRFCpqx8KFBKaJQC5RRVt DpFwGTCiGALnOVauKBLeHJX9Sgi6QIVnZKMoEU9XMaJfSIloXAOGVap9UWokF4n3UZY5Xc4KU1Ehr4Ys GOVcTDWLWEcyTD7rsuErIVBbGa4SA8uFShjzApP5Uz Q6LiUtCol7SrxiARSkKEi2DLZpSOcxDADxXB7cYVRrZISrXipoD7DuPEW5X2YlUHN3NYunJSHeLVD1X8 GvTfYdRQ5EBq5JMpX5YZI1lOAeQy8CJCv4FfqHByPfXD0XAKa= ID Date Data Source [id number] 02/19/2019 07:16:36 AM [facility] Name Value Range Interpretation Code Description Data Sylvia rce(s) Supporting Document(s) Leukocytes [#/volume] in Blood by Automated count 3.2 10*3/uL 4-10 L [facility] Erythrocytes [#/volume] in Blood by Automated count 3.52 10*6/uL 4.1- 5.3 [facility] Hemoglobin [Mass/volume] in Blood 9.3 g/dL 11.5-15.5 [facility] Hematocrit [Volume Fraction] of Blood by Automated count 27.7 % 3 6-45 L [facility] Erythrocyte mean corpuscular volume [Entitic volume] by Auto mated count 78.9 fL 80-96 L [facility] Erythrocyte mean corpuscular hemoglobin [Entitic mass] by Automated count 26.4 pg 27-33 L [facility] Erythrocyte mean corpuscular hemoglobin concentration [Mass/volume] by Automated count 33.5 g/dL 32.0-36.[facility] width [Ratio] by Automated count 17.4 % 11.5-14.5 H [facility] Platelets [#/volume] in Blood by Automated count 233 10*3/uL 150-400 [facility] Differential cell count method - Blood [facility] Neutrophils/100 leukocytes in Blood by Automated count 54 % [facility] Lymphocytes/100 leukocytes in Blood by Automated count 30 % [facility] Monocytes/100 leukocytes in Blood by Automated count 11 % [facility] Eosinophils/100 leukocytes in Blood by Automated count 4 % [facility] Basophils/100 leukocytes in Blood by Automated count 1 % [facility] Neutrophils [#/volume] in Blood by Automated count 1.73 10*3/uL 1.8-7 .0 L [facility] Lymphocytes [#/volume] in Blood by Automated count 0.95 10*3/uL 1.2-4 .0 L [facility] Monocytes [#/volume] in Blood by Automated count 0.34 10*3/uL 0-0.8 [facility] Eosinophils [#/volume] in Blood by Automated count 0.12 10*3/uL 0-0.5 [facility] Basophils [#/volume] in Blood by Automated count 0.03 10*3/uL 0-0.2 [facility] Nucleated erythrocytes/100 leukocytes [Ratio] in Blood by Automated count 0 /100{WBCs} 0-0 [facility] ID Date Data Source [id number] 02/19/2019 07:26:13 AM [facility] Name Value Range Interpretation Code Description Data Sylvia rce(s) Supporting Document(s) Bicarbonate [Moles/volume] in Serum 22 mmol/L 22-29 [facility] Chloride [Moles/volume] in Serum or Plasma 108 mmol/L 98-107 [facility] Creatinine [Mass/volume] in Serum or Plasma 0.53 mg/dL 0.50-0.90 [facility] Glucose [Mass/volume] in Serum or Plasma 90 mg/dL 70-140 [facility] Potassium [Moles/volume] in Serum or Plasma 4.1 mmol/L 3.4-5.1 [facility] Sodium [Moles/volume] in Serum or Plasma 140 mmol/L 136-145 [facility] Urea nitrogen [Mass/volume] in Serum or Plasma 15 mg/dL 6-20 [facility] Anion gap 3 in Serum or Plasma 10 mmol/L 8-15 [facility] Osmolality of Serum or Plasma by calculation 290 mosm/kg 275-300 [facility] Creatinine/Urea nitrogen [Mass Ratio] in Serum or Plasma 29 [facility] Calcium [Mass/volume] in Serum or Plasma 8.3 mg/dL 8.6-10.0 L [facility] Glomerular filtration rate/1.73 sq M pre dicted among non-blacks [Volume Rate/Area] in Serum or Plasma by Creatinine-based formula (MDRD) >6 0 [facility] Glomerular filtration rate/1.73 sq M pre dicted among blacks [Volume Rate/Area] in Serum or Plasma by Creatinine-based formula (MDRD) >60 [facility] ID Date Data Source [id number] 02/19/2019 12:31:58 AM EST [facility] Name Value Range Interpretation Code Description Data Sylvia rce(s) Supporting Document(s) Leukocytes [#/volume] in Blood by Automated count 3.7 10*3/uL 4-10 L [facility] Erythrocytes [#/volume] in Blood by Automated count 3.30 10*6/uL 4.1- 5.3 L [facility] Hemoglobin [Mass/volume] in Blood 8.7 g/dL 11.5-15.5 [facility] Hematocrit [Volume Fraction] of Blood by Automated count 25.9 % 3 6-45 [facility] Erythrocyte mean corpuscular volume [Entitic volume] by Auto mated count 78.4 fL 80-96 [facility] Erythrocyte mean corpuscular hemoglobin [Entitic mass] by Automated count 26.2 pg 27-33 [facility] Erythrocyte mean corpuscular hemoglobin concentration [Mass/volume] by Automated count 33.4 g/dL 32.0-36.0 [facility] width [Ratio] by Automated count 17.6 % 11.5-14.5 H [facility] Platelets [#/volume] in Blood by Automated count 221 10*3/uL 150-400 [facility] Differential cell count method - Blood [facility] Neutrophils/100 leukocytes in Blood by Automated count 47 % [facility] Lymphocytes/100 leukocytes in Blood by Automated count 37 % [facility] Monocytes/100 leukocytes in Blood by Automated count 12 % [facility] Eosinophils/100 leukocytes in Blood by Automated count 3 % [facility] Basophils/100 leukocytes in Blood by Automated count 1 % [facility] Neutrophils [#/volume] in Blood by Automated count 1.73 10*3/uL 1.8-7 .0 L [facility] Lymphocytes [#/volume] in Blood by Automated count 1.39 10*3/uL 1.2-4 .0 [facility] Monocytes [#/volume] in Blood by Automated count 0.45 10*3/uL 0-0.8 [facility] Eosinophils [#/volume] in Blood by Automated count 0.13 10*3/uL 0-0.5 [facility] Basophils [#/volume] in Blood by Automated count 0.02 10*3/uL 0-0.2 [facility] Nucleated erythrocytes/100 leukocytes [Ratio] in Blood by Automated count 0 /100{WBCs} 0-0 [facility] ID Date Data Source [id number] 02/18/2019 11:11:10 PM [facility] Name Value Range Interpretation Code Description Data Sylvia rce(s) Supporting Document(s) History and Physical [facility] BWGDEh8nGpAYWvYp81/MVNgfKFUsg0AzIAtiHSv6TVprSGTwV2HqYFL1fT0cUJC1KGiUDcWhZWraSpP1 lbm [file] BxKyRtEIM4QfRqLKd4HqK7Xgl9BufdFxLgGW4WMu7ZHkB6EYM0lDPvBl4OKTX4APTVSmAdSN9ZSMn= ID Date Data Source [id number] 02/18/2019 11:04:00 PM [facility] Name Value Range Interpretation Code Description Data Sylvia rce(s) Supporting Document(s) Blood group antibodies identified in Serum or Plasma [facility] Blood bank comment [facility] ID Date Data Source [id number] 02/20/2019 07:25:11 AM [facility] Name Value Range Interpretation Code Description Data Sylvia rce(s) Supporting Document(s) ABO and Rh group [Type] in Blood [facility] POSPerformed at [facility], Franny Hardin, Garry Yun Type ConfirmedPOS Blood group antibody screen [Presence] in Serum or Plasma PENDING [facility] Service comment [facility] Blood bank comment [facility] ID Date Data Source [id number] 02/18/2019 06:43:41 PM [facility] Service Cmnt XXX-Imp : OB Pnl Stl : Feca l occult blood: positive (finding) Name Value Range Interpretation Code Description Data Sylvia rce(s) Supporting Document(s) ID Date Data Source [id number] 02/18/2019 06:42:45 PM [facility] Name Value Range Interpretation Code Description Data Sylvia rce(s) Supporting Document(s) Leukocytes [#/volume] in Blood by Automated count 3.9 10*3/uL 4-10 L [facility] Erythrocytes [#/volume] in Blood by Automated count 3.45 10*6/uL 4.1- 5.3 L [facility] Hemoglobin [Mass/volume] in Blood 9.1 g/dL 11.5-15.5 [facility] Hematocrit [Volume Fraction] of Blood by Automated count 27.0 % 3 6-45 [facility] Erythrocyte mean corpuscular volume [Entitic volume] by Auto mated count 78.3 fL 80-96 [facility] Erythrocyte mean corpuscular hemoglobin [Entitic mass] by Automated count 26.5 pg 27-33 [facility] Erythrocyte mean corpuscular hemoglobin concentration [Mass/volume] by Automated count 33.8 g/dL 32.0-36.0 [facility] width [Ratio] by Automated count 17.2 % 11.5-14.5 H [facility] Platelets [#/volume] in Blood by Automated count 236 10*3/uL 150-400 [facility] Differential cell count method - Blood [facility] Neutrophils/100 leukocytes in Blood by Automated count 50 % [facility] Lymphocytes/100 leukocytes in Blood by Automated count 36 % [facility] Monocytes/100 leukocytes in Blood by Automated count 10 % [facility] Eosinophils/100 leukocytes in Blood by Automated count 3 % [facility] Basophils/100 leukocytes in Blood by Automated count 1 % [facility] Neutrophils [#/volume] in Blood by Automated count 1.93 10*3/uL 1.8-7 .0 [facility] Lymphocytes [#/volume] in Blood by Automated count 1.42 10*3/uL 1.2-4 .0 [facility] Monocytes [#/volume] in Blood by Automated count 0.40 10*3/uL 0-0.8 [facility] Eosinophils [#/volume] in Blood by Automated count 0.13 10*3/uL 0-0.5 [facility] Basophils [#/volume] in Blood by Automated count 0.03 10*3/uL 0-0.2 [facility] Nucleated erythrocytes/100 leukocytes [Ratio] in Blood by Automated count 0 /100{WBCs} 0-0 [facility] ID Date Data Source [id number] 02/18/2019 06:54:06 PM [facility] Name Value Range Interpretation Code Description Data Sylvia rce(s) Supporting Document(s) Prothrombin time (PT) 13.3 s 12.5-14.9 [facility] INR in Platelet poor plasma by Coagulation assay 0.98 [facility] Routine intensity oral anticoagulation I NR is typically 2.0-3.0. Target INR must be clinically individualized. ID Date Data Source [id number] 02/18/2019 06:54:06 PM [facility] Value Range Interpretation Code Description Data Sylvia rce(s) Supporting Document(s) aPTT in Platelet poor plasma by Coagulation assay 27.8 s 24.0-34. 0 [facility] ID Date Data Source [id number] 02/18/2019 07:07:10 PM [facility] Name Value Range Interpretation Code Description Data Sylvia rce(s) Supporting Document(s) Albumin [Mass/volume] in Serum or Plasma by Bromocresol green (BCG) dye binding method 3.8 g/dL 3.5-5.2 [facility] Bil[facility].total [Mass/volume] in Serum or Plasma 0.8 mg/dL <1.2 [facility] Calcium [Mass/volume] in Serum or Plasma 8.5 mg/dL 8.6-10.0 L [facility] Chloride [Moles/volume] in Serum or Plasma 103 mmol/L 98-107 [facility] Creatinine [Mass/volume] in Serum or Plasma 0.60 mg/dL 0.50-0.90 [facility] Glucose [Mass/volume] in Serum or Plasma 88 mg/dL 70-140 [facility] Alkaline phosphatase [Enzymatic activity/volume] in Serum or Plasma 88 U/L 35-104 [facility] Potassium [Moles/volume] in Serum or Plasma 3.6 mmol/L 3.4-5.1 [facility] Protein [Mass/volume] in Serum or Plasma 6.0 g/dL 6.4-8.3 L [facility] Sodium [Moles/volume] in Serum or Plasma 138 mmol/L 136-145 [facility] Aspartate aminotransferase [Enzymatic activity/volume] in Serum or Plasma 20 U/L <32 [facility] Urea nitrogen [Mass/volume] in Serum or Plasma 16 mg/dL 6-20 [facility] Osmolality of Serum or Plasma by calculation 287 mosm/kg 275-300 [facility] Creatinine/Urea nitrogen [Mass Ratio] in Serum or Plasma 27 [facility] Bicarbonate [Moles/volume] in Serum 25 mmol/L 22-29 [facility] Alanine aminotransferase [Enzymatic activity/volume] in Seru m or Plasma 13 U/L <33 [facility] Anion gap 3 in Serum or Plasma 10 mmol/L 8-15 [facility] Albumin/Globulin [Mass Ratio] in Serum or Plasma 2.0 [facility] Glomerular filtration rate/1.73 sq M pre dicted among non-blacks [Volume Rate/Area] in Serum or Plasma by Creatinine-based formula (MDRD) >6 0 [facility] Glomerular filtration rate/1.73 sq M pre dicted among blacks [Volume Rate/Area] in Serum or Plasma by Creatinine-based formula (MDRD) >60 [facility] ID Date Data Source [id number] 02/19/2019 12:45:07 AM EST [facility] Name Value Range Interpretation Code Description Data Sylvia rce(s) Supporting Document(s) Color of Urine [facility] Clarity of Urine [facility] Specific gravity of Urine by Refractometry automated 1.017 1.003 -1.030 [facility] pH of Urine by Automated test strip 7.0 5.0-8.0 [facility] Protein [Mass/volume] in Urine by Automated test strip Neg [facility] Glucose [Mass/volume] in Urine by Automated test strip Neg [facility] Ketones [Mass/volume] in Urine by Automated test strip Neg [facility] Bilirubin.total [Presence] in Urine by Automated test strip Negative [facility] Hemoglobin [Presence] in Urine by Automated test strip Neg [facility] Leukocyte esterase [Presence] in Urine by Automated test strip Negative A [facility] Nitrite [Presence] in Urine by Automated test strip Negati ve [facility] Leukocytes [#/area] in Urine sediment by Automated count 100 /HPF 0 -5 H [facility] Erythrocytes [#/area] in Urine sediment by Automated count 0-3 [facility] Bacteria [#/area] in Urine sediment by Automated count Non e [facility] Epithelial cells.squamous [#/area] in Urine sediment by Auto mated count 25 /HPF None [facility] Procedure Social History Code Duration Value Status Description Data Source(s ) Smoking 02/06/2020 12:00:00 AM EST Former Cigarette Smoker com pleted Former Cigarette Smoker [facility] ([facility]) Smoking 12/07/2019 12:00:00 AM EDT Former Smoker completed Former Smoker eCW1 ([facility]) Smoking 12/07/2019 12:00:00 AM EDT Former Smoker completed Former Smoker eCW1 ([facility]) Smoking 12/07/2019 12:00:00 AM EDT Former Smoker completed Former Smoker eCW1 ([facility]) Smoking 03/16/2019 12:00:00 AM EST Former Smoker completed Former Smoker eCW1 ([facility]) Alcohol intake 02/18/2019 12:00:00 AM EST Lifetime non-drinker (finding) completed Lifetime non-drinker (finding) [facility] ital Cigarette pack-years 02/18/2019 12:00:00 AM EST UNK [facility] Cigarettes smoked current (pack per day) - Reported 02/19/20 12:00:00 AM EST UNK [facility] Smoking 02/18/2019 12:00:00 AM EST Former smoker completed Former smoker [facility] Vital Signs ID Date Data Source UNK Name Value Range Interpretation Code Description Data Source(s) Body mass index (BMI) [Ratio] 28.3 kg/m2 28.3 k g/m2 [facility] ([facility] ) Body weight 170.00 [lb_av] 170.00 [lb_av] MEDEN T ([facility] ) Body height 65 [in_i] 65 [in_i] [facility] ([facility] ) 5'5" Body temperature 97.3 [degF] 97.3 [degF] [facility] ([facility]) Body surface area Derived from formula 1.83 m2 1.83 m2 [facility] ([facility], ) Body weight 75.751 kg 75.751 kg [facility] ([facility]) [place] body weight 125 [lb_av] 125 [lb_av] MEDEN T ([facility]) Body mass index (BMI) [Ratio] 27.8 kg/m2 27.8 k g/m2 [facility] ([facility]) Body weight 167.00 [lb_av] 167.00 [lb_av] MEDEN T ([facility]) Body height 65 [in_i] 65 [in_i] [facility] ([facility]) 5'5" Body mass index (BMI) [Ratio] 26.3 kg/m2 26.3 k g/m2 [facility] ([facility], [facility]) Body height 66 [in_i] 66 [in_i] [facility] ([facility]) 5'6" Body weight 163.00 [lb_av] 163.00 [lb_av] MEDEN T ([facility], [facility]) Body temperature 98.5 [degF] 98.5 [degF] [facility], [facility]) Oxygen saturation in Arterial blood by Pulse oximetry 99 % 99 % [facility] ([facility], [facility]) Respiratory rate 16 /min 16 /min [facility] ( [facility], [facility]) Heart rate 84 /min 84 /min [facility] ([facility], [facility]) Diastolic blood pressure 72 mm[Hg] 72 mm[Hg] [facility] ([facility], [facility]) Systolic blood pressure 106 mm[Hg] 106 mm[Hg] [facility] ([facility], [facility]) Body mass index (BMI) [Ratio] 27.5 kg/m2 27.5 k g/m2 [facility] ([facility] ) Body weight 165.12 [lb_av] 165.12 [lb_av] MEDEN T ([facility] ) Body height 65 [in_i] 65 [in_i] [facility] ([facility] ) 5'5" Body temperature 97.3 [degF] 97.3 [degF] [facility] ([facility] ) Body surface area Derived from formula 1.83 m2 1.83 m2 [facility] ([facility]) Body weight 75.751 kg 75.751 kg [facility] ([facility]) [place] body weight 125 [lb_av] 125 [lb_av] MEDEN T ([facility]) Body mass index (BMI) [Ratio] 27.8 kg/m2 27.8 k g/m2 [facility]) Body weight 167.00 [lb_av] 167.00 [lb_av] MEDEN T ([facility]) Body height 65 [in_i] 65 [in_i] [facility] ([facility]) 5'5" Diastolic blood pressure 74 mm[Hg] 74 mm[Hg] eCW1 ([facility]) Systolic blood pressure 130 mm[Hg] 130 mm[Hg] e CW1 ([facility]) Body temperature 98 [degF] 98 [degF] eCW1 ([facility]) Respiratory rate 18 /min 18 /min eCW1 ([facility]) Heart rate 92 /min 92 /min eCW1 ([facility]) Body mass index (BMI) [Ratio] 28.32 kg/m2 28.32 kg/m2 W1 ([facility]) Body height 65 [in_i] 65 [in_i] eCW1 ([facility]) Body weight 170.2 [lb_av] 170.2 [lb_av] eCW1 ([facility]) Body weight 75.751 kg 75.751 kg MEDENT ([facility]) [place] body weight 125 [lb_av] 125 [lb_av] MEDEN T ([facility]) Body mass index (BMI) [Ratio] 27.8 kg/m2 27.8 k g/m2 [facility] Body weight 167.00 [lb_av] 167.00 [lb_av] MEDEN T ([facility]) Body height 65 [in_i] 65 [in_i] MEDENT ([facility]) 5'5" Diastolic blood pressure 87 mm[Hg] 87 mm[Hg] [facility] ) Systolic blood pressure 149 mm[Hg] 149 mm[Hg] [facility] Body mass index (BMI) [Ratio] 29.9 kg/m2 29.9 k g/m2 MEDENT ([facility] ) Body weight 182.38 [lb_av] 182.38 [lb_av] MEDEN T ([facility] ) Body height 65.5 [in_i] 65.5 [in_i] MEDENT ([facility] ) 5'5.50" Body temperature 98.5 [degF] 98.5 [degF] MEDENT ([facility] ) Body mass index (BMI) [Ratio] 26.3 kg/m2 26.3 k g/m2 [facility] ([facility]) Body height 66 [in_i] 66 [in_i] MEDENT ([facility]) 5'6" Body weight 163.00 [lb_av] 163.00 [lb_av] MEDEN T ([facility], [facility]) Body temperature 98.5 [degF] 98.5 [degF] [facility]) Oxygen saturation in Arterial blood by Pulse oximetry 99 % 99 % [facility] ([facility], [facility]) Respiratory [facility] 18 /min 18 /min [facility] ( [facility]) Heart rate 75 /min 75 /min [facility] ([facility], [facility]) Diastolic blood pressure 80 mm[Hg] 80 mm[Hg] [facility] ([facility], [facility]) Systolic blood pressure 119 mm[Hg] 119 mm[Hg] [facility]) Body temperature 97.6 [degF] 97.6 [degF] [facility] ) ID Date Data Source [id number] 02/21/2019 12:14:23 PM [facility] Name Value Range Interpretation Code Description Data Source(s) WEIGHT RECORDED 175 lb 175 lb [facility] Body height Measured 65 in 65 in [facility] Patient Treatment Plan of Care Planned Activity Planned Date Details Description Data Source (s) 24 HR venlafaxine 150 MG Extended Release Oral Capsule 08/09/2019 12:00:00 AM EDT eCW1 ([facility]) 24 HR venlafaxine 150 MG Extended Release Oral Capsule 08/09/2019 12:00:00 AM EDT eCW1 ([facility]) 24 HR venlafaxine 150 MG Extended Release Oral Capsule 08/09/2019 12:00:00 AM EDT eCW1 ([facility]) Famotidine 20 MG Oral Tablet 03/22/2019 12:00:00 AM EST eCW1 ([facility]) tizanidine 4 MG Oral Tablet 02/19/2019 10:00:00 PM [facility] ferrous sulfate 325 MG Delayed Release Oral Tablet 02/19/2019 09 :00:00 AM [facility] gabapentin 300 MG Oral Capsule 02/19/2019 09:00:00 AM [facility] 24 HR venlafaxine 75 MG Extended Release Oral Capsule 02/19/2019 09:00:00 AM [facility] Acetaminophen 325 MG Oral Tablet 02/18/2019 10:53:20 PM [facility]
[2020-03-22] MEDS ORDERED: FERR1TAB8 PO (12:01)
[2020-03-22] MEDS ORDERED: haloperidoL 5 MG TAB PO PRN (15:00)
[2020-03-22] MEDS ORDERED: traZODone 50 MG TAB PO PRN (15:00)
[2020-03-22] MEDS ORDERED: LORazepam 1 MG TAB PO PRN (15:00)
[2020-03-22] MEDS ORDERED: MOM 30ML SUSPENSION UDC PO PRN (15:00)
[2020-03-22] MEDS ORDERED: MAALOX 30 ML SUSP *UDC PO PRN (15:00)
--- OUTSIDE RECORDS SUMMARY | 2020-03-22 15:21 | CCD ---
Author Author [facility] Organization [facility] Address Unknown Phone Unavailable Care Team Providers Care Director Of Perioperative Services Name Role Phone Alaina Gutierrez MD Unavailable [...] Unavailable TERENCE, TYLER PA Unavailable Unavailable TERENCE, TYELR PA Unavailable Unavailable TERENCE, TYLER PA Unavailable [...] TERENCE, TYLER PA Unavailable Unavailable Fish, Rock Mejais MD Unavailable Unavailable Fish, Rock Mejias MD [...] Richard Del Angel MD Unavailable Unavailable Richard Dle Angel MD Unavailable Unavailable Richard Del Angel [...] is protected by Article 27-F of the [facility] Public Health law. If you continue you may have access to information: Regarding HIV / AIDS; Provided by facilities licensed or operated by the [facility] Office of Mental Health; or Provided by the [facility] Office for People With Developmental Disabilities. If such information is present, then the following [facility] mandated warning applies: This information has [...] law may result in a fine or fdc sentence or both. A general authorization for the release of medical or other information is NOT sufficient authorization for further disc losure. Allergies and Adverse Reactions Type Description Substance Reaction Status Data Source(s ) Drug Class NO KNOWN ALLERGIES NO KNOWN ALLERGIES [facility] Family History Family Member Name Family Member Gender Family Member Status Date o f Status Description Data Source(s) Unknown Unknown Problem [facility] ([facility]) Unknown Unknown Problem [facility] ([facility]) Unknown Male Problem [facility] ([facility] Unknown Male Problem [facility] ([facility] Unknown Female Problem [facility] ([facility]) Unknown Female Problem MED[facility] ([facility] Unknown Female Problem MED[facility] ([facility]) Unknown Female Problem [facility] ([facility] Unknown Female Problem [facility] ([facility]) Unknown Female Problem [facility] ([facility]) Unknown Female Problem MED[facility] ([facility]) Unknown Female Problem MED[facility] ([facility]) Encounters Encounter Providers Location Date Indications Data Source(s ) Outpatient Attender: Randell Mittal MD Physical Therapy 03/14/2020 0 7:30:00 AM EST MEDENT ([facility]) Outpatient Attender: TYLER sales 02/06/2020 10:30:00 AM EST [facility] ([facility] Outpatient Attender: Richard Guthrie/Bean/Mikael/Reind l 12/28/2019 09:00:00 AM EST [facility] ([facility] [place] [address] [facility] [address] 12/14/2019 12:00:00 AM EDT [facility] [place] [address] [facility] [facility] [address] 12/09/2019 12:00:00 AM EDT [facility]CW1 [facility] [place] [address] [facility] [address] 12/07/2019 12:00:00 AM EDT eCW1 ([facility]) Outpatient Attender: WENDY Guthrie/Bean/Mikael/Rein dl 11/28/2019 09:30:00 AM EDT MED[facility] ([facility] Outpatient Referrer: Verna SHARMA 08/05/2019 06:13:0 0 AM EDT [facility] [place] [address] [facility] [address] 07/28/2019 12:00:00 AM EDT eCW1 [facility] Outpatient Referrer: Verna SHARMA 06/20/2019 03:01:0 0 PM EDT [facility] Outpatient Referrer: Verna SHARMA 06/20/2019 08:01:0 0 AM EDT [facility] Outpatient Referrer: Verna SHARMA 06/17/2019 03:16:0 0 PM EDT [facility] [address] [facility] [address] 06/09/2019 12:00:00 AM EDT eCW1 ([facility]) Outpatient Referrer: Verna SHARMA 06/03/2019 09:22:0 0 [...] 01:22:0 0 PM EDT [facility] [address] [facility] [address] 04/28/2019 12:00:00 AM EST eCW1 ([facility]) [facility] [address] [facility] [address] 04/28/2019 12:00:00 AM EST eCW1 ([facility]) Outpatient Referrer: Verna SHARMA 04/26/2019 02:31:0 0 [...] 04/19/2019 02:48:00 PM EST [facility] [address] [place] [address] 04/18/2019 12:00:00 AM EST eCW1 ([facility]) Outpatient Referrer: Randell Mittal MD 04/06/2019 01:04:00 PM EST [facility] Outpatient Attender: CLAIRE Sánchez 2019 10:45:00 AM EST MED[facility] ([facility]) [address], [facility] [address] 03/21/2019 12:00:00 AM EST eCW1 ([facility]) [address] [address] 03/18/2019 12:00:00 AM EST eCW1 ([facility]) [address], [facility] [address] 03/16/2019 12:00:00 AM EST eCW1 ([facility]) [address] [address] 03/15/2019 12:00:00 AM EST eCW1 ([facility]) Inpatient Attender: Renu Fraustoe r: PETR BRITO MDAttender: SHAISTA ORTIZ MDAdmitter: PETR BRITO MDReferrer: Renu Gutierrez MD [id number] 2018 12:00:00 AM EST - 02/19/2019 12:25:00 PM EST Gastrointestinal hemorrhage, unspecified [facility] Gastrointestinal hemorrhage, unspecified Patient [place]. [address] [address] 01/31/2019 12:00:00 AM EST eCW1 ([facility]) Medications Medication Brand Name Start Date Product [...] 12:00:00 AM EDT ORAL active M EDENT ([facility], ) 10 mg 11/28/2019 12:00:00 AM EDT capsule 60 TAKE 1-2 CAPSULES BY MOUTH EVERY 6 HOURS NEEDED FOR ABDOMINAL CRAMPING/PAIN TAKE 1-2 CAPSULES BY MOUTH EVERY 6 HOURS NEEDED FOR ABDOMINAL CRAMPING/PAIN SOLD: 11/28/2019 [facility] Dicyclomine Hydrochloride 10 MG Oral Capsule Dicyclomine HCL 11/28/2019 12:00:00 AM EDT ORAL active MED[facility] ([facility], ) Omeprazole 40 MG Delayed Release Oral Capsule Omeprazole 11/28/2019 12:00:00 AM EDT ORAL active [facility] ([facility], ) 5 mg 11/09/2019 12:00:00 AM [...] DAILY DOSE = 2 SOLD: 10/26/2019 [facility] gabapentin 400 MG Oral Capsule Gabapentin 08/24/2019 12:00:00 AM EDT active [facility] ([facility] 400 mg 08/24/2019 12:00:00 [...] 15 DAYS TO WEAN OFF SOLD: 08/28/2019 [facility] pregabalin 50 MG Oral Capsule Pregabalin 08/24/2019 12:00:00 AM EDT ORAL active MEDENT ([facility]) 24 HR venlafaxine 150 MG Extended Releas e Oral Capsule Venlafaxine HCl ER 150 MG Venlafaxine HCl ER 150 MG 08/09/2019 12:00:00 AM EDT 1 .0 {capsule_with_food} active Venlafaxine HCl ER 1 50 MG eCW1 ([facility]) 150 mg 08/09/2019 12:00:00 AM EDT capsule,extended releas e 24hr 30 TAKE ONE CAPSULE BY MOUTH EVERY DAY TAKE ONE CAPSULE BY MOUTH EVERY DAY SOLD: 10/26/2019 [facility] 24 HR venlafaxine 150 MG Extended Releas e Oral Capsule Venlafaxine HCl ER 150 MG Venlafaxine HCl ER 150 MG 08/09/2019 12:00:00 AM EDT 1 .0 {capsule_with_food} active Venlafaxine HCl ER 1 50 MG eCW1 ([facility]) 24 HR venlafaxine 150 MG Extended Releas e Oral Capsule Venlafaxine HCl ER 150 MG Venlafaxine HCl ER 150 MG 08/09/2019 12:00:00 AM EDT 1 .0 {capsule_with_food} active Venlafaxine HCl ER 1 50 MG eCW1 ([facility]) 150 mg 08/09/2019 12:00:00 AM EDT [...] active Tizanidi ne HCl 4 MG eCW1 ([facility]) 100 mg 07/12/2019 12:00:00 AM EDT [...] 2019 12:00:00 AM EST ORAL active MEDENT ([facility]) Cyclobenzaprine hydrochloride 10 MG Oral Tablet Cyclobenzapr ine HCL 2019 12:00:00 AM EST ORAL active M EDENT ([facility]) 20 mg 2019 12:00:00 AM EST tablet [...] tablet at bedtime as ne eded eCW1 ([facility]) 40 mg 03/19/2019 12:00:00 AM EST [...] A DAY NEEDED FOR SPASM SOLD: 03/20/2019 [facility] gabapentin 100 MG Oral Capsule Gabapentin 03/18/2019 12:00:00 AM EST completed MED[facility] ([facility]) 4 mg 03/18/2019 12:00:00 AM EST tablet 90 TAKE ONE HALF TO 1 TABLET BY MOUTH THREE TIMES A DAY NEEDED FOR SPASM TAKE ONE HALF TO 1 TABLET BY MOUTH THREE TIMES A DAY NEEDED FOR SPASM SOLD: 07/09/2019 [facility] tizanidine 4 MG Oral Tablet tizanidine (ZANAFLEX) tabl et 4 mg tizanidine (ZANAFLEX) tablet 4 mg 02/19/2019 10:00:00 PM EST 4 mg Oral active 4 mg, Oral, Nightly, First dose on 02/19/19 at 2200, For 30 days [facility] Medication administered onsite 24 HR venlafaxine 75 MG Extended Release Oral Capsule venlafaxine (EFFEXOR-XR) 24 hr capsule 75 mg venlafaxine (EFFEXOR-XR) 24 hr capsule 75 mg 09:00:00 AM EST 75 mg Oral active 75 mg, Oral, Daily Standard, First dose on 02/19/19 at 0900, For 30 days
Do not crush or chew
[facility] Medication administered onsite gabapentin 300 MG Oral Capsule gabapentin (NEURONTIN) capsule 300 mg gabapentin (NEURONTIN) capsule 300 mg 02/19/2019 09:00:00 AM EST 300 mg Oral active 300 mg, Oral, 2 Times Daily, First dose on 02/19/19 at 0900, For 30 days [facility] Medication administered onsite ferrous sulfate 325 MG Delayed Release O ral Tablet ferrous sulfate EC tablet 325 mg ferrous sulfate EC tablet 325 mg 02/19/2019 09:00:00 AM EST 325 mg Oral active 325 mg, Oral, 2 Times Daily With Meals, First dose on 02/19/19 at 0900, For 5 days [facility] Medication administered onsite pantoprazole 4 MG/ML Injectable Solution pantoprazole (PROTONIX) injection 40 mg pantoprazole (PROTONIX) injection 40 mg 02/19/2019 09:00:00 AM EST 40 mg Intravenous active 40 mg, Intrav enous, 2 Times Daily, First dose on 02/19/19 at 0900, For 30 days
Dilute with 10 mL of 0.9% NaCl.Give IVP over 2 minutes. Flush before and after.
[facility] Medication administered onsite Sucralfate 100 MG/ML Oral Suspension suc ralfate (CARAFATE) 1 GM/10ML suspension 1 g sucralfate (CARAFATE) 1 GM/10ML suspension 1 g 02/19/2019 12:00: 00 AM EST 1 g Oral active 1 g, Oral, Every 6 hours Standard (4 times per day), First dose on Thu02/19/19 at 0000, For 30 days [facility] Medication administered onsite dextrose 5 %-0.9 % sodium chloride infusion 8497-8781-35 02/18/2019 11:00:00 PM EST Intravenous active at 1 00 mL/hr, Intravenous, Continuous, Starting Thu02/18/19 at 2300, For 30 days [facility] Medication administered onsite Acetaminophen 325 MG Oral [...] mg from all sources in 24 hours.
[facility] Medication administered onsite pantoprazole 4 MG/ML Injectable Solution pantoprazole (PROTONIX) injection 80 mg pantoprazole (PROTONIX) injection 80 mg 02/18/2019 07:45:00 PM EST 80 mg Intravenous completed 80 mg, Intrav enous, Once, Thu02/18/19 at 1945, For 1 dose
Dilute with 10 mL of 0.9% NaCl.Give IVP over 2 minutes. Flush before and after.
[facility] Medication administered onsite Acetaminophen 300 MG / Codeine Phosphate 30 MG Oral Tablet [Tylenol with Codeine] Tylenol With Codeine #3 02/01/2019 12:00:00 AM EST ORAL completed MEDENT ([facility]) tizanidine 4 MG Oral Tablet Tizanidine HCL 02/01/2019 12:00:00 AM EST active MEDENT ([facility]) 300-30 mg 02/01/2019 12:00:00 AM EST tablet [...] type / Coverage type Policy ID Covered republican ID Covered republican's relationship to lyle Policy Lyle Plan Information [facility] [id number] SP [id number] [facility] [id number] SP [id number] [facility]AN [facility] [id number] SP [id number] [facility] I [id number] Self [id number] [facility] O [id number] S [id number] [facility] I [id number] Self [id number] ANSI-Medicaid [id number] ANSI-Medicaid [id number] Progressive (NF) Workers Compensation [id number] Self [id number] [facility] Community Plan Commercial [id number] Self [id number] Medicaid [place] Medigap Part B [id number] Self [id number] Progressive (NF) Workers Compensation [id number] Self [id number] [facility] Commercial [id number] Self [id number] [facility] Health Maintenance Organization (O) [id number] Self [id number] Progressive (NF) Workers Compensation [id number] Self [id number] [facility] Plan Commercial [id number] Self [id number] ANSI-Medicaid [id number] ANSI-Medicaid [id number] ANSI-Medicaid [id number] [facility] [id number] SP [id number] [facility] Health Maintenance Organization (HMO) [id number] Self [id number] ANSI-Medicaid [id number] ANSI-Medicaid [id number] [employer] Health Maintenance Organization (O) [id number] Self [id number] Progressive (NF) Workers Compensation [id number] Self [id number] [facility] Nu-B-2B Plan Commercial [id number] Self [id number] [facility] Health Maintenance Organization (HMO) [id number] Self [id number] Progressive (NF) Workers Compensation [id number] Self [id number] [facility] Nu-B-2B Plan Commercial [id number] Self [id number] Progressive (NF) Workers Compensation [id number] Self [id number] [facility] Nu-B-2B Plan Commercial [id number] Self [id number] Progressive (NF) Workers Compensation [id number] Self [id number] [facility] Nu-B-2B Plan Commercial [id number] Self [id number] Progressive (NF) Workers Compensation [id number] Self [id number] [facility] [employer] Commercial [id number] Self [id number] Progressive (NF) Workers Compensation [id number] Self [id number] [facility] Nu-B-2B [facility] Commercial [id number] Self [id number] MEDICARE COMPLETE [id number] SP [id number] [facility] [id number] SP [id number] Progressive (NF) Workers Compensation [id number] Self [id number] [facility] Nu-B-2B Plan Commercial [id number] Self [id number] Progressive (NF) Workers Compensation [id number] Self [id number] [facility] Nu-B-2B Plan Commercial [id number] Self [id number] Progressive (NF) Workers Compensation [id number] Self [id number] [facility] Nu-B-2B Plan Commercial [id number] Self [id number] Progressive (NF) Workers Compensation [id number] Self [id number] [facility] Nu-B-2B Plan Commercial [id number] Self [id number] Progressive (NF) Workers Compensation [id number] Self [id number] [facility] Nu-B-2B Plan Commercial [id number] Self [id number] [facility] Health Maintenance Organization (HMO) [id number] Self [id number] COMMUNITY HEALTH COMMUNITY PLAN MCDO [id number] SP [id number] [facility] Health Maintenance Organization (HMO) [id number] Self [id number] COMMUNITY HEALTH COMMUNITY PLAN MCDHMO [id number] SP [id number] [facility] Health Maintenance Organization (HMO) [id number] Self [id number] Progressive [employer] Workers Compensation SS# [id number] Self SS# [id number] [facility] Health Maintenance Organization (HMO) [id number] Self [id number] Progressive (NF) Workers Compensation [id number] Self [id number] [facility] Community Plan Commercial [id number] Self [id number] [facility] Health Maintenance Organization (HMO) [id number] Self [id number] Progressive (NF) Workers Compensation [id number] Self [id number] [facility] Community Plan Commercial [id number] Self [id number] PROGRESSIVE E [id number] Self [id number] [facility] PLAN [facility] [id number] SP [id number] Progressive Ins Workers Compensation Self [facility] Health Maintenance Organization (HMO) Self Progressive (NF) Workers Compensation Self Medicaid [place] Medigap Part B Self [facility] Community [facility] Commercial Self Progressive [employer] Workers Compensation Self [facility] [id number] SP [id number] [employer] BY [facility] COMMUNITY [facility] [id number] 0 [id number] MEDICAID [id number] SP [id number] MEDICAID - CLINIC [id number] MEDICAID-O/P [id number] Y [id number] Problems, Conditions, and Diagnoses Code Display Name Description Problem Type Effective Dates Data Source(s) E04.1 [id number] Thyroid nodule Problem 12/07/2019 12:00:00 A M EDT eCW1 ([facility]) F32.2 [id number] Severe depression Problem 08/09/2019 12:00:0 0 AM EDT eCW1 ([facility]) D50.0 [id number] Anemia due to gastrointestinal blood loss Problem 03/16/2019 12:00:00 AM EST eCW1 ([facility]) K92.2 Gastrointestinal hemorrhage, unspecified Gastrointestinal hemorrhage, unspecified Diagnosis 02/18/2019 10:37:08 PM [facility] bleeding ulcer bleeding ulcer Diagnosis 02/18/2019 05:52: 23 PM [facility] Surgeries/Procedures Procedure Description Date Indications Data Source(s) RADEX HAND MINIMUM 3 VIEWS 03/14/2020 12:00:00 AM EST MEDENT ([facility]) RADEX HAND MINIMUM 3 VIEWS 03/14/2020 12:00:00 AM EST MEDENT ([facility] ) Fine Needle Aspiration Biopsy Inlcd Ultrasound Guidance 12/28/2019 12:00:00 AM EST [facility] ([facility] RADEX SPINE LUMBOSACRAL MINIMUM 4 VIEWS 05/25/2019 12: 00:00 AM EDT MEDENT ([facility]) RADEX SHOULDER COMPLETE MINIMUM 2 VIEWS 04/15/2019 12: 00:00 AM EST MEDENT ([facility]) BLOOD COUNT COMPLETE AUTO&AUTO DIFRNTL WBC COUNT CBC AND DIFFER ENTIAL Timed 02/19/2019 5:04 AM EST 02/19/2019 10:04:00 AM [facility] BASIC METABOLIC PANEL CALCIUM TOTAL BASIC METABOLIC PANEL Routi ne 02/19/2019 5:04 AM EST 02/19/2019 10:04:00 AM [facility] BLOOD COUNT COMPLETE AUTO&AUTO DIFRNTL WBC COUNT CBC AND DIFFER ENTIAL Timed 02/18/2019 11:35 PM EST 02/19/2019 04:35:00 AM [facility] ANTIBODY ID RBC ANTIBODIES EA PANEL EA SERUM TQ ANTIBODY ID ENTIFICATION Routine 02/18/2019 6:30 PM EST 02/18/2019 11:30:00 PM [facility] BLOOD TYPING ABO TYPE AND SCREEN STAT 02/18/2019 6:30 PM EST 02/18/2019 11:30:00 PM [facility] BLOOD OCCULT PEROXIDASE ACTV QUAL FECES 1 DETER FECAL OCCULT BLOOD, UPPER GI (HEMOCCULT-SENSA) STAT 02/18/2019 6:27 PM EST 02/19/20 19 11:27:00 PM [facility] THROMBOPLASTIN TIME PARTIAL PLASMA/WHOLE BLOOD PARTIA L THROMBOPLASTIN TIME (PTT) STAT 02/18/2019 6:25 PM EST 02/18/2019 11:25 :00 PM [facility] PROTHROMBIN TIME PROTIME INR STAT 02/18/2019 6:25 PM EST 02/18/2019 11:25:00 PM [facility] BLOOD COUNT COMPLETE AUTO&AUTO DIFRNTL WBC COUNT CBC AND DIFFER ENTIAL STAT 02/18/2019 6:25 PM EST 02/18/2019 11:25:00 PM [facility] COMPREHENSIVE METABOLIC PANEL COMPREHENSIVE METABOLIC PANEL STA T 02/18/2019 6:25 PM EST 02/18/2019 11:25:00 PM [facility] URNLS DIP STICK/TABLET REAGENT AUTO MICROSCOPY URINALYSIS W ITH MICROSCOPIC STAT 02/18/2019 6:15 PM EST 02/18/2019 11:15:00 PM [facility] Arthroscopy Knee W/Meniscectomy Inc Chondroplasty (Med & Lat eral) 02/01/2019 12:00:00 AM EST MEDENT ([facility]) Results ID Date Data Source [id number] 12/30/2019 08:45:00 AM EST [facility] Name Value Range Interpretation Code Description Data Sylvia rce(s) Supporting Document(s) SARS coronavirus 2 RNA [facility] This lab was ordered by [facility] and reported by [facility]. ID Date Data Source [id number] 12/28/2019 01:20:00 PM EST MEDENT ([facility]) Name Value Range Interpretation Code Description Data Sylvia rce(s) Supporting Document(s) Microscopic observation [Identifier] in Unspecified specimen by Non- gynecological cytology method Laboratory test result [facility] SPECIMEN: FNA Right lobe thyr oid Cytolyt and slides received SPECIMEN ADEQUACY: Satisfactory for evaluation CATEGORIZATION: Benign DESCRIPTIONS: Specimen consists of scattered groups of follicular exhibiting hurthle cell changes. The background consists of rare macrophages, scattered lymphocytes and red blood cells. COMMENTS: 12/29/[id number] Signed NOHEMY WOOD CT(ASCP) 12/29/2019 0942 (Prelim) Signed EVIE MARIN MD 12/29/2019 1544 ID Date Data Source [facility] Brain W/O FOLL BY WITH CONTRAST 12/13/2019 12:48:51 PM EDT eCW1 ([facility]) Name Value Range Interpretation Code Description Data Sylvia rce(s) Supporting Document(s) [facility] Brain W/O FOLL BY WITH CONTRAST eCW1 ([facility]) ID Date Data Source BC SOFT TISSUE HEAD/NECK, THYROID US 12/13/2019 02:18:37 A M EDT eCW1 ([facility]) Name Value Range Interpretation Code Description Data Sylvia rce(s) Supporting Document(s) WWBC SOFT TISSUE HEAD/NEC K, THYROID US eCW1 ([facility]) ID Date Data Source [id number] 11/28/2019 10:45:00 AM EDT MEDENT ([facility], ) Name Value Range Interpretation Code Description Data Sylvia rce(s) Supporting Document(s) Amylase [Enzymatic activity/volume] in Serum or Plasma 95 U/L 25-115 Normal (applies to non-numeric results) [facility] ([facility] ) Lipoprotein lipase [Enzymatic activity/volume] in Serum or P lasma 216 U/L 73-393 Normal (applies to non-numeric results) [facility]) 12/21/19 (ThuDec 20) 12:33 PM WENDY FOLEY ok ID Date Data Source [id number] 11/28/2019 10:45:00 AM EDT [facility] ([facility]) Name Value Range Interpretation Code Description Data Sylvia rce(s) Supporting Document(s) Ast/Sgot 26 U/L 7-37 Normal (applies to non-numeric resul ts) [facility] ([facility]) Alt/SGPT 29 U/L 12-78 Normal (applies to non-numeric resul ts) [facility] ([facility]) Alkaline Phosphatase 140 U/L 45-117 Above high normal [facility] ([facility]) Bilirubin,Direct 0.2 mg/dL 0.0-0.2 Normal (applies to non-numeric results) [facility] ([facility]) Bilirubin,Total 0.7 mg/dL 0.2-1.0 Normal (applies to non-numeric results) [facility] ([facility]) Total Protein 7.3 GM/DL 6.4-8.2 Normal (applies to non-numeric re sults) [facility] ([facility]) Albumin/Globulin Ratio 1.1 1.2-2.2 Below low normal [facility] ([facility]) Albumin 3.9 GM/DL 3.2-5.2 Normal (applies to non-numeric resul ts) [facility] ([facility]) ID Date Data Source [id number] 07/24/2019 03:04:00 PM EDT [facility] ([facility]) Name Value Range Interpretation Code Description Data Sylvia rce(s) Supporting Document(s) Packed Cells Laboratory test result [facility] ([facility]) TRANSFUSED PRODUCT: PACKED CELLS COUNT: 1 ID Date Data Source [id number] 06/03/2019 12:00:00 AM EDT [facility] Carina SHARMA Patient Name: RENEA [facility]RANADOS [facility] 1975[facility] [place] [address] Date of Exam: 06/03/2019#: Fax: [phone] EXAM: [...] significant change fromcomparison study 10/20/2018.Accredited by the [employer] in [place].Yfn Mcneal, ELDA/Bridgette you for referring ROSMERY GRANADOS to our office. Electronically Signed - YFN MCNEAL MD 06/09/19 13:16 Name Value Range Interpretation Code Description Data Sylvia rce(s) Supporting Document(s) ID Date Data Source [id number] 02/21/2019 12:14:23 PM [facility] Name Value Range Interpretation Code Description Data Sylvia rce(s) Supporting Document(s) Discharge Summary [facility] FMHGNg7sTsRGGlTe46/UOKgeXDZmf0XkFJnqUGe8QEqlVBFlK5XrCXG3uW0eMMK4RBlYWyLiWBlfKjQn lbm [file] AgICAgICAgICAgICAgICAgICAgICAgICAgICAgICAgICAgICAgICAgICAgICAgICAgICAgICAgICAgIC McKALjOKAqJQPuKKQcHUOfSEKrBFVsAYLiFC7GSCLg ICAgICAgICAgICAgICAgICAgICAgICAgICAgICAgICAgICAgICAgICAgICAgICAgICAgICAgICAgICAg QXOkDPHjNHJrKSVhYUNwQLNyTJOcIJJiQOSkSFAoHHKgZCYvSD9KSSPmXUGaIUEhTNGkPSNfDKVsCOQf ICAgICAgICAgICAgICAgICAgICAgICAgICAgICAgIC ItHIPbPNJiJWQrJGBtMRPgBCDnBIEjZYPzFHRcHEMtUMOhGKOtKLXjYXFvUDEtWV6TXTZhVOCzTHWdEQ AgICAgICAgICAgICAgICAgICAgICAgICAgICAgICAgICAgICAgICAgICAgICAgICAgICAgICAgICAgIC HyHFQkZLVvESFoWVBrWSHmCHSrTSSnCGJgOTHpGL4C ICAgICAgICAgICAgICAgICAgICAgICAgICAgICAgICAgICAgICAgICAgICAgICAgICAgICAgICAgICAg SQTlSJRiUPPfXBEmUOGgZUGeLFTyGHVpMIEcDROeWUMoZGAzXWFdOS0CIWAnHNQwDPWyGJEpIYBfZPXh ICAgICAgICAgICAgICAgICAgICAgICAgICAgICAgIC LsICHkMKMvAOTbIZCbBBExRLMmIKPcDXKvCQClURXvCGSmWFAuXQTsKEHfNWKlLWUxAR3RVNYfFLUlMP AgICAgICAgICAgICAgICAgICAgICAgICAgICAgICAgICAgICAgICAgICAgICAgICAgICAgICAgICAgIC AgICAgICAgICAgICAgICAgICAgICAgICAgICAgICAg KP4IFCYeVRRvTLItGAOeHCBxYXWoVZCmMVAsNXZdUIDtGWCmNZLlRSGoJAGfLKMuRZGyAOCfFIWkVVOm XZEoSCNvECOjLOZiWQHcYYDpIPGmRQRzPNEjEMPgMLJuTABlXUOyNQSfZI2DZJDaILBaVAMjHRFwRRKq ICAgICAgICAgICAgICAgICAgICAgICAgICAgICAgIC MqALHfVUWaYZCfWEMoNQWqYCUmSJMeWDDnWWIfZAKpMBWdWSLoZBRdVNBaOUTdSGXtAGKnSJ9CYAYqIE AgICAgICAgICAgICAgICAgICAgICAgICAgICAgICAgICAgICAgICAgICAgICAgICAgICAgICAgICAgIC AgICAgICAgICAgICAgICAgICAgICAgICAgICAgICAg HHVbYN3KAH33eXGmw3G4WKZnKC1qxhd/Tn6KOHlwjwWyhPNnCE5QClUrWB0ngs9WCmElLW0eyc7XSAtO RdDwD7K8dFNwDDVgPUCZBgRgS27rVIbtCz08TKxrWDXzDeMjJKm0Wv4ACwQbJ1wgHABlLlE2FZRmIaO2 TCXpUeX2UFGoXcTgODhsTP9Al1HwnCTsPZb+Pg0KZW 8hv1BqRVqrXnPxPM4blz9XGOhVAwMnQ5YpeeB0JST6QEDuJx5SWUXfRIYmqNOgRSHgUDPTPcEyL4HnxZ 41TVREUg2+FXjjriLjJsqGQlS1YIKvv9TlAHm6ZT0QKWWwSSa1yTHgXRmgJ4pvxgraLJW9fY6uwweeWt oiKYZwsEpuPDEQJVMbjEpdQYDQMcYikSTuSr2sMY8a LDQ4NWYgSnO9ZRWZOH0JORKvOALubAYdBIMnYSYYJO1AOKrcAZL8OMOlfnEfrWSdCFexJQ1AGJLgqwJw MjMgMCBSDQo+Cs9LEC6qi2VvESvmZMCvZU9epy7SHEoMImVtZ5C5hWMqV4I0EVbvSj8MCLTaBTOrVbXl EFPYZYuzFZ4DIS9ivrE6AA7MhEPaXJWxFJKntIAiVW w7A92dtWIsGLfeVZ7OUGF+Luci+Tw7SEWSjZBMfCWAwUpLhIGNXKaXiR5ZlD1ICd6BqE7ErDV39zLxynz ZwCWwnVE9GEE4pAOIxELWYRK4LwLJfjN9anqMhLiYwWOIAXzYmI14yuQDePJGjWRNfFHXiMx8VQEYpF9 MpekKdgTwggsNmGUVaHCKGYI3VCFngtzWipQYnfRmz AC04yOdjBM8QIx4XKdWbRY8set3BpOLpIm1NYPTqZw4QYDVtJJVgQFDhVHU0RLUmPdUfJClnFIUrPOLr RFA0HAWhODIhKT9FGrEaFUQpMUD9LwDhBQTwXLYrog6ZNACgOADzGkcbTkRdRWLkACFfKCvrNHXrNNIc XZW3GECfHFMrXW7ODbJgIHVzEMJ2JIruMDKpEJBqlp 7AGKNvTOVlUPL8OHNeNVEsOWYzNJblIJNtTWR3DiN9GLSjHZOyWV4LUmYfJZMjDCc8YgQuUDQbVDVsho 1ZZNGoPNBcKNL8YuEzDLXfWBBbGSspHESzODQjDtT9HDMhREReFJ5EFrTkLNBzPZYhPVkqVWGhEKTtuj 8VYKJwCDEnNJZjYWZwECIzXPYtWEefDFDxPQEsKby8 MPLxTTOnXI6NHxMyEONhCVQ2AFJjLIHyGMUngw2LWUYdYGMyDbl9PVAaEQRzCPUfWBffIRWgVQOmKYT6 FQJyEOMaFE7RLcJjABBnTFQaSMEuFQYcWXKpbk9OBPBgHSWmOVGvBSQeLEUcFPOcSUglSFLmQPK3JEPi EYEvVBGwGG4EXpBqBSUtRIL5KalqJENsHTCuav4NHA MuWTYaYKd9AuSyVGFrHTIrEBnoUDInDFP7ZygyZHPkJMUzGI9FMdFgKHBxIYQ7GcXcONGhWYRchk3YZH UrUDPkDrg8HPWdHWPeQPUlZOaqOEShWWK0DTG7WYMkPIGvYR8OLrUfRXctJDEDWvx2WLpgT9r2KEIvKv 9AZ5Mpa0KtRdAiLNBPJHjkIZ0wxnMcYYGbBu9QP9cL Zst7NrA7TZO6H5HiSsCrNfVjFBNpI7FrOjI1FZX6TTowAw7tRTaiTJoxQkR7SjSvVwTnUlQ6D8OrZVP0 HCqsOAFhNqEsKcQqVT4RFl5HFcJ9NZA8jZTcXd5YFUhoBVEPGeBpJH2XNRj= ID Date Data Source [id number] 02/19/2019 01:10:28 PM EST [facility] Name Value Range Interpretation Code Description Data Sylvia rce(s) Supporting Document(s) ED Provider Note [facility] QNDDNd6bFqYGHcDu82/IINrdEGIsi2MhDCeeWJq8LXqjDSZkK7DtHKK2oB9dBBC3SXkRLkFhBWhwSaE4 lbm [file] Italo+a5+zMgJPp+UqdZWqddxp4srIx6FGJqbMOlV7dNQYnjv/HObn2RDCaJhLRfrtlxrvjsXm8zEaxMCKM +pjIaMkiT8pThRQn60epwoVP3Pr8wJDAmCdJaJXEIWVRnQhci/EW+WlsiRRl84GX51njqSrST3QMffS+ KpcYgR9UbcaqyYVntvlqmluutwZC2SLKRIX1sEWs4U VvEHsfIyyq5pu7Kd0ssj6j4zIRvWpVk/eg+CZhVE1LEIVQQUaXf8hUq10Hka1RGNmOLGcXFAQlI5SXvU lZ0LJgyBJRoZGKKWukL4rdiikdIEiGtMDV3NGLAL8Pg1dP/Ofb5xDUny/z3P1NWEQWZi86hfYgLNhuYz FJkvQ263+nhL4gBGpPVzBws/q1Wz76kSg/qPdtDFuh Emergency Department Coordinator/tSA4vE2/ASAaoZAB5St9q88F+/HT3tVjfYlaT0iSiqkliZa0dLdRB5y4Q5Fa2Z9tuk4sMoIFhcpYS [file] lbEC4AWB8llxK9TQ2ZgMPjAVLcWCWrgXKiDBe0K67pbJGnVOvrUO6UEGM+Luci+Rw0GQFZvKQYcTIBgZv UlQZTEItXdY9VcC5YGm7GgT5SqMN44qDtodkPxPCiuCK1YTF0fYFNgDNSCRB4ZvYNcoP2mqfJ4YXCoSA GHBzBvJ38jwSCrKLOdJVTnUSYiZl6REZMgA0EshtNc iSyegdYxQJOuNDUHUP1ABQoxiyDcfFJuwZilDJ38iTehIO5GDg2JZaLyDU7nks6DlAUiIx6EEAD5Qf3G HMLmGZKwPMEiEJT3NFRgVxOwQDkbKUGgPZBqEKT4ZTHsREUfIP0ETeLrDMKaYIK0MYNzBLFkJUNrdr9K EVMhYAE7TzB4SvYsJSLzVQKlTAeiNTElXDMpLCH6GS NdDZKvYW6AUfBrVBHuWBU1IyGkFTGyYZSvcv7QSDFrGGMvXxs5WYMuBWMzXTRlHHelEBIpWTC5DpZ2BX HnJOXlBB6LNsEcSRRsHRE0HpShMHIxPDSacb5MCGOwUYWuNXDgWQRuCLKfNSCnIKfzKBUqGFR1ZfT4UC JsZORzVO3YPrUrXBXpAQJlRSYaDIMkJDUcxe9APOCz GIGxBzX5AkYnBSRsOYPqSUkyAOYsZHU9KlfqHYWjBIEeRN4WDoZkOFJaLQX1RIulJLQpTJUzoz3UWLGj DJApEJT2QIOwRPYfSAIcLFggJEGlPDY1NGC6CZYbVPBwRA2AAyCaJEUkZyKsSRUvSAUjYMEkbv5JMRFh AJXeUkV4HpMgMTHsXDAlFRrgFUQsIYR8VYKsQKUnMJ GhVM1UHiKpFQDfGbD6CjCiSOSwFYNica0KPZAhHZAsPyw5XRVgOURjTGCoRJuzCUGdNHM1NCU5YXKgIL RmIS9LRaGlQLKfAwl0TNmwCJSfLTEpme8RGJGrSBHqXQXiNAJvDXTcJLYsSRsgOYUaVEA0Mfh7VIJvCL DiMI6AHzEoDLLkAwBvABWbHYHmBLVdxj1SFSXeILQy QBO3WKTiLKIuBFFzRAezOZOjJBFhCjA8AZSjVETbVB1DHbEwJLYxIjG9WFFoMSMsVYYokl9LGUXhESDq GYl9VzWvMNKwZJDdBDswBCDyNSAvKMs7HGHqXGUhYH7QCsRyLBJqKWBdJeGlIBUqUWFgqt9HGPYjFXD6 RyQ3QYQhLZZeKNPrBVxzKVTfIPEjBKu0QHUvKLItQG 3KNcQxXKHqOULzChnuXPDcJMLjsy8WFAJoZKI9EAS3TxKmPOYbKHTcKEkwLKDnCKU1FcK4ZFCmBQTqZX 6JNoXyUBFePVP3YOSxPCCdJTDnxo1AORUxBHI0CCL6OzGnUXAnFVKdMSoyFHYmVID3AWK3FSBrTNTlWG 6JTlLoZFUxMUf8UJhjCLUhGTImos8QWOXfHSD4CuC4 RPYpRRPcPCTfRNtiFSXvJBQ5FbY3CGCgNWKwJJ4NNzAnYKAqPSy6SgZcGYDaUIAcce4WIQGmJLK5WECf FjGfQPZwGAXzURvbIMIlYIF3Gor0QWEbMCUyMN4VLhHjJXnaEBQZRrz3VQvvE2t9PUJ8Tu2BT4Ddd8Nl OVCbWHBVHXkiMN8ssuKeBAXlLw0AT3uEVinoRbT2Tt M2YvBqMlh6MefhCUYnBMv2CKVeTCrcSWKoFD6gCQXrXPSjIdvrT5LdHSX9K9FwHPD1GNjgGGXnTRR5P0 RgIqRoXJ8RBk3ADjZ0IVC9hCKjPe5LTUr6KpiWTkOmFL0MCBy= ID Date Data Source [id number] 02/19/2019 07:16:36 AM [facility] Name Value Range Interpretation Code Description Data Sylvia rce(s) Supporting Document(s) Leukocytes [#/volume] in Blood by Automated count 3.2 10*3/uL 4-10 L [facility] Erythrocytes [#/volume] in Blood by Automated count 3.52 10*6/uL 4.1- 5.3 [facility] Hemoglobin [Mass/volume] in Blood 9.3 g/dL 11.5-15.5 [facility] Hematocrit [Volume Fraction] of Blood by Automated count 27.7 % 3 6-45 L [facility] Erythrocyte mean corpuscular volume [Entitic volume] by Auto mated count 78.9 fL 80-96 L [facility] Erythrocyte mean corpuscular hemoglobin [Entitic mass] by Automated count 26.4 pg 27-33 L [facility] Erythrocyte mean corpuscular hemoglobin concentration [Mass/volume] by Automated count 33.5 g/dL 32.0-36.0 [facility] width [Ratio] by Automated count 17.4 % 11.5-14.5 H [facility] Platelets [#/volume] in Blood by Automated count 233 10*3/uL 150-400 [facility] Differential cell count method - Blood [facility] Neutrophils/100 leukocytes in Blood by Automated count 54 % [facility] Lymphocytes/100 leukocytes in Blood by Automated count 30 % [facility] Monocytes/100 leukocytes in Blood by Automated count 11 % [facility] Eosinophils/100 leukocytes in Blood by Automated count 4 % [facility] Basophils/100 leukocytes in Blood by Automated count 1 % [facility] Neutrophils [#/volume] in Blood by Automated count 1.73 10*3/uL 1.8-7 .0 L [facility] Lymphocytes [#/volume] in Blood by Automated count 0.95 10*3/uL 1.2-4 .0 L [facility] Monocytes [#/volume] in Blood by Automated count 0.34 10*3/uL 0-0.8 [facility] Eosinophils [#/volume] in Blood by Automated count 0.12 10*3/uL 0-0.5 [facility] Basophils [#/volume] in Blood by Automated count 0.03 10*3/uL 0-0.2 [facility] Nucleated erythrocytes/100 leukocytes [Ratio] in Blood by Automated count 0 /100{WBCs} 0-0 [facility] ID Date Data Source [id number] 02/19/2019 07:26:13 AM [facility] Name Value Range Interpretation Code Description Data Sylvia rce(s) Supporting Document(s) Bicarbonate [Moles/volume] in Serum 22 mmol/L 22-29 [facility] Chloride [Moles/volume] in Serum or Plasma 108 mmol/L 98-107 H [facility] Creatinine [Mass/volume] in Serum or Plasma 0.53 mg/dL 0.50-0.90 [facility] Glucose [Mass/volume] in Serum or Plasma 90 mg/dL 70-140 [facility] Potassium [Moles/volume] in Serum or Plasma 4.1 mmol/L 3.4-5.1 [facility] Sodium [Moles/volume] in Serum or Plasma 140 mmol/L 136-145 [facility] Urea nitrogen [Mass/volume] in Serum or Plasma 15 mg/dL 6-20 [facility] Anion gap 3 in Serum or Plasma 10 mmol/L 8-15 [facility] Osmolality of Serum or Plasma by calculation 290 mosm/kg 275-300 [facility] Creatinine/Urea nitrogen [Mass Ratio] in Serum or Plasma 29 [facility] Calcium [Mass/volume] in Serum or Plasma 8.3 mg/dL 8.6-10.0 L [facility] Glomerular filtration rate/1.73 sq M pre dicted among non-blacks [Volume Rate/Area] in Serum or Plasma by Creatinine-based formula (MDRD) >6 0 [facility] Glomerular filtration rate/1.73 sq M pre dicted among blacks [Volume Rate/Area] in Serum or Plasma by Creatinine-based formula (MDRD) >60 [facility] ID Date Data Source [id number] 02/19/2019 12:31:58 AM EST [facility] Name Value Range Interpretation Code Description Data Sylvia rce(s) Supporting Document(s) Leukocytes [#/volume] in Blood by Automated count 3.7 10*3/uL 4-10 L [facility] Erythrocytes [#/volume] in Blood by Automated count 3.30 10*6/uL 4.1- 5.3 L [facility] Hemoglobin [Mass/volume] in Blood 8.7 g/dL 11.5-15.5 [facility] Hematocrit [Volume Fraction] of Blood by Automated count 25.9 % 3 6-45 L [facility] Erythrocyte mean corpuscular volume [Entitic volume] by Auto mated count 78.4 fL 80-96 L [facility] Erythrocyte mean corpuscular hemoglobin [Entitic mass] by Automated count 26.2 pg 27-33 [facility] Erythrocyte mean corpuscular hemoglobin concentration [Mass/volume] by Automated count 33.4 g/dL 32.0-36.0 [facility] width [Ratio] by Automated count 17.6 % 11.5-14.5 H [facility] Platelets [#/volume] in Blood by Automated count 221 10*3/uL 150-400 [facility] Differential cell count method - Blood [facility] Neutrophils/100 leukocytes in Blood by Automated count 47 % [facility] Lymphocytes/100 leukocytes in Blood by Automated count 37 % [facility] Monocytes/100 leukocytes in Blood by Automated count 12 % [facility] Eosinophils/100 leukocytes in Blood by Automated count 3 % [facility] Basophils/100 leukocytes in Blood by Automated count 1 % [facility] Neutrophils [#/volume] in Blood by Automated count 1.73 10*3/uL 1.8-7 .0 L [facility] Lymphocytes [#/volume] in Blood by Automated count 1.39 10*3/uL 1.2-4 .0 [facility] Monocytes [#/volume] in Blood by Automated count 0.45 10*3/uL 0-0.8 [facility] Eosinophils [#/volume] in Blood by Automated count 0.13 10*3/uL 0-0.5 [facility] Basophils [#/volume] in Blood by Automated count 0.02 10*3/uL 0-0.2 [facility] Nucleated erythrocytes/100 leukocytes [Ratio] in Blood by Automated count 0 /100{WBCs} 0-0 [facility] ID Date Data Source [id number] 02/18/2019 11:11:10 PM [facility] Name Value Range Interpretation Code Description Data Sylvia rce(s) Supporting Document(s) History and Physical [facility] ZQUOZo9aAbASWuMr29/PAHcyOUDik1EuGDgtINj4LZhtFIWmV2CxAGN9qU6bVOS1DRlXLdWcCWrjMmS9 lbm [file] ICAgICAgICAgICAgICAgICAgICAgICAgICAgICAgICAgICAgICAgICAgICAgICAgICAgICAgICAgICAg ICAgICAgICAgICAgICAgICAgICAgICAgICAgICAgICANCiAgICAgICAgICAgICAgICAgICAgICAgICAg ICAgICAgICAgICAgICAgICAgICAgICAgICAgICAgIC AgICAgICAgICAgICAgICAgICAgICAgICAgICAgICAgICAgICAgICAgICANCiAgICAgICAgICAgICAgIC AgICAgICAgICAgICAgICAgICAgICAgICAgICAgICAgICAgICAgICAgICAgICAgICAgICAgICAgICAgIC AgICAgICAgICAgICAgICAgICAgICAgICANCiAgICAg ICAgICAgICAgICAgICAgICAgICAgICAgICAgICAgICAgICAgICAgICAgICAgICAgICAgICAgICAgICAg ICAgICAgICAgICAgICAgICAgICAgICAgICAgICAgICAgICANCiAgICAgICAgICAgICAgICAgICAgICAg ICAgICAgICAgICAgICAgICAgICAgICAgICAgICAgIC AgICAgICAgICAgICAgICAgICAgICAgICAgICAgICAgICAgICAgICAgICAgICANCiAgICAgICAgICAgIC AgICAgICAgICAgICAgICAgICAgICAgICAgICAgICAgICAgICAgICAgICAgICAgICAgICAgICAgICAgIC AgICAgICAgICAgICAgICAgICAgICAgICAgICANCiAg ICAgICAgICAgICAgICAgICAgICAgICAgICAgICAgICAgICAgICAgICAgICAgICAgICAgICAgICAgICAg ICAgICAgICAgICAgICAgICAgICAgICAgICAgICAgICAgICAgICANCiAgICAgICAgICAgICAgICAgICAg ICAgICAgICAgICAgICAgICAgICAgICAgICAgICAgIC AgICAgICAgICAgICAgICAgICAgICAgICAgICAgICAgICAgICAgICAgICAgICAgICANCiAgICAgICAgIC AgICAgICAgICAgICAgICAgICAgICAgICAgICAgICAgICAgICAgICAgICAgICAgICAgICAgICAgICAgIC AgICAgICAgICAgICAgICAgICAgICAgICAgICAgICAN CiAgICAgICAgICAgICAgICAgICAgICAgICAgICAgICAgICAgICAgICAgICAgICAgICAgICAgICAgICAg ICAgICAgICAgICAgICAgICAgICAgICAgICAgICAgICAgICAgICAgICANCjw/gXKvC9idjRBfmhK7G7lx Tx5FNi6FEV8dt1OaAUCkGHvudiQtScmVEjQnCFGxPf aQRwy0MFjhIG7FeJHwV4UbG9ElUUgdMX6LAQRnCFUuqMOoFISoUBGzYhJ3ONUmZFhuUF9OiRLwYHnxVJ ZaGDXfJpNdFDGbIRJoCHKlRZHvXWCAFQ8WNnLvW7ZmjC46NEGQJm9+LLafblUvJsaXNaIhVYBlg0TfHJ b9XA7DUVCmIfidt6FfQyHhWUKHLYnzAJ5SUPM6LDPz ACXlId5EBLMcK270urIiHO7VLb9FGuHrIC9ozi9BAeUuVHJaGxcGZyh4NVoiDA4AyHQeYMnYVmFiTfyq EDzlGUAaJ2rmmeksXMYlKCSwCHBnXfubEtOzZBXzRBm5TZFNSAnVRiDaD1Zde1GjTiD1VTJhZzPbWJch FMNcAtI2SP48gQduEV1MOHMtAFIoFJ00QJJtMOPwQw 7BJz6THzLqRY4khn0XMuHlLCQbIqmFMin4HDvnEZ8FqMKwG6BdsIVms4gGHmGdH8GIIYE8WRItOx0SFK KwIjUkFBLgYHawEX0qLRUhMLMGmAivtrN1WU7UTF1vxiUvCE0CJiViSs0wFq5OOkDcX1UmK5SrAAUuFS BBGJfiUQ9LULquRQ7wCH5Jg0KMqAAixV8rgc1ONMAj XNTeTuezcd6NFewuF7V7aWoaSLEyXlChRVZMOYgySK8CRXJgTUH6PXKjASLbNEVRCeYpD71lSP2XZ8Il t22vJhU1YMMfZeFeHBmtIU63nZbonsQlcZWfuPahPA3COb4+DQplbmRvYmoNCnhyZWYNCjAgMzMNCjAw LBBoPWYuXKBiHiG6SvJdJn1VZKZoKFOgBATkEuFiIV GdMDJbMJsnILNcNGwqFvTzMVYkQYDyGQ2YFbCeBJYbNQN8FUVeFORlMQCsfy4LUOLuMQZcDCH3JlCgQW UnBSDrDJbxBCKePVQqRIo5RACmCAQrLP7TEaMrUINjRKLpVGGwVKJaKCEjsq3BULIqLJEwBvO2YAHdMT LqUKNvJZurOBGeXDS8EGQ8MBQrYPChVW6DLsRhOQJv LIJiYoJyQLSxKPUiad1TJQDrARHuPLHdTWLiECIuYAZwWVphSHQhHSP9MXA3FNUuTNRhOM5NAwWrERDj MFU3VHKbWCLyHLAqua1KRUAdNEAcFWM3TeBuQUArGHBgULeyPPHoFPI9IFR4PXDmADNeHG9DKcTaRSXe FCFxIKPiDLScBFQbmw9EZAIuYTPjTnRmINLsXCYeWD QnZWwlMSAnBPE7OcZgDCBtAJJdZO7KZjHlRCKxRXq8VPQfUPEwGMSava0MYXMcCMIeNFy2TuDvSKFkUS GiUVsrXLLjGBS1PQK4CSMeUQDkUU0VRfIqKJJvZhjfMCKjIMLzKAHors1DLIQjLMWjBMQ6TiDcMDQtVN KoRYxyQFNuAOJ8Usj4IUCuISOkJB2JBhVdFKPhCkG4 ACTbGCZrKDGxze7BJRXoZTQzSRncMCLrIVLuNEMoZAjhNUCtSIOzRJY9ELTgQZFrMF2WCvItOHCyPzP0 CnHcUOAxBBIptj5GJFQcVHT7CfE3UQSuIKNqYZXnFJnxFHGpMOrgGeS7QNQaGVKyTP3PKdJvMSNsCYWh OJHaRRQnULQllt7UNUUxKRM3LSZ4ZcLrRNWvZTBmIM qbHRReTLl6GjQ3FGTsEFBhKI0IGnOwJRzbVRLBMnw8RDumI0v3QOZiLv4QX9Knp6IlPeSsYLBMJDhkNE 1auhNhINAuZx5GO7wRIrv0OTmxTQXqTXDjPGQqKmFtRQWmYel7FVR5GLD8HVr2HF4eHLwlFmN2CfBmJs JmNxCnFUG3LrGbFGs2YiC8Pfx9IlhxWtHhDS1OQp7KHhV9LZE8gQFiQb6RLYI9BBYOQxSqTI0FVLe= ID Date Data Source [id number] 02/18/2019 11:04:00 PM [facility] Name Value Range Interpretation Code Description Data Sylvia rce(s) Supporting Document(s) Blood group antibodies identified in Serum or Plasma [facility] Blood bank comment [facility] ID Date Data Source [id number] 02/20/2019 07:25:11 AM [facility] Name Value Range Interpretation Code Description Data Sylvia rce(s) Supporting Document(s) ABO and Rh group [Type] in Blood [facility] M[facility] Garry Yun Type ConfirmedPOS Blood group antibody screen [Presence] in Serum or Plasma PENDING [facility] Service comment [facility] Blood bank comment [facility] ID Date Data Source [id number] 02/18/2019 06:43:41 PM [facility] Service Cmnt XXX-Imp : OB Pnl Stl : Feca l occult blood: positive (finding) Name Value Range Interpretation Code Description Data Sylvia rce(s) Supporting Document(s) ID Date Data Source [id number] 02/18/2019 06:42:45 PM [facility] Name Value Range Interpretation Code Description Data Sylvia rce(s) Supporting Document(s) Leukocytes [#/volume] in Blood by Automated count 3.9 10*3/uL 4-10 L [facility] Erythrocytes [#/volume] in Blood by Automated count 3.45 10*6/uL 4.1- 5.3 L [facility] Hemoglobin [Mass/volume] in Blood 9.1 g/dL 11.5-15.5 [facility] Hematocrit [Volume Fraction] of Blood by Automated count 27.0 % 3 6-45 [facility] Erythrocyte mean corpuscular volume [Entitic volume] by Auto mated count 78.3 fL 80-96 [facility] Erythrocyte mean corpuscular hemoglobin [Entitic mass] by Automated count 26.5 pg 27-33 [facility] Erythrocyte mean corpuscular hemoglobin concentration [Mass/volume] by Automated count 33.8 g/dL 32.0-36.0 [facility] width [Ratio] by Automated count 17.2 % 11.5-14.5 H [facility] Platelets [#/volume] in Blood by Automated count 236 10*3/uL 150-400 [facility] Differential cell count method - Blood [facility] Neutrophils/100 leukocytes in Blood by Automated count 50 % [facility] Lymphocytes/100 leukocytes in Blood by Automated count 36 % [facility] Monocytes/100 leukocytes in Blood by Automated count 10 % [facility] Eosinophils/100 leukocytes in Blood by Automated count 3 % [facility] Basophils/100 leukocytes in Blood by Automated count 1 % [facility] Neutrophils [#/volume] in Blood by Automated count 1.93 10*3/uL 1.8-7 .0 [facility] Lymphocytes [#/volume] in Blood by Automated count 1.42 10*3/uL 1.2-4 .0 [facility] Monocytes [#/volume] in Blood by Automated count 0.40 10*3/uL 0-0.8 [facility] Eosinophils [#/volume] in Blood by Automated count 0.13 10*3/uL 0-0.5 [facility] Basophils [#/volume] in Blood by Automated count 0.03 10*3/uL 0-0.2 [facility] Nucleated erythrocytes/100 leukocytes [Ratio] in Blood by Automated count 0 /100{WBCs} 0-0 [facility] ID Date Data Source [id number] 02/18/2019 06:54:06 PM [facility] Name Value Range Interpretation Code Description Data Sylvia rce(s) Supporting Document(s) Prothrombin time (PT) 13.3 s 12.5-14.9 [facility] INR in Platelet poor plasma by Coagulation assay 0.98 [facility] Routine intensity oral anticoagulation I NR is typically 2.0-3.0. Target INR must be clinically individualized. ID Date Data Source [id number] 02/18/2019 06:54:06 PM [facility] Value Range Interpretation Code Description Data Sylvia rce(s) Supporting Document(s) aPTT in Platelet poor plasma by Coagulation assay 27.8 s 24.0-34. 0 [facility] ID Date Data Source [id number] 02/18/2019 07:07:10 PM [facility] Name Value Range Interpretation Code Description Data Sylvia rce(s) Supporting Document(s) Albumin [Mass/volume] in Serum or Plasma by Bromocresol green (BCG) dye binding method 3.8 g/dL 3.5-5.2 [facility] Bil[facility].total [Mass/volume] in Serum or Plasma 0.8 mg/dL <1.2 [facility] Calcium [Mass/volume] in Serum or Plasma 8.5 mg/dL 8.6-10.0 L [facility] Chloride [Moles/volume] in Serum or Plasma 103 mmol/L 98-107 [facility] Creatinine [Mass/volume] in Serum or Plasma 0.60 mg/dL 0.50-0.90 [facility] Glucose [Mass/volume] in Serum or Plasma 88 mg/dL 70-140 [facility] Alkaline phosphatase [Enzymatic activity/volume] in Serum or Plasma 88 U/L 35-104 [facility] Potassium [Moles/volume] in Serum or Plasma 3.6 mmol/L 3.4-5.1 [facility] Protein [Mass/volume] in Serum or Plasma 6.0 g/dL 6.4-8.3 L [facility] Sodium [Moles/volume] in Serum or Plasma 138 mmol/L 136-145 [facility] Aspartate aminotransferase [Enzymatic activity/volume] in Serum or Plasma 20 U/L <32 [facility] Urea nitrogen [Mass/volume] in Serum or Plasma 16 mg/dL 6-20 [facility] Osmolality of Serum or Plasma by calculation 287 mosm/kg 275-300 [facility] Creatinine/Urea nitrogen [Mass Ratio] in Serum or Plasma 27 [facility] Bicarbonate [Moles/volume] in Serum 25 mmol/L 22-29 [facility] Alanine aminotransferase [Enzymatic activity/volume] in Seru m or Plasma 13 U/L <33 [facility] Anion gap 3 in Serum or Plasma 10 mmol/L 8-15 [facility] Albumin/Globulin [Mass Ratio] in Serum or Plasma 2.0 [facility] Glomerular filtration rate/1.73 sq M pre dicted among non-blacks [Volume Rate/Area] in Serum or Plasma by Creatinine-based formula (MDRD) >6 0 [facility] Glomerular filtration rate/1.73 sq M pre dicted among blacks [Volume Rate/Area] in Serum or Plasma by Creatinine-based formula (MDRD) >60 [facility] ID Date Data Source [id number] 02/19/2019 12:45:07 AM EST [facility] Name Value Range Interpretation Code Description Data Sylvia rce(s) Supporting Document(s) Color of Urine [facility] Clarity of Urine [facility] Specific gravity of Urine by Refractometry automated 1.017 1.003 -1.030 [facility] pH of Urine by Automated test strip 7.0 5.0-8.0 [facility] Protein [Mass/volume] in Urine by Automated test strip Neg [facility] Glucose [Mass/volume] in Urine by Automated test strip Neg [facility] Ketones [Mass/volume] in Urine by Automated test strip Neg [facility] Bilirubin.total [Presence] in Urine by Automated test strip Negative [facility] Hemoglobin [Presence] in Urine by Automated test strip Neg [facility] Leukocyte esterase [Presence] in Urine by Automated test strip Negative A [facility] Nitrite [Presence] in Urine by Automated test strip Negati ve [facility] Leukocytes [#/area] in Urine sediment by Automated count 100 /HPF 0 -5 H [facility] Erythrocytes [#/area] in Urine sediment by Automated count 0-3 [facility] Bacteria [#/area] in Urine sediment by Automated count Non e A [facility] Epithelial cells.squamous [#/area] in Urine sediment by Auto mated count 25 /HPF None [facility] Procedure Social History Code Duration Value Status Description Data Source(s ) Smoking 02/06/2020 12:00:00 AM EST Former Cigarette Smoker com pleted Former Cigarette Smoker [facility] ([facility]) Smoking 12/07/2019 12:00:00 AM EDT Former Smoker completed Former Smoker eCW1 ([facility]) Smoking 12/07/2019 12:00:00 AM EDT Former Smoker completed Former Smoker eCW1 ([facility]) Smoking 12/07/2019 12:00:00 AM EDT Former Smoker completed Former Smoker eCW1 ([facility]) Smoking 03/16/2019 12:00:00 AM EST Former Smoker completed Former Smoker eCW1 ([facility]) Alcohol intake 02/18/2019 12:00:00 AM EST Lifetime non-drinker (finding) completed Lifetime non-drinker (finding) [facility] Cigarette pack-years 02/18/2019 12:00:00 AM EST UNK [facility] Cigarettes smoked current (pack per day) - Reported 02/19/20 19 12:00:00 AM EST UNK [facility] Smoking 02/18/2019 12:00:00 AM EST Former smoker completed Former smoker [facility] Vital Signs ID Date Data Source UNK Name Value Range Interpretation Code Description Data Source(s) Body mass index (BMI) [Ratio] 28.3 kg/m2 28.3 k g/m2 [facility] ([facility]) Body weight 170.00 [lb_av] 170.00 [lb_av] MEDEN T ([facility]) Body height 65 [in_i] 65 [in_i] [facility] ([facility]) 5'5" Body temperature 97.3 [degF] 97.3 [degF] [facility] ([facility]) Body surface area Derived from formula 1.83 m2 1.83 m2 [facility] Body weight 75.751 kg 75.751 kg [facility] [place] body weight 125 [lb_av] 125 [lb_av] [facility] T ([facility]) Body mass index (BMI) [Ratio] 27.8 kg/m2 27.8 k g/m2 [facility] ([facility]) Body weight 167.00 [lb_av] 167.00 [lb_av] MEDEN T ([facility]) Body height 65 [in_i] 65 [in_i] [facility] ([facility]) 5'5" Body mass index (BMI) [Ratio] 26.3 kg/m2 26.3 k g/m2 [facility] [facility], [facility]) Body height 66 [in_i] 66 [in_i] MEDENT ([facility]) 5'6" Body weight 163.00 [lb_av] 163.00 [lb_av] MEDEN T ([facility]) Body temperature 98.5 [degF] 98.5 [degF] [facility], [facility]) Oxygen saturation in Arterial blood by Pulse oximetry 99 % 99 % [facility] ([facility], [facility]) Respiratory rate 16 /min 16 /min [facility] ( [facility], [facility]) Heart rate 84 /min 84 /min [facility] [place], [facility]) Diastolic blood pressure 72 mm[Hg] 72 mm[Hg] MEDENT ([facility], [facility]) Systolic blood pressure 106 mm[Hg] 106 mm[Hg] M EDENT ([place] [facility] [place], [facility]) Body mass index (BMI) [Ratio] 27.5 kg/m2 27.5 k g/m2 MEDENT ([facility]) Body weight 165.12 [lb_av] 165.12 [lb_av] MEDEN T ([facility] ) Body height 65 [in_i] 65 [in_i] MEDENT ([facility] ) 5'5" Body temperature 97.3 [degF] 97.3 [degF] MEDENT ([facility]) Body surface area Derived from formula 1.83 m2 1.83 m2 MEDENT ([facility]) Body weight 75.751 kg 75.751 kg MEDENT ([facility]) [place] body weight 125 [lb_av] 125 [lb_av] MEDEN T ([facility]) Body mass index (BMI) [Ratio] 27.8 kg/m2 27.8 k g/m2 [facility]) Body weight 167.00 [lb_av] 167.00 [lb_av] MEDEN T ([facility]) Body height 65 [in_i] 65 [in_i] MEDENT ([facility]) 5'5" Diastolic blood pressure 74 mm[Hg] 74 mm[Hg] eCW1 ([facility]) Systolic blood pressure 130 mm[Hg] 130 mm[Hg] e CW1 ([facility]) Body temperature 98 [degF] 98 [degF] eCW1 ([facility]) Respiratory rate 18 /min 18 /min eCW1 ([facility]) Heart rate 92 /min 92 /min eCW1 ([facility]) Body mass index (BMI) [Ratio] 28.32 kg/m2 28.32 kg/m2 W1 ([facility]) Body height 65 [in_i] 65 [in_i] eCW1 ([facility]) Body weight 170.2 [lb_av] 170.2 [lb_av] eCW1 ([facility]) Body weight 75.751 kg 75.751 kg MEDENT ([facility]) [place] body weight 125 [lb_av] 125 [lb_av] MEDEN T ([facility]) Body mass index (BMI) [Ratio] 27.8 kg/m2 27.8 k g/m2 [facility] ([facility]) Body weight 167.00 [lb_av] 167.00 [lb_av] MEDEN T ([facility]) Body height 65 [in_i] 65 [in_i] MEDENT ([facility]) 5'5" Diastolic blood pressure 87 mm[Hg] 87 mm[Hg] [facility], ) Systolic blood pressure 149 mm[Hg] 149 mm[Hg] M [facility] ([facility], ) Body mass index (BMI) [Ratio] 29.9 kg/m2 29.9 k g/m2 MEDENT ([facility] ) Body weight 182.38 [lb_av] 182.38 [lb_av] MEDEN T ([facility] ) Body height 65.5 [in_i] 65.5 [in_i] MEDENT ([facility] ) 5'5.50" Body temperature 98.5 [degF] 98.5 [degF] [facility]) Body mass index (BMI) [Ratio] 26.3 kg/m2 26.3 k g/m2 [facility] ([facility], [facility]) Body height 66 [in_i] 66 [in_i] [facility] ([facility] [place], [facility]) 5'6" Body weight 163.00 [lb_av] 163.00 [lb_av] MEDEN T ([facility], [facility]) Body temperature 98.5 [degF] 98.5 [degF] [facility] ([facility] [place], [facility]) Oxygen saturation in Arterial blood by Pulse oximetry 99 % 99 % [facility] ([place] [facility] [place], [facility]) Respiratory rate 18 /min 18 /min [facility] ( [place] [facility] [place], [facility]) Heart rate 75 /min 75 /min [facility] ([facility], [facility]) Diastolic blood pressure 80 mm[Hg] 80 mm[Hg] [facility] ([place] [facility] [place], [facility]) Systolic blood pressure 119 mm[Hg] 119 mm[Hg] [facility] ([facility], [facility]) Body temperature 97.6 [degF] 97.6 [degF] [facility] ([facility]) ID Date Data Source [id number] 02/21/2019 12:14:23 PM [facility] Name Value Range Interpretation Code Description Data Source(s) WEIGHT RECORDED 175 lb 175 lb [facility] Body height Measured 65 in 65 in [facility] Patient Treatment Plan of Care Planned Activity Planned Date Details Description Data Source (s) 24 HR venlafaxine 150 MG Extended Release Oral Capsule 08/09/2019 12:00:00 AM EDT eCW1 ([facility]) 24 HR venlafaxine 150 MG Extended Release Oral Capsule 08/09/2019 12:00:00 AM EDT eCW1 ([facility]) 24 HR venlafaxine 150 MG Extended Release Oral Capsule 08/09/2019 12:00:00 AM EDT eCW1 ([facility]) Famotidine 20 MG Oral Tablet 03/22/2019 12:00:00 AM EST eCW1 ([facility]) tizanidine 4 MG Oral Tablet 02/19/2019 10:00:00 PM [facility] ferrous sulfate 325 MG Delayed Release Oral Tablet 02/19/2019 09 :00:00 AM [facility] gabapentin 300 MG Oral Capsule 02/19/2019 09:00:00 AM [facility] 24 HR venlafaxine 75 MG Extended Release Oral Capsule 02/19/2019 09:00:00 AM [facility] Acetaminophen 325 MG Oral Tablet 02/18/2019 10:53:20 PM [facility]
[2020-03-22 16:56] VITALS: BP 109/75
[2020-03-22] MEDS: ACETAMINOPHEN TAB 650MG DOSE (2X325MG) PO PRN (18:10)
[2020-03-23 06:17] VITALS: BP 115/62
[2020-03-23] MEDS ORDERED: FERROUS SULFATE 325MG TAB PO SCH (09:00)
[2020-03-23] MEDS ORDERED: VENLAFAXINE **XR** 75MG CAPSULE PO SCH (09:00)
[2020-03-23] MEDS ORDERED: HYDR50TA70 PO (10:59)
[2020-03-23] MEDS ORDERED: TRAZ-252 PO (10:59)
[2020-03-23] MEDS ORDERED: SERTRALINE HCL 25 MG TABLET PO ONE (11:00)
[2020-03-23] MEDS: ACETAMINOPHEN TAB 650MG DOSE (2X325MG) PO PRN (12:13)
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
== END 2020-03-23 14:00 | disposition home or self-care (01) | DRG 751 ==
LOC: M ED 09:40 → M ED INP 14:53 → M PSY 15:41
PROVIDERS: ADMIT Psychiatry & Neurology Geriatric Psychiatry; ATTEND Psychiatry & Neurology Psychiatry
DX: F32.1 Major depressive disorder, single episode, moderate (principal); F41.9 Anxiety disorder, unspecified; Z63.79 Other stressful life events affecting family and household; Z79.899 Other long term (current) drug therapy

== ENCOUNTER → 2020-07-04 | Outpatient (REF) | payer OTHER ==
[~2020-07-04] MED LIST changes: +HYDR50TA70 PO; +TRAZ-252 PO; +VENL150C43 PO
[2020-07-04 16:21] LABS: BASO % 0.9 % (0.0-1.0); EOS # 0.2 10^3/uL (0.0-0.5); EOS % 3.8 % (0.0-3.0); HEMATOCRIT 32.5 % (36.0-47.0); HEMOGLOBIN 9.3 g/dl (12.0-15.5); LYMPH # 1.4 10^3/uL (1.5-5.0); LYMPH % 32.2 % (24.0-44.0); MEAN CORPUSCULAR HEMOGLOBIN 19.9 pg (27.0-33.0); MEAN CORPUSCULAR HGB CONC 28.6 g/dl (32.0-36.5); MEAN CORPUSCULAR VOLUME 69.4 fl (80.0-96.0); MONO # 0.5 10^3/uL (0.0-0.8); MONO % 10.6 % (2.0-8.0); NEUTROPHILS # 2.2 10^3/uL (1.5-8.5); NEUTROPHILS % 52.3 % (36.0-66.0); PLATELET COUNT, AUTOMATED 369 10^3/uL (150-450); RED BLOOD COUNT 4.68 10^6/uL (4.00-5.40); WHITE BLOOD COUNT 4.2 10^3/uL (4.0-10.0)
[2020-07-04 16:58] LABS: ALBUMIN 4.2 GM/DL (3.2-5.2); ALT/SGPT 29 U/L (12-78); BLOOD UREA NITROGEN 9 MG/DL (7-18); CALCIUM LEVEL 9.3 MG/DL (8.5-10.1); CARBON DIOXIDE LEVEL 27 MEQ/L (21-32); CHLORIDE LEVEL 108 MEQ/L (98-107); CHOLESTEROL LEVEL 203 MG/DL (<200); CHOLESTEROL RISK RATIO 3.123 (<5); CREATININE FOR GFR 0.59 MG/DL (0.55-1.30); FERRITIN 4 NG/ML (8-252); FOLATE 11.5 NG/ML; GLOMERULAR FILTRATION RATE > 60.0 (>58); GLUCOSE, FASTING 73 MG/DL (70-100); HDL CHOLESTEROL 65 MG/DL (>40); LDL CHOLESTEROL 125 MG/DL (<100); NON-HDL-C 138 MG/DL; POTASSIUM SERUM 4.6 MEQ/L (3.5-5.1); SODIUM LEVEL 140 MEQ/L (136-145); TOTAL 25(OH) VITAMIN D 18.1 NG/ML (30.0-100.0); TOTAL PROTEIN 7.5 GM/DL (6.4-8.2); TRIGLYCERIDES LEVEL 64 MG/DL (<150); VITAMIN B12 LEVEL 489 PG/ML
[2020-07-04 20:34] LABS: ERYTHROCYTE SEDIMENTATION RATE 20 mm/hr (0-20)
[2020-07-06 21:09] LABS: ANA (HEP2) Negative (.)
== END ==
LOC: M LAB REF 15:44
PROVIDERS: ATTEND Pediatrics
DX: E78.5 Hyperlipidemia, unspecified (principal); Z98.84 Bariatric surgery status; M79.7 Fibromyalgia; E04.1 Nontoxic single thyroid nodule

== ENCOUNTER 2020-09-19 11:39 | Emergency (ER) | payer OTHER ==
[~2020-09-19] VITALS: Ht 165.1 cm; Wt 75.8 kg
[2020-09-19] MEDS ORDERED: ALBU8.5H (12:47)
[2020-09-19] MEDS ORDERED: ESCITALOPRAM (12:47)
[2020-09-19 13:15] LABS: BASO % 0.8 % (0.0-1.0); EOS # 0.1 10^3/uL (0.0-0.5); EOS % 3.7 % (0.0-3.0); HEMATOCRIT 30.3 % (36.0-47.0); HEMOGLOBIN 8.9 g/dl (12.0-15.5); LYMPH # 1.2 10^3/uL (1.5-5.0); MEAN CORPUSCULAR HEMOGLOBIN 19.8 pg (27.0-33.0); MEAN CORPUSCULAR HGB CONC 29.4 g/dl (32.0-36.5); MEAN CORPUSCULAR VOLUME 67.3 fl (80.0-96.0); MONO # 0.4 10^3/uL (0.0-0.8); MONO % 10.7 % (2.0-8.0); NEUTROPHILS # 1.8 10^3/uL (1.5-8.5); NEUTROPHILS % 51.8 % (36.0-66.0); PLATELET COUNT, AUTOMATED 272 10^3/uL (150-450); WHITE BLOOD COUNT 3.6 10^3/uL (4.0-10.0)
--- NOTE | 2020-09-19 13:36 | REP ---
INDICATION: right sided swelling and calf tenderness. TECHNIQUE: Multiple ultrasonographic images of the deep venous structures of the right thigh were obtained from the level of the common femoral vein to the popliteal vein in the longitudinal and transverse scan planes along with Doppler interrogation and color flow Doppler imaging. Limited images were also obtained of the the common femoral vein for comparison. FINDINGS: There is no abnormal echogenic material seen within any of the visualized deep venous structures that would suggest acute thrombosis. Coaptation is unremarkable throughout. Doppler interrogation shows an expected response to respiratory variability and augmentation. The color flow Doppler images show what appears to be a normal vascular pattern throughout. The posterior tibial vein and peroneal vein are also compressible throughout the proximal calf. The left common femoral vein is fully compressible as a comparison. IMPRESSION: There is no ultrasonographic evidence of deep venous thrombosis involving any of the visualized deep venous structures of the right thigh and proximal calf as described above. Accredited by the [employer] in Vascular Peripheral Ultrasound. <Electronically signed by Pravin Bowden > 09/19/20 2300
--- NOTE | 2020-09-19 13:42 | REP ---
INDICATION: back pain flare up with right sciatic pain. COMPARISON: None. TECHNIQUE: Five views FINDINGS: Five views of the lumbosacral spine show no acute fracture, dislocation or subluxation. The intervertebral disc spaces are symmetric and well maintained. There is no spondylolysis or spondylolisthesis. The pedicles are intact bilaterally and there is no destructive osseous lesion. Mild anterior lipping is seen at multiple levels. IMPRESSION: Unremarkable lumbosacral spine series. <Electronically signed by Thanh Garcia > 09/19/20 0491
[2020-09-19 14:09] LABS: ALBUMIN 3.9 GM/DL (3.2-5.2); ALT/SGPT 32 U/L (12-78); BILIRUBIN,DIRECT 0.3 MG/DL (0.0-0.2); BLOOD UREA NITROGEN 7 MG/DL (7-18); CALCIUM LEVEL 8.8 MG/DL (8.5-10.1); CARBON DIOXIDE LEVEL 26 MEQ/L (21-32); CHLORIDE LEVEL 111 MEQ/L (98-107); CREATININE FOR GFR 0.58 MG/DL (0.55-1.30); GLOMERULAR FILTRATION RATE > 60.0 (>58); GLUCOSE, FASTING 92 MG/DL (70-100); POTASSIUM SERUM 3.8 MEQ/L (3.5-5.1); SODIUM LEVEL 142 MEQ/L (136-145); TOTAL PROTEIN 7.1 GM/DL (6.4-8.2)
[2020-09-19] MEDS ORDERED: ZOFR4TAB16 PO (14:26)
[2020-09-19 14:45] VITALS: BP 128/78
--- NOTE | 2020-09-20 07:38 | ECGEPIP ---
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
== END 2020-09-19 14:47 | disposition home or self-care (01) ==
LOC: M ED 11:39
DX: R22.43 Localized swelling, mass and lump, lower limb, bilateral (principal); D64.9 Anemia, unspecified; J45.909 Unspecified asthma, uncomplicated; M54.9 Dorsalgia, unspecified; R11.2 Nausea with vomiting, unspecified; Z79.51 Long term (current) use of inhaled steroids; Z98.84 Bariatric surgery status

== ENCOUNTER → 2020-11-05 | Outpatient (CLI) | payer OTHER ==
[~2020-11-05] MED LIST changes: +ALBU8.5H INH; +D 202000 PO; +ESCITALOPRAM; +FERR325T19 PO; +LEXA1TAB PO; +OMEP-221 PO; +ZOFR4TAB16 PO
--- NOTE | 2020-11-05 09:11 | DEXAMM ---
INDICATION: POST SURGICAL MENOPAUSE. COMPARISON: None. TECHNIQUE: Bone density was measured using dual-energy x-ray absorptiometry (DEXA). FINDINGS: AP SPINE L1-L4 BMD 0.955 g/cm2 Young Adult T-Score -1.9 Age Matched Z-Score -1.9. LT FEMUR, TOTAL BMD 0.688 g/cm2 Young Adult T-Score -2.5 Age Matched Z-Score -2.2. LT NECK BMD 0.775 g/cm2 Young Adult T-Score -1.9 Age Matched Z-Score -1.3. RT FEMUR, TOTAL BMD 0.741 g/cm2 Young Adult T-Score -2.1 Age Matched Z-Score -1.8. RT NECK BMD 0.750 g/cm2 Young Adult T-Score -2.1 Age Matched Z-Score -1.5. IMPRESSION: There is low bone density of the spine. There is low bone density of the left hip. There is low bone density of the right hip. FOLLOW-UP: Recommendation for the next bone density exam: 2 years. <Electronically signed by Titus Hwang > 11/05/20 0907
== END ==
LOC: M WHC 08:13
PROVIDERS: ATTEND Pediatrics
DX: E89.41 Symptomatic postprocedural ovarian failure (principal); M85.88 Other specified disorders of bone density and structure, other site; M85.851 Other specified disorders of bone density and structure, right thigh; M85.852 Other specified disorders of bone density and structure, left thigh

== ENCOUNTER → 2020-12-13 | Outpatient (CLI) | payer OTHER ==
--- NOTE | 2020-12-17 20:10 | SLEEPHOME ---
DATE: 12/13/2020 ORDERED BY: Rina Moore NP Diagnostic home sleep testing was performed due to concern for the obstructive sleep apnea syndrome. For testing, a nocturnal T3 respiratory monitoring device was used. Continuous record was made of pulse, oxygen saturation, air flow, chest and abdominal strain, and body position. Nine hours and 59 minutes of data were reviewed. There were 5 hours and 42 minutes marked as time in bed. During the interval marked time in bed, there were 125 respiratory events identified of 10 seconds in duration or greater for a respiratory event index of 21.9. The events were primarily obstructive. Baseline pulse rate was 68. Pulse rate ranged 56 to 97. Baseline saturation was 94%. Saturations fell to 81% and testing was performed in both the supine and nonsupine positions. IMPRESSION: Abnormal home sleep testing with repetitive respiratory events and oxygen desaturations to 81% with a respiratory event index of 21.9 is consistent with the obstructive sleep apnea syndrome. RECOMMENDATION: The patient should be encouraged to undergo a formal sleep evaluation. cc: Carina Hernandez MD
== END ==
LOC: M SLEEP HO 10:32
PROVIDERS: ATTEND Nurse Practitioner Adult Health
DX: G47.33 Obstructive sleep apnea (adult) (pediatric) (principal)

== ENCOUNTER → 2021-05-01 | Outpatient (CLI) | payer OTHER ==
[~2021-05-01] MED LIST changes: -D 202000 PO; -OMEP-221 PO; +OMEP40CA5 PO; +TIZA10TA PO; -TIZA4TAB4 PO; +VITA200032 PO
[2021-05-01 13:21] LABS: BASO % 0.8 % (0.0-1.0); EOS # 0.2 10^3/uL (0.0-0.5); EOS % 4.1 % (0.0-3.0); HEMOGLOBIN 9.7 g/dl (12.0-15.5); LYMPH # 1.4 10^3/uL (1.5-5.0); LYMPH % 29.7 % (24.0-44.0); MEAN CORPUSCULAR HEMOGLOBIN 21.9 pg (27.0-33.0); MEAN CORPUSCULAR HGB CONC 30.3 g/dl (32.0-36.5); MEAN CORPUSCULAR VOLUME 72.4 fl (80.0-96.0); MONO # 0.5 10^3/uL (0.0-0.8); MONO % 10.8 % (2.0-8.0); NEUTROPHILS # 2.6 10^3/uL (1.5-8.5); NEUTROPHILS % 54.2 % (36.0-66.0); PLATELET COUNT, AUTOMATED 346 10^3/uL (150-450); RED BLOOD COUNT 4.42 10^6/uL (4.00-5.40); WHITE BLOOD COUNT 4.8 10^3/uL (4.0-10.0)
[2021-05-01 13:49] LABS: C REACTIVE PROTEIN QUANTITATIV < 0.30 MG/DL (0.00-0.30); RHEUMATOID FACTOR QUANT < 10.0 IU/ML (<15.0)
[2021-05-01 13:53] LABS: ERYTHROCYTE SEDIMENTATION RATE 29 mm/hr (0-20)
[2021-05-02 17:10] LABS: ANTINUCLEAR ANTIBODIES DIRECT Negative (Negative); Lyme Disease IgG/IgM Antibodie <0.91 ISR (0.00-0.90); Lyme Disease IgM Ab Quantitati <0.80 index (0.00-0.79)
== END ==
LOC: M ADAMS 08:35
PROVIDERS: ATTEND Orthopaedic Surgery
DX: M25.461 Effusion, right knee (principal)

== ENCOUNTER → 2021-05-29 | Outpatient (CLI) | payer MEDICARE, OTHER ==
[~2021-05-29] MED LIST changes: -ACET1TAB16 PO; +ACET300T48 PO
== END ==
LOC: M EKG 09:17
PROVIDERS: ATTEND Physician Assistant
DX: M17.11 Unilateral primary osteoarthritis, right knee (principal); Z01.810 Encounter for preprocedural cardiovascular examination

== ENCOUNTER → 2021-07-01 | Outpatient (CLI) | payer OTHER | LOC: M RAD 14:17 | PROVIDERS: ATTEND Physician Assistant | DX: M79.604 Pain in right leg (principal); M79.89 Other specified soft tissue disorders; Z98.890 Other specified postprocedural states ==

== ENCOUNTER 2021-08-15 21:06 | Emergency (ER) | payer OTHER ==
[~2021-08-15] VITALS: Ht 165.1 cm; Wt 79.5 kg
[2021-08-15 23:08] LABS: BASO % 0.7 % (0.0-1.0); EOS # 0.2 10^3/uL (0.0-0.5); EOS % 2.8 % (0.0-3.0); HEMOGLOBIN 9.6 g/dl (12.0-15.5); LYMPH # 2.2 10^3/uL (1.5-5.0); LYMPH % 36.8 % (24.0-44.0); MEAN CORPUSCULAR HEMOGLOBIN 21.5 pg (27.0-33.0); MEAN CORPUSCULAR VOLUME 71.7 fl (80.0-96.0); MONO # 0.7 10^3/uL (0.0-0.8); NEUTROPHILS # 2.9 10^3/uL (1.5-8.5); NEUTROPHILS % 48.5 % (36.0-66.0); PLATELET COUNT, AUTOMATED 308 10^3/uL (150-450); RED BLOOD COUNT 4.46 10^6/uL (4.00-5.40)
[2021-08-15] MEDS ORDERED: NS 1,000 ML IV ONE (23:15)
[2021-08-15 23:24] LABS: BLOOD UREA NITROGEN 10 MG/DL (7-18); CARBON DIOXIDE LEVEL 26 MEQ/L (21-32); CHLORIDE LEVEL 109 MEQ/L (98-107); CREATININE FOR GFR 0.76 MG/DL (0.55-1.30); GLOMERULAR FILTRATION RATE > 60.0 (>58); GLUCOSE, FASTING 87 MG/DL (70-100); POTASSIUM SERUM 3.8 MEQ/L (3.5-5.1); SODIUM LEVEL 142 MEQ/L (136-145)
[2021-08-15 23:29] LABS: CK-MB VALUE MASS < 1.0 NG/ML (<3.6); CPK CREATINE PHOSPHOKINASE 98 U/L (26-192); MB/CK RELATIVE INDEX 1.02 (< OR =4)
[2021-08-16 02:16] VITALS: BP 128/74
[2021-08-16 02:20] VITALS: O2SAT 98
== END 2021-08-16 02:33 | disposition home or self-care (01) ==
LOC: M ED 21:06
DX: I95.1 Orthostatic hypotension (principal); D50.9 Iron deficiency anemia, unspecified; M79.7 Fibromyalgia; K25.9 Gastric ulcer, unspecified as acute or chronic, without hemorrhage or perforation; Z98.84 Bariatric surgery status; Z79.899 Other long term (current) drug therapy

== ENCOUNTER → 2021-10-23 | Outpatient (CLI) | payer OTHER | LOC: M RAD 07:34 | PROVIDERS: ATTEND Internal Medicine Cardiovascular Disease | DX: R06.02 Shortness of breath (principal) ==

== ENCOUNTER → 2021-10-31 | Outpatient (REF) | payer OTHER | LOC: M SFHCDERM 17:15 | PROVIDERS: ATTEND Nurse Practitioner Family | DX: C43.71 Malignant melanoma of right lower limb, including hip (principal) ==

== ENCOUNTER → 2021-11-22 | Outpatient (CLI) | payer MEDICARE, OTHER | LOC: M WHC 06:48 | PROVIDERS: ATTEND Physician Assistant | DX: Z12.31 Encounter for screening mammogram for malignant neoplasm of breast (principal) ==

== ENCOUNTER → 2021-12-03 | Outpatient (CLI) | payer MEDICARE | LOC: M SOG 10:30 | PROVIDERS: ATTEND Orthopaedic Surgery | DX: M54.50 Low back pain, unspecified (principal); M25.511 Pain in right shoulder; M53.86 Other specified dorsopathies, lumbar region; R93.6 Abnormal findings on diagnostic imaging of limbs ==

== ENCOUNTER → 2021-12-16 | Outpatient (CLI) | payer OTHER | LOC: M PLAIMG 07:03 | PROVIDERS: ATTEND Orthopaedic Surgery | DX: M54.50 Low back pain, unspecified (principal); M25.511 Pain in right shoulder; M75.41 Impingement syndrome of right shoulder ==

== ENCOUNTER 2022-03-10 08:27 | Inpatient (IN) | payer OTHER ==
[~2022-03-10] VITALS: Ht 162.6 cm; Wt 81.0 kg
[2022-03-10 10:09] LABS: BASO % 0.6 % (0.0-1.0); EOS # 0.2 10^3/uL (0.0-0.5); HEMATOCRIT 35.5 % (36.0-47.0); HEMOGLOBIN 11.7 g/dl (12.0-15.5); LYMPH # 1.6 10^3/uL (1.5-5.0); LYMPH % 31.7 % (24.0-44.0); MEAN CORPUSCULAR HEMOGLOBIN 26.8 pg (27.0-33.0); MEAN CORPUSCULAR VOLUME 81.2 fl (80.0-96.0); MONO # 0.3 10^3/uL (0.0-0.8); MONO % 5.7 % (2.0-8.0); NEUTROPHILS % 58.8 % (36.0-66.0); PLATELET COUNT, AUTOMATED 413 10^3/uL (150-450); RED BLOOD COUNT 4.37 10^6/uL (4.00-5.40); WHITE BLOOD COUNT 5.1 10^3/uL (4.0-10.0)
[2022-03-10] MEDS ORDERED: VANCOMYCIN HCL 1,750 MG in NS 250 ML IV ONE (10:25)
[2022-03-10 10:31] LABS: BLOOD UREA NITROGEN 12 MG/DL (9-23); CALCIUM LEVEL 9.1 MG/DL (8.5-10.1); CARBON DIOXIDE LEVEL 28 MMOL/L (20-31); CHLORIDE LEVEL 102 MMOL/L (98-107); CREATININE FOR GFR 0.59 MG/DL (0.55-1.30); GLOMERULAR FILTRATION RATE > 60.0 (>58); GLUCOSE, FASTING 88 MG/DL (60-100); POTASSIUM SERUM 4.9 MMOL/L (3.5-5.1); SODIUM LEVEL 138 MMOL/L (136-145)
[2022-03-10] MEDS ORDERED: VANCOMYCIN HCL 1,000 MG, VIAL MATE ADAPTER 1 EACH in D5W 250 ML IV ONE (11:00)
[2022-03-10] MEDS ORDERED: VANCOMYCIN HCL 750 MG, VIAL MATE ADAPTER 1 EACH in D5W 250 ML IV ONE (12:00)
[2022-03-10] MEDS ORDERED: diphenhydrAMINE 50MG/ML VIAL IV ONE (12:35)
[2022-03-10] MEDS ORDERED: ACETAMINOPHEN TAB 650MG DOSE (2X325MG) PO PRN (12:45)
[2022-03-10] MEDS ORDERED: ONDA-83 PO (13:12)
[2022-03-10] MEDS ORDERED: B-12100021 PO (13:12)
[2022-03-10] MEDS ORDERED: HYDR1TAB33 PO (13:12)
[2022-03-10] MEDS ORDERED: GABA-1171 PO (13:12)
[2022-03-10] MEDS ORDERED: MIDO10TA PO (13:12)
[2022-03-10] MEDS ORDERED: CYCL-707 PO (13:12)
[2022-03-10] MEDS ORDERED: FAMO40TA3 PO (13:12)
[2022-03-10] MEDS ORDERED: MIDO2.5T PO (13:16)
[2022-03-10] MEDS ORDERED: HOME MED LIST COMPLETE! XX SCH (13:20)
[2022-03-10] MEDS ORDERED: traMADol 50 MG TAB PO PRN (13:25)
[2022-03-10 13:51] LABS: INR 0.91; PROTHROMBIN TIME 12.5 SECONDS (12.5-14.5)
[2022-03-10 13:52] LABS: PARTIAL THROMBOPLASTIN TIME 29.4 SECONDS (24.8-34.2)
[2022-03-10] MEDS ORDERED: cefTRIAXone SOD 1 GM in D5W MINI-BAG PLUS 50 ML IV SCH (14:00)
[2022-03-10] MEDS ORDERED: ALBUTEROL 90 MCG/ACT 8GM HFA INHALER INH PRN (14:30)
[2022-03-10 14:32] LABS: RSV AMPLIFICATION NEGATIVE (NEGATIVE)
[2022-03-10] MEDS: hydrOXYzine 50 MG TAB PO SCH (16:10)
[2022-03-10] MEDS: LACTOBACILLUS ACIDOPHILUS CAP (BACID) PO SCH (16:10)
[2022-03-10] MEDS: ONDANSETRON 4MG TAB PO SCH (16:10)
[2022-03-10] MEDS: FAMOTIDINE 20 MG TAB PO SCH (16:10)
[2022-03-10] MEDS: ESCITALOPRAM OXALATE 10 MG TAB (LEXAPRO) PO SCH (16:11)
[2022-03-10] MEDS: OMEPRAZOLE 20MG CAP PO SCH (16:11)
[2022-03-10] MEDS: CYCLOBENZAPRINE 10MG TABLET PO SCH (16:11)
[2022-03-10] MEDS: VANCOMYCIN HCL 1,000 MG, VIAL MATE ADAPTER 1 EACH in NS 250 ML IV SCH (20:36)
[2022-03-10] MEDS: GABAPENTIN 100 MG CAP PO SCH (20:45)
[2022-03-11] MEDS: VANCOMYCIN HCL 1,000 MG, VIAL MATE ADAPTER 1 EACH in NS 250 ML IV SCH (04:05)
[2022-03-11 05:48] VITALS: BP 138/86
[2022-03-11 06:59] LABS: HEMATOCRIT 33.1 % (36.0-47.0); HEMOGLOBIN 10.7 g/dl (12.0-15.5); MEAN CORPUSCULAR HEMOGLOBIN 26.6 pg (27.0-33.0); MEAN CORPUSCULAR HGB CONC 32.3 g/dl (32.0-36.5); MEAN CORPUSCULAR VOLUME 82.3 fl (80.0-96.0); PLATELET COUNT, AUTOMATED 356 10^3/uL (150-450); RED BLOOD COUNT 4.02 10^6/uL (4.00-5.40); WHITE BLOOD COUNT 4.7 10^3/uL (4.0-10.0)
[2022-03-11 07:43] LABS: ALBUMIN 3.3 G/DL (3.2-5.2); ALKALINE PHOSPHATASE 133 U/L (46-116); ALT/SGPT 16 U/L (7.0-40); AST/SGOT 19 U/L (<34); BILIRUBIN,TOTAL 0.7 MG/DL (0.3-1.2); BLOOD UREA NITROGEN 17 MG/DL (9-23); CALCIUM LEVEL 8.4 MG/DL (8.5-10.1); CARBON DIOXIDE LEVEL 28 MMOL/L (20-31); CHLORIDE LEVEL 104 MMOL/L (98-107); CREATININE FOR GFR 0.63 MG/DL (0.55-1.30); GLOMERULAR FILTRATION RATE > 60.0 (>58); GLUCOSE, FASTING 82 MG/DL (60-100); POTASSIUM SERUM 4.6 MMOL/L (3.5-5.1); SODIUM LEVEL 140 MMOL/L (136-145); TOTAL PROTEIN 6.6 G/DL (5.7-8.2)
[2022-03-11 07:53] VITALS: BP 129/74
[2022-03-11] MEDS: ONDANSETRON 4MG TAB PO SCH (08:26)
[2022-03-11] MEDS: OMEPRAZOLE 20MG CAP PO SCH (08:26)
[2022-03-11] MEDS: ESCITALOPRAM OXALATE 10 MG TAB (LEXAPRO) PO SCH (08:26)
[2022-03-11] MEDS: hydrOXYzine 50 MG TAB PO SCH (08:26)
[2022-03-11] MEDS: LACTOBACILLUS ACIDOPHILUS CAP (BACID) PO SCH ×2 (08:26→17:18)
[2022-03-11] MEDS: CYCLOBENZAPRINE 10MG TABLET PO SCH (08:26)
[2022-03-11] MEDS: FAMOTIDINE 20 MG TAB PO SCH (08:27)
[2022-03-11] MEDS: ENOXAPARIN 40MG/0.4ML SYRINGE (J1650 PER 10MG) SC SCH (08:27)
[2022-03-11] MEDS: MIDODRINE 2.5 MG TAB PO SCH (08:27)
[2022-03-11 09:30] VITALS: BP 118/63
[2022-03-11] MEDS: VANCOMYCIN HCL 750 MG, VIAL MATE ADAPTER 1 EACH in D5W 250 ML IV SCH ×3 (12:11→23:24)
[2022-03-11 14:00] VITALS: BP 119/70
[2022-03-11] MEDS: PERCOCET 5MG/325MG TAB PO PRN (19:14)
[2022-03-11 19:26] VITALS: BP 102/64
[2022-03-11] MEDS: GABAPENTIN 100 MG CAP PO SCH (19:50)
[2022-03-12] MEDS: VANCOMYCIN HCL 750 MG, VIAL MATE ADAPTER 1 EACH in D5W 250 ML IV SCH ×3 (00:52→13:13)
[2022-03-12] MEDS: PERCOCET 5MG/325MG TAB PO PRN ×3 (04:07→20:08)
[2022-03-12 05:25] VITALS: BP 104/63
[2022-03-12 06:08] LABS: BASO % 0.6 % (0.0-1.0); EOS # 0.3 10^3/uL (0.0-0.5); EOS % 4.9 % (0.0-3.0); HEMOGLOBIN 10.6 g/dl (12.0-15.5); LYMPH # 1.3 10^3/uL (1.5-5.0); LYMPH % 24.8 % (24.0-44.0); MEAN CORPUSCULAR HEMOGLOBIN 26.3 pg (27.0-33.0); MEAN CORPUSCULAR HGB CONC 32.1 g/dl (32.0-36.5); MEAN CORPUSCULAR VOLUME 81.9 fl (80.0-96.0); MONO # 0.4 10^3/uL (0.0-0.8); MONO % 7.7 % (2.0-8.0); NEUTROPHILS # 3.2 10^3/uL (1.5-8.5); NEUTROPHILS % 61.8 % (36.0-66.0); PLATELET COUNT, AUTOMATED 331 10^3/uL (150-450); RED BLOOD COUNT 4.03 10^6/uL (4.00-5.40); WHITE BLOOD COUNT 5.1 10^3/uL (4.0-10.0)
[2022-03-12 06:33] LABS: BLOOD UREA NITROGEN 16 MG/DL (9-23); CALCIUM LEVEL 8.5 MG/DL (8.5-10.1); CARBON DIOXIDE LEVEL 26 MMOL/L (20-31); CHLORIDE LEVEL 106 MMOL/L (98-107); CREATININE FOR GFR 0.66 MG/DL (0.55-1.30); GLOMERULAR FILTRATION RATE > 60.0 (>58); GLUCOSE, FASTING 94 MG/DL (60-100); SODIUM LEVEL 140 MMOL/L (136-145)
[2022-03-12] MEDS: hydrOXYzine 50 MG TAB PO SCH (08:14)
[2022-03-12] MEDS: CYCLOBENZAPRINE 10MG TABLET PO SCH (08:14)
[2022-03-12] MEDS: ESCITALOPRAM OXALATE 10 MG TAB (LEXAPRO) PO SCH (08:14)
[2022-03-12] MEDS: LACTOBACILLUS ACIDOPHILUS CAP (BACID) PO SCH ×2 (08:14→17:33)
[2022-03-12] MEDS: OMEPRAZOLE 20MG CAP PO SCH (08:14)
[2022-03-12] MEDS: MIDODRINE 2.5 MG TAB PO SCH (08:14)
[2022-03-12] MEDS: FAMOTIDINE 20 MG TAB PO SCH (08:14)
[2022-03-12] MEDS: ENOXAPARIN 40MG/0.4ML SYRINGE (J1650 PER 10MG) SC SCH (08:15)
[2022-03-12] MEDS: ONDANSETRON 4MG TAB PO SCH (08:15)
[2022-03-12 14:00] VITALS: BP 108/64
[2022-03-12] MEDS: GABAPENTIN 100 MG CAP PO SCH (20:06)
[2022-03-12 22:00] VITALS: BP 104/67
[2022-03-13] MEDS: VANCOMYCIN HCL 750 MG, VIAL MATE ADAPTER 1 EACH in D5W 250 ML IV SCH ×2 (00:02→00:39)
[2022-03-13] MEDS: PERCOCET 5MG/325MG TAB PO PRN ×2 (02:10→08:39)
[2022-03-13 06:00] VITALS: BP 108/65
[2022-03-13 06:19] LABS: BASO % 0.7 % (0.0-1.0); EOS # 0.3 10^3/uL (0.0-0.5); HEMATOCRIT 31.9 % (36.0-47.0); HEMOGLOBIN 10.2 g/dl (12.0-15.5); LYMPH # 1.6 10^3/uL (1.5-5.0); MEAN CORPUSCULAR HEMOGLOBIN 26.6 pg (27.0-33.0); MEAN CORPUSCULAR VOLUME 83.3 fl (80.0-96.0); MONO # 0.4 10^3/uL (0.0-0.8); MONO % 7.9 % (2.0-8.0); NEUTROPHILS # 2.2 10^3/uL (1.5-8.5); NEUTROPHILS % 49.2 % (36.0-66.0); PLATELET COUNT, AUTOMATED 303 10^3/uL (150-450); RED BLOOD COUNT 3.83 10^6/uL (4.00-5.40); WHITE BLOOD COUNT 4.5 10^3/uL (4.0-10.0)
[2022-03-13 06:41] LABS: BLOOD UREA NITROGEN 12 MG/DL (9-23); CALCIUM LEVEL 8.3 MG/DL (8.5-10.1); CARBON DIOXIDE LEVEL 28 MMOL/L (20-31); CHLORIDE LEVEL 105 MMOL/L (98-107); CREATININE FOR GFR 0.65 MG/DL (0.55-1.30); GLOMERULAR FILTRATION RATE > 60.0 (>58); GLUCOSE, FASTING 123 MG/DL (60-100); POTASSIUM SERUM 4.5 MMOL/L (3.5-5.1); SODIUM LEVEL 140 MMOL/L (136-145)
[2022-03-13] MEDS: CYCLOBENZAPRINE 10MG TABLET PO SCH (08:38)
[2022-03-13] MEDS: FAMOTIDINE 20 MG TAB PO SCH (08:38)
[2022-03-13] MEDS: LACTOBACILLUS ACIDOPHILUS CAP (BACID) PO SCH (08:38)
[2022-03-13] MEDS: MIDODRINE 2.5 MG TAB PO SCH (08:38)
[2022-03-13] MEDS: OMEPRAZOLE 20MG CAP PO SCH (08:39)
[2022-03-13] MEDS: hydrOXYzine 50 MG TAB PO SCH (08:39)
[2022-03-13] MEDS: ONDANSETRON 4MG TAB PO SCH (08:39)
[2022-03-13] MEDS: ENOXAPARIN 40MG/0.4ML SYRINGE (J1650 PER 10MG) SC SCH (08:39)
[2022-03-13] MEDS: ESCITALOPRAM OXALATE 10 MG TAB (LEXAPRO) PO SCH (08:44)
[2022-03-13] MEDS ORDERED: DOXYCYCLINE HYCLATE 100MG TABLET PO SCH (09:00)
[2022-03-13] MEDS ORDERED: DOXY100T PO (10:21)
[2022-03-13] MEDS ORDERED: RISATAB3 PO (10:21)
[2022-03-13] MEDS ORDERED: TRAM50TA2 PO (10:23)
[2022-03-13] MEDS ORDERED: IBUP-1114 PO (10:23)
== END 2022-03-13 11:50 | disposition home or self-care (01) | DRG 813 ==
LOC: M ED 08:27 → M ED INP 12:45 → ENRESERV 03-11 08:22 → M MSPAV 03-11 09:36
PROVIDERS: ADMIT Internal Medicine; ATTEND Student in an Organized Health Care Education/Training Program
DX: L76.82 Other postprocedural complications of skin and subcutaneous tissue (principal); L03.314 Cellulitis of groin; C43.9 Malignant melanoma of skin, unspecified; L03.111 Cellulitis of right axilla; E53.8 Deficiency of other specified B group vitamins; K25.9 Gastric ulcer, unspecified as acute or chronic, without hemorrhage or perforation; D50.9 Iron deficiency anemia, unspecified; J45.909 Unspecified asthma, uncomplicated; M79.7 Fibromyalgia; M19.90 Unspecified osteoarthritis, unspecified site; Z98.84 Bariatric surgery status; E55.9 Vitamin D deficiency, unspecified; F32.A Depression, unspecified; Z79.899 Other long term (current) drug therapy; I95.1 Orthostatic hypotension

== ENCOUNTER → 2022-03-24 | Outpatient (REF) | payer OTHER ==
[~2022-03-24] MED LIST changes: +B-12100021 PO; +CYCL-707 PO; +DOXY100T PO; +FAMO40TA3 PO; +HYDR1TAB33 PO; +IBUP-1114 PO; +MIDO10TA PO; +MIDO2.5T PO; +ONDA-83 PO; +RISATAB3 PO; +TRAM50TA2 PO
[2022-03-24 14:57] LABS: BASO % 0.6 % (0.0-1.0); EOS # 0.1 10^3/uL (0.0-0.5); EOS % 2.5 % (0.0-3.0); HEMATOCRIT 33.8 % (36.0-47.0); HEMOGLOBIN 10.9 g/dl (12.0-15.5); LYMPH # 1.4 10^3/uL (1.5-5.0); LYMPH % 29.6 % (24.0-44.0); MEAN CORPUSCULAR HEMOGLOBIN 26.7 pg (27.0-33.0); MEAN CORPUSCULAR HGB CONC 32.2 g/dl (32.0-36.5); MEAN CORPUSCULAR VOLUME 82.6 fl (80.0-96.0); MONO # 0.3 10^3/uL (0.0-0.8); NEUTROPHILS # 2.9 10^3/uL (1.5-8.5); NEUTROPHILS % 60.1 % (36.0-66.0); PLATELET COUNT, AUTOMATED 236 10^3/uL (150-450); RED BLOOD COUNT 4.09 10^6/uL (4.00-5.40); WHITE BLOOD COUNT 4.8 10^3/uL (4.0-10.0)
== END ==
LOC: M LAB REF 14:30
PROVIDERS: ATTEND Physician Assistant
DX: L03.115 Cellulitis of right lower limb (principal)

== ENCOUNTER → 2022-04-03 | Outpatient (CLI) | payer OTHER | LOC: M LABSMTC 09:08 | PROVIDERS: ATTEND Anesthesiology | DX: Z01.812 Encounter for preprocedural laboratory examination (principal); Z20.822 Contact with and (suspected) exposure to COVID-19 ==

== ENCOUNTER → 2022-04-07 | Outpatient (CLI) | payer OTHER ==
[~2022-04-07] MED LIST changes: +LIDOCAINE 1% MDV 20ML VIAL As Ordered ONE; +MIDAZOLAM INJ 2MG/2ML VIAL As Ordered ONE; +NS 1,000 ML IV SCH; +ceFAZolin 2 GM/D5W 50 ML IV BAG As Ordered ONE; +ceFAZolin SOD 2 GM in IV 1 EA IV ONE; +diphenhydrAMINE 50MG/ML VIAL As Ordered ONE; +fentaNYL 100 MCG/2 ML INJECTION As Ordered ONE
[2022-04-07 13:00] VITALS: BP 111/63
== END ==
LOC: M IRPRO 08:43
PROVIDERS: ATTEND Internal Medicine Hematology & Oncology
DX: C43.9 Malignant melanoma of skin, unspecified (principal); D50.9 Iron deficiency anemia, unspecified; Z98.84 Bariatric surgery status
CPT/HCPCS: 36561; 99152; 99153; C1769; C1788; C1894; J0690; J1200; J1642; J1644; J2250; J3010

== ENCOUNTER → 2022-04-22 | Outpatient (POV) | payer OTHER ==
[~2022-04-22] VITALS: Ht 162.6 cm; Wt 85.0 kg
[~2022-04-22] MED LIST changes: -LIDOCAINE 1% MDV 20ML VIAL As Ordered ONE; -MIDAZOLAM INJ 2MG/2ML VIAL As Ordered ONE; -NS 1,000 ML IV SCH; -ceFAZolin 2 GM/D5W 50 ML IV BAG As Ordered ONE; -ceFAZolin SOD 2 GM in IV 1 EA IV ONE; -diphenhydrAMINE 50MG/ML VIAL As Ordered ONE; -fentaNYL 100 MCG/2 ML INJECTION As Ordered ONE
[2022-04-22 09:15] VITALS: BP 127/76
== END ==
LOC: M IRPOV 08:38
PROVIDERS: ATTEND Radiology Diagnostic Radiology
DX: Z45.2 Encounter for adjustment and management of vascular access device (principal)

== ENCOUNTER → 2022-05-06 | Outpatient (CLI) | payer OTHER ==
[~2022-05-06] MED LIST changes: +GASTROGRAFIN SOLUTION 30ML As Ordered ONE; +ISOVUE-370 76% 100ML VIAL As Ordered ONE
== END ==
LOC: M RAD 11:43
PROVIDERS: ATTEND Specialist
DX: C43.9 Malignant melanoma of skin, unspecified (principal); Z98.84 Bariatric surgery status; K76.89 Other specified diseases of liver; R59.0 Localized enlarged lymph nodes; E04.2 Nontoxic multinodular goiter

== ENCOUNTER → 2022-05-08 | Outpatient (CLI) | payer OTHER ==
[~2022-05-08] MED LIST changes: -GASTROGRAFIN SOLUTION 30ML As Ordered ONE; -ISOVUE-370 76% 100ML VIAL As Ordered ONE; +LIDOCAINE 1% MDV 20ML VIAL As Ordered ONE
[2022-05-08 12:32] VITALS: BP 121/75
== END ==
LOC: M IRPRO 12:13
DX: C77.4 Secondary and unspecified malignant neoplasm of inguinal and lower limb lymph nodes (principal); C43.71 Malignant melanoma of right lower limb, including hip

== ENCOUNTER → 2022-05-12 | Outpatient (CLI) | payer OTHER ==
[~2022-05-12] MED LIST changes: +ACET-716 PO; -LIDOCAINE 1% MDV 20ML VIAL As Ordered ONE
== END ==
LOC: M PLARAD 10:05
PROVIDERS: ATTEND Internal Medicine Hematology & Oncology
DX: C43.71 Malignant melanoma of right lower limb, including hip (principal); Z95.828 Presence of other vascular implants and grafts; Z98.84 Bariatric surgery status; I70.0 Atherosclerosis of aorta; E07.9 Disorder of thyroid, unspecified
CPT/HCPCS: 78816; A9552

== ENCOUNTER → 2022-05-21 | Outpatient (REF) | LOC: M PLAIMG 11:41 | PROVIDERS: ATTEND Internal Medicine | DX: R52 Pain, unspecified (principal) ==

== ENCOUNTER 2022-06-04 13:28 | Day surgery (SDC) | payer OTHER ==
[~2022-06-04] VITALS: Ht 162.6 cm; Wt 83.0 kg
[~2022-06-04 13:28] MED LIST changes: +KEYT1INJ IV
[2022-06-04] MEDS ORDERED: LR 1,000 ML IV SCH ×2 (13:40→16:30)
[2022-06-04] MEDS ORDERED: ACETAMINOPHEN 1000MG 100ML IV BAG As Ordered ONE (14:08)
[2022-06-04] MEDS ORDERED: ONDANSETRON 4MG 2ML VIAL As Ordered ONE (14:09)
[2022-06-04] MEDS ORDERED: MIDAZOLAM INJ 2MG/2ML VIAL As Ordered ONE (14:09)
[2022-06-04] MEDS ORDERED: fentaNYL 100 MCG/2 ML INJECTION As Ordered ONE (14:09)
[2022-06-04] MEDS ORDERED: ROCURONIUM BROMIDE 50MG/5ML VIAL As Ordered ONE (14:10)
[2022-06-04] MEDS ORDERED: propofoL 200 MG/20 ML VIAL As Ordered ONE ×2 (14:10→16:10)
[2022-06-04] MEDS ORDERED: KETOROLAC 60MG 2ML VIAL As Ordered ONE (14:10)
[2022-06-04] MEDS ORDERED: SUGAMMADEX SODIUM 500 MG/5 ML VIAL (BRIDION) As Ordered ONE (14:10)
[2022-06-04] MEDS ORDERED: LIDOCAINE 2% 100MG/5ML SDV (FOR ANES.) As Ordered ONE (14:10)
[2022-06-04] MEDS ORDERED: CETACAINE SPRAY 5GM As Ordered ONE (14:19)
[2022-06-04] MEDS ORDERED: THROMBIN 5,000 UNITS VIAL As Ordered ONE (14:20)
[2022-06-04] MEDS ORDERED: EPINEPHrine 1MG/10ML SYRINGE 1.5IN As Ordered ONE (14:20)
[2022-06-04] MEDS ORDERED: fentaNYL 100 MCG/2 ML INJECTION IV PRN (16:30)
[2022-06-04] MEDS ORDERED: oxyCODONE 5MG TAB PO PRN (16:30)
[2022-06-04] MEDS ORDERED: ONDANSETRON 4MG 2ML VIAL IV PRN (16:30)
[2022-06-04] MEDS ORDERED: HYDROMORPHONE HCL 0.5 MG/ 0.5 ML SYRINGE IV PRN (16:30)
[2022-06-04 17:07] VITALS: BP 129/82
== END 2022-06-04 17:24 | disposition home or self-care (01) ==
LOC: M SDC 13:28
PROVIDERS: ATTEND Internal Medicine Pulmonary Disease
DX: R59.0 Localized enlarged lymph nodes (principal); D86.2 Sarcoidosis of lung with sarcoidosis of lymph nodes; I10 Essential (primary) hypertension; K58.8 Other irritable bowel syndrome; K21.9 Gastro-esophageal reflux disease without esophagitis; J45.909 Unspecified asthma, uncomplicated; D64.9 Anemia, unspecified; F41.9 Anxiety disorder, unspecified; F32.A Depression, unspecified; G47.33 Obstructive sleep apnea (adult) (pediatric); Z91.041 Radiographic dye allergy status; Z79.899 Other long term (current) drug therapy; Z79.51 Long term (current) use of inhaled steroids; Z79.69 Long term (current) use of other immunomodulators and immunosuppressants; C43.71 Malignant melanoma of right lower limb, including hip
CPT/HCPCS: 31629; 31654; 71045; 88173; 88305; J0131; J1100; J1885; J2250; J2405; J3010

== ENCOUNTER 2022-07-21 20:46 | Inpatient (IN) | payer MEDICAID, OTHER ==
[~2022-07-21] VITALS: Ht 165.1 cm; Wt 82.0 kg
[~2022-07-21 20:46] MED LIST changes: +PRED20TA PO
[2022-07-21] MEDS ORDERED: methylPREDNISolone 125MG 2ML VIAL IV ONE (21:20)
[2022-07-21] MEDS ORDERED: diphenhydrAMINE 50MG/ML VIAL IV ONE (21:20)
[2022-07-21] MEDS ORDERED: PROMETHAZINE 25MG/ML 1ML VIAL IV ONE (21:20)
[2022-07-21 21:24] LABS: BASO # 0.1 10^3/uL (0.0-0.2); BASO % 0.6 % (0.0-1.0); EOS # 0.1 10^3/uL (0.0-0.5); HEMATOCRIT 38.9 % (36.0-47.0); HEMOGLOBIN 12.9 g/dl (12.0-15.5); LYMPH # 1.2 10^3/uL (1.5-5.0); LYMPH % 15.1 % (24.0-44.0); MEAN CORPUSCULAR HEMOGLOBIN 26.7 pg (27.0-33.0); MEAN CORPUSCULAR HGB CONC 33.2 g/dl (32.0-36.5); MEAN CORPUSCULAR VOLUME 80.5 fl (80.0-96.0); MONO # 0.4 10^3/uL (0.0-0.8); NEUTROPHILS # 6.2 10^3/uL (1.5-8.5); NEUTROPHILS % 77.8 % (36.0-66.0); PLATELET COUNT, AUTOMATED 247 10^3/uL (150-450); RED BLOOD COUNT 4.83 10^6/uL (4.00-5.40)
[2022-07-21] MEDS: MORPHINE 4 MG/ML 1ML VIAL IV PRN ×2 (21:36→22:07)
[2022-07-21 21:37] LABS: LIPASE 26 U/L (12-53)
[2022-07-21 21:39] LABS: ALBUMIN 4.6 G/DL (3.2-5.2); ALKALINE PHOSPHATASE 141 U/L (46-116); ALT/SGPT 39 U/L (7.0-40); AST/SGOT 37 U/L (<34); BILIRUBIN,DIRECT 0.3 MG/DL (<0.4); BILIRUBIN,TOTAL 1.3 MG/DL (0.3-1.2); TOTAL PROTEIN 7.4 G/DL (5.7-8.2)
[2022-07-21 21:53] LABS: RSV AMPLIFICATION NEGATIVE (NEGATIVE)
[2022-07-21 22:21] LABS: BLOOD UREA NITROGEN 17 MG/DL (9-23); CALCIUM LEVEL 9.6 MG/DL (8.5-10.1); CARBON DIOXIDE LEVEL 21 MMOL/L (20-31); CHLORIDE LEVEL 103 MMOL/L (98-107); CREATININE FOR GFR 0.72 MG/DL (0.55-1.30); GLOMERULAR FILTRATION RATE > 60.0 (>58); GLUCOSE, FASTING 211 MG/DL (60-100); POTASSIUM SERUM 4.1 MMOL/L (3.5-5.1); SODIUM LEVEL 139 MMOL/L (136-145)
[2022-07-21] MEDS ORDERED: ISOVUE-370 76% 100ML VIAL As Ordered ONE (22:26)
[2022-07-21] MEDS ORDERED: MORPHINE 4 MG/ML 1ML VIAL IV PRN (23:25)
[2022-07-22] VITALS (11 sets, daily range): BP systolic 106–137; BP diastolic 65–87
[2022-07-22] MEDS ORDERED: ROCURONIUM BROMIDE 50MG/5ML VIAL As Ordered ONE (00:25)
[2022-07-22] MEDS ORDERED: SUCCINYLCHOLINE 100MG/5ML SYRINGE As Ordered ONE (00:25)
[2022-07-22] MEDS ORDERED: LIDOCAINE 2% 100MG/5ML SDV (FOR ANES.) As Ordered ONE (00:25)
[2022-07-22] MEDS ORDERED: KETOROLAC 60MG 2ML VIAL As Ordered ONE (00:25)
[2022-07-22] MEDS ORDERED: ONDANSETRON 4MG 2ML VIAL As Ordered ONE (00:25)
[2022-07-22] MEDS ORDERED: propofoL 200 MG/20 ML VIAL As Ordered ONE (00:25)
[2022-07-22] MEDS ORDERED: MIDAZOLAM INJ 2MG/2ML VIAL As Ordered ONE (00:25)
[2022-07-22] MEDS ORDERED: fentaNYL 100 MCG/2 ML INJECTION As Ordered ONE (00:25)
[2022-07-22] MEDS ORDERED: SUGAMMADEX SODIUM 500 MG/5 ML VIAL (BRIDION) As Ordered ONE (00:25)
[2022-07-22] MEDS ORDERED: BUPIVACAINE/EPIN 0.25% 30ML VIAL As Ordered ONE (00:30)
[2022-07-22] MEDS ORDERED: LR 1,000 ML IV SCH (00:40)
[2022-07-22] MEDS ORDERED: ONDANSETRON 4MG 2ML VIAL IV PRN ×2 (00:40→00:55)
[2022-07-22] MEDS ORDERED: HYDROMORPHONE HCL 0.5 MG/ 0.5 ML SYRINGE IV PRN (00:40)
[2022-07-22] MEDS ORDERED: oxyCODONE 5MG TAB PO PRN (00:40)
[2022-07-22] MEDS ORDERED: fentaNYL 100 MCG/2 ML INJECTION IV PRN (00:40)
[2022-07-22] MEDS ORDERED: CLINDAMYCIN 900MG/50ML PREMIX BAG As Ordered ONE (00:41)
[2022-07-22] MEDS ORDERED: MORPHINE 2 MG/ML 1ML VIAL IV PRN ×2 (00:55)
[2022-07-22] MEDS ORDERED: ALBU8.5H INH (01:03)
[2022-07-22] MEDS ORDERED: HOME MED LIST COMPLETE! XX SCH (01:05)
[2022-07-22] MEDS ORDERED: HYDROmorphone HCL 2MG/ML 1ML VIAL As Ordered ONE (01:27)
[2022-07-22] MEDS: NS 1,000 ML IV SCH ×3 (03:29→18:04)
[2022-07-22] MEDS: MORPHINE 2 MG/ML 1ML VIAL IV PRN ×5 (06:02→22:17)
[2022-07-22] MEDS: PANTOPRAZOLE 40MG VIAL IV SCH (08:16)
[2022-07-22] MEDS: ENOXAPARIN 30MG/0.3ML SYRINGE (J1650 PER 10MG) SC SCH (08:16)
[2022-07-22] MEDS: KETOROLAC 30 MG/ML 1ML VIAL IV PRN (08:17)
[2022-07-23] MEDS: NS 1,000 ML IV SCH ×2 (01:07→08:32)
[2022-07-23] MEDS: KETOROLAC 30 MG/ML 1ML VIAL IV PRN ×3 (02:17→21:45)
[2022-07-23 06:15] VITALS: BP 138/79
[2022-07-23] MEDS: MORPHINE 2 MG/ML 1ML VIAL IV PRN (06:19)
[2022-07-23 07:03] LABS: HEMATOCRIT 30.2 % (36.0-47.0); MEAN CORPUSCULAR HEMOGLOBIN 27.3 pg (27.0-33.0); MEAN CORPUSCULAR HGB CONC 32.8 g/dl (32.0-36.5); MEAN CORPUSCULAR VOLUME 83.4 fl (80.0-96.0); PLATELET COUNT, AUTOMATED 168 10^3/uL (150-450); RED BLOOD COUNT 3.62 10^6/uL (4.00-5.40); WHITE BLOOD COUNT 6.8 10^3/uL (4.0-10.0)
[2022-07-23 07:07] LABS: HEMOGLOBIN 9.9 g/dl (12.0-15.5)
[2022-07-23 07:29] LABS: BLOOD UREA NITROGEN 14 MG/DL (9-23); CALCIUM LEVEL 7.5 MG/DL (8.5-10.1); CARBON DIOXIDE LEVEL 27 MMOL/L (20-31); CHLORIDE LEVEL 110 MMOL/L (98-107); CREATININE FOR GFR 0.69 MG/DL (0.55-1.30); GLOMERULAR FILTRATION RATE > 60.0 (>58); GLUCOSE, FASTING 80 MG/DL (60-100); POTASSIUM SERUM 4.6 MMOL/L (3.5-5.1); SODIUM LEVEL 142 MMOL/L (136-145)
[2022-07-23] MEDS: PANTOPRAZOLE 40MG VIAL IV SCH (08:32)
[2022-07-23] MEDS: ENOXAPARIN 30MG/0.3ML SYRINGE (J1650 PER 10MG) SC SCH (08:32)
[2022-07-23] MEDS: ACETAMINOPHEN TAB 650MG DOSE (2X325MG) PO PRN ×2 (09:41→16:56)
[2022-07-23 14:00] VITALS: BP 116/75
[2022-07-23 16:45] VITALS: BP 110/76
[2022-07-23 20:00] VITALS: BP 108/63
[2022-07-24 06:36] LABS: HEMATOCRIT 30.9 % (36.0-47.0); HEMOGLOBIN 9.8 g/dl (12.0-15.5); MEAN CORPUSCULAR HEMOGLOBIN 26.6 pg (27.0-33.0); MEAN CORPUSCULAR HGB CONC 31.7 g/dl (32.0-36.5); MEAN CORPUSCULAR VOLUME 83.7 fl (80.0-96.0); PLATELET COUNT, AUTOMATED 160 10^3/uL (150-450); RED BLOOD COUNT 3.69 10^6/uL (4.00-5.40); WHITE BLOOD COUNT 5.5 10^3/uL (4.0-10.0)
[2022-07-24 06:44] VITALS: BP 141/83
[2022-07-24 07:07] LABS: BLOOD UREA NITROGEN 14 MG/DL (9-23); CALCIUM LEVEL 8.1 MG/DL (8.5-10.1); CARBON DIOXIDE LEVEL 26 MMOL/L (20-31); CHLORIDE LEVEL 107 MMOL/L (98-107); CREATININE FOR GFR 0.58 MG/DL (0.55-1.30); GLOMERULAR FILTRATION RATE > 60.0 (>58); GLUCOSE, FASTING 92 MG/DL (60-100); SODIUM LEVEL 140 MMOL/L (136-145)
[2022-07-24] MEDS: PANTOPRAZOLE 40MG VIAL IV SCH (09:59)
[2022-07-24] MEDS: ENOXAPARIN 30MG/0.3ML SYRINGE (J1650 PER 10MG) SC SCH (09:59)
[2022-07-24] MEDS: ACETAMINOPHEN TAB 650MG DOSE (2X325MG) PO PRN (10:00)
== END 2022-07-24 11:15 | disposition home or self-care (01) | DRG 224 ==
LOC: EDBD 20:46 → M ED 20:46 → M SDC 07-22 00:07 → M ED INP 07-22 00:51 → M MS4PR 07-22 02:55 → M MS5PR 07-23 16:30
PROVIDERS: ADMIT Surgery; ATTEND Surgery
PROC: 0DN84ZZ Release Small Intestine, Percutaneous Endoscopic Approach (ICD-10-PCS; principal; 2022-07-22)
DX: K56.2 Volvulus (principal); E87.20 Acidosis, unspecified; K56.50 Intestinal adhesions [bands], unspecified as to partial versus complete obstruction; Z91.041 Radiographic dye allergy status; Z88.8 Allergy status to other drugs, medicaments and biological substances; Z79.899 Other long term (current) drug therapy; D50.9 Iron deficiency anemia, unspecified; J45.909 Unspecified asthma, uncomplicated; M79.7 Fibromyalgia; M19.90 Unspecified osteoarthritis, unspecified site

== ENCOUNTER → 2022-11-05 | Outpatient (CLI) | payer OTHER ==
[~2022-11-05] MED LIST changes: +LEVO25TA5 PO; +PERC5TAB12 PO
== END ==
LOC: M RAD 09:05
PROVIDERS: ATTEND Specialist
DX: C43.9 Malignant melanoma of skin, unspecified (principal); R19.03 Right lower quadrant abdominal swelling, mass and lump; Z98.890 Other specified postprocedural states

== ENCOUNTER 2022-11-30 10:39 | Emergency (ER) | payer OTHER ==
[~2022-11-30] VITALS: Ht 162.6 cm; Wt 83.3 kg
[2022-11-30 10:40] VITALS: BP 126/76; TEMP 99.7; O2SAT 98
== END 2022-11-30 14:00 | disposition left against medical advice (07) ==
LOC: M ED 10:39
DX: Z53.21 Procedure and treatment not carried out due to patient leaving prior to being seen by health care provider (principal)

== ENCOUNTER → 2022-12-24 | Outpatient (CLI) | payer OTHER ==
[~2022-12-24] MED LIST changes: +LEVO1TAB40 PO; +LIDOCAINE 1% MDV 20ML VIAL As Ordered ONE; +PRED10TA2 PO
[2022-12-24 08:24] VITALS: TEMP 98.2
[2022-12-24 08:55] VITALS: BP 145/79; O2SAT 97
== END ==
LOC: M IRPRO 08:03
PROVIDERS: ATTEND Specialist
DX: D50.9 Iron deficiency anemia, unspecified (principal)

== ENCOUNTER → 2023-01-12 | Outpatient (CLI) | payer MEDICARE, OTHER ==
[~2023-01-12] MED LIST changes: -LIDOCAINE 1% MDV 20ML VIAL As Ordered ONE
== END ==
LOC: M PLARAD 12:28
PROVIDERS: ATTEND Nurse Practitioner
DX: C43.71 Malignant melanoma of right lower limb, including hip (principal)
CPT/HCPCS: 78816; A9552

== ENCOUNTER → 2023-06-24 | Outpatient (CLI) | payer OTHER ==
[~2023-06-24] MED LIST changes: +BENZ150C5 PO; +BRAF75CA PO; +CORT10TA PO; +HYDR-3715 PO; +LEVO1TAB39 PO; +MEKT15TA PO; +ONDA8TAB8 PO
== END ==
LOC: M RAD 12:56
PROVIDERS: ATTEND Internal Medicine Hematology & Oncology
DX: C43.9 Malignant melanoma of skin, unspecified (principal); Z53.9 Procedure and treatment not carried out, unspecified reason

== ENCOUNTER → 2023-07-09 | Outpatient (CLI) | payer OTHER ==
[~2023-07-09] MED LIST changes: +LEVO50TA5 PO
== END ==
LOC: M RAD 13:54
PROVIDERS: ATTEND Internal Medicine Hematology & Oncology
DX: C43.9 Malignant melanoma of skin, unspecified (principal); R19.09 Other intra-abdominal and pelvic swelling, mass and lump

== ENCOUNTER → 2023-07-22 | Outpatient (CLI) | payer OTHER | LOC: M RAD 09:21 | PROVIDERS: ATTEND Internal Medicine Hematology & Oncology | DX: C43.9 Malignant melanoma of skin, unspecified (principal) | CPT/HCPCS: 78306; A9503 ==

== ENCOUNTER → 2023-08-31 | Outpatient (CLI) | payer OTHER ==
[~2023-08-31] MED LIST changes: +AZIT-12 PO; +CHOL1250 PO; +ONDA-284 PO; -ONDA8TAB8 PO
[2023-08-31 10:53] LABS: HEMATOCRIT 39.6 % (36.0-47.0); HEMOGLOBIN 13.4 g/dl (12.0-15.5); MEAN CORPUSCULAR HEMOGLOBIN 28.9 pg (27.0-33.0); MEAN CORPUSCULAR HGB CONC 33.8 g/dl (32.0-36.5); MEAN CORPUSCULAR VOLUME 85.3 fl (80.0-96.0); PLATELET COUNT, AUTOMATED 240 10^3/uL (150-450); RED BLOOD COUNT 4.64 10^6/uL (4.00-5.40); WHITE BLOOD COUNT 5.3 10^3/uL (4.0-10.0)
[2023-08-31 11:04] LABS: ERYTHROCYTE SEDIMENTATION RATE 11 mm/hr (0-20)
[2023-08-31 11:06] LABS: PROTHROMBIN TIME 12.9 SECONDS (12.5-14.5)
[2023-08-31 11:32] LABS: ALKALINE PHOSPHATASE 150 U/L (46-116); ALT/SGPT 32 U/L (7.0-40); AST/SGOT 26 U/L (<34); BILIRUBIN,TOTAL 1.3 MG/DL (0.3-1.2); BLOOD UREA NITROGEN 13 MG/DL (9-23); CARBON DIOXIDE LEVEL 28 MMOL/L (20-31); CHLORIDE LEVEL 111 MMOL/L (98-107); CREATININE FOR GFR 0.64 MG/DL (0.55-1.30); GLOMERULAR FILTRATION RATE > 60.0 (>58); GLUCOSE, FASTING 80 MG/DL (60-100); POTASSIUM SERUM 4.6 MMOL/L (3.5-5.1); SODIUM LEVEL 141 MMOL/L (136-145); TOTAL PROTEIN 6.6 G/DL (5.7-8.2)
== END ==
LOC: M RAD 09:41
PROVIDERS: ATTEND Orthopaedic Surgery
DX: Z01.818 Encounter for other preprocedural examination (principal); M17.12 Unilateral primary osteoarthritis, left knee

== ENCOUNTER → 2023-10-08 | Outpatient (CLI) | payer OTHER | LOC: M RAD 16:46 | PROVIDERS: ATTEND Internal Medicine Hematology & Oncology | DX: C43.71 Malignant melanoma of right lower limb, including hip (principal) ==

== ENCOUNTER → 2024-01-05 | Outpatient (CLI) | payer OTHER ==
[~2024-01-05] MED LIST changes: +GABA-1172; +GABA-1172 PO; -GABA-282; -GABA-282 PO; -KEYT1INJ IV; -MIDO10TA PO; +MIDO10TA3 PO; -MIDO2.5T PO; +MIDO2.5T3 PO; +PEMB100V2 IV; +READI-CAT 2 ONE
== END ==
LOC: M PLAIMG 08:37
PROVIDERS: ATTEND Internal Medicine Medical Oncology
DX: C43.9 Malignant melanoma of skin, unspecified (principal); Z98.84 Bariatric surgery status

== ENCOUNTER → 2024-01-13 | Outpatient (CLI) | payer OTHER ==
[~2024-01-13] MED LIST changes: +PROHANCE 279.3MG/ML 15ML VIAL As Ordered ONE; +PROHANCE 279.3MG/ML 5ML VIAL As Ordered ONE; -READI-CAT 2 ONE
== END ==
LOC: M RAD 06:46
PROVIDERS: ATTEND Internal Medicine Medical Oncology
DX: C43.9 Malignant melanoma of skin, unspecified (principal); R51.9 Headache, unspecified; J32.4 Chronic pansinusitis
CPT/HCPCS: 70553; A9576

== ENCOUNTER → 2024-02-04 | Outpatient (REF) | payer OTHER ==
[~2024-02-04] MED LIST changes: -PROHANCE 279.3MG/ML 15ML VIAL As Ordered ONE; -PROHANCE 279.3MG/ML 5ML VIAL As Ordered ONE
[2024-02-04 11:16] LABS: HEMOGLOBIN A1c 5.4 % (4.0-6.0)
[2024-02-04 11:22] LABS: FREE T4 0.68 NG/DL (0.89-1.76); THYROID STIMULATING HORMONE 11.477 uIU/ML (0.55-4.78)
[2024-02-04 11:23] LABS: FOLATE 12.2 NG/ML (>5.4); VITAMIN B12 LEVEL 413 PG/ML (211-911)
[2024-02-04 11:55] LABS: RHEUMATOID FACTOR QUANT < 3.5 IU/ML (<14)
[2024-02-05 07:48] LABS: PROTEIN, TOTAL SO 6.8 g/dL (6.1-8.1)
[2024-02-05 16:40] LABS: ANA SCREEN, IFA NEGATIVE (NEGATIVE)
[2024-02-08 14:26] LABS: ALBUMIN SO 4.2 g/dL (3.8-4.8); ALPHA 1 GLOBULINS SO 0.3 g/dL (0.2-0.3); ALPHA 2 GLOBULINS SO 0.7 g/dL (0.5-0.9); BETA 2 GLOBULIN SO 0.3 g/dL (0.2-0.5); BETA GLOBULIN SO 0.4 g/dL (0.4-0.6); GAMMA GLOBULINS SO 0.9 g/dL (0.8-1.7)
[2024-02-09 19:12] LABS: VITAMIN E(GAMMA TOCOPHEROL) 1.1 mg/L (<=4.3)
[2024-02-11 08:07] LABS: VITAMIN B6,PYRIDOXAL PHOSPHATE 3.3 ng/mL (2.1-21.7)
[2024-02-11 08:27] LABS: VITAMIN B1 LEVEL WHOLE BLOOD 116 nmol/L (78-185)
== END ==
LOC: M LAB REF 10:18
PROVIDERS: ATTEND Psychiatry & Neurology Neurology
DX: E53.9 Vitamin B deficiency, unspecified (principal); E07.9 Disorder of thyroid, unspecified; G62.9 Polyneuropathy, unspecified; R20.2 Paresthesia of skin

== ENCOUNTER → 2024-04-04 | Outpatient (CLI) | payer OTHER | LOC: M RAD 09:03 | PROVIDERS: ATTEND Internal Medicine Hematology & Oncology | DX: C43.71 Malignant melanoma of right lower limb, including hip (principal); J01.40 Acute pansinusitis, unspecified; J98.11 Atelectasis ==

== ENCOUNTER → 2024-05-06 | Outpatient (CLI) | payer OTHER | LOC: M RAD 16:46 | PROVIDERS: ATTEND Physician Assistant | DX: J32.4 Chronic pansinusitis (principal) ==

== ENCOUNTER 2024-08-29 10:15 | Day surgery (SDC) | payer OTHER ==
[~2024-08-29] VITALS: Ht 162.6 cm; Wt 92.8 kg
[~2024-08-29 10:15] MED LIST changes: -PREG50CA PO; +PREG50CA87 PO
[2024-08-29] MEDS ORDERED: LR 1,000 ML IV SCH (13:05)
[2024-08-29] MEDS ORDERED: ROCURONIUM BROMIDE 50MG/5ML VIAL As Ordered ONE (14:44)
[2024-08-29] MEDS ORDERED: LIDOCAINE 2% 100 MG/5 ML SDV (FOR ANES.) As Ordered ONE (14:44)
[2024-08-29] MEDS ORDERED: MIDAZOLAM INJ 2 MG/2 ML VIAL As Ordered ONE (14:45)
[2024-08-29] MEDS ORDERED: ACETAMINOPHEN 1000MG/100ML IV BAG As Ordered ONE (15:31)
[2024-08-29] MEDS ORDERED: ONDANSETRON 4MG 2ML VIAL As Ordered ONE (15:41)
[2024-08-29] MEDS ORDERED: KETOROLAC 30 MG/ML 1 ML VIAL As Ordered ONE (15:41)
[2024-08-29] MEDS ORDERED: dexAMETHasone 4 MG/ML 1 ML VIAL As Ordered ONE (15:42)
[2024-08-29] MEDS ORDERED: SUGAMMADEX SODIUM 500 MG/5 ML VIAL As Ordered ONE (15:42)
[2024-08-29] MEDS ORDERED: LABETALOL 100 MG/20 ML VIAL As Ordered ONE (15:44)
[2024-08-29] MEDS ORDERED: DESFLURANE 240 ML INHALANT As Ordered ONE (15:53)
[2024-08-29] MEDS: COCAINE 4% 4 ML NASAL SOLUTION BTL As Ordered ONE (15:59)
[2024-08-29] MEDS: OXYMETAZOLINE 0.05% NASAL SPRAY As Ordered ONE (16:00)
[2024-08-29] MEDS: LIDOCAINE W/EPINEPHrine 1% 20 ML VIAL As Ordered ONE (16:25)
[2024-08-29] MEDS ORDERED: REMIFENTANIL 1MG VIAL As Ordered ONE (16:55)
[2024-08-29] MEDS: MORPHINE 2 MG/ML 1 ML VIAL IV PRN (18:32)
[2024-08-29] MEDS: ONDANSETRON 4MG 2ML VIAL IV PRN (18:33)
[2024-08-29 20:20] VITALS: BP 118/71; TEMP 97; O2SAT 94
== END 2024-08-29 20:56 | disposition home or self-care (01) ==
LOC: M SDC 10:15
PROVIDERS: ATTEND Otolaryngology
DX: J32.4 Chronic pansinusitis (principal); J34.3 Hypertrophy of nasal turbinates; J34.2 Deviated nasal septum; I10 Essential (primary) hypertension; E03.9 Hypothyroidism, unspecified; E04.1 Nontoxic single thyroid nodule; G47.33 Obstructive sleep apnea (adult) (pediatric); K21.9 Gastro-esophageal reflux disease without esophagitis; F41.9 Anxiety disorder, unspecified; Z79.890 Hormone replacement therapy; Z79.899 Other long term (current) drug therapy; Z79.624 Long term (current) use of inhibitors of nucleotide synthesis; K58.9 Irritable bowel syndrome, unspecified; Z98.84 Bariatric surgery status; Z85.820 Personal history of malignant melanoma of skin; Z91.041 Radiographic dye allergy status; Z88.1 Allergy status to other antibiotic agents; Z90.89 Acquired absence of other organs
CPT/HCPCS: 30140; 30520; 31257; 31267; 31276; 88305; 93005; C9143; J0131; J1100; J1920; J2250; J2405; J3010

== ENCOUNTER → 2024-11-09 | Outpatient (CLI) | payer OTHER ==
[~2024-11-09] MED LIST changes: +AZIT-10 PO
== END ==
LOC: M RAD 10:39
DX: D03.8 Melanoma in situ of other sites (principal)

== ENCOUNTER → 2024-11-23 | Outpatient (CLI) | payer OTHER ==
[~2024-11-23] VITALS: Ht 162.6 cm; Wt 90.4 kg
[~2024-11-23] MED LIST changes: +ONDA-282 PO; +OXYC-517 PO; +PROC10TA5 PO
[2024-11-23 09:06] VITALS: O2SAT 98
== END ==
LOC: M PAL 08:35
PROVIDERS: ATTEND Physician Assistant
DX: Z51.5 Encounter for palliative care (principal); Z66 Do not resuscitate; C43.9 Malignant melanoma of skin, unspecified; M79.7 Fibromyalgia; Z98.0 Intestinal bypass and anastomosis status; D50.0 Iron deficiency anemia secondary to blood loss (chronic); K86.9 Disease of pancreas, unspecified; J45.909 Unspecified asthma, uncomplicated

== ENCOUNTER → 2024-12-14 | Outpatient (CLI) | payer OTHER ==
[~2024-12-14] MED LIST changes: +DULO30CA9 PO
== END ==
LOC: M PAL 08:40
PROVIDERS: ATTEND Physician Assistant
DX: Z51.5 Encounter for palliative care (principal); Z66 Do not resuscitate; C34.90 Malignant neoplasm of unspecified part of unspecified bronchus or lung; C77.9 Secondary and unspecified malignant neoplasm of lymph node, unspecified; Z79.891 Long term (current) use of opiate analgesic; Z91.041 Radiographic dye allergy status; Z88.6 Allergy status to analgesic agent; Z79.899 Other long term (current) drug therapy

== ENCOUNTER → 2024-12-28 | Outpatient (CLI) | payer OTHER ==
[~2024-12-28] MED LIST changes: +DULO1CAP6 PO; +LIDO1ADH93 TOP
== END ==
LOC: M PAL 10:36
PROVIDERS: ATTEND Physician Assistant
DX: Z51.5 Encounter for palliative care (principal); Z66 Do not resuscitate; C43.9 Malignant melanoma of skin, unspecified; C77.3 Secondary and unspecified malignant neoplasm of axilla and upper limb lymph nodes; Z79.891 Long term (current) use of opiate analgesic; Z91.041 Radiographic dye allergy status; Z88.6 Allergy status to analgesic agent

== ENCOUNTER → 2025-01-12 | Outpatient (CLI) | payer OTHER ==
[~2025-01-12] MED LIST changes: +ADVA115A INH; +OXYC10TA12 PO
== END ==
LOC: M PAL 10:55
PROVIDERS: ATTEND Physician Assistant
DX: Z51.5 Encounter for palliative care (principal); Z66 Do not resuscitate; C43.9 Malignant melanoma of skin, unspecified; Z91.041 Radiographic dye allergy status; Z79.899 Other long term (current) drug therapy; Z79.891 Long term (current) use of opiate analgesic

== ENCOUNTER → 2025-02-06 | Outpatient (CLI) | payer OTHER | LOC: M PAL 09:40 | PROVIDERS: ATTEND Physician Assistant | DX: Z51.5 Encounter for palliative care (principal); Z66 Do not resuscitate; C43.9 Malignant melanoma of skin, unspecified; C77.9 Secondary and unspecified malignant neoplasm of lymph node, unspecified; Z79.891 Long term (current) use of opiate analgesic; Z91.041 Radiographic dye allergy status; Z88.6 Allergy status to analgesic agent; Z79.899 Other long term (current) drug therapy ==

== ENCOUNTER → 2025-02-07 | Outpatient (CLI) | payer OTHER | LOC: M RAD 16:02 | PROVIDERS: ATTEND Internal Medicine Pulmonary Disease | DX: R91.8 Other nonspecific abnormal finding of lung field (principal); R59.0 Localized enlarged lymph nodes ==